=== PATIENT | female | born 1970 | race Hispanic/Latino ===

== ENCOUNTER 2017-02-03 11:10 | Emergency (ER) | payer SELFPAY ==
[~2017-02-03 11:10] MED LIST: CARV25TA PO; ERYT-122 PO; INS7030 SQ; LISI-613 PO; MAG-37 PO; TRAM50TA4 PO; [UNRECOGNIZED DRUG - CODE] PO
[2017-04-04] MEDS ORDERED: INS7030 SQ (19:14)
== END 2017-02-03 11:32 | disposition home or self-care (01) ==
LOC: EDH 11:10
DX: J06.9 Acute upper respiratory infection, unspecified (principal); E11.9 Type 2 diabetes mellitus without complications; I10 Essential (primary) hypertension; Z88.0 Allergy status to penicillin; Z98.890 Other specified postprocedural states
CPT/HCPCS: 99281

== ENCOUNTER 2017-05-21 11:24 | Inpatient (IN) | payer OTHER ==
[~2017-05-21] VITALS: Ht 149.9 cm; Wt 56.7 kg
[~2017-05-21 11:24] MED LIST changes: -CARV25TA PO; -ERYT-122 PO; -LISI-613 PO; -MAG-37 PO; -TRAM50TA4 PO; -[UNRECOGNIZED DRUG - CODE] PO
[2017-05-21 12:01] LABS: APPEARANCE,URINE Cloudy (CLEAR); BILIRUBIN,URINE Negative (NEGATIVE); COLOR,URINE Yellow (YELLOW); GLUCOSE, URINE (UA) >=1000 mg/dL (NEGATIVE); KETONES,URINE Negative (NEGATIVE); LEUKOCYTE ESTERASE ,URINE Negative (NEGATIVE); NITRATE,URINE Negative (NEGATIVE); OCCULT BLOOD,URINE Small (NEGATIVE); PH,URINE 7.5 (5.0-8.0); PROTEIN,URINE >=1000 (NEGATIVE)
[2017-05-21 12:11] LABS: BACTERIA,URINE Rare /HPF (None Seen); RBC,URINE 0-1 /HPF (0-1); SQUAMOUS EPITHELIAL CELL,UR Few /HPF (0-2)
[2017-05-21 12:12] LABS: BASOPHILS % (AUTO) 1.3 % (0.0-5.0); EOSINOPHILS % (AUTO) 0.6 % (0.0-8.0); HEMATOCRIT 36.8 % (36-48); LYMPHOCYTES % (AUTO) 30.9 % (21.0-51.0); MEAN CORPUSCULAR HEMOGLOBIN 29.3 pg (27.0-33.0); MEAN CORPUSCULAR HGB CONC 35.4 g/dL (32.0-36.0); MEAN CORPUSCULAR VOLUME 82.8 fL (79-99); MONOCYTES % (AUTO) 7.7 % (3.0-13.0); NEUTROPHILS % (AUTO) 59.5 % (40.0-77.0); NUCLEATED RED BLOOD CELLS 0.1 % (0.0-0.19); PLATELET COUNT (AUTO) 252 K/uL (130-400); RED BLOOD CELL COUNT(AUTO) 4.45 MIL/uL (4.00-5.50); RED CELL DISTRIBUTION WIDTH 13.9 % (11.0-15.5); WHITE BLOOD COUNT (AUTO) 6.9 K/uL (4.8-10.8)
[2017-05-21] MEDS ORDERED: MORPHINE SULFATE 4 MG/1ML SYG ONE (12:14)
[2017-05-21] MEDS ORDERED: SODIUM CHLORIDE 0.9% 1000ML 1,000 ML IV ONE (12:14)
[2017-05-21] MEDS ORDERED: ONDANSETRON HCL MDV 20ML 2 MG/ML VIAL ONE (12:14)
[2017-05-21 12:26] LABS: HCG,QUAL RESULT NEGATIVE (NEGATIVE)
[2017-05-21 12:36] LABS: INR 0.89 (0.85-1.15); PROTHROMBIN TIME 9.4 SEC (9.6-11.6)
[2017-05-21 12:46] LABS: ALBUMIN 1.4 g/dL (3.5-5.0); BILIRUBIN,TOTAL 0.3 mg/dL (0.2-1.0); CREATININE 1.4 mg/dL (0.5-1.5); TOTAL PROTEIN, SERUM 6.1 g/dL (6.0-8.3)
[2017-05-21 12:49] LABS: POTASSIUM 2.7 mmol/L (3.5-5.1)
[2017-05-21] MEDS ORDERED: POTASSIUM BICARB/CIT AC 25 MEQ TABLET.EFF ONE (13:00)
[2017-05-21] MEDS ORDERED: POTASSIUM CHLORIDE 20MEQ/100ML 100 ML IV ONE (13:00)
[2017-05-21 13:22] LABS: ACETONE,BLOOD NEGATIVE (NEGATIVE)
[2017-05-21 13:25] LABS: CREATINE KINASE MB 7.4 ng/mL (0.5-3.6); CREATINE KINASE, TOTAL 226 U/L (21-232)
[2017-05-21] MEDS ORDERED: HYDROMORPHONE HCL 0.5 MG/0.5 ML ML ONE (14:54)
[2017-05-21 16:00] VITALS: BP 145/87
[2017-05-21] MEDS ORDERED: LEVOFLOXACIN 500 MG/D5W 100 ML 100 ML ONE (16:20)
[2017-05-21] MEDS: ONDANSETRON HCL MDV 20ML 2 MG/ML VIAL IVP PRN (19:09)
[2017-05-21 19:54] VITALS: BP 165/96
[2017-05-21] MEDS ORDERED: INSULIN HUMULIN R 100 UNIT/ML 3ML ONE (22:38)
[2017-05-21] MEDS: HYDROMORPHONE 1 MG/1 ML AMP IVP PRN (22:49)
[2017-05-21] MEDS ORDERED: DEXTROSE 50%-WATER 50 ML DISP.SYRIN IV PRN (23:45)
[2017-05-21] MEDS ORDERED: LIDOCAINE HCL-MPF 1% 2ML VIAL IVP PRN (23:45)
[2017-05-21] MEDS ORDERED: GLUCAGON 1MG KIT 1 MG ML IM PRN (23:45)
[2017-05-21] MEDS ORDERED: POTASSIUM CHLORIDE 20MEQ/100ML 100 ML IV PRN (23:45)
[2017-05-21] MEDS ORDERED: POTASSIUM CHLORIDE 10% ELIXIR 20 MEQ/15 ML UDCUP PO PRN (23:45)
[2017-05-21 23:53] VITALS: BP 135/77
[2017-05-22] MEDS: ONDANSETRON HCL MDV 20ML 2 MG/ML VIAL IVP PRN ×2 (03:18→16:08)
[2017-05-22] MEDS: SODIUM CHLORIDE 0.9% 1000ML 1,000 ML IV SCH ×3 (03:19→23:45)
[2017-05-22 03:57] VITALS: BP 137/68
[2017-05-22 05:53] LABS: HEMATOCRIT 33.9 % (36-48); MEAN CORPUSCULAR HEMOGLOBIN 28.7 pg (27.0-33.0); MEAN CORPUSCULAR HGB CONC 34.7 g/dL (32.0-36.0); MEAN CORPUSCULAR VOLUME 82.9 fL (79-99); PLATELET COUNT (AUTO) 246 K/uL (130-400); RED BLOOD CELL COUNT(AUTO) 4.09 MIL/uL (4.00-5.50); RED CELL DISTRIBUTION WIDTH 13.9 % (11.0-15.5); WHITE BLOOD COUNT (AUTO) 7.7 K/uL (4.8-10.8)
[2017-05-22 06:05] LABS: CREATININE 1.1 mg/dL (0.5-1.5); MAGNESIUM 1.8 mg/dL (1.80-2.40); POTASSIUM 3.3 mmol/L (3.5-5.1)
[2017-05-22] MEDS: INSULIN HUMULIN R 100 UNIT/ML 3ML SQ SCH ×4 (06:58→21:48)
[2017-05-22] MEDS ORDERED: SUCR1TAB2 PO (08:15)
[2017-05-22 08:23] VITALS: BP 137/77
[2017-05-22] MEDS: PANTOPRAZOLE 40 MG/VIAL IVP SCH (09:15)
[2017-05-22] MEDS ORDERED: GADOBENATE DIMEGLUMINE 10 ML IV ONE (09:42)
[2017-05-22 12:14] VITALS: BP 133/73
[2017-05-22] MEDS ORDERED: HYDROMORPHONE HCL 0.5 MG/0.5 ML ML ONE ×2 (13:38→13:40)
[2017-05-22 16:00] VITALS: BP 139/79
[2017-05-22] MEDS: LEVOFLOXACIN 500 MG/D5W 100 ML 100 ML IV SCH (16:07)
[2017-05-22] MEDS ORDERED: METOCLOPRAMIDE 10 MG TABLET PO SCH (16:30)
[2017-05-22] MEDS: POTASSIUM CHLORIDE 20 MEQ ERTAB PO PRN ×3 (16:39→21:50)
[2017-05-22 20:00] VITALS: BP 137/77
[2017-05-23] VITALS: BP 122/83
[2017-05-23 04:00] VITALS: BP 125/65
[2017-05-23] MEDS: SODIUM CHLORIDE 0.9% 1000ML 1,000 ML IV SCH ×2 (04:25→18:18)
[2017-05-23 05:49] LABS: HEMATOCRIT 32.5 % (36-48); MEAN CORPUSCULAR HEMOGLOBIN 29.4 pg (27.0-33.0); PLATELET COUNT (AUTO) 236 K/uL (130-400); RED BLOOD CELL COUNT(AUTO) 3.86 MIL/uL (4.00-5.50); RED CELL DISTRIBUTION WIDTH 14.2 % (11.0-15.5); WHITE BLOOD COUNT (AUTO) 6.9 K/uL (4.8-10.8)
[2017-05-23 06:02] LABS: ALBUMIN 0.8 g/dL (3.5-5.0); BILIRUBIN,TOTAL 0.1 mg/dL (0.2-1.0); CREATININE 1.1 mg/dL (0.5-1.5); POTASSIUM 3.6 mmol/L (3.5-5.1); TOTAL PROTEIN, SERUM 4.4 g/dL (6.0-8.3)
[2017-05-23 06:04] LABS: BAND NEUTROPHILS % (MANUAL) 1 % (0-2); BASOPHILS % (MANUAL) 1 % (0-2); LYMPHOCYTES % (MANUAL) 30 % (22-44); MONOCYTES % (MANUAL) 3 % (2-9); REACTIVE LYMPHOCYTES 3 % (0-0); SEGMENTED NEUTROPHILS % 62 % (40-70)
[2017-05-23 06:05] LABS: MAN.DIFF COMMENT-IMPRESSION MANUAL DIFFERENTIAL; PLATELET MORPHOLOGY COMMENT ADEQUATE
[2017-05-23] MEDS: INSULIN HUMULIN R 100 UNIT/ML 3ML SQ SCH ×4 (06:15→20:21)
[2017-05-23] MEDS ORDERED: ONDANSETRON HCL MDV 20ML 2 MG/ML VIAL IVP PRN (08:00)
[2017-05-23] MEDS: PANTOPRAZOLE 40 MG/VIAL IVP SCH (09:06)
[2017-05-23 09:56] VITALS: BP 118/57
[2017-05-23 11:00] VITALS: BP 151/83
[2017-05-23 17:55] VITALS: BP 116/72
[2017-05-23] MEDS: LEVOFLOXACIN 500 MG/D5W 100 ML 100 ML IV SCH (18:18)
[2017-05-23 20:01] VITALS: BP 129/69
[2017-05-24 00:08] VITALS: BP 105/66
[2017-05-24 04:09] LABS: HEMATOCRIT 31.4 % (36-48); MEAN CORPUSCULAR HEMOGLOBIN 28.6 pg (27.0-33.0); MEAN CORPUSCULAR HGB CONC 34.3 g/dL (32.0-36.0); MEAN CORPUSCULAR VOLUME 83.5 fL (79-99); PLATELET COUNT (AUTO) 210 K/uL (130-400); RED BLOOD CELL COUNT(AUTO) 3.76 MIL/uL (4.00-5.50); RED CELL DISTRIBUTION WIDTH 13.8 % (11.0-15.5); WHITE BLOOD COUNT (AUTO) 8.3 K/uL (4.8-10.8)
[2017-05-24 04:16] VITALS: BP 125/74
[2017-05-24 05:23] LABS: ALBUMIN 0.9 g/dL (3.5-5.0); BILIRUBIN,TOTAL 0.1 mg/dL (0.2-1.0); CREATININE 1.4 mg/dL (0.5-1.5); POTASSIUM 3.5 mmol/L (3.5-5.1); TOTAL PROTEIN, SERUM 4.4 g/dL (6.0-8.3)
[2017-05-24] MEDS: HYDROMORPHONE 1 MG/1 ML AMP IVP PRN (06:11)
[2017-05-24] MEDS: INSULIN HUMULIN R 100 UNIT/ML 3ML SQ SCH ×4 (06:19→21:00)
[2017-05-24 08:00] VITALS: BP 133/73
[2017-05-24] MEDS: SODIUM CHLORIDE 0.9% 1000ML 1,000 ML IV SCH ×2 (08:08→17:13)
[2017-05-24] MEDS: PANTOPRAZOLE 40 MG/VIAL IVP SCH (09:00)
[2017-05-24 11:00] VITALS: BP 131/79
[2017-05-24] MEDS ORDERED: HYDROMORPHONE HCL 0.5 MG/0.5 ML ML IVP PRN (14:06)
[2017-05-24 16:00] VITALS: BP 147/90
[2017-05-24] MEDS: LEVOFLOXACIN 500 MG/D5W 100 ML 100 ML IV SCH (17:13)
[2017-05-24] MEDS: PANTOPRAZOLE SODIUM 40 MG TABLET.DR PO SCH (17:13)
[2017-05-24 19:00] VITALS: BP 139/86
[2017-05-25] VITALS: BP 134/80
[2017-05-25] MEDS: SODIUM CHLORIDE 0.9% 1000ML 1,000 ML IV SCH ×2 (02:04→12:33)
[2017-05-25 04:00] VITALS: BP 128/77
[2017-05-25 04:10] LABS: BASOPHILS % (AUTO) 0.8 % (0.0-5.0); EOSINOPHILS % (AUTO) 1.8 % (0.0-8.0); HEMATOCRIT 30.1 % (36-48); LYMPHOCYTES % (AUTO) 45.2 % (21.0-51.0); MEAN CORPUSCULAR HEMOGLOBIN 29.8 pg (27.0-33.0); MEAN CORPUSCULAR HGB CONC 35.5 g/dL (32.0-36.0); MEAN CORPUSCULAR VOLUME 84.1 fL (79-99); MONOCYTES % (AUTO) 8.2 % (3.0-13.0); PLATELET COUNT (AUTO) 210 K/uL (130-400); RED BLOOD CELL COUNT(AUTO) 3.57 MIL/uL (4.00-5.50); WHITE BLOOD COUNT (AUTO) 7.7 K/uL (4.8-10.8)
[2017-05-25 04:21] LABS: ALBUMIN 0.9 g/dL (3.5-5.0); BILIRUBIN,TOTAL 0.1 mg/dL (0.2-1.0); CREATININE 1.1 mg/dL (0.5-1.5); POTASSIUM 3.4 mmol/L (3.5-5.1); TOTAL PROTEIN, SERUM 4.3 g/dL (6.0-8.3)
[2017-05-25] MEDS: INSULIN HUMULIN R 100 UNIT/ML 3ML SQ SCH ×3 (07:30→16:30)
[2017-05-25] MEDS: PANTOPRAZOLE SODIUM 40 MG TABLET.DR PO SCH (07:30)
[2017-05-25 08:00] VITALS: BP 157/82
[2017-05-25] MEDS ORDERED: PANTOPRAZOLE SODIUM 40 MG TABLET.DR PO SCH (09:00)
[2017-05-25 11:00] VITALS: BP 153/78
[2017-05-25 16:00] VITALS: BP 157/92
[2017-05-25] MEDS: LEVOFLOXACIN 500 MG/D5W 100 ML 100 ML IV SCH (16:00)
== END 2017-05-25 16:48 | disposition home or self-care (01) | DRG 73 ==
LOC: EDH 11:24 → EDHIP 11:25 → 3BH 17:10
PROVIDERS: ADMIT Internal Medicine; ATTEND Internal Medicine
DX: E11.43 Type 2 diabetes mellitus with diabetic autonomic (poly)neuropathy (principal); K85.90 Acute pancreatitis without necrosis or infection, unspecified; K31.84 Gastroparesis; E11.65 Type 2 diabetes mellitus with hyperglycemia; E11.9 Type 2 diabetes mellitus without complications; E87.6 Hypokalemia; E78.2 Mixed hyperlipidemia; Z88.8 Allergy status to other drugs, medicaments and biological substances; Z88.0 Allergy status to penicillin
CPT/HCPCS: 36415; 71045; 72197; 74183; 80048; 80053; 81001; 81025; 82009; 82150; 82550; 82553; 82948; 83690; 83735; 83880; 84132; 84484; 85025; 85027; 85610; 85730; 93005; A9577; C9113; J1170; J1815; J1956; J2270; J3480; J3490; J7030

== ENCOUNTER 2017-06-27 17:04 | Emergency (ER) | payer SELFPAY ==
[~2017-06-27 17:04] MED LIST changes: +SUCR1TAB2 PO
[2017-06-27 17:37] LABS: BASOPHILS % (AUTO) 1.1 % (0.0-5.0); EOSINOPHILS % (AUTO) 0.7 % (0.0-8.0); HEMATOCRIT 34.1 % (36-48); LYMPHOCYTES % (AUTO) 28.4 % (21.0-51.0); MEAN CORPUSCULAR HEMOGLOBIN 29.6 pg (27.0-33.0); MEAN CORPUSCULAR HGB CONC 35.4 g/dL (32.0-36.0); MEAN CORPUSCULAR VOLUME 83.8 fL (79-99); MONOCYTES % (AUTO) 8.3 % (3.0-13.0); NEUTROPHILS % (AUTO) 61.5 % (40.0-77.0); PLATELET COUNT (AUTO) 277 K/uL (130-400); RED BLOOD CELL COUNT(AUTO) 4.07 MIL/uL (4.00-5.50); WHITE BLOOD COUNT (AUTO) 9.6 K/uL (4.8-10.8)
[2017-06-27 17:50] LABS: CREATININE 1.6 mg/dL (0.5-1.5); POTASSIUM 3.6 mmol/L (3.5-5.1)
[2017-06-27 17:54] LABS: ALBUMIN 1.2 g/dL (3.5-5.0); BILIRUBIN,DIRECT 0.1 mg/dL (0.0-0.3); BILIRUBIN,TOTAL 0.2 mg/dL (0.2-1.0); TOTAL PROTEIN, SERUM 5.4 g/dL (6.0-8.3)
[2017-06-27] MEDS ORDERED: KETOROLAC TROMETHAMINE 30MG/ML ONE (18:24)
[2017-06-27] MEDS ORDERED: PROCHLORPERAZINE EDISYLATE 10 MG/2 ML VIAL ONE (18:24)
[2017-06-27] MEDS ORDERED: ONDANSETRON HCL MDV 20ML 2 MG/ML VIAL ONE (18:30)
== END 2017-06-27 19:21 | disposition home or self-care (01) ==
LOC: EDH 17:04
DX: R10.13 Epigastric pain (principal); E11.9 Type 2 diabetes mellitus without complications; I10 Essential (primary) hypertension; Z79.4 Long term (current) use of insulin; Z88.0 Allergy status to penicillin; Z88.8 Allergy status to other drugs, medicaments and biological substances
CPT/HCPCS: 36415; 74176; 80048; 80076; 83690; 85025; 96361; 96374; 96375; 99285; J0780; J1885

== ENCOUNTER 2017-07-19 04:12 | Emergency (ER) | payer SELFPAY ==
[2017-07-19] MEDS ORDERED: DiphenhydrAMINE HCL 50 MG/ML VIAL ONE (05:57)
[2017-07-19] MEDS ORDERED: SODIUM CHLORIDE 0.9% 1000ML 1,000 ML IV ONE (05:58)
[2017-07-19] MEDS ORDERED: ONDANSETRON HCL 4 MG/2 ML VIAL ONE (05:58)
[2017-07-19 06:26] LABS: EOSINOPHILS % (AUTO) 1.1 % (0.0-8.0); HEMATOCRIT 36.9 % (36-48); LYMPHOCYTES % (AUTO) 28.1 % (21.0-51.0); MEAN CORPUSCULAR HEMOGLOBIN 29.2 pg (27.0-33.0); MEAN CORPUSCULAR VOLUME 83.4 fL (79-99); MONOCYTES % (AUTO) 8.5 % (3.0-13.0); NEUTROPHILS % (AUTO) 61.3 % (40.0-77.0); PLATELET COUNT (AUTO) 297 K/uL (130-400); RED BLOOD CELL COUNT(AUTO) 4.43 MIL/uL (4.00-5.50); RED CELL DISTRIBUTION WIDTH 12.6 % (11.0-15.5); WHITE BLOOD COUNT (AUTO) 10.2 K/uL (4.8-10.8)
[2017-07-19 06:42] LABS: APPEARANCE,URINE Clear (CLEAR); BILIRUBIN,URINE Negative (NEGATIVE); COLOR,URINE Yellow (YELLOW); GLUCOSE, URINE (UA) >=1000 mg/dL (NEGATIVE); KETONES,URINE Negative (NEGATIVE); LEUKOCYTE ESTERASE ,URINE Negative (NEGATIVE); NITRATE,URINE Negative (NEGATIVE); OCCULT BLOOD,URINE Small (NEGATIVE); PH,URINE 7.5 (5.0-8.0); PROTEIN,URINE 300 (NEGATIVE); UROBILINOGEN,URINE 0.2 mg/dL (0.2-1.0)
[2017-07-19 06:47] LABS: HCG,QUAL RESULT NEGATIVE (NEGATIVE)
[2017-07-19 06:48] LABS: CARBON DIOXIDE 30 mmol/L (21-32); CHLORIDE 97 mmol/L (101-111); CREATININE 1.5 mg/dL (0.5-1.5); GLOMERULAR FILTR. RATE CALC 40 mL/min (>60); GLUCOSE,RANDOM 334 mg/dL (70-105); POTASSIUM 3.3 mmol/L (3.5-5.1); SODIUM SERUM 129 mmol/L (136-145); UREA NITROGEN, BLOOD 11 mg/dL (7-18)
[2017-07-19 06:50] LABS: AMPHET/METH SCREEN,URINE NEGATIVE (NEGATIVE); BARBITURATE SCREEN, URINE NEGATIVE (NEGATIVE); BENZODIAZEPINES SCREEN,URINE NEGATIVE (NEGATIVE); CANNABINOID SCREEN,URINE NEGATIVE (NEGATIVE); COCAINE SCREEN,URINE NEGATIVE (NEGATIVE); OPIATE SCREEN,URINE NEGATIVE (NEGATIVE); PHENCYCLIDINE SCREEN,URINE NEGATIVE (NEGATIVE)
[2017-07-19 06:53] LABS: BACTERIA,URINE None Seen /HPF (None Seen); RBC,URINE 0-1 /HPF (0-1); SQUAMOUS EPITHELIAL CELL,UR 0-2 /HPF (0-2); WBC,URINE 0-1 /HPF (0-1)
[2017-07-19 06:55] LABS: ALANINE AMINOTRANSFERASE 21 U/L (12-78); ALBUMIN 1.1 g/dL (3.5-5.0); ASPARTATE AMINOTRANSFERASE 22 U/L (10-37); BILIRUBIN,DIRECT < 0.1 mg/dL (0.0-0.3); BILIRUBIN,TOTAL 0.2 mg/dL (0.2-1.0); LIPASE 115 U/L (114-286); TOTAL PROTEIN, SERUM 5.8 g/dL (6.0-8.3)
== END 2017-07-19 08:23 | disposition home or self-care (01) ==
LOC: EDH 04:12
DX: R10.9 Unspecified abdominal pain (principal); R11.0 Nausea
CPT/HCPCS: 36415; 80048; 80076; 80305; 81001; 81025; 83690; 84484; 85025; 93005; 96374; 96375; 99285; J1200; J2405; J7030; 96361

== ENCOUNTER 2017-08-09 16:50 | Emergency (ER) | payer OTHER ==
[2017-08-09 17:08] LABS: BASOPHILS % (AUTO) 1.1 % (0.0-5.0); EOSINOPHILS % (AUTO) 0.5 % (0.0-8.0); HEMATOCRIT 35.3 % (36-48); LYMPHOCYTES % (AUTO) 26.6 % (21.0-51.0); MEAN CORPUSCULAR HEMOGLOBIN 29.7 pg (27.0-33.0); MEAN CORPUSCULAR HGB CONC 35.6 g/dL (32.0-36.0); MEAN CORPUSCULAR VOLUME 83.3 fL (79-99); MONOCYTES % (AUTO) 5.9 % (3.0-13.0); NEUTROPHILS % (AUTO) 65.9 % (40.0-77.0); PLATELET COUNT (AUTO) 304 K/uL (130-400); RED BLOOD CELL COUNT(AUTO) 4.24 MIL/uL (4.00-5.50); RED CELL DISTRIBUTION WIDTH 12.7 % (11.0-15.5); WHITE BLOOD COUNT (AUTO) 6.9 K/uL (4.8-10.8)
[2017-08-09 17:19] LABS: INR 0.89 (0.85-1.15); PARTIAL THROMBOPLASTIN TIME 26.8 SEC (26.3-35.5); PROTHROMBIN TIME 9.4 SEC (9.6-11.6)
[2017-08-09 17:41] LABS: APPEARANCE,URINE CLEAR (CLEAR); BILIRUBIN,URINE NEGATIVE (NEGATIVE); COLOR,URINE YELLOW (YELLOW); GLUCOSE, URINE (UA) >=1000 mg/dL (NEGATIVE); KETONES,URINE 5 mg/dL (NEGATIVE); LEUKOCYTE ESTERASE ,URINE NEGATIVE (NEGATIVE); NITRATE,URINE NEGATIVE (NEGATIVE); OCCULT BLOOD,URINE MODERATE (NEGATIVE); PROTEIN,URINE >=300 (NEGATIVE); UROBILINOGEN,URINE 0.2 mg/dL (0.2-1.0)
[2017-08-09 17:49] LABS: AMPHET/METH SCREEN,URINE NEGATIVE (NEGATIVE); BARBITURATE SCREEN, URINE NEGATIVE (NEGATIVE); BENZODIAZEPINES SCREEN,URINE NEGATIVE (NEGATIVE); CANNABINOID SCREEN,URINE NEGATIVE (NEGATIVE); COCAINE SCREEN,URINE NEGATIVE (NEGATIVE); OPIATE SCREEN,URINE NEGATIVE (NEGATIVE); PHENCYCLIDINE SCREEN,URINE NEGATIVE (NEGATIVE)
[2017-08-09 17:52] LABS: CREATININE 1.6 mg/dL (0.5-1.5); POTASSIUM 3.1 mmol/L (3.5-5.1)
[2017-08-09 18:05] LABS: ALBUMIN 1.4 g/dL (3.5-5.0); BILIRUBIN,TOTAL 0.2 mg/dL (0.2-1.0); CREATINE KINASE MB 18.7 ng/mL (0.5-3.6)
[2017-08-09] MEDS ORDERED: ONDANSETRON HCL 4 MG/2 ML VIAL ONE (18:42)
[2017-08-09 18:54] LABS: WBC,URINE 0-1 /HPF (0-1)
[2017-08-09] MEDS ORDERED: HYOSCYAMINE SULFATE 0.125 MG TAB.SUBL SL ONE (18:54)
[2017-08-09 18:55] LABS: BACTERIA,URINE Moderate /HPF (None Seen)
[2017-08-09 18:56] LABS: SQUAMOUS EPITHELIAL CELL,UR Few /HPF (0-2)
[2017-08-09 19:36] LABS: CREATINE KINASE MB 17.4 ng/mL (0.5-3.6)
== END 2017-08-09 20:19 | disposition home or self-care (01) ==
LOC: EDH 16:50
DX: R10.10 Upper abdominal pain, unspecified (principal); E11.9 Type 2 diabetes mellitus without complications; I10 Essential (primary) hypertension; Z88.0 Allergy status to penicillin; Z88.6 Allergy status to analgesic agent; Z79.4 Long term (current) use of insulin; Z98.890 Other specified postprocedural states
CPT/HCPCS: 36415; 80053; 80305; 81001; 82150; 82270; 82550 ×2; 82553 ×2; 83690; 84484 ×2; 85025; 85610; 85730; 93005 ×2; 96374; 99285; J2405

== ENCOUNTER 2018-05-19 13:06 | Inpatient (IN) | payer OTHER ==
[~2018-05-19] VITALS: Ht 149.9 cm; Wt 53.0 kg
[2018-05-19 13:57] LABS: BASOPHILS % (AUTO) 1.2 % (0.0-5.0); HEMATOCRIT 29.1 % (36-48); LYMPHOCYTES % (AUTO) 8.9 % (21.0-51.0); MEAN CORPUSCULAR HEMOGLOBIN 27.6 pg (27.0-33.0); MEAN CORPUSCULAR HGB CONC 32.3 g/dL (32.0-36.0); MEAN CORPUSCULAR VOLUME 85.6 fL (79-99); MONOCYTES % (AUTO) 9.1 % (3.0-13.0); NEUTROPHILS % (AUTO) 74.8 % (40.0-77.0); PLATELET COUNT (AUTO) 295 K/uL (130-400); RED CELL DISTRIBUTION WIDTH 18.4 % (11.0-15.5); WHITE BLOOD COUNT (AUTO) 16.1 K/uL (4.8-10.8)
[2018-05-19 14:10] LABS: CREATININE 6.7 mg/dL (0.5-1.5); POTASSIUM 4.1 mmol/L (3.5-5.1)
[2018-05-19] MEDS ORDERED: ACETAMINOPHEN 325 MG TAB PO PRN (15:30)
[2018-05-19] MEDS ORDERED: VANCOMYCIN PROTOCOL PER PHARMACY IV PRN (15:30)
[2018-05-19] MEDS ORDERED: HYDRALAZINE HCL 20 MG/ML VIAL IV PRN (15:30)
[2018-05-19] MEDS ORDERED: LACTULOSE 20 GM/30 ML UDCUP PO PRN (15:30)
[2018-05-19] MEDS ORDERED: LEVOFLOXACIN 500 MG/D5W 100 ML 100 ML ONE (15:47)
[2018-05-19 15:58] LABS: HEMOGLOBIN A1C 6.8 % (4.0-6.0)
[2018-05-19] MEDS ORDERED: VANCOMYCIN 1GM+NS 250ML 250 ML IV ONE (16:59)
[2018-05-19] MEDS ORDERED: VANCOMYCIN 1GM+NS 250ML 250 ML IV SCH (18:55)
[2018-05-19] MEDS ORDERED: FAMOTIDINE/PF 20 MG/2 ML VIAL IV ONE (20:59)
[2018-05-19] MEDS: INSULIN HUMULIN R 100 UNIT/ML 3ML SQ SCH (21:00)
[2018-05-19] MEDS: FAMOTIDINE/PF 20 MG/2 ML VIAL IV SCH (21:00)
[2018-05-19 22:39] VITALS: BP 157/75
[2018-05-19] MEDS ORDERED: CHOL100018 PO (23:23)
[2018-05-19] MEDS ORDERED: CALC667C10 PO (23:23)
[2018-05-19] MEDS ORDERED: CIPR750T6 PO (23:23)
[2018-05-19] MEDS ORDERED: SODI650T PO (23:23)
[2018-05-19] MEDS ORDERED: AEC81 PO (23:23)
[2018-05-19] MEDS ORDERED: CLOP75TA32 PO (23:23)
[2018-05-19] MEDS ORDERED: ATOR40TA71 PO (23:23)
[2018-05-19] MEDS ORDERED: METO25TA6 PO (23:23)
[2018-05-19] MEDS ORDERED: FERS325 PO (23:23)
[2018-05-19] MEDS ORDERED: ASCO-360 PO (23:23)
[2018-05-19] MEDS ORDERED: FURO40TA5 PO (23:23)
[2018-05-19] MEDS ORDERED: CEPH500C2 PO (23:23)
[2018-05-19] MEDS ORDERED: FURO20TA4 PO (23:23)
[2018-05-19] MEDS: FUROSEMIDE 20 MG TABLET PO SCH (23:51)
[2018-05-19] MEDS: ONDANSETRON HCL 4 MG/2 ML VIAL IV PRN (23:51)
[2018-05-19] MEDS: MORPHINE SULFATE 4 MG/1ML SYG IV PRN (23:52)
[2018-05-20] VITALS: BP 138/65
[2018-05-20] MEDS: HEPARIN SODIUM 5000UNIT/ML 1ML VIAL SQ SCH ×3 (00:04→20:43)
[2018-05-20 04:00] VITALS: BP 128/61
[2018-05-20] MEDS: INSULIN HUMULIN R 100 UNIT/ML 3ML SQ SCH ×4 (05:52→20:39)
[2018-05-20] MEDS: MORPHINE SULFATE 4 MG/1ML SYG IV PRN (06:11)
[2018-05-20] MEDS ORDERED: COMPOUND IV REFRIGERATED 1 EACH IVSOLN MISC PRN (06:30)
[2018-05-20 08:00] VITALS: BP 132/60
[2018-05-20] MEDS ORDERED: CALCIUM ACETATE 667 MG CAPSULE PO SCH (08:00)
[2018-05-20] MEDS: ONDANSETRON HCL 4 MG/2 ML VIAL IV PRN ×2 (10:26→10:31)
[2018-05-20] MEDS: CLOPIDOGREL BISULFATE 75 MG TAB PO SCH (10:26)
[2018-05-20] MEDS: SODIUM BICARBONATE 650 MG TAB PO SCH ×2 (10:27→20:38)
[2018-05-20] MEDS: METOPROLOL TARTRATE 25 MG TAB PO SCH ×2 (10:27→20:39)
[2018-05-20] MEDS: ASPIRIN 81MG TAB.CHEW PO SCH (10:27)
[2018-05-20] MEDS: FUROSEMIDE 20 MG TABLET PO SCH ×2 (10:27→20:38)
[2018-05-20 12:00] VITALS: BP 123/58
--- NOTE | 2018-05-20 13:06 | NUR ---
INITIAL: Met with pt this afternoon to discuss dcp. Pt states that she lives at home w her spouse and 28yo son. Per pt she has not been able to walk for the past 18months and her son has to carry her to the bathroom, shower etc. She denies having any DME. She mentions that in the past she had acute HD while hospitalized but does not have any outpt HD. Pt states that her spouse assists her w ADLs. Discussed w pt regarding possibly a gently used wc, sh chair @ the local [employer]. Provided her with [employer] and low income packet. Pt states that she plans to return home at tx. Will continue to follow and wait for Md recommendations. Addendum: 05/20/18 at 1310 by TRAMAINE JIM Amended: Links added.
[2018-05-20] MEDS: VANCOMYCIN 750MG + NS 250 ML IV SCH ×2 (15:21)
[2018-05-20 16:00] VITALS: BP 140/71
[2018-05-20] MEDS: MORPHINE SULFATE 2 MG/ML 1ML SYG IV PRN (19:05)
[2018-05-20 20:00] VITALS: BP 142/66
[2018-05-20] MEDS: ATORVASTATIN CALCIUM 40 MG TABLET PO SCH (20:38)
[2018-05-20] MEDS: FAMOTIDINE/PF 20 MG/2 ML VIAL IV SCH (20:38)
--- NOTE | 2018-05-20 21:40 | NUR ---
MEDS AWAKENED PT FOR DUE MEDS, TOLERATED WELL. KEPT COMFORTABLE IN BED. CALL LIGHT WITHIN REACH. WILL MONITOR PT.
[2018-05-21] VITALS: BP 128/64
--- NOTE | 2018-05-21 02:00 | NUR ---
ROUNDS PT RESTING WELL. NO DISTRESS NOTED. KEPT UNDISTURBED FOR NOW. WILL MONITOR PT. CALL LIGHT WITHIN REACH.
[2018-05-21 04:00] VITALS: BP 94/55
[2018-05-21] MEDS: MORPHINE SULFATE 2 MG/ML 1ML SYG IV PRN ×2 (05:46→14:54)
[2018-05-21] MEDS: INSULIN HUMULIN R 100 UNIT/ML 3ML SQ SCH ×4 (06:04→20:28)
--- NOTE | 2018-05-21 06:53 | NUR ---
PAGE PT HAS NO REPEAT LAB THIS AM AND POTASSIUM LEVEL WAS LOW YESTERDAY. PAGED DR BRADLEY VIA ANSWERING SERVICE, AWAITING CALL BACK. ENDORSING TO AM SHIFT FOR MORE CARE AND MANAGEMENT.
[2018-05-21 07:00] LABS: HEMATOCRIT 29.1 % (36-48); MEAN CORPUSCULAR HEMOGLOBIN 28.2 pg (27.0-33.0); MEAN CORPUSCULAR HGB CONC 32.1 g/dL (32.0-36.0); MEAN CORPUSCULAR VOLUME 87.8 fL (79-99); NUCLEATED RED BLOOD CELLS 0.1 % (0.0-0.19); PLATELET COUNT (AUTO) 220 K/uL (130-400); RED BLOOD CELL COUNT(AUTO) 3.31 MIL/uL (4.00-5.50); RED CELL DISTRIBUTION WIDTH 18.6 % (11.0-15.5); WHITE BLOOD COUNT (AUTO) 14.1 K/uL (4.8-10.8)
[2018-05-21 07:20] LABS: POTASSIUM 4.4 mmol/L (3.5-5.1)
[2018-05-21 07:30] VITALS: BP 114/58
[2018-05-21] MEDS: FUROSEMIDE 20 MG TABLET PO SCH ×2 (09:14→20:07)
[2018-05-21] MEDS: ASPIRIN 81MG TAB.CHEW PO SCH (09:14)
[2018-05-21] MEDS: METOPROLOL TARTRATE 25 MG TAB PO SCH ×2 (09:14→19:55)
[2018-05-21] MEDS: HEPARIN SODIUM 5000UNIT/ML 1ML VIAL SQ SCH ×2 (09:14→20:01)
[2018-05-21] MEDS: CLOPIDOGREL BISULFATE 75 MG TAB PO SCH (09:14)
[2018-05-21] MEDS: SODIUM BICARBONATE 650 MG TAB PO SCH ×2 (09:15→19:55)
[2018-05-21] MEDS: CALCIUM ACETATE 667 MG CAPSULE PO SCH ×3 (10:47→17:00)
[2018-05-21] MEDS: ONDANSETRON HCL 4 MG/2 ML VIAL IV PRN (10:47)
[2018-05-21 11:00] VITALS: BP 123/63
[2018-05-21] MEDS: LEVOFLOXACIN 250 MG/D5W 50ML 50 ML IV SCH (13:25)
[2018-05-21] MEDS ORDERED: HYDROCODONE/ACETAMINOPHEN 7.5/325 MG TAB PO PRN (15:00)
[2018-05-21] MEDS: VANCOMYCIN 750MG + NS 250 ML IV SCH ×2 (15:11)
[2018-05-21 16:00] VITALS: BP 129/63
[2018-05-21] MEDS: ATORVASTATIN CALCIUM 40 MG TABLET PO SCH (19:55)
[2018-05-21] MEDS: FAMOTIDINE/PF 20 MG/2 ML VIAL IV SCH (19:55)
--- NOTE | 2018-05-21 19:55 | NUR ---
ASSESS PT RESTING IN BED. NO DISTRESS NOTED. DUE MEDS ADMINISTERED, TOLERATED WELL. PT'S SON VERBALIZES THAT PT HAD NOT BEEN URINATING USUAL. FURTHER CLAIMS THAT LASIX DOSE AT HOME WAS 40MG BID AND PT IS BEING GIVEN 20MG BID IN THE HOSPITAL. ASSURED FAMILY AND PT THAT IT WILL BE REFERRED TO MD. PT AND FAMILY IS AWARE OF SURGERY PLAN FOR TUESDAY PLAVIX WAS JUST STOPPED TODAY. KEPT RESTED AND COMFORTABLE. WILL MONITOR PT. Addendum: 05/21/18 at 2121 by DENISE CHEN RN RN Amended: Links added.
[2018-05-21 20:00] VITALS: BP 128/60
--- NOTE | 2018-05-21 21:34 | NUR ---
GROUP WORK PROGRAM AIDE CALLED [place], AND INFORMED OF PT AND FAMILY CONCERN ABOUT DOSE OF FUROSEMIDE. INFORMED GROUP WORK PROGRAM AIDE THAT ACCORDING TO THE SON ALICIA HAD INCREASED LASIX TO 40MG BID. HOME MED BOTTLE SEEN AND NOTED IT TO BE 40MG BID. GROUP WORK PROGRAM AIDE STATED TO INCREASE 40MG BID PER HYDRO TECHNICIAN HOME MED ORDER. MED ORDER PLACED.
[2018-05-22] VITALS (7 sets, daily range): BP systolic 107–147; BP diastolic 53–71
--- NOTE | 2018-05-22 02:00 | NUR ---
ROUNDS PT RESTING WELL. NO DISTRESS NOTED. KEPT UNDISTURBED FOR NOW. WILL CONTINUE TO MONITOR. CALL LIGHT WITHIN REACH. WILL MONITOR PT.
[2018-05-22 05:11] LABS: HEMATOCRIT 22.9 % (36-48); MEAN CORPUSCULAR HEMOGLOBIN 29.1 pg (27.0-33.0); MEAN CORPUSCULAR HGB CONC 33.9 g/dL (32.0-36.0); MEAN CORPUSCULAR VOLUME 85.9 fL (79-99); PLATELET COUNT (AUTO) 181 K/uL (130-400); RED BLOOD CELL COUNT(AUTO) 2.66 MIL/uL (4.00-5.50); RED CELL DISTRIBUTION WIDTH 17.9 % (11.0-15.5); WHITE BLOOD COUNT (AUTO) 10.7 K/uL (4.8-10.8)
[2018-05-22 05:35] LABS: CREATININE 7.2 mg/dL (0.5-1.5); POTASSIUM 4.7 mmol/L (3.5-5.1)
[2018-05-22] MEDS: INSULIN HUMULIN R 100 UNIT/ML 3ML SQ SCH ×4 (06:35→20:07)
--- NOTE | 2018-05-22 07:00 | NUR ---
REPORT REPORT GIVEN TO CELSA FRANCOIS NURSE. PT FOR MORE CARE AND MANAGEMENT.
[2018-05-22] MEDS: SODIUM BICARBONATE 650 MG TAB PO SCH ×2 (09:44→19:58)
[2018-05-22] MEDS: METOPROLOL TARTRATE 25 MG TAB PO SCH ×2 (09:44→19:58)
[2018-05-22] MEDS: ASPIRIN 81MG TAB.CHEW PO SCH (09:44)
[2018-05-22] MEDS: FUROSEMIDE 40 MG TABLET PO SCH ×2 (09:44→17:59)
[2018-05-22] MEDS: LEVOFLOXACIN 250 MG/D5W 50ML 50 ML IV SCH (09:45)
[2018-05-22] MEDS: CALCIUM ACETATE 667 MG CAPSULE PO SCH ×3 (09:45→17:59)
[2018-05-22] MEDS: HEPARIN SODIUM 5000UNIT/ML 1ML VIAL SQ SCH ×2 (09:53→20:06)
[2018-05-22] MEDS: MORPHINE SULFATE 2 MG/ML 1ML SYG IV PRN ×2 (10:00→23:30)
--- NOTE | 2018-05-22 17:02 | NUR ---
Nutrition intervention: Nutrition notification for malnutrition, recent wt loss, new to HD [id number]. Pt reports a 26lb wt loss in the past month, 17% of her usual body wt, because of poor intake d/t poor appetite. 1 month ago pt started dialysis, RD explained to pt that dialysis will change her nutritional lifestyle including altered taste and increased fatigue which will contribute to poor po intake d/t increased sleep. Pt reports noticing changes. RD provided pt with printed materials on dialysis diet education and a suggested grocery list to assist her in choosing appropriate food items. Pt has verbalized understanding. Pt has been encouraged to request dietitian consult if nutritional questions or concerns arise. Recommendations: Nutrition supplementation TID. Consult RD as nutrition concerns arise. Modify diet therapy to CCD 75GM diet for appropriate diet placement. Addendum: 05/22/18 at [address] Amended: Links added.
--- NOTE | 2018-05-22 17:09 | NUR ---
Food Allergies: As per EMR, pt with food allergies. [facility]A questioned pt and no food allergies recorded. Addendum: 05/22/18 at [address] No food allergies reported by pt.
[2018-05-22] MEDS: VANCOMYCIN 750MG + NS 250 ML IV SCH ×2 (17:59)
[2018-05-22] MEDS: FAMOTIDINE/PF 20 MG/2 ML VIAL IV SCH (19:58)
[2018-05-22] MEDS: ATORVASTATIN CALCIUM 40 MG TABLET PO SCH (19:58)
[2018-05-22] MEDS: ONDANSETRON HCL 4 MG/2 ML VIAL IV PRN (19:58)
--- NOTE | 2018-05-22 20:00 | NUR ---
ASSESS SHIFT ASSESSMENT DONE. PT COMPLAINTS OF NAUSEA. DUE MEDS ADMINISTERED, ZOFRAN IV GIVEN FOR NAUSEA. KEPT RESTED AND COMFORTABLE IN BED. CALL LIGHT WITHIN REACH. WILL RE-ASSESS PT. Addendum: 05/23/18 at 0040 by DENISE CHEN RN RN Amended: Links added.
--- NOTE | 2018-05-22 23:30 | NUR ---
PAIN PT CALLS FOR PAIN MEDICATION. CLAIMS OF RT FOOT PAINS. MEDICATED WITH MORPHINE IV. KEPT COMFORTABLE IN BED. WILL RE-ASSESS PT.
--- NOTE | 2018-05-23 02:00 | NUR ---
ROUNDS PT FAIRLY ASLEEP. NO DISTRESS NOTED. KEPT UNDISTURBED FOR NOW. WILL MONITOR PT.
[2018-05-23 03:08] VITALS: BP 105/56
--- NOTE | 2018-05-23 06:00 | NUR ---
ROUNDS PT RESTING WELL IN BED. NO DISTRESS NOTED. NO CONCERNS VERBALIZED. KEPT RESTED AND COMFORTABLE. FOR MORE CARE.
[2018-05-23] MEDS: INSULIN HUMULIN R 100 UNIT/ML 3ML SQ SCH ×4 (06:47→20:50)
[2018-05-23 08:06] VITALS: BP 136/63
[2018-05-23] MEDS: SODIUM BICARBONATE 650 MG TAB PO SCH ×2 (08:54→21:16)
[2018-05-23] MEDS: ASPIRIN 81MG TAB.CHEW PO SCH (08:54)
[2018-05-23] MEDS: CALCIUM ACETATE 667 MG CAPSULE PO SCH ×3 (08:54→17:20)
[2018-05-23] MEDS: LEVOFLOXACIN 250 MG/D5W 50ML 50 ML IV SCH (08:55)
[2018-05-23] MEDS: METOPROLOL TARTRATE 25 MG TAB PO SCH ×2 (08:55→21:09)
[2018-05-23] MEDS: FUROSEMIDE 40 MG TABLET PO SCH ×2 (08:55→17:20)
[2018-05-23] MEDS: HEPARIN SODIUM 5000UNIT/ML 1ML VIAL SQ SCH ×2 (09:03→21:16)
[2018-05-23] MEDS: ONDANSETRON HCL 4 MG/2 ML VIAL IV PRN (10:12)
[2018-05-23] MEDS: MORPHINE SULFATE 2 MG/ML 1ML SYG IV PRN ×2 (10:12→21:21)
[2018-05-23 12:00] VITALS: BP 131/71
[2018-05-23 16:15] VITALS: BP 144/69
[2018-05-23 19:20] VITALS: BP 148/68
[2018-05-23] MEDS: ATORVASTATIN CALCIUM 40 MG TABLET PO SCH (21:09)
[2018-05-23] MEDS: FAMOTIDINE/PF 20 MG/2 ML VIAL IV SCH (21:10)
--- NOTE | 2018-05-23 21:25 | NUR ---
MEDS PT JUST FINISHED WITH HER SHOWER, TOLERATED ACTIVITY WELL. PT COMPLAINTS OF PAINS ON THE RT FOOT. DUE MEDS ADMINISTERED, TOLERATED WELL.PLACED BACK IN BED AND KEPT COMFORTABLE. MORPHINE GIVEN FOR PAINS. NOTED PEELING OF SKIN ON THE INSTEP AREA OF RT FOOT AND IS RAW. COVERED WITH NON-ADHESIVE GAUZE AND SECURED WITH KERLIX AND TAPE. KEPT COMFORTABLE IN BED. WILL RE-ASSESS PT. Addendum: 05/23/18 at 2243 by DENISE CHEN RN RN Amended: Links added.
[2018-05-23 23:00] VITALS: BP 137/64
--- NOTE | 2018-05-24 01:10 | NUR ---
NAUSEA PT STILL AWAKE AND COMPLAINTS OF NAUSEA. MEDICATED WITH ZOFRAN IV. KEPT RESTED AND COMFORTABLE WITH HOB ELEVATED. ENCOURAGED TO SLEEP. WILL RE-ASSESS PT.
[2018-05-24] MEDS: ONDANSETRON HCL 4 MG/2 ML VIAL IV PRN ×2 (01:11→20:47)
[2018-05-24 03:00] VITALS: BP 116/54
--- NOTE | 2018-05-24 05:35 | NUR ---
ROUNDS PT RESTING WELL. NO CONCERNS VERBALIZED. KEPT RESTED AND COMFORTABLE. FOR MORE CARE.
[2018-05-24 06:00] LABS: BASOPHILS % (AUTO) 0.7 % (0.0-5.0); EOSINOPHILS % (AUTO) 4.9 % (0.0-8.0); HEMATOCRIT 26.9 % (36-48); LYMPHOCYTES % (AUTO) 10.7 % (21.0-51.0); MEAN CORPUSCULAR HEMOGLOBIN 29.2 pg (27.0-33.0); MEAN CORPUSCULAR HGB CONC 33.4 g/dL (32.0-36.0); MEAN CORPUSCULAR VOLUME 87.4 fL (79-99); MONOCYTES % (AUTO) 11.5 % (3.0-13.0); NEUTROPHILS % (AUTO) 72.2 % (40.0-77.0); PLATELET COUNT (AUTO) 177 K/uL (130-400); RED BLOOD CELL COUNT(AUTO) 3.08 MIL/uL (4.00-5.50); WHITE BLOOD COUNT (AUTO) 9.9 K/uL (4.8-10.8)
[2018-05-24 06:14] LABS: POTASSIUM 4.8 mmol/L (3.5-5.1)
[2018-05-24] MEDS: INSULIN HUMULIN R 100 UNIT/ML 3ML SQ SCH ×4 (06:14→20:46)
[2018-05-24 06:19] LABS: CREATININE 7.9 mg/dL (0.5-1.5)
[2018-05-24 08:00] VITALS: BP 136/70
[2018-05-24] MEDS: FUROSEMIDE 40 MG TABLET PO SCH ×2 (09:34→17:53)
[2018-05-24] MEDS: SODIUM BICARBONATE 650 MG TAB PO SCH ×2 (09:34→20:17)
[2018-05-24] MEDS: ASPIRIN 81MG TAB.CHEW PO SCH (09:34)
[2018-05-24] MEDS: METOPROLOL TARTRATE 25 MG TAB PO SCH ×2 (09:35→20:18)
[2018-05-24] MEDS: LEVOFLOXACIN 250 MG/D5W 50ML 50 ML IV SCH (09:35)
[2018-05-24] MEDS: CALCIUM ACETATE 667 MG CAPSULE PO SCH ×3 (09:38→17:00)
[2018-05-24] MEDS: HEPARIN SODIUM 5000UNIT/ML 1ML VIAL SQ SCH ×2 (09:46→20:14)
[2018-05-24 12:00] VITALS: BP 126/67
[2018-05-24 16:00] VITALS: BP 131/71
--- NOTE | 2018-05-24 16:00 | NUR ---
CARE PLANNING DISCUSSED IN IDT- [place] TUESDAY, [facility] TUESDAY. ASSESS NEED FOR FURTHER ABX, WOUND/STUMP CARE- NEEDS TO BE TAUGHT TO FAMILY. WILL REVISIT PT TODAY Addendum: 05/25/18 at 0820 by AURORA NAPOLES RN CM Amended: Links added.
--- NOTE | 2018-05-24 20:00 | NUR ---
TOMÁS IMMATURE AV GRAFT IN PLACE. Addendum: 05/24/18 at 2337 by CARMEL KUMAR RN RN Amended: Links added.
[2018-05-24] MEDS: ATORVASTATIN CALCIUM 40 MG TABLET PO SCH (20:17)
[2018-05-24] MEDS: FAMOTIDINE/PF 20 MG/2 ML VIAL IV SCH (20:18)
[2018-05-24] MEDS: MORPHINE SULFATE 4 MG/1ML SYG IV PRN (20:47)
[2018-05-24 21:33] VITALS: BP 152/72
[2018-05-24 23:59] VITALS: BP 102/53
[2018-05-25 04:00] VITALS: BP 99/49
[2018-05-25 05:40] LABS: BASOPHILS % (AUTO) 0.9 % (0.0-5.0); EOSINOPHILS % (AUTO) 5.5 % (0.0-8.0); HEMATOCRIT 23.6 % (36-48); LYMPHOCYTES % (AUTO) 11.3 % (21.0-51.0); MEAN CORPUSCULAR HEMOGLOBIN 29.7 pg (27.0-33.0); MEAN CORPUSCULAR HGB CONC 34.2 g/dL (32.0-36.0); MEAN CORPUSCULAR VOLUME 86.8 fL (79-99); MONOCYTES % (AUTO) 13.5 % (3.0-13.0); NEUTROPHILS % (AUTO) 68.8 % (40.0-77.0); PLATELET COUNT (AUTO) 156 K/uL (130-400); RED BLOOD CELL COUNT(AUTO) 2.72 MIL/uL (4.00-5.50); RED CELL DISTRIBUTION WIDTH 18.3 % (11.0-15.5)
[2018-05-25 05:48] LABS: POTASSIUM 5.2 mmol/L (3.5-5.1)
[2018-05-25] MEDS: INSULIN HUMULIN R 100 UNIT/ML 3ML SQ SCH ×4 (06:15→20:39)
[2018-05-25] MEDS ORDERED: SODIUM POLYSTYRENE SULFONATE 15 GM/60 ML ML PO SCH (07:45)
[2018-05-25 08:00] VITALS: BP 134/69
[2018-05-25] MEDS: CALCIUM ACETATE 667 MG CAPSULE PO SCH ×3 (08:00→17:00)
[2018-05-25] MEDS: SODIUM BICARBONATE 650 MG TAB PO SCH ×2 (09:52→20:32)
[2018-05-25] MEDS: ASPIRIN 81MG TAB.CHEW PO SCH (09:52)
[2018-05-25] MEDS: METOPROLOL TARTRATE 25 MG TAB PO SCH ×2 (09:52→20:33)
[2018-05-25] MEDS: FUROSEMIDE 40 MG TABLET PO SCH ×2 (09:52→17:52)
[2018-05-25] MEDS: LEVOFLOXACIN 250 MG/D5W 50ML 50 ML IV SCH (09:52)
[2018-05-25] MEDS: HEPARIN SODIUM 5000UNIT/ML 1ML VIAL SQ SCH ×2 (10:20→19:46)
[2018-05-25 12:00] VITALS: BP 127/64
[2018-05-25] MEDS ORDERED: EPOETIN ALFA 10,000 UNIT/ML VIAL SQ SCH (12:00)
[2018-05-25] MEDS ORDERED: ACETAMINOPHEN 325 MG TAB PO PRN (13:00)
[2018-05-25] MEDS ORDERED: LIDOCAINE HCL-MPF 1% 2ML VIAL IJ PRN (13:00)
[2018-05-25] MEDS ORDERED: 0.9% SODIUM CHLORIDE 1000 ML IV BAG IV PRN (13:00)
[2018-05-25] MEDS ORDERED: SODIUM CHLORIDE 0.9% 1000ML 1,000 ML IV PRN (13:00)
[2018-05-25 15:45] LABS: HEMOGLOBIN A1C 6.1 % (4.0-6.0)
[2018-05-25 15:46] LABS: ALBUMIN 1.6 g/dL (3.5-5.0); CREATININE 4.2 mg/dL (0.5-1.5)
[2018-05-25 16:00] VITALS: BP 154/77
[2018-05-25] MEDS: MORPHINE SULFATE 2 MG/ML 1ML SYG IV PRN ×2 (16:20→20:39)
[2018-05-25 16:40] LABS: % IRON SATURATION 16.7 % (22-44)
[2018-05-25 19:15] VITALS: BP 144/60
[2018-05-25] MEDS: ATORVASTATIN CALCIUM 40 MG TABLET PO SCH (20:32)
[2018-05-25] MEDS: FAMOTIDINE/PF 20 MG/2 ML VIAL IV SCH (20:32)
[2018-05-26] VITALS (34 sets, daily range): BP systolic 77–140; BP diastolic 28–68
[2018-05-26 05:25] LABS: BASOPHILS % (AUTO) 0.9 % (0.0-5.0); EOSINOPHILS % (AUTO) 2.8 % (0.0-8.0); HEMATOCRIT 24.3 % (36-48); MEAN CORPUSCULAR HEMOGLOBIN 29.4 pg (27.0-33.0); MEAN CORPUSCULAR HGB CONC 33.9 g/dL (32.0-36.0); MEAN CORPUSCULAR VOLUME 86.6 fL (79-99); MONOCYTES % (AUTO) 17.8 % (3.0-13.0); NEUTROPHILS % (AUTO) 60.5 % (40.0-77.0); PLATELET COUNT (AUTO) 151 K/uL (130-400); RED CELL DISTRIBUTION WIDTH 18.7 % (11.0-15.5); WHITE BLOOD COUNT (AUTO) 8.9 K/uL (4.8-10.8)
[2018-05-26 05:32] LABS: CREATININE 5.7 mg/dL (0.5-1.5); POTASSIUM 4.6 mmol/L (3.5-5.1)
[2018-05-26] MEDS: MORPHINE SULFATE 4 MG/1ML SYG IV PRN (06:04)
[2018-05-26] MEDS: INSULIN HUMULIN R 100 UNIT/ML 3ML SQ SCH ×4 (06:25→21:00)
[2018-05-26] MEDS: CALCIUM ACETATE 667 MG CAPSULE PO SCH ×3 (08:00→17:54)
[2018-05-26] MEDS: HEPARIN SODIUM 5000UNIT/ML 1ML VIAL SQ SCH ×2 (09:00→20:31)
[2018-05-26] MEDS: ASPIRIN 81MG TAB.CHEW PO SCH (09:00)
[2018-05-26] MEDS: METOPROLOL TARTRATE 25 MG TAB PO SCH ×2 (09:00→20:18)
[2018-05-26] MEDS: SODIUM BICARBONATE 650 MG TAB PO SCH ×2 (09:00→20:18)
[2018-05-26] MEDS: FUROSEMIDE 40 MG TABLET PO SCH ×2 (09:00→17:53)
--- NOTE | 2018-05-26 09:00 | NUR ---
DR BONNER NOTIFIED OF CHEST XRAY RESULTS AND GIVE ORDERED TO NOTIFY ANESTHESIA OF RESULTS . NOTIFICATION TO ANESTHESIA COMPLETED , ( PATIENT O2 SATS 96-98% ALERT LUNGS SOUNDS CLEAR) .
--- NOTE | 2018-05-26 09:45 | NUR ---
CM NOTE FOR AMPUTATION TODAY. WILL FOLLOW POST UP FOR DISCHARGE PLANS
[2018-05-26] MEDS: LEVOFLOXACIN 250 MG/D5W 50ML 50 ML IV SCH (11:06)
--- NOTE | 2018-05-26 11:48 | NUR ---
PATIENT OFF UNIT VIA BED TO OR FOR RIGHT BKA WITH DR BONNER FAMILY AT SIDE.
[2018-05-26] MEDS ORDERED: SUCCINYLCHOLINE 200MG/10ML SYR ONE (11:51)
[2018-05-26] MEDS ORDERED: DEXAMETHASONE SOD PHOSPHATE 10MG/ML 1ML VIAL ONE (11:51)
[2018-05-26] MEDS ORDERED: LIDOCAINE PF 2% 5ML ABBOJECT ONE (11:51)
[2018-05-26] MEDS ORDERED: MIDAZOLAM HCL 1 MG/ML 2ML VIAL ONE (11:51)
[2018-05-26] MEDS ORDERED: GLYCOPYRROLATE 1 MG/5 ML SYRINGE ONE (11:52)
[2018-05-26] MEDS ORDERED: ONDANSETRON HCL 4 MG/2 ML VIAL ONE (11:52)
[2018-05-26] MEDS ORDERED: PROPOFOL 10 MG/ML 20ML VIAL IV ONE (11:52)
[2018-05-26] MEDS ORDERED: ROCURONIUM 10MG/1ML SYR 10 MG/ML ML ONE (11:52)
[2018-05-26] MEDS ORDERED: NEOSTIGMINE 5MG/5ML SYR IV ONE ×2 (11:52→14:04)
[2018-05-26] MEDS ORDERED: FENTANYL CITRATE PF 50 MCG/1 ML 2ML VIAL ONE (11:53)
[2018-05-26] MEDS ORDERED: KETAMINE 50MG/ML SYRINGE 50 MG/ML DISP.SYRIN IV ONE (12:22)
[2018-05-26] MEDS: SODIUM CHLORIDE 0.9% 1000ML 1,000 ML IV SCH (14:07)
[2018-05-26] MEDS ORDERED: ALBUMIN (HUMAN) 5% 250 ML IV ONE (14:43)
--- NOTE | 2018-05-26 14:50 | NUR ---
4800 - DR TOM NOTIFIED OF LOW BP 84/42, ORDERS FOR ALBUMIN 250ML GIVEN, LAB AT BEDSIDE TO DRAW CBC. PT. NOTED TO BE UNRESPONSIVE, SHALLOW BREATHING, HYPOTENSIVE SBP 77, HR 80, O2SATS >91%. BVM TO ASSIST WITH VENTILATION, DR. TOM NOTIFIED AT THIS TIME. PT. WITH SPONTANEOUS RESPIRATIONS AND WAKING UP MORE. ELIA MCCARTHY AT BEDSIDE. ORDERS FOR ABGs, X-RAY AND EKG CARRIED OUT. V/S NOTED. AWAITING AVAILABILITY OF BLOOD. WILL CONTINUE TO MONITOR. Addendum: 05/26/18 at 1604 by EMIR MUELLER RN RN Amended: Links added.
[2018-05-26 14:52] LABS: MEAN CORPUSCULAR HEMOGLOBIN 29.3 pg (27.0-33.0); MEAN CORPUSCULAR HGB CONC 33.2 g/dL (32.0-36.0); MEAN CORPUSCULAR VOLUME 88.1 fL (79-99); PLATELET COUNT (AUTO) 128 K/uL (130-400); RED BLOOD CELL COUNT(AUTO) 2.35 MIL/uL (4.00-5.50); RED CELL DISTRIBUTION WIDTH 18.2 % (11.0-15.5); WHITE BLOOD COUNT (AUTO) 7.3 K/uL (4.8-10.8)
[2018-05-26 15:16] LABS: HEMATOCRIT 20.7 % (36-48)
[2018-05-26 15:26] LABS: ABG HCO3 25.6 mmol/L (21.0-28.0); ABG OXYGEN SATURATION 97.5 % (95.0-99.0); ABG PCO2 47 mmHg (32-45)
--- NOTE | 2018-05-26 16:35 | NUR ---
1 UNIT PRBC STARTED, PT. TOLERATES WELL. TRANPORTED TO 231 PER BED WITHOUT INCIDENT. BEDSIDE HAND-OFF TO AMADA WOODS. Addendum: 05/26/18 at 1657 by EMIR MUELLER RN RN Amended: Links added.
[2018-05-26] MEDS: ONDANSETRON HCL 4 MG/2 ML VIAL IV PRN (17:58)
--- NOTE | 2018-05-26 18:59 | NUR ---
PATIENT TRANSFERRED TO ROOM 231 FORM OR BELONGING GATHERER AND TAKING TO 231
[2018-05-26] MEDS: ATORVASTATIN CALCIUM 40 MG TABLET PO SCH (20:18)
[2018-05-26] MEDS: FAMOTIDINE/PF 20 MG/2 ML VIAL IV SCH (20:18)
[2018-05-26] MEDS ORDERED: MORPHINE SULFATE 4 MG/1ML SYG ONE (23:44)
[2018-05-27] VITALS (7 sets, daily range): BP systolic 110–130; BP diastolic 54–62
[2018-05-27 03:52] LABS: BASOPHILS % (AUTO) 0.1 % (0.0-5.0); HEMATOCRIT 21.8 % (36-48); MEAN CORPUSCULAR HEMOGLOBIN 28.5 pg (27.0-33.0); MEAN CORPUSCULAR HGB CONC 33.3 g/dL (32.0-36.0); MEAN CORPUSCULAR VOLUME 85.7 fL (79-99); MONOCYTES % (AUTO) 6.1 % (3.0-13.0); NEUTROPHILS % (AUTO) 80.8 % (40.0-77.0); PLATELET COUNT (AUTO) 155 K/uL (130-400); RED BLOOD CELL COUNT(AUTO) 2.54 MIL/uL (4.00-5.50); RED CELL DISTRIBUTION WIDTH 18.1 % (11.0-15.5); WHITE BLOOD COUNT (AUTO) 6.4 K/uL (4.8-10.8)
[2018-05-27 04:02] LABS: CREATININE 6.2 mg/dL (0.5-1.5); POTASSIUM 5.7 mmol/L (3.5-5.1)
[2018-05-27 06:19] LABS: HEPATITIS Bs ANTIGEN SCREEN P Negative (Negative)
[2018-05-27] MEDS: ONDANSETRON HCL 4 MG/2 ML VIAL IV PRN ×2 (07:02→10:44)
[2018-05-27] MEDS: MORPHINE SULFATE 4 MG/1ML SYG IV PRN ×2 (07:03→10:43)
[2018-05-27] MEDS: INSULIN HUMULIN R 100 UNIT/ML 3ML SQ SCH ×4 (07:30→21:00)
[2018-05-27] MEDS: SODIUM BICARBONATE 650 MG TAB PO SCH (09:05)
[2018-05-27] MEDS: CALCIUM ACETATE 667 MG CAPSULE PO SCH ×3 (09:05→17:00)
[2018-05-27] MEDS: ASPIRIN 81MG TAB.CHEW PO SCH (09:05)
[2018-05-27] MEDS: METOPROLOL TARTRATE 25 MG TAB PO SCH (09:06)
[2018-05-27] MEDS: FUROSEMIDE 40 MG TABLET PO SCH ×2 (09:06→17:00)
[2018-05-27] MEDS: LEVOFLOXACIN 250 MG/D5W 50ML 50 ML IV SCH (09:08)
[2018-05-27] MEDS: HEPARIN SODIUM 5000UNIT/ML 1ML VIAL SQ SCH (09:08)
--- NOTE | 2018-05-27 10:19 | NUR ---
DR. ELAINE IS IN TO SEE PATIENT. PER MD, PATIENT MAY BE TRANSFERRED TO MED-SURG.
[2018-05-27] MEDS: SODIUM CHLORIDE 0.9% 1000ML 1,000 ML IV SCH (14:07)
[2018-05-27] MEDS ORDERED: LIDOCAINE HCL MPF 1% 5ML VIAL ONE (18:45)
--- NOTE | 2018-05-27 18:45 | NUR ---
TRANSFER Received patient from 2nd Floor. Arrived ready for hemodialysis and receiving hemodialysis at this time. Patient alert and oriented X 3. ZARA to R BKA with minimal amount of sanguinous drainage. Dressing to RBKA C/D/I.
--- NOTE | 2018-05-27 18:56 | NUR ---
SPOKE WITH HOLDEN PRITCHARD. HE ORDERED FOR CARDIO CONSULT FOR ELEVATED TROPONIN. Addendum: 05/27/18 at 1858 by CHUCK COLLINS RN RN WRONG PATIENT
[2018-05-27] MEDS ORDERED: LIDOCAINE HCL-MPF 1% 2ML VIAL IJ PRN (19:00)
[2018-05-28] MEDS: FAMOTIDINE/PF 20 MG/2 ML VIAL IV SCH ×2 (00:03→21:16)
[2018-05-28] MEDS: METOPROLOL TARTRATE 25 MG TAB PO SCH ×3 (00:03→21:26)
[2018-05-28] MEDS: SODIUM BICARBONATE 650 MG TAB PO SCH ×3 (00:03→21:16)
[2018-05-28] MEDS: ATORVASTATIN CALCIUM 40 MG TABLET PO SCH ×2 (00:03→21:16)
[2018-05-28] MEDS: HEPARIN SODIUM 5000UNIT/ML 1ML VIAL SQ SCH ×2 (00:04→09:07)
[2018-05-28] MEDS: MORPHINE SULFATE 2 MG/ML 1ML SYG IVP PRN ×4 (00:18→18:30)
[2018-05-28 03:34] VITALS: BP 115/56
[2018-05-28 05:28] LABS: HEMATOCRIT 23.4 % (36-48); MEAN CORPUSCULAR HEMOGLOBIN 29.1 pg (27.0-33.0); MEAN CORPUSCULAR HGB CONC 33.7 g/dL (32.0-36.0); MEAN CORPUSCULAR VOLUME 86.5 fL (79-99); PLATELET COUNT (AUTO) 143 K/uL (130-400); RED BLOOD CELL COUNT(AUTO) 2.71 MIL/uL (4.00-5.50); RED CELL DISTRIBUTION WIDTH 18.2 % (11.0-15.5); WHITE BLOOD COUNT (AUTO) 9.8 K/uL (4.8-10.8)
[2018-05-28 05:37] LABS: CREATININE 4.1 mg/dL (0.5-1.5); POTASSIUM 4.6 mmol/L (3.5-5.1)
[2018-05-28] MEDS: INSULIN HUMULIN R 100 UNIT/ML 3ML SQ SCH ×4 (05:50→21:00)
[2018-05-28] MEDS ORDERED: ACETAMINOPHEN-CODEINE 300/30MG TAB PO PRN (06:45)
[2018-05-28] MEDS: FUROSEMIDE 40 MG TABLET PO SCH ×2 (08:42→17:31)
[2018-05-28] MEDS: ASPIRIN 81MG TAB.CHEW PO SCH (08:42)
[2018-05-28] MEDS: CALCIUM ACETATE 667 MG CAPSULE PO SCH ×3 (08:42→17:32)
[2018-05-28 09:20] VITALS: BP 143/69
--- NOTE | 2018-05-28 10:00 | NUR ---
DR. BERNARD Dressing to left leg removed and changed by Dr. Bernard at this time to right BKA. Site healing well per Dr. Bernard. Discussed information with patient about site and healing and son at bedside as well. Dr. Bernard gave orders to resume plavix and D/C heparin.
[2018-05-28 13:49] VITALS: BP 118/58
--- NOTE | 2018-05-28 15:32 | NUR ---
SPOKE EXTENSIVELY WITH PATIENT AND FAMIILY REGARDING DC TO SNF FOR REHAB. PT AND FAMILY AGREEABLE. PATIENT WAS ABLE TO COMPLETE 3X SIT TO [facility] WITH MODERATE ASSIST TODAY. Addendum: 05/28/18 at 1533 by KARTIK WEEKS PT PT Amended: Links added.
[2018-05-28 17:11] VITALS: BP 130/58
[2018-05-28] MEDS: ONDANSETRON HCL 4 MG/2 ML VIAL IV PRN (17:50)
[2018-05-28 19:15] VITALS: BP 150/72
--- NOTE | 2018-05-28 19:50 | NUR ---
RAPID RESPONSE During bedside report, patient was found sitting in chair at bedside collapsed over herself, nonresponsive to verbal or tactile stimuli. Morphine 2mg IV had been given at 1830. A code blue was called. She was transfered to bed and she became responsive to verbal stimuli. Stated she had fallen asleep in the chair. A rapid response was called instead of the code blue. Vital signs were stable. Denied any issues. Rapid response was canceled as she became interactive with her surroundings and her vital signs were stable and she responded to questions in a normal way. Physician Termite Helper Brian Field was paged to notify him of event; pending to call back.
[2018-05-28] MEDS ORDERED: NALOXONE HCL 0.4 MG/1 ML ML IVP PRN (20:15)
--- NOTE | 2018-05-28 21:00 | NUR ---
FRANCHESKA PRITCHARD came,notified of incident at change of shift.
--- NOTE | 2018-05-28 21:26 | NUR ---
CONSTIPATION Pt complained she has'nt had a bowel movement in 3 days,Lactulose given.
--- NOTE | 2018-05-28 22:54 | NUR ---
STATUS Pts son states pt was sob,pt appears lethargic,arousable.Vs taken 97.9,102,16,121/66,02 sat unable to obtain due to fingers cold,placed on 02 at 2 lpm via Nc.Hob up 45 degrees.Blood sugar checked 177.Paged Brian Lr,he gave new orders.Pt already more awake,saturating 100%,skin pale looking,resp even and unlabored.
[2018-05-28 23:00] VITALS: BP 121/66
--- NOTE | 2018-05-28 23:54 | NUR ---
FF UP Pt awake,alert.Denies pain or sob. Son at bedside.
--- NOTE | 2018-05-29 04:36 | NUR ---
REST Pt slept fairly well.No distress noted.Arousable,denies pain or sob.
[2018-05-29 04:50] VITALS: BP 102/48
[2018-05-29 05:19] LABS: HEMATOCRIT 23.2 % (36-48); MEAN CORPUSCULAR HEMOGLOBIN 28.3 pg (27.0-33.0); MEAN CORPUSCULAR HGB CONC 32.7 g/dL (32.0-36.0); MEAN CORPUSCULAR VOLUME 86.5 fL (79-99); PLATELET COUNT (AUTO) 169 K/uL (130-400); RED BLOOD CELL COUNT(AUTO) 2.69 MIL/uL (4.00-5.50); RED CELL DISTRIBUTION WIDTH 17.8 % (11.0-15.5); WHITE BLOOD COUNT (AUTO) 9.8 K/uL (4.8-10.8)
[2018-05-29 05:35] LABS: CREATININE 4.8 mg/dL (0.5-1.5); POTASSIUM 5.9 mmol/L (3.5-5.1)
[2018-05-29] MEDS: INSULIN HUMULIN R 100 UNIT/ML 3ML SQ SCH ×4 (06:45→20:10)
[2018-05-29 08:00] VITALS: BP 139/65
[2018-05-29] MEDS: ASPIRIN 81MG TAB.CHEW PO SCH (08:53)
[2018-05-29] MEDS: CALCIUM ACETATE 667 MG CAPSULE PO SCH ×3 (08:53→17:48)
[2018-05-29] MEDS: FUROSEMIDE 40 MG TABLET PO SCH ×2 (08:54→17:48)
[2018-05-29] MEDS: METOPROLOL TARTRATE 25 MG TAB PO SCH ×2 (08:54→20:05)
[2018-05-29] MEDS: CLOPIDOGREL BISULFATE 75 MG TAB PO SCH (08:54)
[2018-05-29] MEDS: SODIUM BICARBONATE 650 MG TAB PO SCH ×2 (08:54→20:04)
[2018-05-29] MEDS ORDERED: VANCOMYCIN 1GM+NS 250ML 250 ML IV SCH (09:00)
[2018-05-29 12:00] VITALS: BP 131/64
--- NOTE | 2018-05-29 12:48 | NUR ---
Nutrition f/U: Pt continues on dialysis diet, 75gm diet modification appropriate for pt. Pt with s/p Rt BKA. Pt reports fair po intake. Pt questioned about food allergies once again, reports they are not allergies-Pt DOES NOT HAVE FOOD ALLERGIES. Pt with food preferences and preferred not eat tortillas and bread as a food preference in order to lose wt. Pt has been encouraged not to lose additional wt, Pt verbalized understanding. LBM 05/29. Alb 1.6. Recommendations: Continue current diet order. Nepro nutrition supp. BID for added caloric and protein intake. Consult RD as nutrition concerns arise. Addendum: 05/29/18 at [address] Amended: Links added.
[2018-05-29] MEDS ORDERED: SODIUM POLYSTYRENE SULFONATE 15 GM/60 ML ML PO SCH (15:00)
[2018-05-29 16:00] VITALS: BP 136/71
--- NOTE | 2018-05-29 16:00 | NUR ---
DC plan to HOME w family assist Today CN spoke with Dr. Cavanaugh today regarding this patient's funding constraints. and CM discussed w pt and bf. Bf states has wheelchair at home, pt in past takes dialysis in [facility] emergency room, they know her there, no funding for HD clinic; BF will be taught how to wrap the stump/ and do incision care. Possible discharge for tomorrow. Agreeable to plan, BF verbalized understanding in Kazakh. Pt still on oxygen. sputum since surgery no IS at bedside. order for IS, CXR per Dr. Cavanaugh.
[2018-05-29 19:00] VITALS: BP 137/68
[2018-05-29] MEDS: FAMOTIDINE/PF 20 MG/2 ML VIAL IV SCH (20:04)
[2018-05-29] MEDS: ATORVASTATIN CALCIUM 40 MG TABLET PO SCH (20:05)
[2018-05-30 00:20] VITALS: BP 129/63
[2018-05-30 04:14] VITALS: BP 134/75
[2018-05-30 04:19] LABS: BASOPHILS % (AUTO) 0.9 % (0.0-5.0); HEMATOCRIT 22.1 % (36-48); LYMPHOCYTES % (AUTO) 28.5 % (21.0-51.0); MEAN CORPUSCULAR HEMOGLOBIN 29.3 pg (27.0-33.0); MEAN CORPUSCULAR HGB CONC 33.8 g/dL (32.0-36.0); MEAN CORPUSCULAR VOLUME 86.7 fL (79-99); MONOCYTES % (AUTO) 11.8 % (3.0-13.0); NEUTROPHILS % (AUTO) 55.8 % (40.0-77.0); PLATELET COUNT (AUTO) 170 K/uL (130-400); RED BLOOD CELL COUNT(AUTO) 2.55 MIL/uL (4.00-5.50); RED CELL DISTRIBUTION WIDTH 17.4 % (11.0-15.5); WHITE BLOOD COUNT (AUTO) 7.9 K/uL (4.8-10.8)
[2018-05-30 04:30] LABS: PHOSPHORUS 6.1 mg/dL (2.5-4.9); POTASSIUM 5.3 mmol/L (3.5-5.1)
--- NOTE | 2018-05-30 04:40 | NUR ---
STATUS P resting in bed,denies pain or sob.
--- NOTE | 2018-05-30 05:35 | NUR ---
GLUCOSE Pts blood sugar 67,pt awake,alert.Asymptomatic.Gave apple juice and carmen cracker.
[2018-05-30] MEDS: INSULIN HUMULIN R 100 UNIT/ML 3ML SQ SCH ×4 (05:59→21:01)
[2018-05-30 08:00] VITALS: BP 136/63
[2018-05-30] MEDS: CALCIUM ACETATE 667 MG CAPSULE PO SCH ×3 (08:00→17:50)
[2018-05-30] MEDS: FUROSEMIDE 40 MG TABLET PO SCH ×2 (09:00→17:50)
[2018-05-30] MEDS: SODIUM BICARBONATE 650 MG TAB PO SCH ×2 (09:00→20:52)
[2018-05-30] MEDS: METOPROLOL TARTRATE 25 MG TAB PO SCH ×2 (09:00→20:52)
[2018-05-30 12:00] VITALS: BP 95/44
--- NOTE | 2018-05-30 12:25 | NUR ---
Diet Education Diet education for Renal Dialysis Diet previously provided. LEA provided written materials and handouts at previous visit. Patient verbalized understanding and encouraged to ask questions. RD to follow-up. Addendum: 05/30/18 at [address] Amended: Links added.
[2018-05-30 16:00] VITALS: BP 152/66
[2018-05-30] MEDS: CLOPIDOGREL BISULFATE 75 MG TAB PO SCH (17:50)
[2018-05-30] MEDS: ASPIRIN 81MG TAB.CHEW PO SCH (17:50)
[2018-05-30] MEDS ORDERED: BENZONATATE 100 MG CAPSULE PO PRN (18:30)
[2018-05-30 19:20] VITALS: BP 154/71
[2018-05-30] MEDS: FAMOTIDINE/PF 20 MG/2 ML VIAL IV SCH (20:52)
[2018-05-30] MEDS: ATORVASTATIN CALCIUM 40 MG TABLET PO SCH (20:52)
--- NOTE | 2018-05-30 23:06 | NUR ---
MINERVA LR Pt c/o pain to rt bka stump,she refused Tylenol.She wants Morphine instead,minerva Lr.
[2018-05-30] MEDS: MORPHINE SULFATE 2 MG/ML 1ML SYG IVP PRN (23:53)
--- NOTE | 2018-05-30 23:56 | NUR ---
PAIN Morphine given for c/o rt bka stump pain.
[2018-05-31] VITALS (7 sets, daily range): BP systolic 114–153; BP diastolic 55–68
[2018-05-31 05:00] LABS: HEMATOCRIT 23.6 % (36-48); MEAN CORPUSCULAR HGB CONC 32.4 g/dL (32.0-36.0); MEAN CORPUSCULAR VOLUME 86.6 fL (79-99); PLATELET COUNT (AUTO) 208 K/uL (130-400); RED BLOOD CELL COUNT(AUTO) 2.73 MIL/uL (4.00-5.50); RED CELL DISTRIBUTION WIDTH 17.6 % (11.0-15.5); WHITE BLOOD COUNT (AUTO) 9.7 K/uL (4.8-10.8)
[2018-05-31 05:08] LABS: POTASSIUM 4.3 mmol/L (3.5-5.1)
[2018-05-31] MEDS: INSULIN HUMULIN R 100 UNIT/ML 3ML SQ SCH ×4 (05:34→20:49)
[2018-05-31] MEDS: CLOPIDOGREL BISULFATE 75 MG TAB PO SCH (11:06)
[2018-05-31] MEDS: ASPIRIN 81MG TAB.CHEW PO SCH (11:06)
[2018-05-31] MEDS: CALCIUM ACETATE 667 MG CAPSULE PO SCH ×3 (11:07→16:58)
[2018-05-31] MEDS: SODIUM BICARBONATE 650 MG TAB PO SCH ×2 (11:08→20:46)
[2018-05-31] MEDS: METOPROLOL TARTRATE 25 MG TAB PO SCH ×2 (11:08→20:46)
[2018-05-31] MEDS: GUAIFENESIN-DM 200/20 MG 10 ML PO PRN ×2 (11:23→20:57)
[2018-05-31] MEDS: FUROSEMIDE 40 MG TABLET PO SCH ×2 (11:23→16:59)
[2018-05-31] MEDS: IPRATROPIUM/ALBUTEROL SULFATE 3 ML SOLUTION IH SCH ×3 (12:28→23:54)
--- NOTE | 2018-05-31 15:35 | NUR ---
CXR RESULTS WITH INFILTRATES. AJ INSTRUCTED TO CALL DR. WYMAN TO FOLLOW UP WITH ANTIBIOTICS. WILL FOLLOW THROUGH.
--- NOTE | 2018-05-31 16:43 | NUR ---
DR. WYMAN NOTIFIED. ORDERED CT CHEST WITHOUT CONTRAST. WILL CONTINUE TO FOLLOW.
[2018-05-31] MEDS: ATORVASTATIN CALCIUM 40 MG TABLET PO SCH (20:46)
[2018-05-31] MEDS: FAMOTIDINE/PF 20 MG/2 ML VIAL IV SCH (20:46)
[2018-06-01 03:27] VITALS: BP 138/61
[2018-06-01] MEDS: MORPHINE SULFATE 2 MG/ML 1ML SYG IVP PRN (04:22)
[2018-06-01] MEDS: INSULIN HUMULIN R 100 UNIT/ML 3ML SQ SCH ×3 (06:07→16:11)
[2018-06-01] MEDS: IPRATROPIUM/ALBUTEROL SULFATE 3 ML SOLUTION IH SCH ×3 (06:56→18:31)
[2018-06-01 08:00] VITALS: BP 137/73
[2018-06-01] MEDS: CALCIUM ACETATE 667 MG CAPSULE PO SCH ×3 (08:14→16:11)
[2018-06-01] MEDS: SODIUM BICARBONATE 650 MG TAB PO SCH (08:15)
[2018-06-01] MEDS: FUROSEMIDE 40 MG TABLET PO SCH ×2 (08:15→16:11)
[2018-06-01] MEDS: CLOPIDOGREL BISULFATE 75 MG TAB PO SCH (08:15)
[2018-06-01] MEDS: ASPIRIN 81MG TAB.CHEW PO SCH (08:15)
[2018-06-01] MEDS: METOPROLOL TARTRATE 25 MG TAB PO SCH (08:16)
[2018-06-01 11:51] VITALS: BP 131/61
[2018-06-01 16:00] VITALS: BP 118/62
--- NOTE | 2018-06-01 17:08 | NUR ---
NOTIFIED DR. STARK OF EPOGEN NOT GIVEN DUE TO NOT MEETING CRITERIA TO RECEIVE PER PHARMACY. NO NEW ORDERS.
[2018-06-01] MEDS ORDERED: EPOETIN ALFA 10,000 UNIT/ML VIAL SQ NR (21:00)
== END 2018-06-01 19:22 | disposition home or self-care (01) | DRG 853 ==
LOC: EDH 13:06 → EDHIP 13:07 → 3CH 22:44 → 2AH 05-26 16:54 → 3AH 05-27 18:12
PROVIDERS: ADMIT Internal Medicine; ATTEND Internal Medicine
PROC: 30233N1 Transfusion of Nonautologous Red Blood Cells into Peripheral Vein, Percutaneous Approach (ICD-10-PCS; 2018-05-25)
PROC: 5A1D80Z Performance of Urinary Filtration, Prolonged Intermittent, 6-18 hours Per Day (ICD-10-PCS; 2018-05-25)
PROC: 0Y6H0Z1 Detachment at Right Lower Leg, High, Open Approach (ICD-10-PCS; principal; 2018-05-26 12:37)
PROC: 5A1D80Z Performance of Urinary Filtration, Prolonged Intermittent, 6-18 hours Per Day (ICD-10-PCS; 2018-05-27)
PROC: 5A1D80Z Performance of Urinary Filtration, Prolonged Intermittent, 6-18 hours Per Day (ICD-10-PCS; 2018-05-30)
PROC: 5A1D80Z Performance of Urinary Filtration, Prolonged Intermittent, 6-18 hours Per Day (ICD-10-PCS; 2018-06-01)
DX: A41.9 Sepsis, unspecified organism (principal); N18.6 End stage renal disease; G04.91 Myelitis, unspecified; J18.9 Pneumonia, unspecified organism; M86.671 Other chronic osteomyelitis, right ankle and foot; L03.115 Cellulitis of right lower limb; I12.0 Hypertensive chronic kidney disease with stage 5 chronic kidney disease or end stage renal disease; E11.52 Type 2 diabetes mellitus with diabetic peripheral angiopathy with gangrene; N17.9 Acute kidney failure, unspecified; A52.16 Charcot's arthropathy (tabetic); M00.9 Pyogenic arthritis, unspecified; J98.11 Atelectasis; E11.69 Type 2 diabetes mellitus with other specified complication; E11.21 Type 2 diabetes mellitus with diabetic nephropathy; E11.22 Type 2 diabetes mellitus with diabetic chronic kidney disease; E11.610 Type 2 diabetes mellitus with diabetic neuropathic arthropathy; E11.621 Type 2 diabetes mellitus with foot ulcer; D63.1 Anemia in chronic kidney disease; E78.5 Hyperlipidemia, unspecified; E87.5 Hyperkalemia; E87.70 Fluid overload, unspecified; L97.519 Non-pressure chronic ulcer of other part of right foot with unspecified severity; M21.961 Unspecified acquired deformity of right lower leg; Z99.2 Dependence on renal dialysis; Z88.0 Allergy status to penicillin; Z88.8 Allergy status to other drugs, medicaments and biological substances; Z91.018 Allergy to other foods; Z83.3 Family history of diabetes mellitus; Z82.5 Family history of asthma and other chronic lower respiratory diseases; Z82.49 Family history of ischemic heart disease and other diseases of the circulatory system; Z82.3 Family history of stroke; Z82.0 Family history of epilepsy and other diseases of the nervous system
CPT/HCPCS: 36415; 36430; 36600; 71045; 71250; 73630; 76882; 80048; 80061; 80202; 82040; 82435; 82565; 82728; 82803; 82947; 82948; 83036; 83540; 83550; 83605; 84100; 84132; 84145; 84295; 84520; 85018; 85025; 85027; 85651; 86140; 86701; 86704; 86706; 86850; 86900; 86901; 86922; 87040; 87340; 87390; 87520; 88307; 90935; 93005; 94640; 94664; 97039; A4606; G0378; J0330; J0885; J1100; J1644; J1815; J1956; J2001; J2250; J2270; J2405; J2704; J2710; J3010; J3370; J3490; J7030; J7120; P9016; P9045

== ENCOUNTER 2018-06-08 13:02 | Emergency (ER) | payer OTHER ==
[~2018-06-08 13:02] MED LIST changes: +AEC81 PO; +ASCO-360 PO; +ATOR40TA71 PO; +CALC667C10 PO; +CHOL100018 PO; +CLOP75TA32 PO; +FERS325 PO; +FURO40TA5 PO; -INS7030 SQ; +METO25TA6 PO; +SODI650T PO; -SUCR1TAB2 PO
[2018-06-08] MEDS ORDERED: ACETAMINOPHEN EXTRA STRENGTH 500 MG TABLET ONE (14:26)
== END 2018-06-08 15:36 | disposition home or self-care (01) ==
LOC: EDH 13:02
DX: G89.18 Other acute postprocedural pain (principal); I10 Essential (primary) hypertension; E11.9 Type 2 diabetes mellitus without complications; Z98.890 Other specified postprocedural states; Z89.511 Acquired absence of right leg below knee; Z88.0 Allergy status to penicillin; Z88.6 Allergy status to analgesic agent
CPT/HCPCS: 99282

== ENCOUNTER 2018-06-10 21:12 | Inpatient (IN) | payer OTHER ==
[~2018-06-10] VITALS: Ht 149.9 cm; Wt 53.4 kg
[2018-06-10 22:28] LABS: BASOPHILS % (AUTO) 1.3 % (0.0-5.0); EOSINOPHILS % (AUTO) 1.7 % (0.0-8.0); HEMATOCRIT 21.4 % (36-48); MEAN CORPUSCULAR HEMOGLOBIN 27.7 pg (27.0-33.0); MEAN CORPUSCULAR HGB CONC 31.9 g/dL (32.0-36.0); MEAN CORPUSCULAR VOLUME 86.7 fL (79-99); MONOCYTES % (AUTO) 7.8 % (3.0-13.0); NEUTROPHILS % (AUTO) 74.2 % (40.0-77.0); PLATELET COUNT (AUTO) 327 K/uL (130-400); RED BLOOD CELL COUNT(AUTO) 2.47 MIL/uL (4.00-5.50); RED CELL DISTRIBUTION WIDTH 17.7 % (11.0-15.5)
[2018-06-10 22:38] LABS: CREATININE 6.8 mg/dL (0.5-1.5); POTASSIUM 5.1 mmol/L (3.5-5.1)
[2018-06-10 22:46] LABS: ALBUMIN 1.7 g/dL (3.5-5.0); BILIRUBIN,TOTAL 0.4 mg/dL (0.2-1.0)
[2018-06-10] MEDS ORDERED: ONDANSETRON HCL 4 MG/2 ML VIAL ONE (23:36)
[2018-06-10] MEDS ORDERED: MORPHINE SULFATE 8 MG/ML VIAL ONE (23:37)
--- NOTE | 2018-06-11 01:40 | NUR ---
ADMIT PT ADMITTED TO ROOM 411, AAOX3. PT CLAIMS OF PAINS TO HER RT BKA. ADMISSION CARE DONE. ADMISSION CARE DONE. UPDATED DATA BASE AND HOME MEDS. PLACED COMFORTABLY IN BED. IN FOR MORE CARE AND MANAGEMENT. Addendum: 06/11/18 at 0324 by DENISE CHEN RN RN Amended: Links added.
[2018-06-11 01:57] VITALS: BP 138/61
--- NOTE | 2018-06-11 02:36 | NUR ---
PAGED PATRICIA TRIMBLE NP WEIGHT LOSS SALES CONSULTANT FOR DR FRANK, PAGED VIA ANSWERING SERVICE. AWAITING CALL BACK.
--- NOTE | 2018-06-11 02:56 | NUR ---
RE-PAGED NO CALL BACK FROM [place] TRIMBLE. RE-PAGED VIA ANSWERING SERVICE. AWAITING CALL BACK.
--- NOTE | 2018-06-11 03:22 | NUR ---
3RD PAGE STILL NO CALL FROM BACCARAT DEALER ATILIO. CALLED RESOURCE NURSE. NO PHONE NUMBER AVAILABLE. CALLED ER [facility]ILITY PSYCHIATRIST. NO CP NUMBER AVAILABLE FOR MR TRIMBLE. RE-PAGED VIA ANSWERING SERVICE AND WAS ABLE TO REACH BACCARAT DEALER ATILIO. REFERRED PT'S COMPLAINTS OF RT BKA PAIN AND N/V. NEW MED ORDERS GIVEN. WENT TO RE-ASSESS PT AND IS ALREADY FAIRLY ASLEEP. WILL CONTINUE TO MONITOR.
[2018-06-11] MEDS ORDERED: ONDANSETRON HCL MDV 20ML 2 MG/ML VIAL IVP PRN (03:30)
[2018-06-11] MEDS ORDERED: MORPHINE SULFATE 2 MG/ML 1ML SYG IVP PRN (03:30)
[2018-06-11 04:00] VITALS: BP 124/64
[2018-06-11 04:31] LABS: MEAN CORPUSCULAR HEMOGLOBIN 28.8 pg (27.0-33.0); MEAN CORPUSCULAR HGB CONC 33.1 g/dL (32.0-36.0); PLATELET COUNT (AUTO) 261 K/uL (130-400); RED BLOOD CELL COUNT(AUTO) 2.22 MIL/uL (4.00-5.50); RED CELL DISTRIBUTION WIDTH 17.1 % (11.0-15.5)
[2018-06-11 04:34] LABS: HEMATOCRIT 19.3 % (36-48)
--- NOTE | 2018-06-11 05:55 | NUR ---
ROUNDS PT RESTING WELL, FAIRLY ASLEEP. NO DISTRESS NOTED. KEPT RESTED AND COMFORTABLE. FOR MORE CARE.
[2018-06-11] MEDS ORDERED: INSULIN HUMULIN R 100 UNIT/ML 3ML SQ SCH (07:30)
--- NOTE | 2018-06-11 07:47 | NUR ---
Pt. Update. pt admitted with lower GI bleed, H/H this morning is 6.4/19.3 respectively, vital signs stable at this time, nursing will continue to monitor to carry out plan as ordered.
[2018-06-11 08:00] VITALS: BP 143/68
--- NOTE | 2018-06-11 08:29 | NUR ---
Dr. Destinee Mcghee paged at this time, pending call back.
--- NOTE | 2018-06-11 08:30 | NUR ---
Dr. Boaz Maldonado paged at this time, pending call back.
[2018-06-11] MEDS: CALCIUM ACETATE 667 MG CAPSULE PO SCH ×3 (08:35→16:26)
[2018-06-11] MEDS: FERROUS GLUCONATE 325 MG TABLET PO SCH (08:35)
[2018-06-11] MEDS: ASCORBIC ACID 500 MG TAB PO SCH (08:37)
[2018-06-11] MEDS: METOPROLOL TARTRATE 25 MG TAB PO SCH ×2 (08:37→20:15)
[2018-06-11] MEDS: **HM** VIT D3 1000 UNITS PO SCH (08:37)
[2018-06-11] MEDS: FUROSEMIDE 40 MG TABLET PO SCH ×2 (08:37→20:16)
[2018-06-11] MEDS: SODIUM BICARBONATE 650 MG TAB PO SCH ×2 (08:39→20:15)
[2018-06-11] MEDS ORDERED: ACETAMINOPHEN 325 MG TAB PO PRN (09:15)
--- NOTE | 2018-06-11 10:15 | NUR ---
Pt Update Dr. Boaz Maldonado and Dr. Felipe paged the second time, Dr. Sandra called back but no new orders, pending call back from Dr. Felipe.
[2018-06-11 10:55] LABS: MEAN CORPUSCULAR HEMOGLOBIN 28.6 pg (27.0-33.0); MEAN CORPUSCULAR HGB CONC 32.6 g/dL (32.0-36.0); MEAN CORPUSCULAR VOLUME 87.8 fL (79-99); PLATELET COUNT (AUTO) 256 K/uL (130-400); RED BLOOD CELL COUNT(AUTO) 2.29 MIL/uL (4.00-5.50); RED CELL DISTRIBUTION WIDTH 17.2 % (11.0-15.5); WHITE BLOOD COUNT (AUTO) 9.4 K/uL (4.8-10.8)
[2018-06-11 10:56] LABS: HEMATOCRIT 20.1 % (36-48)
[2018-06-11] MEDS ORDERED: ONDANSETRON HCL 4 MG/2 ML VIAL ONE (11:29)
[2018-06-11] MEDS ORDERED: PHARMACY COMMUNICATION MISC SCH (11:30)
[2018-06-11 12:00] VITALS: BP 133/64
--- NOTE | 2018-06-11 12:28 | NUR ---
D/C PLAN CM spoke to pt regarding d/c planning. Spouse and family at bedside. Pt states family assists in care as needed. Pt states she f/u with Dr. Felipe and he sends pt to ER for HD treatments. Pt not established at o/p HD clinic due to uninsured status. CM provided pt with community resources. Son states he is discussing private pay options at clinic with Dr. Felipe. Plan to home. CM to f/u Addendum: 06/11/18 at 1230 by SHANNAN COX CM Amended: Links added.
[2018-06-11] MEDS ORDERED: SODIUM CHLORIDE 0.9% 250 ML IV ONE (13:05)
[2018-06-11 16:00] VITALS: BP 141/65
[2018-06-11] MEDS: HYDROMORPHONE HCL 0.5 MG/0.5 ML ML IVP PRN ×2 (18:12→23:40)
[2018-06-11] MEDS: ATORVASTATIN CALCIUM 40 MG TABLET PO SCH (20:15)
--- NOTE | 2018-06-11 20:16 | NUR ---
MEDS PT AWAKENED AND DENIES ANY PAINS NOR DISCOMFORT AT THIS TIME. DUE MEDS ADMINISTERED, TOLERATED WELL. KEPT RESTED AND COMFORTABLE. CALL LIGHT WITHIN REACH. SON ASLEEP AT BEDSIDE. WILL CONTINUE TO MONITOR.
[2018-06-11 20:24] VITALS: BP 127/65
--- NOTE | 2018-06-11 23:40 | NUR ---
PAIN PT COMPLAINTS OF PAINS TO RT BKA. MEDICATED WITH DILAUDID IV. KEPT COMFORTABLE IN BED. CHANGED DRESSING TO RT BKA. PICTURE OF SURGICAL WOUND TAKEN, PLACED IN CHART. WOUND IS DRY AND HEALING GOOD. NO DRAINAGE NOTED. NO REDNESS NOR BRUISING NOTED. SUTURES INTACT. CLEANSED WOUND WITH SALINE, PAT DRY THEN COVERED WITH GAUZE AND SECURED WITH KERLIX,TAPE AND GUIDO WRAP. WILL RE-ASSESS PT. Addendum: 06/12/18 at 0019 by DENISE CHEN RN RN Amended: Links added.
--- NOTE | 2018-06-11 23:50 | NUR ---
ADDENDUM ERROR ENTRY ON PREVIOUS CHARTING OF RT BKA, KALEN ARE INTACT AND NOT SUTURES.
[2018-06-12] VITALS (7 sets, daily range): BP systolic 91–158; BP diastolic 54–76
--- NOTE | 2018-06-12 02:00 | NUR ---
ROUNDS PT RESTING WELL, FAIRLY ASLEEP WITH RESPIRATIONS EVEN AND UNLABORED. NO DISTRESS NOTED. KEPT UNDISTURBED FOR NOW. CALL LIGHT WITHIN REACH. PT'S SON ASLEEP AT BEDSIDE.
[2018-06-12] MEDS: HYDROMORPHONE HCL 0.5 MG/0.5 ML ML IVP PRN ×3 (06:18→21:04)
--- NOTE | 2018-06-12 06:18 | NUR ---
HD HD NURSE IN TO SET UP MACHINE FOR TREATMENT. HD NURSE STATED WILL INFORM PRIMARY NURSE WHEN PRBC'S WILL BE TRANSFUSED. PT COMPLAINTS OF PAINS TO RT BKA. MEDICATED WITH DILAUDID IV. KEPT COMFORTABLE IN BED. WILL RE-ASSESS PT. FOR MORE CARE.
[2018-06-12] MEDS: CALCIUM ACETATE 667 MG CAPSULE PO SCH ×3 (08:00→17:01)
[2018-06-12] MEDS: METOPROLOL TARTRATE 25 MG TAB PO SCH ×2 (09:00→20:52)
[2018-06-12] MEDS: **HM** VIT D3 1000 UNITS PO SCH (09:00)
[2018-06-12] MEDS: SODIUM BICARBONATE 650 MG TAB PO SCH ×2 (09:00→20:52)
[2018-06-12] MEDS: FUROSEMIDE 40 MG TABLET PO SCH ×2 (09:00→20:52)
[2018-06-12] MEDS ORDERED: EPOETIN ALFA 10,000 UNIT/ML VIAL SQ SCH (09:30)
[2018-06-12] MEDS: FERROUS GLUCONATE 325 MG TABLET PO SCH (11:50)
[2018-06-12] MEDS: ASCORBIC ACID 500 MG TAB PO SCH (11:51)
--- NOTE | 2018-06-12 15:41 | NUR ---
[facility] CONSULT PATIENT ASSESSED ORDERED: PATIENT HAS AN ACTIVE ORDER FOR WOUND CARE ALREADY IN CHART; NO [facility] RECOMMENDATIONS REQUIRED AT THIS TIME. Addendum: 06/12/18 at 1542 by DM VIVAS LVN Amended: Links added.
--- NOTE | 2018-06-12 16:27 | NUR ---
RD Notification Upon visit, patient reports good appetite and PO intake at 100%. Patient with no GI distress. Patient does have food allergies. RD rec to continue Renal dialysis diet. RD provided diet education via Liberian translation. Patient with pertinent questions, RD answered all questions. Patient verbalized understanding. Patient monitored labs: BUN 60, Cr 6.8, GFR 7, Glu 129, Ca 8.1, Alk 175, Alb 1.7, H/H 6.6/20.1. RD to continue to monitor. Please notify RD as nutritional concerns arise. Thank you. Addendum: 06/12/18 at [address] Amended: Links added.
--- NOTE | 2018-06-12 16:32 | NUR ---
Diet Education RD provided Renal Dialysis Diet education through Omani translation. Patient expressed previous knowledge but was receptive to review. Patient accepted reference materials and handouts. Patient with pertinent questions, RD answered all questions. RD to follow up. Addendum: 06/12/18 at [address] Amended: Links added.
[2018-06-12] MEDS ORDERED: DESMOPRESSIN ACETATE 4 MCG/ML 20 MCG in SODIUM CHLORIDE 0.9% 50 ML IJ SCH (20:00)
[2018-06-12] MEDS ORDERED: PHARMACY COMMUNICATION MISC SCH (20:00)
[2018-06-12] MEDS: ATORVASTATIN CALCIUM 40 MG TABLET PO SCH (20:52)
[2018-06-12] MEDS: ONDANSETRON HCL 4 MG/2 ML VIAL IVP PRN (20:52)
[2018-06-12] MEDS: PANTOPRAZOLE 40 MG/VIAL IVP SCH (20:52)
[2018-06-13 04:34] LABS: HEMATOCRIT 29.2 % (36-48); MEAN CORPUSCULAR HEMOGLOBIN 28.7 pg (27.0-33.0); MEAN CORPUSCULAR HGB CONC 33.9 g/dL (32.0-36.0); MEAN CORPUSCULAR VOLUME 84.4 fL (79-99); PLATELET COUNT (AUTO) 241 K/uL (130-400); RED BLOOD CELL COUNT(AUTO) 3.46 MIL/uL (4.00-5.50); WHITE BLOOD COUNT (AUTO) 10.5 K/uL (4.8-10.8)
[2018-06-13 04:50] VITALS: BP 139/65
[2018-06-13] MEDS: HYDROMORPHONE HCL 0.5 MG/0.5 ML ML IVP PRN ×2 (06:21→13:27)
[2018-06-13 08:00] VITALS: BP 158/75
[2018-06-13] MEDS: CALCIUM ACETATE 667 MG CAPSULE PO SCH ×3 (08:00→17:00)
[2018-06-13] MEDS: METOPROLOL TARTRATE 25 MG TAB PO SCH ×2 (09:00→13:39)
[2018-06-13] MEDS: SODIUM BICARBONATE 650 MG TAB PO SCH (09:00)
[2018-06-13] MEDS: FUROSEMIDE 40 MG TABLET PO SCH (09:00)
[2018-06-13] MEDS: **HM** VIT D3 1000 UNITS PO SCH (09:00)
[2018-06-13] MEDS: PANTOPRAZOLE 40 MG/VIAL IVP SCH (10:03)
[2018-06-13] MEDS: FERROUS GLUCONATE 325 MG TABLET PO SCH (10:07)
[2018-06-13] MEDS: ASCORBIC ACID 500 MG TAB PO SCH (10:07)
[2018-06-13 12:00] VITALS: BP 143/75
[2018-06-13] MEDS: ONDANSETRON HCL 4 MG/2 ML VIAL IVP PRN (13:27)
[2018-06-13 16:00] VITALS: BP 137/71
== END 2018-06-13 19:17 | disposition home or self-care (01) | DRG 377 ==
LOC: EDH 21:12 → OBSVTOIN 21:13 → EDHIP 21:13 → 4BH 06-11 00:34
PROVIDERS: ADMIT Internal Medicine Critical Care Medicine; ATTEND Internal Medicine Critical Care Medicine
PROC: 30233N1 Transfusion of Nonautologous Red Blood Cells into Peripheral Vein, Percutaneous Approach (ICD-10-PCS; principal; 2018-06-12)
PROC: 5A1D70Z Performance of Urinary Filtration, Intermittent, Less than 6 Hours Per Day (ICD-10-PCS; 2018-06-12)
PROC: 5A1D70Z Performance of Urinary Filtration, Intermittent, Less than 6 Hours Per Day (ICD-10-PCS; 2018-06-13)
DX: K92.2 Gastrointestinal hemorrhage, unspecified (principal); N18.6 End stage renal disease; D62 Acute posthemorrhagic anemia; I13.11 Hypertensive heart and chronic kidney disease without heart failure, with stage 5 chronic kidney disease, or end stage renal disease; M86.9 Osteomyelitis, unspecified; K92.1 Melena; E11.22 Type 2 diabetes mellitus with diabetic chronic kidney disease; E11.21 Type 2 diabetes mellitus with diabetic nephropathy; E11.51 Type 2 diabetes mellitus with diabetic peripheral angiopathy without gangrene; E11.610 Type 2 diabetes mellitus with diabetic neuropathic arthropathy; E11.69 Type 2 diabetes mellitus with other specified complication; E78.5 Hyperlipidemia, unspecified; Z99.2 Dependence on renal dialysis; Z89.511 Acquired absence of right leg below knee; Z83.3 Family history of diabetes mellitus; Z82.5 Family history of asthma and other chronic lower respiratory diseases; Z82.49 Family history of ischemic heart disease and other diseases of the circulatory system; Z82.3 Family history of stroke; Z82.0 Family history of epilepsy and other diseases of the nervous system
CPT/HCPCS: 36415; 71045; 73590; 74176; 80053; 82270; 82948; 85025; 85027; 86850; 86900; 86901; 86922; 90935; 93005; 99291; C9113; G0378; J0885; J1170; J2270; J2405; J2597; J7030; P9016

== ENCOUNTER 2018-06-23 10:36 | Inpatient (IN) | payer OTHER ==
[~2018-06-23] VITALS: Ht 149.9 cm; Wt 50.6 kg
[~2018-06-23 10:36] MED LIST changes: -AEC81 PO; -CLOP75TA32 PO
[2018-06-23] MEDS ORDERED: ASPIRIN 325 MG TABLET ONE (11:04)
[2018-06-23 11:26] LABS: CREATININE 5.9 mg/dL (0.5-1.5); POTASSIUM 5.2 mmol/L (3.5-5.1)
[2018-06-23 11:27] LABS: EOSINOPHILS % (AUTO) 2.8 % (0.0-8.0); HEMATOCRIT 35.3 % (36-48); LYMPHOCYTES % (AUTO) 24.7 % (21.0-51.0); MEAN CORPUSCULAR HEMOGLOBIN 28.6 pg (27.0-33.0); MEAN CORPUSCULAR HGB CONC 33.1 g/dL (32.0-36.0); MEAN CORPUSCULAR VOLUME 86.4 fL (79-99); MONOCYTES % (AUTO) 8.6 % (3.0-13.0); NEUTROPHILS % (AUTO) 62.9 % (40.0-77.0); PLATELET COUNT (AUTO) 175 K/uL (130-400); RED BLOOD CELL COUNT(AUTO) 4.09 MIL/uL (4.00-5.50); RED CELL DISTRIBUTION WIDTH 17.4 % (11.0-15.5); WHITE BLOOD COUNT (AUTO) 8.7 K/uL (4.8-10.8)
[2018-06-23 11:37] LABS: ALBUMIN 1.6 g/dL (3.5-5.0); BILIRUBIN,TOTAL 0.3 mg/dL (0.2-1.0); TOTAL PROTEIN, SERUM 5.9 g/dL (6.0-8.3)
[2018-06-23 12:03] LABS: INR 0.94 (0.85-1.15); PARTIAL THROMBOPLASTIN TIME 31.5 SEC (26.3-35.5); PROTHROMBIN TIME 9.9 SEC (9.6-11.6)
[2018-06-23] MEDS ORDERED: FUROSEMIDE 10 MG/ML 4ML VIAL ONE (14:33)
[2018-06-23] MEDS ORDERED: NITROGLYCERIN 1GM/1 INCH PACKET TD ONE (14:34)
[2018-06-23] MEDS ORDERED: ACETAMINOPHEN 325 MG TAB PO PRN ×3 (15:45→17:15)
[2018-06-23] MEDS ORDERED: LACTULOSE 20 GM/30 ML UDCUP PO PRN (15:45)
[2018-06-23] MEDS ORDERED: HYDRALAZINE HCL 20 MG/ML VIAL IV PRN (15:45)
[2018-06-23] MEDS ORDERED: NITROGLYCERIN 0.4 MG SL TAB SL PRN (15:45)
[2018-06-23] MEDS ORDERED: SODIUM CHLORIDE 0.9% 1000ML 1,000 ML IV PRN (17:15)
[2018-06-23] MEDS ORDERED: 0.9% SODIUM CHLORIDE 1000 ML IV BAG IV PRN (17:15)
[2018-06-23] MEDS ORDERED: MORPHINE SULFATE 2 MG/ML 1ML SYG IVP ONE (21:30)
[2018-06-23] MEDS ORDERED: ONDANSETRON HCL 4 MG/2 ML VIAL ONE (21:30)
[2018-06-23] MEDS ORDERED: MORPHINE SULFATE 2 MG/ML 1ML SYG ONE (21:30)
[2018-06-23] MEDS ORDERED: HYDRALAZINE HCL 20 MG/ML VIAL ONE (22:40)
[2018-06-24] VITALS (7 sets, daily range): BP systolic 124–162; BP diastolic 62–76
[2018-06-24] MEDS ORDERED: FAMOTIDINE/PF 20 MG/2 ML VIAL IV ONE (00:02)
[2018-06-24] MEDS ORDERED: CLOP75TA32 PO (01:15)
[2018-06-24] MEDS ORDERED: ASPI-1181 PO (01:15)
[2018-06-24] MEDS ORDERED: METO25TA6 PO (01:15)
[2018-06-24] MEDS: FAMOTIDINE/PF 20 MG/2 ML VIAL IV SCH (09:31)
[2018-06-24] MEDS ORDERED: FUROSEMIDE 10 MG/ML 2ML VIAL IV SCH (14:15)
--- NOTE | 2018-06-24 14:38 | NUR ---
INITIAL: Met with pt this afternoon to discuss dcp. Pt states that she lives w her spouse and son. Prior to admission was wc bound and dependent w ADLs. She mentions that she does not receive outpt HD dt uninsured status, pt states that she obtains medications @ [facility]. Pt states that she feels safe and comfortable to return home at [place]. will continue to follow and wait for Md recommendations. Addendum: 06/24/18 at 1440 by TRAMAINE JIM Amended: Links added.
--- NOTE | 2018-06-24 14:55 | NUR ---
Order for Dialysis today by Dr. Felipe. Dialysis nurse paged at [phone]. Pt pending to be dialyzed.
[2018-06-24] MEDS ORDERED: TRAMADOL HCL 50 MG TABLET PO SCH ×2 (16:00)
[2018-06-24] MEDS ORDERED: ACETAMINOPHEN-CODEINE 300/30MG TAB PO PRN (16:00)
[2018-06-25] MEDS ORDERED: MORPHINE SULFATE 2 MG/ML 1ML SYG ONE (00:12)
[2018-06-25] MEDS ORDERED: MORPHINE SULFATE 2 MG/ML 1ML SYG IVP PRN (00:15)
[2018-06-25] MEDS: FUROSEMIDE 10 MG/ML 2ML VIAL IV SCH ×2 (03:27→14:16)
[2018-06-25 05:03] VITALS: BP 122/56
[2018-06-25 06:29] LABS: EOSINOPHILS % (AUTO) 3.3 % (0.0-8.0); HEMATOCRIT 31.2 % (36-48); LYMPHOCYTES % (AUTO) 28.5 % (21.0-51.0); MEAN CORPUSCULAR HEMOGLOBIN 28.7 pg (27.0-33.0); MEAN CORPUSCULAR HGB CONC 33.2 g/dL (32.0-36.0); MEAN CORPUSCULAR VOLUME 86.4 fL (79-99); MONOCYTES % (AUTO) 11.8 % (3.0-13.0); NEUTROPHILS % (AUTO) 55.4 % (40.0-77.0); PLATELET COUNT (AUTO) 150 K/uL (130-400); RED BLOOD CELL COUNT(AUTO) 3.61 MIL/uL (4.00-5.50); RED CELL DISTRIBUTION WIDTH 17.4 % (11.0-15.5); WHITE BLOOD COUNT (AUTO) 7.6 K/uL (4.8-10.8)
[2018-06-25 06:45] LABS: CREATININE 2.9 mg/dL (0.5-1.5); POTASSIUM 4.1 mmol/L (3.5-5.1)
[2018-06-25 08:00] VITALS: BP 138/72
[2018-06-25] MEDS: ASCORBIC ACID 500 MG TAB PO SCH (08:53)
[2018-06-25] MEDS: FERROUS SULFATE 325 MG TABLET.DR PO SCH (08:53)
[2018-06-25] MEDS: CALCIUM ACETATE 667 MG CAPSULE PO SCH ×3 (08:53→17:52)
[2018-06-25] MEDS: FAMOTIDINE/PF 20 MG/2 ML VIAL IV SCH (08:53)
[2018-06-25] MEDS: METOPROLOL TARTRATE 25 MG TAB PO SCH ×2 (08:53→20:47)
[2018-06-25] MEDS: ASPIRIN 81 MG EC TAB PO SCH (08:54)
[2018-06-25] MEDS: SODIUM BICARBONATE 650 MG TAB PO SCH ×2 (08:55→20:47)
[2018-06-25] MEDS: **HM** VIT D3 1000 UNITS PO SCH (09:00)
[2018-06-25] MEDS: ONDANSETRON HCL 4 MG/2 ML VIAL IV PRN (09:07)
[2018-06-25 12:00] VITALS: BP 121/48
[2018-06-25 16:00] VITALS: BP 155/64
[2018-06-25 19:54] VITALS: BP 164/70
[2018-06-25] MEDS ORDERED: ATORVASTATIN CALCIUM 40 MG TABLET PO SCH (21:00)
[2018-06-26 00:36] VITALS: BP 153/71
[2018-06-26] MEDS: FUROSEMIDE 10 MG/ML 2ML VIAL IV SCH ×2 (02:28→15:32)
[2018-06-26 04:01] VITALS: BP 140/68
--- NOTE | 2018-06-26 04:56 | NUR ---
BM Pt had a bowel movement.
[2018-06-26 06:04] LABS: EOSINOPHILS % (AUTO) 3.7 % (0.0-8.0); HEMATOCRIT 34.7 % (36-48); LYMPHOCYTES % (AUTO) 24.9 % (21.0-51.0); MEAN CORPUSCULAR HEMOGLOBIN 28.1 pg (27.0-33.0); MEAN CORPUSCULAR VOLUME 87.8 fL (79-99); MONOCYTES % (AUTO) 9.7 % (3.0-13.0); NEUTROPHILS % (AUTO) 60.7 % (40.0-77.0); NUCLEATED RED BLOOD CELLS 0.1 % (0.0-0.19); PLATELET COUNT (AUTO) 190 K/uL (130-400); RED BLOOD CELL COUNT(AUTO) 3.95 MIL/uL (4.00-5.50); RED CELL DISTRIBUTION WIDTH 17.6 % (11.0-15.5); WHITE BLOOD COUNT (AUTO) 8.1 K/uL (4.8-10.8)
[2018-06-26] MEDS: HYDROCODONE/ACETAMINOPHEN 5/325 MG TAB PO PRN ×2 (06:04→15:32)
[2018-06-26 06:14] LABS: CREATININE 3.7 mg/dL (0.5-1.5)
[2018-06-26 07:00] VITALS: BP 133/66
[2018-06-26] MEDS: **HM** VIT D3 1000 UNITS PO SCH (09:00)
[2018-06-26] MEDS: CALCIUM ACETATE 667 MG CAPSULE PO SCH ×3 (09:00→15:35)
[2018-06-26] MEDS: FAMOTIDINE/PF 20 MG/2 ML VIAL IV SCH (09:01)
[2018-06-26] MEDS: ASPIRIN 81 MG EC TAB PO SCH (09:01)
[2018-06-26] MEDS: FERROUS SULFATE 325 MG TABLET.DR PO SCH (09:01)
[2018-06-26] MEDS: SODIUM BICARBONATE 650 MG TAB PO SCH (09:01)
[2018-06-26] MEDS: ASCORBIC ACID 500 MG TAB PO SCH (09:02)
[2018-06-26] MEDS: METOPROLOL TARTRATE 25 MG TAB PO SCH (09:02)
[2018-06-26 11:00] VITALS: BP 124/70
[2018-06-26] MEDS: ONDANSETRON HCL 4 MG/2 ML VIAL IV PRN (15:35)
[2018-06-26 16:00] VITALS: BP 140/67
--- NOTE | 2018-06-26 18:50 | NUR ---
DISCHARGE PATIENT GIVEN DISCHARGE INSTRUCTIONS VIA TEACH BACK. 22G PIV TO RFA DISCONTINUED, TIP INTACT. PATIENT TO CONTINUE WITH DIALYSIS TREATMENTS. PATIENT STABLE AT THIS TIME. SPOUSE PRESENT TO TRANSFER PATIENT HOME. JOLLY ARIAS TRANSFERRED PATIENT VIA WHEELCHAIR DOWNSTAIRS.
[2018-06-27 07:19] LABS: HEPATITIS A ANTIBODY IGM Negative (Negative); HEPATITIS B CORE IGM Negative (Negative); HEPATITIS Bs ANTIGEN SCREEN P Negative (Negative)
== END 2018-06-26 19:20 | disposition home or self-care (01) | DRG 640 ==
LOC: EDH 10:36 → EDHIP 10:37 → 3DH 06-24 00:16
PROVIDERS: ADMIT Internal Medicine; ATTEND Internal Medicine
PROC: 5A1D70Z Performance of Urinary Filtration, Intermittent, Less than 6 Hours Per Day (ICD-10-PCS; 2018-06-23)
PROC: 5A1D70Z Performance of Urinary Filtration, Intermittent, Less than 6 Hours Per Day (ICD-10-PCS; 2018-06-24)
PROC: 5A1D70Z Performance of Urinary Filtration, Intermittent, Less than 6 Hours Per Day (ICD-10-PCS; principal; 2018-06-26)
DX: E87.70 Fluid overload, unspecified (principal); N18.6 End stage renal disease; I12.0 Hypertensive chronic kidney disease with stage 5 chronic kidney disease or end stage renal disease; E11.22 Type 2 diabetes mellitus with diabetic chronic kidney disease; E78.2 Mixed hyperlipidemia; G89.29 Other chronic pain; Z82.0 Family history of epilepsy and other diseases of the nervous system; Z82.3 Family history of stroke; Z82.49 Family history of ischemic heart disease and other diseases of the circulatory system; Z82.5 Family history of asthma and other chronic lower respiratory diseases; Z83.3 Family history of diabetes mellitus; Z99.2 Dependence on renal dialysis; Z88.0 Allergy status to penicillin; Z88.8 Allergy status to other drugs, medicaments and biological substances
CPT/HCPCS: 36415; 71045; 80048; 80053; 80074; 82248; 82550; 82948; 83874; 83880; 84484; 85025; 85610; 85730; 90935; 93005; 97039; 99291; G0378; J0360; J1940; J2405; J3490

== ENCOUNTER 2018-06-30 16:12 | Inpatient (IN) | payer OTHER ==
[~2018-06-30] VITALS: Ht 149.9 cm; Wt 54.8 kg
[~2018-06-30 16:12] MED LIST changes: +ASPI-1181 PO
[2018-06-30 16:38] LABS: BASOPHILS % (AUTO) 0.9 % (0.0-5.0); EOSINOPHILS % (AUTO) 3.3 % (0.0-8.0); HEMATOCRIT 32.5 % (36-48); LYMPHOCYTES % (AUTO) 24.2 % (21.0-51.0); MEAN CORPUSCULAR HEMOGLOBIN 28.9 pg (27.0-33.0); MEAN CORPUSCULAR HGB CONC 33.4 g/dL (32.0-36.0); MEAN CORPUSCULAR VOLUME 86.6 fL (79-99); MONOCYTES % (AUTO) 7.1 % (3.0-13.0); NEUTROPHILS % (AUTO) 64.5 % (40.0-77.0); PLATELET COUNT (AUTO) 188 K/uL (130-400); RED BLOOD CELL COUNT(AUTO) 3.75 MIL/uL (4.00-5.50); RED CELL DISTRIBUTION WIDTH 16.8 % (11.0-15.5); WHITE BLOOD COUNT (AUTO) 7.8 K/uL (4.8-10.8)
[2018-06-30 16:49] LABS: CREATININE 6.3 mg/dL (0.5-1.5); POTASSIUM 4.4 mmol/L (3.5-5.1)
[2018-06-30 16:50] LABS: INR 0.97 (0.85-1.15); PARTIAL THROMBOPLASTIN TIME 31.7 SEC (26.3-35.5); PROTHROMBIN TIME 10.2 SEC (9.6-11.6)
[2018-06-30] MEDS ORDERED: NITROGLYCERIN 1GM/1 INCH PACKET TD ONE (16:51)
[2018-06-30 16:54] LABS: ALBUMIN 1.6 g/dL (3.5-5.0); BILIRUBIN,TOTAL 0.4 mg/dL (0.2-1.0); TOTAL PROTEIN, SERUM 5.9 g/dL (6.0-8.3)
[2018-06-30 21:01] LABS: APPEARANCE,URINE Clear (CLEAR); BILIRUBIN,URINE Negative (NEGATIVE); COLOR,URINE Yellow (YELLOW); GLUCOSE, URINE (UA) 500 mg/dL (NEGATIVE); KETONES,URINE Negative (NEGATIVE); LEUKOCYTE ESTERASE ,URINE Small (NEGATIVE); NITRATE,URINE Negative (NEGATIVE); OCCULT BLOOD,URINE Small (NEGATIVE); PROTEIN,URINE >=1000 mg/dL (NEGATIVE)
[2018-06-30 21:13] LABS: BACTERIA,URINE Few /HPF (None Seen)
[2018-06-30] MEDS ORDERED: ACETAMINOPHEN 325 MG TAB PO PRN ×2 (21:45)
[2018-06-30] MEDS ORDERED: MORPHINE SULFATE 4 MG/1ML SYG IV PRN (21:45)
[2018-06-30] MEDS: IPRATROPIUM/ALBUTEROL SULFATE 3 ML SOLUTION IH SCH (23:14)
[2018-06-30 23:50] VITALS: BP 174/85
--- NOTE | 2018-06-30 23:50 | NUR ---
Admission note Admitted pt to floor via stretcher fully awake and responsive. Placed in bed comfortably. Assessment done. VS checked and recorded. ( See flow chart) Oriented to room and used of call lights. Policies and procedures explained. Verbalized understanding. Routine forms signed. Plan of care initiated. Attached to telemetry with NSR result.Watched out for any unusualities. Cared for and needs attended. Distress / discomfort not noted.
[2018-07-01] MEDS: MORPHINE SULFATE 2 MG/ML 1ML SYG IV PRN ×4 (00:33→22:41)
[2018-07-01 04:00] VITALS: BP 175/79
[2018-07-01] MEDS ORDERED: GLUCAGON 1MG KIT 1 MG ML IM PRN (05:30)
[2018-07-01] MEDS ORDERED: DEXTROSE 50%-WATER 50 ML DISP.SYRIN IV PRN (05:30)
[2018-07-01] MEDS: INSULIN HUMULIN R 100 UNIT/ML 3ML SQ SCH ×4 (05:55→21:00)
[2018-07-01] MEDS: IPRATROPIUM/ALBUTEROL SULFATE 3 ML SOLUTION IH SCH ×4 (06:19→23:05)
[2018-07-01 07:00] VITALS: BP 124/59
[2018-07-01] MEDS ORDERED: LACTULOSE 20 GM/30 ML UDCUP PO PRN (08:30)
[2018-07-01 08:53] LABS: BASOPHILS % (AUTO) 1.3 % (0.0-5.0); EOSINOPHILS % (AUTO) 3.6 % (0.0-8.0); HEMATOCRIT 28.9 % (36-48); LYMPHOCYTES % (AUTO) 26.8 % (21.0-51.0); MEAN CORPUSCULAR HGB CONC 33.6 g/dL (32.0-36.0); MEAN CORPUSCULAR VOLUME 86.2 fL (79-99); MONOCYTES % (AUTO) 8.8 % (3.0-13.0); NEUTROPHILS % (AUTO) 59.5 % (40.0-77.0); NUCLEATED RED BLOOD CELLS 0.1 % (0.0-0.19); PLATELET COUNT (AUTO) 169 K/uL (130-400); RED BLOOD CELL COUNT(AUTO) 3.35 MIL/uL (4.00-5.50); RED CELL DISTRIBUTION WIDTH 17.2 % (11.0-15.5); WHITE BLOOD COUNT (AUTO) 8.1 K/uL (4.8-10.8)
[2018-07-01 09:00] LABS: CREATININE 6.6 mg/dL (0.5-1.5); POTASSIUM 4.2 mmol/L (3.5-5.1)
[2018-07-01] MEDS: FAMOTIDINE/PF 20 MG/2 ML VIAL IV SCH (09:06)
[2018-07-01] MEDS: FUROSEMIDE 10 MG/ML 2ML VIAL IV SCH ×2 (09:07→22:34)
[2018-07-01] MEDS: ENOXAPARIN SODIUM 30 MG/0.3 ML SQ SCH ×2 (09:07→22:35)
[2018-07-01] MEDS: AZITHROMYCIN 500MG+NS 250ML 250 ML IV SCH (10:14)
[2018-07-01] MEDS: LEVOFLOXACIN 250 MG/D5W 50ML 50 ML IV SCH (10:14)
[2018-07-01 11:00] VITALS: BP 146/74
--- NOTE | 2018-07-01 12:30 | NUR ---
INITIAL Met morenita vidal, known to this caser up; lives w spouse/son; has wheelchair and crutches, no HD benefits, ets HD on emergent basis only- unstady on her crutches and [place] to use- PT order to help with crutch walking. DCP is home, CM to follow Addendum: 07/03/18 at 0830 by AURORA NAPOLES RN CM Amended: Links added.
[2018-07-01] MEDS: ONDANSETRON HCL 4 MG/2 ML VIAL IV PRN (15:03)
[2018-07-01 19:34] VITALS: BP 113/53
[2018-07-02] MEDS: ONDANSETRON HCL 4 MG/2 ML VIAL IV PRN (00:04)
[2018-07-02 01:10] VITALS: BP 142/71
[2018-07-02 03:59] VITALS: BP 143/51
[2018-07-02 05:58] LABS: HEMATOCRIT 30.7 % (36-48); MEAN CORPUSCULAR HEMOGLOBIN 28.2 pg (27.0-33.0); MEAN CORPUSCULAR HGB CONC 32.9 g/dL (32.0-36.0); MEAN CORPUSCULAR VOLUME 85.7 fL (79-99); PLATELET COUNT (AUTO) 178 K/uL (130-400); RED BLOOD CELL COUNT(AUTO) 3.58 MIL/uL (4.00-5.50); RED CELL DISTRIBUTION WIDTH 17.3 % (11.0-15.5); WHITE BLOOD COUNT (AUTO) 5.9 K/uL (4.8-10.8)
[2018-07-02 06:23] LABS: CREATININE 4.1 mg/dL (0.5-1.5); MAGNESIUM 2.2 mg/dL (1.80-2.40); PHOSPHORUS 4.1 mg/dL (2.5-4.9); POTASSIUM 4.7 mmol/L (3.5-5.1); THYROID STIMULATING HORMONE 3.42 uIU/mL (0.36-3.74)
[2018-07-02 07:07] LABS: % IRON SATURATION 37.5 % (22-44)
[2018-07-02] MEDS: IPRATROPIUM/ALBUTEROL SULFATE 3 ML SOLUTION IH SCH ×4 (07:19→23:40)
[2018-07-02] MEDS: INSULIN HUMULIN R 100 UNIT/ML 3ML SQ SCH ×4 (07:26→21:53)
[2018-07-02 07:30] VITALS: BP 156/76
[2018-07-02] MEDS: FOLIC ACID/VITAMIN B COMP W-C 1 MG CAPSULE PO SCH (08:54)
[2018-07-02] MEDS: AZITHROMYCIN 500MG+NS 250ML 250 ML IV SCH (08:54)
[2018-07-02] MEDS: FUROSEMIDE 10 MG/ML 2ML VIAL IV SCH ×2 (08:54→21:51)
[2018-07-02] MEDS: FAMOTIDINE/PF 20 MG/2 ML VIAL IV SCH (08:54)
[2018-07-02] MEDS: LEVOFLOXACIN 250 MG/D5W 50ML 50 ML IV SCH (08:55)
[2018-07-02] MEDS: ENOXAPARIN SODIUM 30 MG/0.3 ML SQ SCH ×2 (09:07→21:51)
[2018-07-02 11:00] VITALS: BP 112/64
[2018-07-02 16:00] VITALS: BP 147/71
[2018-07-02 19:25] VITALS: BP 155/76
[2018-07-02] MEDS ORDERED: ATORVASTATIN CALCIUM 40 MG TABLET PO SCH (21:00)
[2018-07-02] MEDS: METOPROLOL TARTRATE 25 MG TAB PO SCH (21:51)
[2018-07-02] MEDS: SODIUM BICARBONATE 650 MG TAB PO SCH (21:52)
[2018-07-03 00:05] VITALS: BP 123/57
[2018-07-03 04:35] VITALS: BP 135/67
[2018-07-03] MEDS: INSULIN HUMULIN R 100 UNIT/ML 3ML SQ SCH ×3 (05:55→16:01)
[2018-07-03 06:11] LABS: HEMATOCRIT 25.6 % (36-48); MEAN CORPUSCULAR HEMOGLOBIN 28.8 pg (27.0-33.0); MEAN CORPUSCULAR HGB CONC 33.6 g/dL (32.0-36.0); MEAN CORPUSCULAR VOLUME 85.7 fL (79-99); NUCLEATED RED BLOOD CELLS 0.1 % (0.0-0.19); PLATELET COUNT (AUTO) 151 K/uL (130-400); RED BLOOD CELL COUNT(AUTO) 2.99 MIL/uL (4.00-5.50); WHITE BLOOD COUNT (AUTO) 6.9 K/uL (4.8-10.8)
[2018-07-03 06:23] LABS: CREATININE 4.6 mg/dL (0.5-1.5); POTASSIUM 4.3 mmol/L (3.5-5.1)
[2018-07-03] MEDS: IPRATROPIUM/ALBUTEROL SULFATE 3 ML SOLUTION IH SCH ×3 (06:33→18:51)
[2018-07-03 08:00] VITALS: BP 157/72
[2018-07-03] MEDS ORDERED: LEVO500T2 PO (08:20)
[2018-07-03] MEDS ORDERED: ASPIRIN 81 MG EC TAB PO SCH (09:00)
[2018-07-03] MEDS ORDERED: ASCORBIC ACID 500 MG TAB PO SCH (09:00)
[2018-07-03] MEDS ORDERED: Cholecalciferol (Vitamin D3) 1,000 UNIT PO SCH (09:00)
[2018-07-03] MEDS ORDERED: FERROUS SULFATE 325 MG TABLET.DR PO SCH (09:00)
[2018-07-03] MEDS: METOPROLOL TARTRATE 25 MG TAB PO SCH (09:00)
[2018-07-03] MEDS: LEVOFLOXACIN 250 MG/D5W 50ML 50 ML IV SCH (09:24)
[2018-07-03] MEDS: AZITHROMYCIN 500MG+NS 250ML 250 ML IV SCH (09:24)
[2018-07-03] MEDS: ENOXAPARIN SODIUM 30 MG/0.3 ML SQ SCH (09:25)
[2018-07-03] MEDS: FOLIC ACID/VITAMIN B COMP W-C 1 MG CAPSULE PO SCH (09:25)
[2018-07-03] MEDS: CALCIUM ACETATE 667 MG CAPSULE PO SCH ×3 (09:25→16:53)
[2018-07-03] MEDS: SODIUM BICARBONATE 650 MG TAB PO SCH (09:25)
[2018-07-03] MEDS: FAMOTIDINE/PF 20 MG/2 ML VIAL IV SCH (09:26)
[2018-07-03] MEDS: FUROSEMIDE 10 MG/ML 2ML VIAL IV SCH (09:26)
[2018-07-03 11:23] VITALS: BP 163/81
[2018-07-03 16:28] VITALS: BP 157/83
== END 2018-07-03 20:45 | disposition home or self-care (01) | DRG 682 ==
LOC: EDH 16:12 → EDHIP 16:13 → 3CH 23:38
PROVIDERS: ADMIT Internal Medicine; ATTEND Internal Medicine
PROC: 5A1D70Z Performance of Urinary Filtration, Intermittent, Less than 6 Hours Per Day (ICD-10-PCS; principal; 2018-07-01)
PROC: 5A1D70Z Performance of Urinary Filtration, Intermittent, Less than 6 Hours Per Day (ICD-10-PCS; 2018-07-03)
DX: N17.9 Acute kidney failure, unspecified (principal); J18.9 Pneumonia, unspecified organism; E43 Unspecified severe protein-calorie malnutrition; I12.0 Hypertensive chronic kidney disease with stage 5 chronic kidney disease or end stage renal disease; J81.1 Chronic pulmonary edema; J90 Pleural effusion, not elsewhere classified; E87.70 Fluid overload, unspecified; N18.6 End stage renal disease; E11.22 Type 2 diabetes mellitus with diabetic chronic kidney disease; D64.9 Anemia, unspecified; E11.21 Type 2 diabetes mellitus with diabetic nephropathy; E11.51 Type 2 diabetes mellitus with diabetic peripheral angiopathy without gangrene; E78.5 Hyperlipidemia, unspecified; Z99.2 Dependence on renal dialysis; Z79.4 Long term (current) use of insulin; Z88.0 Allergy status to penicillin; Z88.8 Allergy status to other drugs, medicaments and biological substances; Z89.511 Acquired absence of right leg below knee; Z83.3 Family history of diabetes mellitus; Z82.5 Family history of asthma and other chronic lower respiratory diseases; Z82.49 Family history of ischemic heart disease and other diseases of the circulatory system; Z82.3 Family history of stroke; Z82.0 Family history of epilepsy and other diseases of the nervous system; Z68.24 Body mass index [BMI] 24.0-24.9, adult; Z88.5 Allergy status to narcotic agent; Z91.018 Allergy to other foods; R91.8 Other nonspecific abnormal finding of lung field
CPT/HCPCS: 36415; 71045; 74018; 80048; 80053; 81001; 82728; 82948; 83540; 83550; 83735; 84100; 84443; 84484; 85025; 85027; 85610; 85730; 90935; 93005; 94640; 94664; 97039; G0378; J0456; J1650; J1815; J1940; J1956; J2405; J3490

== ENCOUNTER 2018-07-06 09:38 | Inpatient (IN) | payer OTHER ==
[~2018-07-06] VITALS: Ht 149.9 cm; Wt 53.8 kg
[2018-07-06 00:10] VITALS: BP 143/67
[~2018-07-06 09:38] MED LIST changes: +LEVO500T2 PO
[2018-07-06 10:04] LABS: BASOPHILS % (AUTO) 0.8 % (0.0-5.0); EOSINOPHILS % (AUTO) 2.1 % (0.0-8.0); HEMATOCRIT 28.4 % (36-48); LYMPHOCYTES % (AUTO) 22.5 % (21.0-51.0); MEAN CORPUSCULAR HEMOGLOBIN 27.7 pg (27.0-33.0); MEAN CORPUSCULAR HGB CONC 31.9 g/dL (32.0-36.0); MEAN CORPUSCULAR VOLUME 86.8 fL (79-99); MONOCYTES % (AUTO) 8.2 % (3.0-13.0); NEUTROPHILS % (AUTO) 66.4 % (40.0-77.0); PLATELET COUNT (AUTO) 145 K/uL (130-400); RED BLOOD CELL COUNT(AUTO) 3.27 MIL/uL (4.00-5.50); RED CELL DISTRIBUTION WIDTH 16.9 % (11.0-15.5); WHITE BLOOD COUNT (AUTO) 8.3 K/uL (4.8-10.8)
[2018-07-06 10:11] LABS: CREATININE 5.2 mg/dL (0.5-1.5)
[2018-07-06 10:17] LABS: ALBUMIN 1.7 g/dL (3.5-5.0); BILIRUBIN,TOTAL 0.4 mg/dL (0.2-1.0); TOTAL PROTEIN, SERUM 5.9 g/dL (6.0-8.3)
[2018-07-06 10:22] LABS: INR 0.97 (0.85-1.15); PARTIAL THROMBOPLASTIN TIME 34.3 SEC (26.3-35.5); PROTHROMBIN TIME 10.2 SEC (9.6-11.6)
[2018-07-06 10:31] LABS: B-TYPE NATRIURETIC PEPTIDE 4570 pg/mL (0-100)
[2018-07-06] MEDS ORDERED: HYDRALAZINE HCL 20 MG/ML VIAL IV PRN (11:30)
[2018-07-06] MEDS ORDERED: ONDANSETRON HCL 4 MG/2 ML VIAL IV PRN (11:30)
[2018-07-06] MEDS ORDERED: NITROGLYCERIN 0.4 MG SL TAB SL PRN (11:30)
[2018-07-06] MEDS ORDERED: LACTULOSE 20 GM/30 ML UDCUP PO PRN (11:30)
[2018-07-06] MEDS ORDERED: MORPHINE SULFATE 2 MG/ML 1ML SYG IV PRN (11:30)
[2018-07-06] MEDS ORDERED: ACETAMINOPHEN 325 MG TAB PO PRN ×2 (11:30)
[2018-07-06] MEDS ORDERED: EPOETIN ALFA 10,000 UNIT/ML VIAL SQ SCH (12:15)
[2018-07-06] MEDS ORDERED: ACETAMINOPHEN 325 MG TAB ONE (12:37)
[2018-07-06 22:25] VITALS: BP 150/72
[2018-07-07 00:10] VITALS: BP 143/67
[2018-07-07] MEDS ORDERED: HYDROCODONE/ACETAMINOPHEN 5/325 MG TAB PO PRN ×2 (03:30)
[2018-07-07] MEDS ORDERED: HYDROCODONE/ACETAMINOPHEN 5/325 MG TAB ONE (03:33)
[2018-07-07 04:12] VITALS: BP_SYST 163; BP_SYST 95; BP_DIAS 52; BP_DIAS 78
[2018-07-07 08:00] VITALS: BP 137/60
[2018-07-07] MEDS ORDERED: FAMOTIDINE/PF 20 MG/2 ML VIAL IV SCH (09:00)
[2018-07-07] MEDS ORDERED: FERROUS SULFATE 325 MG TABLET.DR PO SCH (09:30)
[2018-07-07] MEDS ORDERED: ASCORBIC ACID 500 MG TAB PO SCH (09:30)
[2018-07-07] MEDS ORDERED: ASPIRIN 81 MG EC TAB PO SCH (09:30)
--- NOTE | 2018-07-07 09:30 | NUR ---
DR VARGAS ROUNDED ON PATIENT ORDERS FOR DIALYSIS TODAY , PATIENT MAY BE DISCHARGE AFTER DIALYSIS PER [place]
--- NOTE | 2018-07-07 11:24 | NUR ---
Nutrition Intervention: Nutrition consult for education. Pt. admitted with Dx of Fluid Overload, Acute Pulm. edema, Pleural effusion. Pt. on Renal dialysis diet with good p.o. intake, per pt. Labs reviewed(Alb 1.7, BUN 36, Creat 5.2, GFR 9). LBM: 07/05/18. SR-17, elastic. BMI: 24.1, normal. Pt. educated on Renal Dialysis diet and provided with education material. Pt. verbalized understanding. Recommendations: 1) Rec. 60gm CCD Renal Dialysis diet. 2) Rec. 30ml ProMod BID with B'fast and dinner meals. 3) Renal Dialysis diet education given to patient. 4) Continue to monitor pt's nutritional status. 5) Consult RD as nutrition concerns arise. Addendum: 07/07/18 at [address] Amended: Links added.
[2018-07-07 11:52] VITALS: BP 151/69
--- NOTE | 2018-07-07 14:12 | NUR ---
DIALYSIS TODAY [id number] WITH 1.5 LITERS REMOVED B/P 127/64 P 87 R 18 TEMP 98.6
--- NOTE | 2018-07-07 15:11 | NUR ---
DCP CM met with pt discussed dc plans. pt is independent prior to admission, lives at home with spouse and son. Denies any equipments/services. Pt feels safe to go back home, spouse able to assist with transportation and needs as necessary. DC plan to home once stable Addendum: 07/07/18 at 1512 by LAURIE ZHAO LVN CM Amended: Links added.
[2018-07-07 16:00] VITALS: BP 141/65
[2018-07-07] MEDS: CALCIUM ACETATE 667 MG CAPSULE PO SCH ×2 (17:00→17:34)
[2018-07-07 19:20] VITALS: BP 140/67
--- NOTE | 2018-07-07 19:44 | NUR ---
PATIENT GIVEN DISCHARGE INSTRUCTIONS AND VERBALIZED UNDERSTANDING , HOME MEDICATION REVIEWED AND CONTINUE , NO NEW MEDICATIONS ORDERED. MONITOR UNIT NOTIFIED OF PATIENT DISCHARGE AND TELEMETRY UNIT REMOVED. IV REMOVED WITH CATHETER INTACT AND PRESSURE HELD ON SITE . PATIENT WANT TO TO SHOWER AND SON NOTIFIED AND WILL PICK HER UP AFTER WORK.
[2018-07-07] MEDS ORDERED: FUROSEMIDE 40 MG TABLET PO SCH (21:00)
[2018-07-07] MEDS ORDERED: ATORVASTATIN CALCIUM 40 MG TABLET PO SCH (21:00)
[2018-07-07] MEDS ORDERED: METOPROLOL TARTRATE 25 MG TAB PO SCH (21:00)
[2018-07-07] MEDS ORDERED: SODIUM BICARBONATE 650 MG TAB PO SCH (21:00)
[2018-07-08] MEDS ORDERED: **HM** VIT D3 1000 UNITS PO SCH (09:00)
== END 2018-07-07 20:10 | disposition home or self-care (01) | DRG 640 ==
LOC: EDH 09:38 → EDHIP 09:39 → 3AH 21:02
PROVIDERS: ADMIT Internal Medicine; ATTEND Internal Medicine
PROC: 5A1D70Z Performance of Urinary Filtration, Intermittent, Less than 6 Hours Per Day (ICD-10-PCS; principal; 2018-07-06)
PROC: 5A1D70Z Performance of Urinary Filtration, Intermittent, Less than 6 Hours Per Day (ICD-10-PCS; 2018-07-07)
DX: E87.70 Fluid overload, unspecified (principal); N18.6 End stage renal disease; J81.0 Acute pulmonary edema; K85.90 Acute pancreatitis without necrosis or infection, unspecified; I13.11 Hypertensive heart and chronic kidney disease without heart failure, with stage 5 chronic kidney disease, or end stage renal disease; J90 Pleural effusion, not elsewhere classified; E11.22 Type 2 diabetes mellitus with diabetic chronic kidney disease; D64.9 Anemia, unspecified; K80.20 Calculus of gallbladder without cholecystitis without obstruction; Z79.4 Long term (current) use of insulin; Z82.0 Family history of epilepsy and other diseases of the nervous system; Z82.3 Family history of stroke; Z82.49 Family history of ischemic heart disease and other diseases of the circulatory system; Z82.5 Family history of asthma and other chronic lower respiratory diseases; Z83.3 Family history of diabetes mellitus; Z89.511 Acquired absence of right leg below knee; Z99.2 Dependence on renal dialysis
CPT/HCPCS: 36415; 71045; 80053; 82948; 83880; 84484; 85025; 85610; 85730; 90935; 93005; 93306; G0378; J0885; J2405; J3490

== ENCOUNTER 2018-07-13 20:28 | Inpatient (IN) | payer OTHER ==
[~2018-07-13] VITALS: Ht 149.9 cm; Wt 47.6 kg
[2018-07-13 21:02] LABS: BASOPHILS % (AUTO) 1.3 % (0.0-5.0); EOSINOPHILS % (AUTO) 2.7 % (0.0-8.0); HEMATOCRIT 27.7 % (36-48); LYMPHOCYTES % (AUTO) 30.2 % (21.0-51.0); MEAN CORPUSCULAR HEMOGLOBIN 27.9 pg (27.0-33.0); MEAN CORPUSCULAR HGB CONC 32.3 g/dL (32.0-36.0); MEAN CORPUSCULAR VOLUME 86.3 fL (79-99); MONOCYTES % (AUTO) 9.2 % (3.0-13.0); NEUTROPHILS % (AUTO) 56.6 % (40.0-77.0); PLATELET COUNT (AUTO) 214 K/uL (130-400); RED BLOOD CELL COUNT(AUTO) 3.21 MIL/uL (4.00-5.50); RED CELL DISTRIBUTION WIDTH 16.7 % (11.0-15.5); WHITE BLOOD COUNT (AUTO) 7.3 K/uL (4.8-10.8)
[2018-07-13 21:13] LABS: CREATININE 6.9 mg/dL (0.5-1.5); POTASSIUM 5.2 mmol/L (3.5-5.1)
[2018-07-13 21:17] LABS: ALBUMIN 1.6 g/dL (3.5-5.0); BILIRUBIN,TOTAL 0.4 mg/dL (0.2-1.0); TOTAL PROTEIN, SERUM 5.7 g/dL (6.0-8.3)
[2018-07-13 21:28] LABS: INR 1.02 (0.85-1.15); PARTIAL THROMBOPLASTIN TIME 31.8 SEC (26.3-35.5); PROTHROMBIN TIME 10.7 SEC (9.6-11.6)
[2018-07-13] MEDS ORDERED: FUROSEMIDE 10 MG/ML 2ML VIAL ONE (21:30)
[2018-07-13] MEDS ORDERED: FUROSEMIDE 10 MG/ML 4ML VIAL ONE (21:30)
[2018-07-14] MEDS ORDERED: MORPHINE SULFATE 4 MG/1ML SYG IV PRN (00:45)
[2018-07-14] MEDS ORDERED: ONDANSETRON HCL 4 MG/2 ML VIAL IV PRN (00:45)
[2018-07-14] MEDS ORDERED: MORPHINE SULFATE 2 MG/ML 1ML SYG IV PRN (00:45)
[2018-07-14] MEDS ORDERED: HYDRALAZINE HCL 20 MG/ML VIAL IV PRN (00:45)
[2018-07-14] MEDS ORDERED: ACETAMINOPHEN 325 MG TAB PO PRN ×2 (00:45)
[2018-07-14 01:20] VITALS: BP 170/71
--- NOTE | 2018-07-14 01:20 | NUR ---
ADMISSION NOTE: Admitted per stretcher to floor. Fully awake and responsive, but weak looking. Placed on bed comfortably. VS checked and recorded. Initial assessment done ( See flow chart). Plan of care initiated. Oriented to room and use of call light. Policies and procedures explained. Verbalized understanding. Attached to Telemetry with NSR result. Consent for Hemodialysis signed. Per ER report , Dr. Cece Felipe made aware. Observed for any unusualities. Needs attended and cared for. Endorsed to AM shift accordingly.
[2018-07-14] MEDS ORDERED: GLUCAGON 1MG KIT 1 MG ML IM PRN (01:30)
[2018-07-14] MEDS ORDERED: DEXTROSE 50%-WATER 50 ML DISP.SYRIN IV PRN (01:30)
[2018-07-14] MEDS: AZITHROMYCIN 500MG+NS 250ML 250 ML IV SCH ×2 (02:07→23:52)
[2018-07-14] MEDS: NITROGLYCERIN 1GM/1 INCH PACKET TD SCH ×4 (02:08→23:53)
[2018-07-14] MEDS ORDERED: MORPHINE SULFATE 2 MG/ML 1ML SYG ONE (02:21)
[2018-07-14 02:41] LABS: TROPONIN I 0.14 ng/mL (0.00-0.06)
[2018-07-14 03:52] VITALS: BP 129/66
[2018-07-14 05:23] LABS: TROPONIN I 0.13 ng/mL (0.00-0.06)
[2018-07-14] MEDS: IPRATROPIUM/ALBUTEROL SULFATE 3 ML SOLUTION IH SCH ×4 (06:03→23:47)
[2018-07-14 08:43] VITALS: BP 140/73
[2018-07-14] MEDS ORDERED: EPOETIN ALFA 10,000 UNIT/ML VIAL SQ SCH (09:00)
[2018-07-14] MEDS ORDERED: ASPIRIN 325 MG TABLET PO SCH (09:00)
[2018-07-14] MEDS ORDERED: FAMOTIDINE/PF 20 MG/2 ML VIAL IV SCH ×2 (09:00→12:55)
[2018-07-14] MEDS: FUROSEMIDE 10 MG/ML 2ML VIAL IV SCH ×2 (09:00→21:04)
[2018-07-14] MEDS: METOPROLOL TARTRATE 25 MG TAB PO SCH ×2 (09:00→21:05)
[2018-07-14 11:00] VITALS: BP 166/76
--- NOTE | 2018-07-14 11:19 | NUR ---
Nutrition Intervention: Nutrition consult for ESRD edcucation. Pt. admitted with Dx of LL Lobe Pneumonia, Left pleural effusion, chest pain. Pt. on 60gm CCD diet, 1200ml fluid rest. with poor p.o. intake this morning due to +Nausea, as per pt. Pt. on medication for upper GI distress. Labs reviewed(Alb 1.6, BUN 59, Creat 6.9, GFR 7). Spoke with pt. regarding nutritional supplementation with Nepro and pt. agreed to try. LBM: 07/13/18. SR-15, coccyx mild redness. BMI: 25.2, overweight. Pt. reports was previously educated on dialysis diet on previous admission in late June. Pt. declined Renal diet education at this time. Recommendations: 1) Rec. 60gm CCD Renal Dialysis diet. 2) Rec. Vanilla Nepro BID with B'fast and dinner meals. 3) Continue to monitor pt's nutritional status. 4) Consult RD as nutrition concerns arise. Addendum: 07/14/18 at [address] Amended: Links added.
[2018-07-14] MEDS: CALCIUM ACETATE 667 MG CAPSULE PO SCH ×2 (12:22→17:07)
--- NOTE | 2018-07-14 12:22 | NUR ---
Rounding on patient, patient dialyzing. Patient in room sleeping. In no distress.
--- NOTE | 2018-07-14 12:29 | NUR ---
DIALYSIS STARTED. PATIENT IN NO DISTRESS.
--- NOTE | 2018-07-14 12:29 | NUR ---
JASON Angulo spoke with pt's Remi Jarquin [phone]. Per , pt does not qualify for any gov assistance because she is undocumented. Pt comes to hospital when she needs dialysis, has borrowed w/c, no in home care services. states he helps with ADLS, states pt is very weak and immobile on her own. Discussed directives, pt states he and have never discussed. Plan is home at [place] Addendum: 07/14/18 at 1233 by LAURIE ONEIL Amended: Links added.
--- NOTE | 2018-07-14 14:25 | NUR ---
Rounding on patient, pt continues sleeping and dialysizing. In no distress.
--- NOTE | 2018-07-14 15:29 | NUR ---
DIALYSIS STOPPED. PATIENT IN NO DISTRESS. 2.5L REMOVED.
[2018-07-14 15:47] VITALS: BP 141/69
[2018-07-14] MEDS: LEVOFLOXACIN 500 MG TABLET PO SCH (17:08)
[2018-07-14] MEDS: ENOXAPARIN SODIUM 30 MG/0.3 ML SQ SCH ×2 (17:09→21:00)
[2018-07-14 20:43] VITALS: BP 141/68
[2018-07-14] MEDS ORDERED: CEFTRIAXONE SODIUM 1 GM IV SCH (21:00)
[2018-07-14] MEDS: INSULIN HUMULIN R 100 UNIT/ML 3ML SQ SCH (21:00)
[2018-07-14] MEDS ORDERED: ATORVASTATIN CALCIUM 40 MG TABLET PO SCH (21:00)
[2018-07-14] MEDS: SODIUM BICARBONATE 650 MG TAB PO SCH (21:05)
[2018-07-15 00:02] VITALS: BP 155/72
[2018-07-15 04:20] VITALS: BP 131/67
[2018-07-15] MEDS ORDERED: SODIUM CHLORIDE 0.9% 1000ML 1,000 ML IV ONE (05:31)
[2018-07-15] MEDS: INSULIN HUMULIN R 100 UNIT/ML 3ML SQ SCH ×3 (05:37→16:30)
[2018-07-15] MEDS: IPRATROPIUM/ALBUTEROL SULFATE 3 ML SOLUTION IH SCH ×2 (06:39→11:13)
[2018-07-15 07:00] VITALS: BP 100/46
[2018-07-15] MEDS: NITROGLYCERIN 1GM/1 INCH PACKET TD SCH ×2 (08:45→16:45)
[2018-07-15] MEDS: METOPROLOL TARTRATE 25 MG TAB PO SCH (09:00)
[2018-07-15] MEDS ORDERED: ASPIRIN 81 MG EC TAB PO SCH (09:00)
[2018-07-15] MEDS ORDERED: ASCORBIC ACID 500 MG TAB PO SCH (09:00)
[2018-07-15] MEDS ORDERED: CHOLECALCIFEROL 1000 UNIT PO SCH (09:00)
[2018-07-15] MEDS ORDERED: FERROUS SULFATE 325 MG TABLET.DR PO SCH (09:00)
[2018-07-15] MEDS: SODIUM BICARBONATE 650 MG TAB PO SCH (09:28)
[2018-07-15] MEDS: LEVOFLOXACIN 500 MG TABLET PO SCH (09:29)
[2018-07-15] MEDS: FUROSEMIDE 10 MG/ML 2ML VIAL IV SCH (09:35)
[2018-07-15] MEDS: ENOXAPARIN SODIUM 30 MG/0.3 ML SQ SCH (09:36)
[2018-07-15] MEDS: CALCIUM ACETATE 667 MG CAPSULE PO SCH ×3 (09:43→17:55)
[2018-07-15 12:00] VITALS: BP 129/60
--- NOTE | 2018-07-15 18:00 | NUR ---
PATIENT GIVEN DISCHARGE INSTRUCTION AND VERBALIZED UNDERSTANDING, DENIES PAIN AT THIS TIME NO QUESTIONS OR CONCERN , INSTRUCTED TO CONTINUE ALL HOME MEDICATION , NO NEW MEDICATIONS ORDERS, PATIENT TRANSPORTED VIA WHEELCHAIR TO [facility] AND LEFT FOR HOME WITH SON.
== END 2018-07-15 18:28 | disposition home or self-care (01) | DRG 193 ==
LOC: EDH 20:28 → EDHIP 20:29 → 3CH 07-14 00:27
PROVIDERS: ADMIT Internal Medicine; ATTEND Internal Medicine
PROC: 5A1D70Z Performance of Urinary Filtration, Intermittent, Less than 6 Hours Per Day (ICD-10-PCS; principal; 2018-07-14)
PROC: 5A1D70Z Performance of Urinary Filtration, Intermittent, Less than 6 Hours Per Day (ICD-10-PCS; 2018-07-14)
DX: J18.1 Lobar pneumonia, unspecified organism (principal); N18.6 End stage renal disease; I12.0 Hypertensive chronic kidney disease with stage 5 chronic kidney disease or end stage renal disease; E11.22 Type 2 diabetes mellitus with diabetic chronic kidney disease; E78.5 Hyperlipidemia, unspecified; E87.70 Fluid overload, unspecified; Z79.4 Long term (current) use of insulin; Z82.0 Family history of epilepsy and other diseases of the nervous system; Z82.3 Family history of stroke; Z82.49 Family history of ischemic heart disease and other diseases of the circulatory system; Z82.5 Family history of asthma and other chronic lower respiratory diseases; Z83.3 Family history of diabetes mellitus; Z89.511 Acquired absence of right leg below knee; Z99.2 Dependence on renal dialysis; Z90.49 Acquired absence of other specified parts of digestive tract; Z88.0 Allergy status to penicillin; Z88.8 Allergy status to other drugs, medicaments and biological substances; Z71.3 Dietary counseling and surveillance
CPT/HCPCS: 36415; 71045; 80053; 82550; 82948; 83874; 84484; 85025; 85610; 85730; 90935; 93005; 94640; 94664; 99291; G0378; J0456; J0696; J0885; J1650; J1940; J2270; J2405; J3490; J7030

== ENCOUNTER 2018-07-20 08:37 | Inpatient (IN) | payer OTHER ==
[2018-07-20] MEDS ORDERED: SODIUM CHLORIDE 0.9% 500ML 500 ML IV ONE (08:56)
[2018-07-20] MEDS ORDERED: ASPIRIN 325 MG TABLET ONE (09:10)
[2018-07-20 09:12] LABS: BASOPHILS % (AUTO) 1.1 % (0.0-5.0); EOSINOPHILS % (AUTO) 3.5 % (0.0-8.0); HEMATOCRIT 31.7 % (36-48); LYMPHOCYTES % (AUTO) 29.1 % (21.0-51.0); MEAN CORPUSCULAR HEMOGLOBIN 28.1 pg (27.0-33.0); MEAN CORPUSCULAR HGB CONC 32.3 g/dL (32.0-36.0); MONOCYTES % (AUTO) 7.8 % (3.0-13.0); NEUTROPHILS % (AUTO) 58.5 % (40.0-77.0); PLATELET COUNT (AUTO) 226 K/uL (130-400); RED BLOOD CELL COUNT(AUTO) 3.65 MIL/uL (4.00-5.50); RED CELL DISTRIBUTION WIDTH 17.1 % (11.0-15.5); WHITE BLOOD COUNT (AUTO) 7.3 K/uL (4.8-10.8)
[2018-07-20 09:31] LABS: POTASSIUM 5.2 mmol/L (3.5-5.1)
[2018-07-20 09:34] LABS: INR 0.97 (0.85-1.15); PARTIAL THROMBOPLASTIN TIME 30.3 SEC (26.3-35.5); PROTHROMBIN TIME 10.2 SEC (9.6-11.6)
[2018-07-20 09:37] LABS: ALBUMIN 1.8 g/dL (3.5-5.0); BILIRUBIN,TOTAL 0.4 mg/dL (0.2-1.0); TOTAL PROTEIN, SERUM 6.2 g/dL (6.0-8.3)
[2018-07-20 09:46] LABS: B-TYPE NATRIURETIC PEPTIDE 4510 pg/mL (0-100)
[2018-07-20] MEDS ORDERED: HYDRALAZINE HCL 20 MG/ML VIAL ONE (11:18)
[2018-07-20 12:20] VITALS: BP 138/66
[2018-07-20] MEDS ORDERED: 0.9% SODIUM CHLORIDE 1000 ML IV BAG IV PRN (13:30)
[2018-07-20] MEDS ORDERED: ACETAMINOPHEN 325 MG TAB PO PRN ×2 (13:30→13:45)
[2018-07-20] MEDS ORDERED: SODIUM CHLORIDE 0.9% 1000ML 1,000 ML IV PRN (13:30)
[2018-07-20] MEDS ORDERED: NITROGLYCERIN 0.4 MG SL TAB SL PRN (13:30)
[2018-07-20] MEDS ORDERED: EPOETIN ALFA 10,000 UNIT/ML VIAL SQ SCH ×2 (13:45→17:00)
--- NOTE | 2018-07-20 14:00 | NUR ---
PT OFFERED TYLENOL FOR GENERALIZED PAIN BUT REPORTS WILL TAKE AFTER HEMODIALYSIS. REPORTS CHEST PAIN BUT SAYS IT FEELS LIKE MUSCULOSKELETAL SHE PRESSES ON AREA WHERE IT HURTS. I PRESSED ON AREA OF CHEST AND REPORTED PAIN AND I RELEASED AREA, SHE REPORTS BETTER. WILL CONTINUE TO MONITOR.
[2018-07-20 16:00] VITALS: BP 129/59
[2018-07-20] MEDS ORDERED: HYDRALAZINE HCL 20 MG/ML VIAL IV PRN (17:45)
[2018-07-20] MEDS ORDERED: ONDANSETRON HCL 4 MG/2 ML VIAL IVP PRN (17:45)
[2018-07-20 19:21] VITALS: BP 121/63
[2018-07-20] MEDS: SODIUM BICARBONATE 650 MG TAB PO SCH (20:19)
[2018-07-20] MEDS: METOPROLOL TARTRATE 25 MG TAB PO SCH (20:19)
[2018-07-20] MEDS: FUROSEMIDE 40 MG TABLET PO SCH (20:20)
[2018-07-20] MEDS: INSULIN R PO SS1 SQ SCH (20:53)
[2018-07-20] MEDS ORDERED: ATORVASTATIN CALCIUM 40 MG TABLET PO SCH (21:00)
[2018-07-21] VITALS: BP 146/67
[2018-07-21 04:00] VITALS: BP 104/53
[2018-07-21] MEDS: INSULIN R PO SS1 SQ SCH ×2 (06:12→11:29)
[2018-07-21 08:00] VITALS: BP 167/77
[2018-07-21] MEDS ORDERED: ASPIRIN 81 MG EC TAB PO SCH (09:00)
[2018-07-21] MEDS ORDERED: **HM**Cholecalciferol (Vitamin D3) (Vitamin D3) 1,000 UNIT PO SCH (09:00)
[2018-07-21] MEDS ORDERED: FERROUS SULFATE 325 MG TABLET.DR PO SCH (09:00)
[2018-07-21] MEDS: METOPROLOL TARTRATE 25 MG TAB PO SCH (09:00)
[2018-07-21] MEDS ORDERED: ASCORBIC ACID 500 MG TAB PO SCH (09:00)
[2018-07-21] MEDS: FUROSEMIDE 40 MG TABLET PO SCH (09:00)
[2018-07-21] MEDS: CALCIUM ACETATE 667 MG CAPSULE PO SCH ×2 (10:30→11:50)
[2018-07-21] MEDS: SODIUM BICARBONATE 650 MG TAB PO SCH (10:30)
[2018-07-21 11:00] VITALS: BP 149/62
--- NOTE | 2018-07-21 12:33 | NUR ---
JASON Angulo met with pt and her Remi [phone]. Pt is undocumented, requires dialysis, does not qualify for any gov assistance. assists pt with ADLS prn, pt has w/c, no in home care services. Plan is home at co Addendum: 07/21/18 at 1236 by LAURIE ONEIL Amended: Links added.
--- NOTE | 2018-07-21 17:06 | NUR ---
CHART REVIEWED- CRUTCHES? ON LAST ADMIT PT HAD TALKED ABOUT GETTING PRACTIC JOSSELYN HER CRUTCHES. WILL ASK RN TO FOLLOW UP W/ pt IN AM-MAYBE WE COULD REINFORCE CRUTCHES FOR PT
== END 2018-07-21 16:30 | disposition home or self-care (01) | DRG 682 ==
LOC: EDH 08:37 → OBSVTOIN 08:38 → EDHIP 08:38 → 3BH 12:18
PROVIDERS: ADMIT Internal Medicine; ATTEND Internal Medicine
PROC: 5A1D70Z Performance of Urinary Filtration, Intermittent, Less than 6 Hours Per Day (ICD-10-PCS; principal; 2018-07-20)
PROC: 5A1D70Z Performance of Urinary Filtration, Intermittent, Less than 6 Hours Per Day (ICD-10-PCS; 2018-07-21)
DX: I12.0 Hypertensive chronic kidney disease with stage 5 chronic kidney disease or end stage renal disease (principal); J81.0 Acute pulmonary edema; N18.6 End stage renal disease; J90 Pleural effusion, not elsewhere classified; J98.11 Atelectasis; E11.22 Type 2 diabetes mellitus with diabetic chronic kidney disease; E87.70 Fluid overload, unspecified; I25.10 Atherosclerotic heart disease of native coronary artery without angina pectoris; E78.5 Hyperlipidemia, unspecified; K21.9 Gastro-esophageal reflux disease without esophagitis; Z88.0 Allergy status to penicillin; Z88.8 Allergy status to other drugs, medicaments and biological substances; Z91.018 Allergy to other foods; Z99.2 Dependence on renal dialysis; Z89.511 Acquired absence of right leg below knee; Z83.3 Family history of diabetes mellitus; Z82.5 Family history of asthma and other chronic lower respiratory diseases; Z82.49 Family history of ischemic heart disease and other diseases of the circulatory system; Z82.3 Family history of stroke; Z82.0 Family history of epilepsy and other diseases of the nervous system
CPT/HCPCS: 36415; 71045; 80053; 80074; 82550; 82948; 83880; 84484; 85025; 85610; 85730; 90935; 93005; G0378; J0360; J0885; J2405; J7040

== ENCOUNTER 2018-07-28 10:49 | Inpatient (IN) | payer OTHER ==
[2018-07-28 11:21] LABS: HEMATOCRIT 29.3 % (36-48); LYMPHOCYTES % (AUTO) 31.8 % (21.0-51.0); MEAN CORPUSCULAR HEMOGLOBIN 28.5 pg (27.0-33.0); MEAN CORPUSCULAR HGB CONC 32.5 g/dL (32.0-36.0); MEAN CORPUSCULAR VOLUME 87.7 fL (79-99); MONOCYTES % (AUTO) 7.9 % (3.0-13.0); NEUTROPHILS % (AUTO) 56.3 % (40.0-77.0); PLATELET COUNT (AUTO) 192 K/uL (130-400); RED BLOOD CELL COUNT(AUTO) 3.34 MIL/uL (4.00-5.50); RED CELL DISTRIBUTION WIDTH 17.7 % (11.0-15.5)
[2018-07-28 11:33] LABS: ALBUMIN 1.8 g/dL (3.5-5.0); BILIRUBIN,TOTAL 0.3 mg/dL (0.2-1.0); CREATININE 7.8 mg/dL (0.5-1.5); POTASSIUM 5.4 mmol/L (3.5-5.1); TOTAL PROTEIN, SERUM 5.8 g/dL (6.0-8.3)
[2018-07-28 12:17] LABS: INR 0.98 (0.85-1.15); PARTIAL THROMBOPLASTIN TIME 31.7 SEC (26.3-35.5); PROTHROMBIN TIME 10.3 SEC (9.6-11.6)
[2018-07-28] MEDS ORDERED: LACTULOSE 20 GM/30 ML UDCUP PO PRN (13:15)
[2018-07-28] MEDS ORDERED: HYDRALAZINE HCL 20 MG/ML VIAL IV PRN (13:15)
[2018-07-28] MEDS ORDERED: ACETAMINOPHEN 325 MG TAB PO PRN ×2 (13:15)
[2018-07-28] MEDS ORDERED: ONDANSETRON HCL 4 MG/2 ML VIAL IV PRN (13:15)
[2018-07-28] MEDS ORDERED: FAMOTIDINE/PF 20 MG/2 ML VIAL IV ONE (14:54)
--- NOTE | 2018-07-28 16:35 | NUR ---
ER ADMIT TO ROOM 303. HAD H-D IN ER, 2 LITERS REMOVED. ASSESSMENT COMPLETE.
[2018-07-28 20:00] VITALS: BP 164/79
[2018-07-28] MEDS: MORPHINE SULFATE 2 MG/ML 1ML SYG IV PRN (20:47)
[2018-07-28] MEDS ORDERED: FAMOTIDINE/PF 20 MG/2 ML VIAL IV SCH (21:00)
[2018-07-29] VITALS: BP 128/64
[2018-07-29 04:00] VITALS: BP 144/65
[2018-07-29 07:38] VITALS: BP 149/64
--- NOTE | 2018-07-29 08:00 | NUR ---
AM SHIFT ASSESSMENT, C/O OF BACK PAIN, ASKING FOR PAIN MED.
[2018-07-29] MEDS: MORPHINE SULFATE 2 MG/ML 1ML SYG IV PRN ×2 (08:23→15:01)
--- NOTE | 2018-07-29 08:45 | NUR ---
h-d tx. now started
[2018-07-29] MEDS ORDERED: FERROUS SULFATE 325 MG TABLET.DR PO SCH (08:55)
[2018-07-29] MEDS ORDERED: FUROSEMIDE 40 MG TABLET PO SCH (09:00)
[2018-07-29] MEDS ORDERED: ASCORBIC ACID 500 MG TAB PO SCH (09:00)
[2018-07-29] MEDS ORDERED: SODIUM BICARBONATE 650 MG TAB PO SCH (09:00)
[2018-07-29] MEDS ORDERED: METOPROLOL TARTRATE 25 MG TAB PO SCH (09:00)
[2018-07-29] MEDS ORDERED: ASPIRIN 81 MG EC TAB PO SCH (09:00)
[2018-07-29] MEDS ORDERED: CHOLECALCIFEROL 1000 UNIT PO SCH (09:00)
--- NOTE | 2018-07-29 11:45 | NUR ---
DIALYSIS TX. COMPLETE. TOLERATED WELL. 1 LITER REMOVED BP 150/70, HR 95, TEMP 98.3, RR 17.
[2018-07-29 12:00] VITALS: BP 117/62
[2018-07-29] MEDS ORDERED: CALCIUM ACETATE 667 MG CAPSULE PO SCH (12:00)
--- NOTE | 2018-07-29 16:10 | NUR ---
INITIAL" Met with pt and son Shelia this afternoon to discuss dcp. Pt is a frequent admitter dt need for HD, does not qualify for outpt services. Pt lives w spouse and son. She is [place] bound and is dependent for transfers and care. Per pt she feels safe and comfortable to return home at la. Will continue to follow and wait for Md recommendations. Addendum: 07/30/18 at 1612 by TRAMAINE JIM CM Amended: Links added. Addendum: 07/30/18 at 1613 by TRAMAINE JIM low income packet provided along w discount prescription drug card.
--- NOTE | 2018-07-29 17:40 | NUR ---
DISCHARGED NOW USING TEACH BACK. DC INST. GIVEN TO PT. WITH SON AND SPOUSE PRESENT, ALL VERBALIZED UNDERSTANDING. NO X GIVEN. WILL FOLLOW UP WITH PRIMARY DRLinus ON A PRN BASIS.
[2018-07-29] MEDS ORDERED: ATORVASTATIN CALCIUM 40 MG TABLET PO SCH (21:00)
== END 2018-07-29 18:00 | disposition home or self-care (01) | DRG 640 ==
LOC: EDH 10:49 → EDHIP 10:50 → 3AH 16:34
PROVIDERS: ADMIT Internal Medicine; ATTEND Internal Medicine
PROC: 5A1D70Z Performance of Urinary Filtration, Intermittent, Less than 6 Hours Per Day (ICD-10-PCS; principal; 2018-07-28)
PROC: 5A1D70Z Performance of Urinary Filtration, Intermittent, Less than 6 Hours Per Day (ICD-10-PCS; 2018-07-29)
DX: E87.70 Fluid overload, unspecified (principal); J81.0 Acute pulmonary edema; J96.01 Acute respiratory failure with hypoxia; N18.6 End stage renal disease; I12.0 Hypertensive chronic kidney disease with stage 5 chronic kidney disease or end stage renal disease; E11.22 Type 2 diabetes mellitus with diabetic chronic kidney disease; E78.2 Mixed hyperlipidemia; K21.9 Gastro-esophageal reflux disease without esophagitis; Z88.0 Allergy status to penicillin; Z88.8 Allergy status to other drugs, medicaments and biological substances; Z91.018 Allergy to other foods; Z99.2 Dependence on renal dialysis; Z91.15 Patient's noncompliance with renal dialysis; Z79.4 Long term (current) use of insulin; Z89.511 Acquired absence of right leg below knee; Z83.3 Family history of diabetes mellitus; Z82.5 Family history of asthma and other chronic lower respiratory diseases; Z82.49 Family history of ischemic heart disease and other diseases of the circulatory system; Z82.3 Family history of stroke; Z82.0 Family history of epilepsy and other diseases of the nervous system
CPT/HCPCS: 36415; 71045; 80053; 82948; 85025; 85610; 85730; 90935; 93005; G0378; J2405; J3490

== ENCOUNTER 2018-08-03 05:29 | Inpatient (IN) | payer OTHER | END 2018-08-04 14:07 | disposition home or self-care (01) | LOC: EDH 05:29 → EDHIP 05:30 → 3AH 17:03 ==

== ENCOUNTER 2018-08-10 08:26 | Inpatient (IN) | payer OTHER ==
[~2018-08-10] VITALS: Ht 149.9 cm; Wt 48.0 kg
[2018-08-10] MEDS ORDERED: ASPIRIN 325 MG TABLET ONE (08:29)
[2018-08-10 09:13] LABS: BASOPHILS % (AUTO) 1.2 % (0.0-5.0); EOSINOPHILS % (AUTO) 1.7 % (0.0-8.0); HEMATOCRIT 30.1 % (36-48); LYMPHOCYTES % (AUTO) 29.6 % (21.0-51.0); MEAN CORPUSCULAR HEMOGLOBIN 28.8 pg (27.0-33.0); MEAN CORPUSCULAR HGB CONC 32.8 g/dL (32.0-36.0); MEAN CORPUSCULAR VOLUME 87.8 fL (79-99); MONOCYTES % (AUTO) 7.5 % (3.0-13.0); PLATELET COUNT (AUTO) 160 K/uL (130-400); RED BLOOD CELL COUNT(AUTO) 3.43 MIL/uL (4.00-5.50); RED CELL DISTRIBUTION WIDTH 16.8 % (11.0-15.5); WHITE BLOOD COUNT (AUTO) 5.5 K/uL (4.8-10.8)
[2018-08-10 09:24] LABS: INR 0.98 (0.85-1.15); PROTHROMBIN TIME 10.3 SEC (9.6-11.6)
[2018-08-10] MEDS ORDERED: ACETAMINOPHEN 325 MG TAB ONE ×2 (09:27→14:10)
[2018-08-10] MEDS ORDERED: NITROGLYCERIN 1GM/1 INCH PACKET TD ONE (09:28)
[2018-08-10] MEDS ORDERED: ONDANSETRON HCL 4 MG/2 ML VIAL ONE (09:31)
[2018-08-10 09:42] LABS: ALBUMIN 2.2 g/dL (3.5-5.0); BILIRUBIN,TOTAL 0.3 mg/dL (0.2-1.0); POTASSIUM 4.7 mmol/L (3.5-5.1); TOTAL PROTEIN, SERUM 6.3 g/dL (6.0-8.3)
[2018-08-10 09:44] LABS: CREATININE 8.3 mg/dL (0.5-1.5)
[2018-08-10] MEDS ORDERED: ACETAMINOPHEN 325 MG TAB PO PRN (12:15)
[2018-08-10] MEDS ORDERED: LACTULOSE 20 GM/30 ML UDCUP PO PRN (12:15)
[2018-08-10] MEDS ORDERED: ONDANSETRON HCL 4 MG/2 ML VIAL IV PRN (12:15)
[2018-08-10] MEDS ORDERED: HYDRALAZINE HCL 20 MG/ML VIAL IV PRN (12:15)
[2018-08-10] MEDS ORDERED: IPRATROPIUM/ALBUTEROL SULFATE 3 ML SOLUTION IH ONE (15:49)
[2018-08-10 17:29] VITALS: BP 144/68
--- NOTE | 2018-08-10 17:40 | NUR ---
ARRIVED TO THE UNIT ACCOMPANIED BY HER ALERT AND ORIENTED X3 WITH NO RESPIRATORY DISTRESS. DIALYSIS NURSE IS ALREADY HERE TO START TREATMENT ON THE PATIENT. DATABASE INFORMATION WERE COLLECTED, BUT ASSESSMENT WAS NOT COMPLETED. FALL PREVENTION WAS DISCUSSED WITH THE PATIENT AND HER WHO VERBALIZED UNDERSTANDING.
[2018-08-10] MEDS: IPRATROPIUM/ALBUTEROL SULFATE 3 ML SOLUTION IH SCH ×2 (18:00→23:43)
[2018-08-10 19:30] VITALS: BP 124/62
[2018-08-10 23:00] VITALS: BP 148/61
[2018-08-10] MEDS: FAMOTIDINE 20MG TAB 20 MG TAB PO SCH (23:30)
[2018-08-11 03:30] VITALS: BP 139/65
[2018-08-11 06:28] LABS: HEMATOCRIT 25.5 % (36-48); MEAN CORPUSCULAR HEMOGLOBIN 29.5 pg (27.0-33.0); MEAN CORPUSCULAR HGB CONC 33.8 g/dL (32.0-36.0); MEAN CORPUSCULAR VOLUME 87.4 fL (79-99); PLATELET COUNT (AUTO) 135 K/uL (130-400); RED BLOOD CELL COUNT(AUTO) 2.92 MIL/uL (4.00-5.50); RED CELL DISTRIBUTION WIDTH 16.9 % (11.0-15.5)
[2018-08-11 06:39] VITALS: BP 149/71
[2018-08-11] MEDS: IPRATROPIUM/ALBUTEROL SULFATE 3 ML SOLUTION IH SCH ×4 (06:45→23:22)
[2018-08-11 06:57] LABS: CREATININE 5.6 mg/dL (0.5-1.5); POTASSIUM 4.3 mmol/L (3.5-5.1)
[2018-08-11] MEDS: ENOXAPARIN SODIUM 30 MG/0.3 ML SQ SCH (09:18)
[2018-08-11] MEDS: FAMOTIDINE 20MG TAB 20 MG TAB PO SCH (09:18)
[2018-08-11 11:00] VITALS: BP 155/76
--- NOTE | 2018-08-11 11:53 | NUR ---
DCP Sw rayiar with pt who is undocumented lady, who does not qualify for any gov. assist, requires HD. Pt lives with and son, family provides assist with all ADLS, home management and transport. Pt has borrowed kenan Barth in home care services. Pt to dc home with family Addendum: 08/11/18 at 1155 by LAURIE ONEIL Amended: Links added.
[2018-08-11 16:00] VITALS: BP 189/83
[2018-08-11 20:00] VITALS: BP 109/54
[2018-08-12] VITALS: BP 149/75
[2018-08-12 04:00] VITALS: BP 156/73
[2018-08-12] MEDS: IPRATROPIUM/ALBUTEROL SULFATE 3 ML SOLUTION IH SCH ×4 (06:23→23:19)
[2018-08-12 07:30] VITALS: BP 148/72
[2018-08-12 11:00] VITALS: BP 103/57
[2018-08-12 16:00] VITALS: BP 139/67
[2018-08-12] MEDS: MORPHINE SULFATE 2 MG/ML 1ML SYG IVP PRN (16:41)
[2018-08-12] MEDS: FAMOTIDINE 20MG TAB 20 MG TAB PO SCH (16:41)
[2018-08-12] MEDS: ENOXAPARIN SODIUM 30 MG/0.3 ML SQ SCH (16:42)
[2018-08-12 20:00] VITALS: BP 144/63
[2018-08-13] VITALS: BP 162/69
[2018-08-13] MEDS: MORPHINE SULFATE 2 MG/ML 1ML SYG IVP PRN ×2 (00:27→10:27)
[2018-08-13 04:00] VITALS: BP 135/60
[2018-08-13 05:18] LABS: BASOPHILS % (AUTO) 1.2 % (0.0-5.0); EOSINOPHILS % (AUTO) 2.3 % (0.0-8.0); LYMPHOCYTES % (AUTO) 36.2 % (21.0-51.0); MEAN CORPUSCULAR HEMOGLOBIN 29.7 pg (27.0-33.0); MEAN CORPUSCULAR HGB CONC 33.4 g/dL (32.0-36.0); MONOCYTES % (AUTO) 10.3 % (3.0-13.0); PLATELET COUNT (AUTO) 127 K/uL (130-400); RED BLOOD CELL COUNT(AUTO) 2.92 MIL/uL (4.00-5.50); RED CELL DISTRIBUTION WIDTH 16.8 % (11.0-15.5); WHITE BLOOD COUNT (AUTO) 5.3 K/uL (4.8-10.8)
[2018-08-13 05:22] LABS: CREATININE 3.4 mg/dL (0.5-1.5); POTASSIUM 3.7 mmol/L (3.5-5.1)
[2018-08-13] MEDS: IPRATROPIUM/ALBUTEROL SULFATE 3 ML SOLUTION IH SCH ×3 (06:44→18:44)
[2018-08-13 07:30] VITALS: BP 131/60
[2018-08-13] MEDS: ENOXAPARIN SODIUM 30 MG/0.3 ML SQ SCH (10:17)
[2018-08-13] MEDS: FAMOTIDINE 20MG TAB 20 MG TAB PO SCH (10:17)
[2018-08-13 11:00] VITALS: BP 133/68
--- NOTE | 2018-08-13 15:00 | NUR ---
patient complaint of back pain with IS.. informed khurram ojeda.. per big data admin give morphine only 1mg x 1 dose before discharge and patient can go home after 1 hour pain med .
[2018-08-13] MEDS ORDERED: MORPHINE SULFATE 2 MG/ML 1ML SYG IVP SCH (15:45)
[2018-08-13 16:00] VITALS: BP 156/72
--- NOTE | 2018-08-13 18:30 | NUR ---
patient calm ,denies pain at this time,states ready to go home . patient discharge information given .pt verbilized understanding
== END 2018-08-13 18:30 | disposition home or self-care (01) | DRG 640 ==
LOC: EDH 08:26 → EDHIP 08:27 → 3DH 17:04
PROVIDERS: ADMIT Hospitalist; ATTEND Hospitalist
PROC: 5A1D70Z Performance of Urinary Filtration, Intermittent, Less than 6 Hours Per Day (ICD-10-PCS; principal; 2018-08-10)
PROC: 5A1D70Z Performance of Urinary Filtration, Intermittent, Less than 6 Hours Per Day (ICD-10-PCS; 2018-08-11)
PROC: 5A1D70Z Performance of Urinary Filtration, Intermittent, Less than 6 Hours Per Day (ICD-10-PCS; 2018-08-12)
PROC: 5A1D70Z Performance of Urinary Filtration, Intermittent, Less than 6 Hours Per Day (ICD-10-PCS; 2018-08-12)
DX: E87.70 Fluid overload, unspecified (principal); J81.0 Acute pulmonary edema; J96.01 Acute respiratory failure with hypoxia; N18.6 End stage renal disease; I13.11 Hypertensive heart and chronic kidney disease without heart failure, with stage 5 chronic kidney disease, or end stage renal disease; J81.1 Chronic pulmonary edema; J98.11 Atelectasis; N17.9 Acute kidney failure, unspecified; D64.9 Anemia, unspecified; E11.21 Type 2 diabetes mellitus with diabetic nephropathy; E11.22 Type 2 diabetes mellitus with diabetic chronic kidney disease; E11.51 Type 2 diabetes mellitus with diabetic peripheral angiopathy without gangrene; E78.2 Mixed hyperlipidemia; Z88.0 Allergy status to penicillin; Z88.8 Allergy status to other drugs, medicaments and biological substances; Z91.018 Allergy to other foods; Z91.048 Other nonmedicinal substance allergy status; Z74.01 Bed confinement status; Z99.2 Dependence on renal dialysis; Z91.19 Patient's noncompliance with other medical treatment and regimen; Z91.15 Patient's noncompliance with renal dialysis; Z89.511 Acquired absence of right leg below knee; Z83.3 Family history of diabetes mellitus; Z82.5 Family history of asthma and other chronic lower respiratory diseases; Z82.49 Family history of ischemic heart disease and other diseases of the circulatory system; Z82.3 Family history of stroke; Z82.0 Family history of epilepsy and other diseases of the nervous system
CPT/HCPCS: 36415; 71045; 80048; 80053; 82550; 82948; 83874; 83880; 84484; 85025; 85027; 85610; 85730; 87804; 90935; 93005; 94640; 94664; G0378; J1650; J2405

== ENCOUNTER 2018-08-17 09:42 | Inpatient (IN) | payer OTHER ==
[~2018-08-17] VITALS: Ht 149.9 cm; Wt 48.6 kg
[2018-08-17 10:22] LABS: BASOPHILS % (AUTO) 0.4 % (0.0-5.0); EOSINOPHILS % (AUTO) 2.8 % (0.0-8.0); HEMATOCRIT 28.4 % (36-48); LYMPHOCYTES % (AUTO) 32.5 % (21.0-51.0); MEAN CORPUSCULAR HEMOGLOBIN 29.9 pg (27.0-33.0); MEAN CORPUSCULAR HGB CONC 33.6 g/dL (32.0-36.0); MEAN CORPUSCULAR VOLUME 88.9 fL (79-99); MONOCYTES % (AUTO) 7.3 % (3.0-13.0); PLATELET COUNT (AUTO) 170 K/uL (130-400); RED CELL DISTRIBUTION WIDTH 16.6 % (11.0-15.5)
[2018-08-17 10:38] LABS: ALBUMIN 2.2 g/dL (3.5-5.0); BILIRUBIN,TOTAL 0.3 mg/dL (0.2-1.0); CREATININE 7.4 mg/dL (0.5-1.5); TOTAL PROTEIN, SERUM 6.7 g/dL (6.0-8.3)
[2018-08-17 12:50] VITALS: BP 170/73
[2018-08-17] MEDS ORDERED: EPOETIN ALFA 10,000 UNIT/ML VIAL SQ SCH (13:00)
[2018-08-17 16:00] VITALS: BP 110/51
[2018-08-17 19:57] VITALS: BP 136/61
--- NOTE | 2018-08-17 19:59 | NUR ---
DIALYSIS PATIENT RECEIVED HEMODIALYSIS TODAY AT 1351 HOURS FOR 3 HOURS. FLUID REMOVED WAS 2 LITERS. VITALS WITHIN NORMAL LIMITS. PATIENT TOLERATED PROCEDURE WITHOUT INCIDENT.
[2018-08-17 23:52] VITALS: BP 132/64
[2018-08-18 04:09] VITALS: BP 136/68
[2018-08-18 08:00] VITALS: BP 129/64
--- NOTE | 2018-08-18 09:00 | NUR ---
DR VARGAS ROUNDED ON PATIENT AND WANT DIALYSIS TODAY THEN PER HIM SHE BE DISCHARGE
[2018-08-18 11:49] VITALS: BP 163/79
--- NOTE | 2018-08-18 13:42 | NUR ---
PATIENT COMPLETE DIALYSIS WITH 1.3 LITERS REMOVED
[2018-08-18 16:00] VITALS: BP 143/67
--- NOTE | 2018-08-18 18:30 | NUR ---
DISCHARGE INSTRUCTION GIVEN AND PATIENT VERBALIZED UNDERSTANDING , TELEMETRY UNIT NOTIFIED AND UNIT REMOVED, IV REMOVED WITH CATHTER INTACT AND SITE DRESSED, NO QUESTIONS OF CONCERN AT THIS TIME . PATIENT ASKED FOR LAD RESULTS SO PATIENT SUMMARY PRINTED OUT FOR PATIENT . PATIENT TAKING BY WHEELCHAIR TO LOBBY AND LEFT WITH FOR HOME
== END 2018-08-18 18:30 | disposition home or self-care (01) | DRG 640 ==
LOC: EDH 09:42 → EDHIP 09:43 → OBSVTOIN 09:43 → 3BH 12:54
PROVIDERS: ADMIT Internal Medicine Nephrology; ATTEND Internal Medicine Nephrology
PROC: 5A1D70Z Performance of Urinary Filtration, Intermittent, Less than 6 Hours Per Day (ICD-10-PCS; principal; 2018-08-17)
PROC: 5A1D70Z Performance of Urinary Filtration, Intermittent, Less than 6 Hours Per Day (ICD-10-PCS; 2018-08-18)
DX: E87.5 Hyperkalemia (principal); N18.6 End stage renal disease; I12.0 Hypertensive chronic kidney disease with stage 5 chronic kidney disease or end stage renal disease; E11.22 Type 2 diabetes mellitus with diabetic chronic kidney disease; E87.70 Fluid overload, unspecified; Z89.519 Acquired absence of unspecified leg below knee; Z99.2 Dependence on renal dialysis
CPT/HCPCS: 36415; 71045; 80053; 82948; 84484; 85025; 90935; 93005; G0378; J0885

== ENCOUNTER 2018-08-25 09:18 | Inpatient (IN) | payer OTHER ==
[~2018-08-25] VITALS: Ht 124.5 cm; Wt 48.5 kg
[2018-08-25 10:16] LABS: CREATININE 7.3 mg/dL (0.5-1.5); POTASSIUM 4.5 mmol/L (3.5-5.1)
[2018-08-25] MEDS ORDERED: ACETAMINOPHEN 325 MG TAB PO PRN (15:00)
[2018-08-25] MEDS ORDERED: ONDANSETRON HCL 4 MG/2 ML VIAL IV PRN (15:00)
[2018-08-25] MEDS ORDERED: LACTULOSE 20 GM/30 ML UDCUP PO PRN (15:45)
[2018-08-25] MEDS ORDERED: HYDRALAZINE HCL 20 MG/ML VIAL IV PRN (15:45)
[2018-08-25] MEDS ORDERED: FOLIC ACID/VITAMIN B COMP W-C 1 MG CAP/TAB PO SCH (17:54)
[2018-08-25] MEDS ORDERED: HYDRALAZINE HCL 20 MG/ML VIAL ONE (21:53)
[2018-08-25 22:11] LABS: APPEARANCE,URINE Clear (CLEAR); BILIRUBIN,URINE Negative (NEGATIVE); COLOR,URINE Yellow (YELLOW); GLUCOSE, URINE (UA) 500 mg/dL (NEGATIVE); KETONES,URINE Negative (NEGATIVE); LEUKOCYTE ESTERASE ,URINE Trace (NEGATIVE); NITRATE,URINE Negative (NEGATIVE); OCCULT BLOOD,URINE Small (NEGATIVE); PH,URINE 7.5 (5.0-8.0); PROTEIN,URINE >=1000 mg/dL (NEGATIVE); UROBILINOGEN,URINE 0.2 mg/dL (0.2-1.0)
[2018-08-25 22:21] LABS: BACTERIA,URINE Few /HPF (None Seen); RBC,URINE None Seen /HPF (0-1)
[2018-08-26 06:14] LABS: BASOPHILS % (AUTO) 1.3 % (0.0-5.0); EOSINOPHILS % (AUTO) 2.1 % (0.0-8.0); HEMATOCRIT 28.3 % (36-48); LYMPHOCYTES % (AUTO) 27.9 % (21.0-51.0); MEAN CORPUSCULAR HEMOGLOBIN 29.2 pg (27.0-33.0); MEAN CORPUSCULAR VOLUME 88.6 fL (79-99); MONOCYTES % (AUTO) 7.7 % (3.0-13.0); PLATELET COUNT (AUTO) 198 K/uL (130-400); RED BLOOD CELL COUNT(AUTO) 3.19 MIL/uL (4.00-5.50); RED CELL DISTRIBUTION WIDTH 16.3 % (11.0-15.5); WHITE BLOOD COUNT (AUTO) 6.7 K/uL (4.8-10.8)
[2018-08-26 06:33] LABS: CREATININE 4.9 mg/dL (0.5-1.5)
[2018-08-26 06:47] LABS: ALBUMIN 1.8 g/dL (3.5-5.0); BILIRUBIN,TOTAL 0.2 mg/dL (0.2-1.0); TOTAL PROTEIN, SERUM 5.2 g/dL (6.0-8.3)
[2018-08-26] MEDS ORDERED: FAMOTIDINE/PF 20 MG/2 ML VIAL IV SCH (09:00)
[2018-08-26] MEDS ORDERED: ENOXAPARIN SODIUM 30 MG/0.3 ML SQ SCH (09:00)
[2018-08-26 09:17] VITALS: BP 148/72
[2018-08-26 11:33] VITALS: BP 146/65
[2018-08-26 16:00] VITALS: BP 157/69
[2018-08-29 07:15] LABS: HEPATITIS A ANTIBODY IGM Negative (Negative); HEPATITIS B CORE IGM Negative (Negative); HEPATITIS Bs ANTIGEN SCREEN P Negative (Negative)
== END 2018-08-26 20:15 | disposition home or self-care (01) | DRG 640 ==
LOC: EDH 09:18 → EDHIP 09:19 → 3AH 08-26 07:30
PROVIDERS: ADMIT Internal Medicine; ATTEND Internal Medicine
PROC: 5A1D70Z Performance of Urinary Filtration, Intermittent, Less than 6 Hours Per Day (ICD-10-PCS; principal; 2018-08-25)
PROC: 5A1D70Z Performance of Urinary Filtration, Intermittent, Less than 6 Hours Per Day (ICD-10-PCS; 2018-08-26)
DX: E87.70 Fluid overload, unspecified (principal); N18.6 End stage renal disease; I12.0 Hypertensive chronic kidney disease with stage 5 chronic kidney disease or end stage renal disease; N17.9 Acute kidney failure, unspecified; E11.22 Type 2 diabetes mellitus with diabetic chronic kidney disease; D72.829 Elevated white blood cell count, unspecified; I25.10 Atherosclerotic heart disease of native coronary artery without angina pectoris; E11.21 Type 2 diabetes mellitus with diabetic nephropathy; E11.51 Type 2 diabetes mellitus with diabetic peripheral angiopathy without gangrene; D64.9 Anemia, unspecified; E78.2 Mixed hyperlipidemia; Z91.15 Patient's noncompliance with renal dialysis; Z82.5 Family history of asthma and other chronic lower respiratory diseases; Z82.0 Family history of epilepsy and other diseases of the nervous system; Z82.3 Family history of stroke; Z82.49 Family history of ischemic heart disease and other diseases of the circulatory system; Z83.3 Family history of diabetes mellitus; Z99.2 Dependence on renal dialysis; Z89.519 Acquired absence of unspecified leg below knee; Z90.49 Acquired absence of other specified parts of digestive tract; Z98.891 History of uterine scar from previous surgery
CPT/HCPCS: 36415; 74018; 80048; 80053; 80074; 81001; 82948; 83735; 85025; 87324; 90935; G0378; J0360

== ENCOUNTER 2018-08-31 10:22 | Inpatient (IN) | payer OTHER | END 2018-09-01 18:45 | disposition home or self-care (01) | LOC: EDH 10:22 → EDHIP 10:23 → 3DH 15:13 ==

== ENCOUNTER 2018-09-03 20:18 | Inpatient (IN) | payer OTHER ==
[~2018-09-03] VITALS: Ht 149.9 cm; Wt 48.5 kg
[~2018-09-03 20:18] MED LIST changes: -ASCO-360 PO; -ASPI-1181 PO; +ASPI-1197 PO; -ATOR40TA71 PO; -CALC667C10 PO; -CHOL100018 PO; +FERR-82 PO; -FERS325 PO; -FURO40TA5 PO; +FURO40TA7 PO; -LEVO500T2 PO; -METO25TA6 PO; +METOPROLOL; -SODI650T PO; +VITAMIN D; +VITAMIN E
[2018-09-03] MEDS ORDERED: ONDANSETRON HCL 4 MG/2 ML VIAL ONE (21:02)
[2018-09-03] MEDS ORDERED: SODIUM CHLORIDE 0.9% 250 ML IV ONE (21:03)
[2018-09-03] MEDS ORDERED: MEPERIDINE-PF 25 MG/ML SYG ONE (21:03)
[2018-09-03 21:21] LABS: BASOPHILS % (AUTO) 0.9 % (0.0-5.0); EOSINOPHILS % (AUTO) 2.4 % (0.0-8.0); HEMATOCRIT 27.7 % (36-48); LYMPHOCYTES % (AUTO) 29.9 % (21.0-51.0); MEAN CORPUSCULAR HEMOGLOBIN 30.2 pg (27.0-33.0); MEAN CORPUSCULAR HGB CONC 32.9 g/dL (32.0-36.0); MEAN CORPUSCULAR VOLUME 91.6 fL (79-99); MONOCYTES % (AUTO) 9.6 % (3.0-13.0); NEUTROPHILS % (AUTO) 57.2 % (40.0-77.0); PLATELET COUNT (AUTO) 144 K/uL (130-400); RED BLOOD CELL COUNT(AUTO) 3.03 MIL/uL (4.00-5.50); RED CELL DISTRIBUTION WIDTH 16.2 % (11.0-15.5); WHITE BLOOD COUNT (AUTO) 7.3 K/uL (4.8-10.8)
[2018-09-03 21:31] LABS: CREATININE 6.1 mg/dL (0.5-1.5); POTASSIUM 5.2 mmol/L (3.5-5.1)
[2018-09-03 21:38] LABS: ALBUMIN 2.2 g/dL (3.5-5.0); BILIRUBIN,TOTAL 0.2 mg/dL (0.2-1.0); TOTAL PROTEIN, SERUM 6.3 g/dL (6.0-8.3)
[2018-09-03] MEDS ORDERED: CLONIDINE HCL 0.1 MG TABLET PO PRN (22:45)
[2018-09-03] MEDS ORDERED: PHARMACY COMMUNICATION MISC SCH (22:45)
[2018-09-03] MEDS ORDERED: ACETAMINOPHEN 325 MG TAB PO PRN (22:45)
[2018-09-03 23:10] VITALS: BP 160/65
--- NOTE | 2018-09-03 23:55 | NUR ---
Admission Assessment Received pt from ED with no family around, routine admission assessment done, plan of care discuss stated this time admitted due to abdominal pain, currently feels better as she was given Demerol. Pt stated that she had 20 episodes of watery stool before coming in.. Pt instructed to notify us if with urge to have another BM as we need to collect specimen for C diff test. Pt place on Contact isolation at this time.
[2018-09-04 04:06] VITALS: BP 172/79
[2018-09-04 06:09] LABS: HEMATOCRIT 27.7 % (36-48); MEAN CORPUSCULAR HEMOGLOBIN 29.7 pg (27.0-33.0); MEAN CORPUSCULAR HGB CONC 32.7 g/dL (32.0-36.0); MEAN CORPUSCULAR VOLUME 90.9 fL (79-99); PLATELET COUNT (AUTO) 146 K/uL (130-400); RED BLOOD CELL COUNT(AUTO) 3.05 MIL/uL (4.00-5.50); RED CELL DISTRIBUTION WIDTH 16.1 % (11.0-15.5); WHITE BLOOD COUNT (AUTO) 6.7 K/uL (4.8-10.8)
[2018-09-04 06:17] LABS: CREATININE 6.2 mg/dL (0.5-1.5)
[2018-09-04] MEDS: INSULIN HUMULIN R 100 UNIT/ML 3ML SQ SCH ×4 (06:37→21:00)
[2018-09-04 07:30] VITALS: BP 163/71
[2018-09-04 08:00] VITALS: BP 163/71
[2018-09-04] MEDS ORDERED: EPOETIN ALFA 10,000 UNIT/ML VIAL SQ SCH (10:00)
--- NOTE | 2018-09-04 11:22 | NUR ---
DIALYSIS TREATMENT COMPLETED WITH A REMOVAL OF 1.9 LITERS . SEE ACUTE DIALYSIS CARE HEMODIALYSI ASSESSMEN FLOWSHEET . FOR V/S AND CARE.
[2018-09-04 11:58] VITALS: BP 131/63
[2018-09-04] MEDS: AMLODIPINE BESYLATE 5 MG TAB PO SCH (12:59)
[2018-09-04] MEDS: ACETAMINOPHEN 325 MG TAB PO PRN ×2 (13:00→13:06)
[2018-09-04] MEDS: FAMOTIDINE/PF 20 MG/2 ML VIAL IV SCH (13:00)
--- NOTE | 2018-09-04 14:47 | NUR ---
DCP CM met with pt discussed dc plans. Pt is independent prior to admission, lives at home with spouse and son. Has a wheelchair. Denies any other equipments/services. Pt is a self pay, [facility] assisting, pt states she goes to Dr Krysta Mckinney for MD follow up, given [employer] packet. Feels safe to go back home, spouse able to assist with transportation and needs as necessary. DC plan to home once stable. CM to cont to follow up. Addendum: 09/04/18 at 1448 by LAURIE ZHAO LVN CM Amended: Links added.
[2018-09-04 16:00] VITALS: BP 144/73
--- NOTE | 2018-09-04 16:29 | NUR ---
RD Notification Pt reports some nausea at time of visit. Pt with fair PO intake (50%). Pt LBM 09/03/18. Pt monitored labs: BUN 53, Cr 6.2, GFR 8, Ca 7.9, Alb 2.2, Lipase 426. Diet education previously provided. Pt with Dialysis in place. Rec to continue 75gm CC, Dialysis Diet. RD to continue to monitor. Please notify as additional nutrition concerns arise. Thank you. Addendum: 09/04/18 at [address] Amended: Links added.
[2018-09-04 19:00] VITALS: BP 136/60
[2018-09-05] VITALS: BP 113/59
[2018-09-05 04:00] VITALS: BP 159/86
[2018-09-05] MEDS: INSULIN HUMULIN R 100 UNIT/ML 3ML SQ SCH ×3 (05:57→16:30)
[2018-09-05] MEDS: ACETAMINOPHEN 325 MG TAB PO PRN (06:22)
[2018-09-05 07:00] VITALS: BP 155/68
[2018-09-05] MEDS: FAMOTIDINE/PF 20 MG/2 ML VIAL IV SCH (09:00)
[2018-09-05 11:00] VITALS: BP 157/75
[2018-09-05] MEDS: AMLODIPINE BESYLATE 5 MG TAB PO SCH (17:24)
[2018-09-05 17:25] VITALS: BP 160/67
== END 2018-09-05 17:15 | disposition home or self-care (01) | DRG 640 ==
LOC: EDH 20:18 → EDHIP 20:19 → OBSVTOIN 20:19 → 3CH 22:28
PROVIDERS: ADMIT Internal Medicine Critical Care Medicine; ATTEND Internal Medicine Critical Care Medicine
PROC: 5A1D70Z Performance of Urinary Filtration, Intermittent, Less than 6 Hours Per Day (ICD-10-PCS; principal; 2018-09-04)
PROC: 5A1D70Z Performance of Urinary Filtration, Intermittent, Less than 6 Hours Per Day (ICD-10-PCS; 2018-09-05)
DX: E87.70 Fluid overload, unspecified (principal); N18.6 End stage renal disease; I12.0 Hypertensive chronic kidney disease with stage 5 chronic kidney disease or end stage renal disease; E11.22 Type 2 diabetes mellitus with diabetic chronic kidney disease; E11.51 Type 2 diabetes mellitus with diabetic peripheral angiopathy without gangrene; E78.5 Hyperlipidemia, unspecified; Z99.2 Dependence on renal dialysis; Z89.511 Acquired absence of right leg below knee; Z91.15 Patient's noncompliance with renal dialysis
CPT/HCPCS: 36415; 74176; 80048; 80053; 82948; 83690; 84484; 85025; 85027; 90935; 93005; G0378; J0885; J2175; J2405; J3490; J7030

== ENCOUNTER 2018-09-19 09:42 | Inpatient (IN) | payer OTHER ==
[~2018-09-19] VITALS: Ht 149.9 cm; Wt 47.5 kg
[~2018-09-19 09:42] MED LIST changes: +ASCO500T9 PO; +ATOR40TA71 PO; +CHOL200059 PO; +DICY10 PO; +ERYT250C68 PO; -FERR-82 PO; +FERR325T22 PO; +METO-408 PO; -METOPROLOL; +SODI650T PO; -VITAMIN D; -VITAMIN E
[2018-09-19 10:33] LABS: HEMATOCRIT 30.1 % (36-48); MEAN CORPUSCULAR HGB CONC 33.2 g/dL (32.0-36.0); WHITE BLOOD COUNT (AUTO) 6.9 K/uL (4.8-10.8)
[2018-09-19 10:39] LABS: BASOPHILS % (AUTO) 1.4 % (0.0-5.0); EOSINOPHILS % (AUTO) 5.5 % (0.0-8.0); LYMPHOCYTES % (AUTO) 26.6 % (21.0-51.0); MEAN CORPUSCULAR HEMOGLOBIN 30.3 pg (27.0-33.0); MEAN CORPUSCULAR VOLUME 91.2 fL (79-99); MONOCYTES % (AUTO) 9.6 % (3.0-13.0); NEUTROPHILS % (AUTO) 56.9 % (40.0-77.0); PLATELET COUNT (AUTO) 204 K/uL (130-400); RED CELL DISTRIBUTION WIDTH 14.8 % (11.0-15.5)
[2018-09-19 10:42] LABS: ALBUMIN 2.2 g/dL (3.5-5.0); BILIRUBIN,DIRECT 0.1 mg/dL (0.0-0.3); BILIRUBIN,TOTAL 0.4 mg/dL (0.2-1.0); TOTAL PROTEIN, SERUM 6.5 g/dL (6.0-8.3)
[2018-09-19 10:46] LABS: CREATININE 9.2 mg/dL (0.5-1.5)
[2018-09-19 11:09] LABS: B-TYPE NATRIURETIC PEPTIDE 1500 pg/mL (0-100)
[2018-09-19] MEDS ORDERED: SODIUM BICARB 50MEQ 50ML VIAL ONE (12:28)
[2018-09-19] MEDS ORDERED: CALCIUM GLUCONATE 1 GM/10 ML VIAL IV ONE (12:29)
[2018-09-19] MEDS ORDERED: FAMOTIDINE 20MG TAB 20 MG TAB PO SCH (21:00)
[2018-09-19] MEDS ORDERED: HYDRALAZINE HCL 20 MG/ML VIAL IV PRN (21:15)
[2018-09-19 22:00] VITALS: BP 165/78
--- NOTE | 2018-09-19 22:50 | NUR ---
ADMISSION FROM ER. PER SERVICES OF DR. CABALLERO .PT AAO X 3 .REVIEW PLAN OF CARE . PT DENIES ANY SOB. PT GOT DIALYSIS IN ER .WITH A REMOVAL OF .2.7 LITER VIA DIALYSIS TREATMENT . PT HX OF HAVING A RT BELOW KNEE AMPUTATION . FALL RISK REVIEW . AND CALL LIGHT IN REACH. . BED LEVEL DOWN. . PT DID NOT BRING HER HOME MEDICATIONS . . PT . WILL LET HER FAMILY KNOW WHEN THEY COME TO SEE HER. ALSO IS A DIABETIC. NO ORDERS TO FOR CHECKING BLOODSUGARS WILL BE ADDRESS IN AM ,
[2018-09-20 00:12] VITALS: BP 175/72
--- NOTE | 2018-09-20 04:00 | NUR ---
PT SLEEPING . . . NOTED NO RESP DISTRESS .
[2018-09-20 04:12] VITALS: BP 124/56
[2018-09-20 08:00] VITALS: BP 131/61
[2018-09-20] MEDS ORDERED: HEPARIN SODIUM 5000UNIT/ML 1ML VIAL SQ SCH (09:00)
[2018-09-20] MEDS ORDERED: ACETAMINOPHEN 325 MG TAB PO PRN (11:00)
[2018-09-20] MEDS ORDERED: HYDROCODONE/ACETAMINOPHEN 5/325 MG TAB PO SCH (11:00)
[2018-09-20 11:43] VITALS: BP 144/67
[2018-09-20 16:00] VITALS: BP 120/52
--- NOTE | 2018-09-20 16:24 | NUR ---
HEMODIALYSIS START AT 1323 END TIME 1624 3 HOUR WITH 1.8 LITERS REMOVED VS B/P 132/60 P92 T 98.6 R 20
[2018-09-22 07:16] LABS: HEPATITIS A ANTIBODY IGM Negative (Negative); HEPATITIS B CORE IGM Negative (Negative); HEPATITIS Bs ANTIGEN SCREEN P Negative (Negative)
== END 2018-09-20 18:00 | disposition home or self-care (01) | DRG 682 ==
LOC: EDH 09:42 → EDHIP 09:43 → 3AH 21:37
PROVIDERS: ADMIT Internal Medicine; ATTEND Internal Medicine
PROC: 5A1D70Z Performance of Urinary Filtration, Intermittent, Less than 6 Hours Per Day (ICD-10-PCS; principal; 2018-09-19)
PROC: 5A1D70Z Performance of Urinary Filtration, Intermittent, Less than 6 Hours Per Day (ICD-10-PCS; 2018-09-20)
DX: I13.11 Hypertensive heart and chronic kidney disease without heart failure, with stage 5 chronic kidney disease, or end stage renal disease (principal); N18.6 End stage renal disease; J90 Pleural effusion, not elsewhere classified; E87.5 Hyperkalemia; E87.70 Fluid overload, unspecified; E11.22 Type 2 diabetes mellitus with diabetic chronic kidney disease; M54.5 Low back pain; Z99.2 Dependence on renal dialysis; Z89.511 Acquired absence of right leg below knee; Z90.11 Acquired absence of right breast and nipple; Z88.0 Allergy status to penicillin; Z88.8 Allergy status to other drugs, medicaments and biological substances; Z91.018 Allergy to other foods; Z83.3 Family history of diabetes mellitus; Z82.0 Family history of epilepsy and other diseases of the nervous system; Z82.3 Family history of stroke; Z82.49 Family history of ischemic heart disease and other diseases of the circulatory system; Z82.5 Family history of asthma and other chronic lower respiratory diseases
CPT/HCPCS: 36415; 71045; 80048; 80074; 80076; 83880; 84132; 84484; 85025; 90935; 93005; G0378; J0360; J0610; J1644; J3490

== ENCOUNTER 2018-09-26 09:59 | Observation (INO) | payer OTHER ==
[~2018-09-26] VITALS: Ht 124.5 cm; Wt 56.7 kg
[2018-09-26 10:18] LABS: BASOPHILS % (AUTO) 0.4 % (0.0-5.0); EOSINOPHILS % (AUTO) 3.9 % (0.0-8.0); HEMATOCRIT 26.3 % (36-48); LYMPHOCYTES % (AUTO) 32.9 % (21.0-51.0); MEAN CORPUSCULAR HEMOGLOBIN 30.4 pg (27.0-33.0); MEAN CORPUSCULAR HGB CONC 33.6 g/dL (32.0-36.0); MEAN CORPUSCULAR VOLUME 90.6 fL (79-99); MONOCYTES % (AUTO) 8.6 % (3.0-13.0); NEUTROPHILS % (AUTO) 54.2 % (40.0-77.0); PLATELET COUNT (AUTO) 176 K/uL (130-400); RED CELL DISTRIBUTION WIDTH 14.5 % (11.0-15.5); WHITE BLOOD COUNT (AUTO) 6.7 K/uL (4.8-10.8)
[2018-09-26] MEDS ORDERED: ONDANSETRON HCL 4 MG/2 ML VIAL ONE (10:19)
[2018-09-26] MEDS ORDERED: ASPIRIN 81MG TAB.CHEW ONE (10:19)
[2018-09-26 10:27] LABS: INR 0.95 (0.85-1.15); PARTIAL THROMBOPLASTIN TIME 23.8 SEC (26.3-35.5)
[2018-09-26 10:31] LABS: ALBUMIN 2.2 g/dL (3.5-5.0); BILIRUBIN,TOTAL 0.4 mg/dL (0.2-1.0); TOTAL PROTEIN, SERUM 6.3 g/dL (6.0-8.3)
[2018-09-26 10:33] LABS: B-TYPE NATRIURETIC PEPTIDE 2440 pg/mL (0-100)
[2018-09-26 10:40] LABS: CREATININE 8.3 mg/dL (0.5-1.5)
[2018-09-26] MEDS ORDERED: ACETAMINOPHEN EXTRA STRENGTH 500 MG TABLET ONE (11:11)
[2018-09-26] MEDS ORDERED: CALCIUM GLUCONATE 1 GM/10 ML VIAL IV ONE (12:09)
[2018-09-26] MEDS ORDERED: DEXTROSE 50%-WATER 50 ML DISP.SYRIN IV ONE (12:10)
[2018-09-26] MEDS ORDERED: INSULIN HUMULIN R 100 UNIT/ML 3ML ONE (12:10)
[2018-09-26] MEDS ORDERED: SODIUM CHLORIDE 0.9% 50 ML IV ONE (12:11)
[2018-09-26] MEDS ORDERED: HYDRALAZINE HCL 20 MG/ML VIAL IV PRN (12:30)
[2018-09-26] MEDS ORDERED: MAG HYDROX/AL HYDROX/SIMETH ES 30 ML SUSP UDCUP PO PRN (12:30)
[2018-09-26] MEDS ORDERED: GUAIFENESIN-DM 200/20 MG 10 ML PO PRN (12:30)
[2018-09-26] MEDS ORDERED: LACTULOSE 20 GM/30 ML UDCUP PO PRN (12:30)
[2018-09-26] MEDS ORDERED: DiphenhydrAMINE HCL 50 MG/ML VIAL IV PRN (12:30)
[2018-09-26] MEDS ORDERED: NITROGLYCERIN 0.4 MG SL TAB SL PRN (12:30)
[2018-09-26] MEDS ORDERED: ZOLPIDEM TARTRATE 5 MG TAB PO PRN (12:30)
[2018-09-26] MEDS ORDERED: ACETAMINOPHEN 325 MG TAB PO PRN ×2 (12:30)
[2018-09-26] MEDS ORDERED: DIPHENHYDRAMINE HCL 25 MG CAPSULE PO PRN (12:30)
[2018-09-26 14:54] VITALS: BP 154/70
[2018-09-26] MEDS: BENZONATATE 100 MG CAPSULE PO SCH ×2 (15:16→21:00)
[2018-09-26] MEDS ORDERED: COMPOUND IV MISC 1 EACH IVSOLN MISC PRN (16:30)
--- NOTE | 2018-09-26 16:37 | NUR ---
ADMISSION DATABASE INFORMATION COMPLETED WITH PATIENT ORIENTATION. HEMODIALYSIS IS CURRENTLY IN PROGRESS.
[2018-09-26 20:00] VITALS: BP 167/64
[2018-09-26] MEDS: PHARMACY COMMUNICATION MISC SCH ×2 (20:30→22:29)
[2018-09-26 20:56] LABS: % IRON SATURATION 39.8 % (22-44)
--- NOTE | 2018-09-26 21:20 | NUR ---
IRON PANEL Iron panel faxed to pharmacy,Mary states iron panel needed to profile epogen.
[2018-09-26] MEDS ORDERED: EPOETIN ALFA 10,000 UNIT/ML VIAL SQ ONE (22:00)
[2018-09-26 23:25] VITALS: BP 150/70
[2018-09-27 03:25] VITALS: BP 144/63
[2018-09-27 07:00] VITALS: BP 145/57
[2018-09-27] MEDS: BENZONATATE 100 MG CAPSULE PO SCH (09:00)
[2018-09-27] MEDS ORDERED: FAMOTIDINE 20MG TAB 20 MG TAB PO SCH (09:00)
[2018-09-27] MEDS ORDERED: IRON SUCROSE COMPLEX 100 MG in SODIUM CHLORIDE 0.9% 50 ML IV SCH (09:00)
[2018-09-27 11:00] VITALS: BP 102/55
--- NOTE | 2018-09-27 13:02 | NUR ---
DIALYSIS PATIENT RECEIVED DIALYSIS TODAY FROM 0820 HOURS TO 1120 HOURS. REMOVED WAS 1.5 LITERS. PATIENT TOLERATED PROCEDURE WITHOUT INCIDENT, VITALS SIGNS WITHIN NORMAL LIMITS.
--- NOTE | 2018-09-27 13:58 | NUR ---
RD NOTIFICATION Primary Diagnosis: ESRD, Fluid Overload. Hx: DM, HTN, Anemia, ESRD, Chronic Pancreatitis. Current diet: Renal Dialysis. BMI is 31.9; classified as obese. PO is 75-100% with good appetite as per pt. Skin is intact, no edema present. Meds: Tessalon, Pepcid, Ambien, Maalox, Lactulose, Nitrostat, Robitussin, Apresoline, Iron sucrose. Labs: Lipase 468, BUN 102, CRE 8.3, GFR 5, TIBC 143, ALB 2.2, Alk Phosphatase 147. LBM: 09/25. RD recommends to continue current diet, add Low fat to diet order. RD provided Non-Dialysis Renal diet education handouts for pt to follow when she is not receiving dialysis treatment. Pt was receptive to handouts and was eager to learn. Pt asked questions, RD responded. Pt verbalized understanding and was encouraged to reach out if she had any other questions or concerns. RD will continue to monitor and follow up as needed. Please notify RD if any other nutritional concerns arise, thank you. Addendum: 09/27/18 at [address] Amended: Links added.
--- NOTE | 2018-09-27 14:00 | NUR ---
DIET EDUCATION LEA provided Non-Dialysis Renal diet education handouts for pt to follow when she is not receiving dialysis treatment. Pt was receptive to handouts and was eager to learn. Pt asked questions, RD responded. Pt verbalized understanding and was encouraged to reach out if she had any other questions or concerns. Addendum: 09/27/18 at [address] Amended: Links added.
--- NOTE | 2018-09-27 14:28 | NUR ---
DISCHARGE PATIENT DISCHARGED, IV DISCONTINUED, CATHLON INTACT, BLEEDING CONTROLLED, PATIENT TOLERATED WITHOUT INCIDENT.
== END 2018-09-27 14:26 | disposition home or self-care (01) ==
LOC: EDH 09:59 → EDHIP 10:00 → UNDOADMOB 12:17 → 3CH 14:29
PROVIDERS: ADMIT Family Medicine; ATTEND Family Medicine
DX: I12.0 Hypertensive chronic kidney disease with stage 5 chronic kidney disease or end stage renal disease (principal); E11.22 Type 2 diabetes mellitus with diabetic chronic kidney disease; E11.51 Type 2 diabetes mellitus with diabetic peripheral angiopathy without gangrene; E78.5 Hyperlipidemia, unspecified; E87.5 Hyperkalemia; E87.70 Fluid overload, unspecified; K86.1 Other chronic pancreatitis; Z88.0 Allergy status to penicillin; Z88.5 Allergy status to narcotic agent; Z88.8 Allergy status to other drugs, medicaments and biological substances; Z79.82 Long term (current) use of aspirin; Z79.899 Other long term (current) drug therapy; Z91.15 Patient's noncompliance with renal dialysis; Z99.2 Dependence on renal dialysis; Z90.710 Acquired absence of both cervix and uterus; Z89.511 Acquired absence of right leg below knee; Z90.12 Acquired absence of left breast and nipple
CPT/HCPCS: 36415; 71045; 80053; 82150; 82550; 82948 ×5; 83540; 83550; 83690; 83880; 84484; 85025; 85610; 85730; 93005; 94760; 96372; 99291; A4600; A4606; G0378 ×28; J0610; J0885; J1756; J1815; J2405; J7070; 90935

== ENCOUNTER 2018-10-02 18:35 | Inpatient (IN) | payer OTHER | END 2018-10-06 11:47 | disposition home or self-care (01) | LOC: EDH 18:35 → EDHIP 18:36 → 4BH 10-03 01:39 ==

== ENCOUNTER 2018-10-19 09:34 | Inpatient (IN) | payer OTHER ==
[~2018-10-19] VITALS: Ht 149.9 cm; Wt 50.1 kg
[2018-10-19 06:28] VITALS: BP 158/78
[~2018-10-19 09:34] MED LIST changes: -ERYT250C68 PO
[2018-10-19 10:05] LABS: BASOPHILS % (AUTO) 1.3 % (0.0-5.0); EOSINOPHILS % (AUTO) 3.3 % (0.0-8.0); HEMATOCRIT 25.5 % (36-48); LYMPHOCYTES % (AUTO) 28.5 % (21.0-51.0); MEAN CORPUSCULAR HEMOGLOBIN 31.3 pg (27.0-33.0); MEAN CORPUSCULAR HGB CONC 33.8 g/dL (32.0-36.0); MEAN CORPUSCULAR VOLUME 92.7 fL (79-99); MONOCYTES % (AUTO) 8.4 % (3.0-13.0); NEUTROPHILS % (AUTO) 58.5 % (40.0-77.0); PLATELET COUNT (AUTO) 164 K/uL (130-400); RED BLOOD CELL COUNT(AUTO) 2.75 MIL/uL (4.00-5.50); RED CELL DISTRIBUTION WIDTH 13.5 % (11.0-15.5); WHITE BLOOD COUNT (AUTO) 7.7 K/uL (4.8-10.8)
[2018-10-19 10:16] LABS: CREATININE 6.9 mg/dL (0.5-1.5); POTASSIUM 5.2 mmol/L (3.5-5.1)
[2018-10-19 10:21] LABS: ALBUMIN 2.4 g/dL (3.5-5.0); BILIRUBIN,TOTAL 0.3 mg/dL (0.2-1.0); TOTAL PROTEIN, SERUM 6.5 g/dL (6.0-8.3)
[2018-10-19 10:27] LABS: ABG BASE EXCESS -0.7 mmol/L (-2.0-3.0); ABG HCO3 24.7 mmol/L (21.0-28.0); ABG OXYGEN SATURATION 88.6 % (95.0-99.0); ABG PCO2 44 mmHg (32-45)
[2018-10-19 10:36] LABS: B-TYPE NATRIURETIC PEPTIDE 2030 pg/mL (0-100)
[2018-10-19 15:00] VITALS: BP 171/83
[2018-10-19 19:00] VITALS: BP 158/78
--- NOTE | 2018-10-19 19:53 | NUR ---
PT UPDATE Pt admitted with fluid overload, ESRD, dialysis pt with BUN and Cr. elevated, nephro Dr. Estrella consulted, order for dialysis stat, pt currently receiving hemodialysis at this time, primary nurse AMADA Gallagher notified and updated, care endorsed.
[2018-10-19] MEDS ORDERED: MORPHINE SULFATE 2 MG/ML 1ML SYG IM PRN (23:00)
[2018-10-20 00:20] VITALS: BP 134/64
[2018-10-20 04:10] VITALS: BP 165/74
[2018-10-20 04:34] LABS: HEMATOCRIT 26.2 % (36-48); MEAN CORPUSCULAR HEMOGLOBIN 30.5 pg (27.0-33.0); MEAN CORPUSCULAR HGB CONC 33.4 g/dL (32.0-36.0); MEAN CORPUSCULAR VOLUME 91.1 fL (79-99); PLATELET COUNT (AUTO) 178 K/uL (130-400); RED BLOOD CELL COUNT(AUTO) 2.88 MIL/uL (4.00-5.50); RED CELL DISTRIBUTION WIDTH 13.6 % (11.0-15.5); WHITE BLOOD COUNT (AUTO) 6.9 K/uL (4.8-10.8)
[2018-10-20 05:04] LABS: CREATININE 4.2 mg/dL (0.5-1.5); PHOSPHORUS 4.6 mg/dL (2.5-4.9)
[2018-10-20] MEDS ORDERED: DICYCLOMINE HCL 20 MG TAB PO PRN (07:00)
[2018-10-20 08:00] VITALS: BP 185/76
[2018-10-20] MEDS ORDERED: SODIUM BICARBONATE 650 MG TAB PO SCH (08:23)
[2018-10-20] MEDS ORDERED: VITAMIN D3 PO SCH (09:00)
[2018-10-20] MEDS ORDERED: METOPROLOL SUCCINATE 12.5 MG PO SCH (09:00)
[2018-10-20] MEDS ORDERED: ASCORBIC ACID 500 MG TAB PO SCH (09:00)
[2018-10-20] MEDS ORDERED: FUROSEMIDE 40 MG TABLET PO SCH (09:00)
[2018-10-20] MEDS ORDERED: FOLIC ACID/VITAMIN B COMP W-C 1 MG CAP/TAB PO SCH (09:00)
[2018-10-20] MEDS ORDERED: FERROUS SULFATE 325 MG TABLET.DR PO SCH (09:00)
[2018-10-20] MEDS ORDERED: ASPIRIN 81MG TAB.CHEW PO SCH (09:00)
--- NOTE | 2018-10-20 09:32 | NUR ---
PT WILL BE D/C HOME AFTER DIALYSIS
[2018-10-20 12:00] VITALS: BP 132/62
--- NOTE | 2018-10-20 12:30 | NUR ---
PT DIALYZED 1.0 L. REMOVED
--- NOTE | 2018-10-20 13:35 | NUR ---
RD NOTIFICATION PRIMARY DIAGNOSIS: FLUID OVERLOAD, ESRD. HX: FLUID OVERLOAD, LACK OF HEMODIALYSIS DUE TO HAVING NO INSURANCE. PT COMES FREQUENTLY TO RECEIVE DIALYSIS FOR FLUID OVERLOAD. PT HAS A HX OF BREAST CANCER, CHOLELITHIASIS, DIABETES, HTN, PANCREATITIS, AND HYPERLIPIDEMIA. PT WAS EDUCATED RECENTLY REGARDING RENAL NON-DIALYSIS DIET WHEN PT IS NOT RECEIVING DIALYSIS REGULARLY. LBM: 10/19. CURRENT DIET: RENAL DIALYSIS, 75GM CCD. MEDS: NEPHROCAPS, VITAMIN C, ASPRIN, LIPITOR, LASIX, VITAMIN D3, BENTYL, FE SULFATE, METOPROLOL, SODIUM BICARBONATE. LABS: BUN 32, CRE 4.2, GFR 12, BNP 2030, ALB 2.4. SKIN: INTACT, HAS LOWER EXTREMITY PITTING EDEMA. PT LAST CAME IN ON 10/14/18 TO RECEIVE DIALYSIS. PT WAS RECEIVING DIALYSIS THIS MORNING DURING TIME OF VISIT. PO INTAKE 75-100% AND HAS GOOD APPETITE PER PT. PT HAVING WEIGHT LOSS DUE TO ELIMINATION OF FLUID OVERLOAD FROM DIALYSIS TREATMENTS. RD RECOMMENDS TO CONTINUE CURRENT DIET. RD WILL CONTINUE TO MONITOR AND FOLLOW UP NEEDED. PLEASE NOTIFY RD IF ANY OTHER NUTRITIONAL CONCERNS ARISE. THANK YOU. DIETITIAN TRAINEE LAURA MOODY Addendum: 10/20/18 at [address] Amended: Links added.
--- NOTE | 2018-10-20 16:49 | NUR ---
PT D/C HOME USING TEACH BACK TECHNIQUE RE; NEW MEDS, HOME MEDS, S/S TO WATCH FOR AND WHEN TO CALL MD. KATE MARIO CON EL Dr. Mckinney en [facility] and, [place], [place], [place], Y vaya a veer a ray nefrologo wilfrido se le recomendo para Hemodialysis. SI TIENE FALTA DE AIRE OR DOLOR DE PECHO QUE NO SE LE BOBO VAYA AL EMERGENCIAS OR LLAME 911. SI TIENE [place] DEL FISTULA DONDE LE HACEN DIALISIS, APLIQUE PRECION PARA CONTROLAR HEMORRAGIA Y LLAMAR A LA AMBULANCIA. IV OUT INTACT, NO BLEEDING, NO SOB, DENIES ANY DISTRESS OR CONCERNS AT THIS TIME. AAOX3. AT BEDSIDE.
[2018-10-20] MEDS ORDERED: ATORVASTATIN CALCIUM 40 MG TABLET PO SCH (21:00)
== END 2018-10-20 17:20 | disposition home or self-care (01) | DRG 682 ==
LOC: EDH 09:34 → EDHIP 09:35 → 3DH 15:10
PROVIDERS: ADMIT Internal Medicine; ATTEND Internal Medicine
PROC: 5A1D70Z Performance of Urinary Filtration, Intermittent, Less than 6 Hours Per Day (ICD-10-PCS; principal; 2018-10-19)
PROC: 5A1D70Z Performance of Urinary Filtration, Intermittent, Less than 6 Hours Per Day (ICD-10-PCS; 2018-10-20)
DX: N17.9 Acute kidney failure, unspecified (principal); J96.00 Acute respiratory failure, unspecified whether with hypoxia or hypercapnia; J81.1 Chronic pulmonary edema; I12.0 Hypertensive chronic kidney disease with stage 5 chronic kidney disease or end stage renal disease; E87.70 Fluid overload, unspecified; N18.6 End stage renal disease; E11.22 Type 2 diabetes mellitus with diabetic chronic kidney disease; D64.9 Anemia, unspecified; E11.51 Type 2 diabetes mellitus with diabetic peripheral angiopathy without gangrene; E11.21 Type 2 diabetes mellitus with diabetic nephropathy; E87.5 Hyperkalemia; E78.5 Hyperlipidemia, unspecified; Z89.511 Acquired absence of right leg below knee; Z90.11 Acquired absence of right breast and nipple; Z99.2 Dependence on renal dialysis; Z85.3 Personal history of malignant neoplasm of breast; Z88.0 Allergy status to penicillin; Z88.8 Allergy status to other drugs, medicaments and biological substances; Z91.018 Allergy to other foods; Z82.3 Family history of stroke; Z82.49 Family history of ischemic heart disease and other diseases of the circulatory system; Z83.3 Family history of diabetes mellitus; Z82.0 Family history of epilepsy and other diseases of the nervous system; Z82.5 Family history of asthma and other chronic lower respiratory diseases
CPT/HCPCS: 36415; 36600; 71045; 80048; 80053; 82803; 82948; 83880; 84100; 84484; 85025; 85027; 90935; 93005; 99291; G0378

== ENCOUNTER 2018-10-24 17:50 | Inpatient (IN) | payer OTHER | END 2018-10-27 15:00 | disposition home or self-care (01) | LOC: EDH 17:50 → EDHIP 17:51 → 3CH 20:50 | DX: I12.0 Hypertensive chronic kidney disease with stage 5 chronic kidney disease or end stage renal disease (principal); N18.6 End stage renal disease; J81.1 Chronic pulmonary edema; E87.70 Fluid overload, unspecified; R09.02 Hypoxemia; Z99.2 Dependence on renal dialysis; E11.22 Type 2 diabetes mellitus with diabetic chronic kidney disease; R07.9 Chest pain, unspecified; M54.9 Dorsalgia, unspecified ==

== ENCOUNTER 2018-11-02 10:32 | Inpatient (IN) | payer OTHER ==
[~2018-11-02] VITALS: Ht 149.9 cm; Wt 48.0 kg
[2018-11-02 11:19] LABS: EOSINOPHILS % (AUTO) 2.2 % (0.0-8.0); HEMATOCRIT 27.9 % (36-48); LYMPHOCYTES % (AUTO) 18.3 % (21.0-51.0); MEAN CORPUSCULAR HEMOGLOBIN 31.3 pg (27.0-33.0); MEAN CORPUSCULAR HGB CONC 33.5 g/dL (32.0-36.0); MEAN CORPUSCULAR VOLUME 93.3 fL (79-99); MONOCYTES % (AUTO) 8.2 % (3.0-13.0); NEUTROPHILS % (AUTO) 70.3 % (40.0-77.0); PLATELET COUNT (AUTO) 187 K/uL (130-400); RED BLOOD CELL COUNT(AUTO) 2.99 MIL/uL (4.00-5.50); RED CELL DISTRIBUTION WIDTH 14.1 % (11.0-15.5)
[2018-11-02 11:30] LABS: INR 1.04 (0.85-1.15); PARTIAL THROMBOPLASTIN TIME 28.7 SEC (26.3-35.5); PROTHROMBIN TIME 10.9 SEC (9.6-11.6)
[2018-11-02 11:34] LABS: ALBUMIN 2.7 g/dL (3.5-5.0); BILIRUBIN,TOTAL 0.4 mg/dL (0.2-1.0); TOTAL PROTEIN, SERUM 6.7 g/dL (6.0-8.3)
[2018-11-02 11:38] LABS: CREATININE 9.2 mg/dL (0.5-1.5)
[2018-11-02 11:39] LABS: POTASSIUM 6.4 mmol/L (3.5-5.1)
[2018-11-02] MEDS ORDERED: ONDANSETRON HCL 4 MG/2 ML VIAL IVP PRN (12:30)
[2018-11-02 12:44] LABS: CHOLESTEROL 156 mg/dL (<200); HDL CHOLESTEROL 60 mg/dL (35-85); HEMOGLOBIN A1C 5.7 % (4.0-6.0); LDL DIRECT 74 mg/dL (0-99); TRIGLYCERIDES 62 mg/dL (30-200)
[2018-11-02 13:52] VITALS: BP 163/77
[2018-11-02] MEDS: INSULIN HUMULIN R 100 UNIT/ML 3ML SQ SCH ×2 (16:30→21:00)
[2018-11-02 20:00] VITALS: BP 163/71
[2018-11-02] MEDS: FAMOTIDINE/PF 20 MG/2 ML VIAL IV SCH (21:15)
[2018-11-03] VITALS: BP 144/59
[2018-11-03 04:00] VITALS: BP 161/74
[2018-11-03 04:11] LABS: BASOPHILS % (AUTO) 1.2 % (0.0-5.0); EOSINOPHILS % (AUTO) 2.4 % (0.0-8.0); HEMATOCRIT 26.1 % (36-48); LYMPHOCYTES % (AUTO) 21.8 % (21.0-51.0); MEAN CORPUSCULAR HEMOGLOBIN 31.6 pg (27.0-33.0); MEAN CORPUSCULAR HGB CONC 33.8 g/dL (32.0-36.0); MEAN CORPUSCULAR VOLUME 93.4 fL (79-99); MONOCYTES % (AUTO) 8.4 % (3.0-13.0); NEUTROPHILS % (AUTO) 66.2 % (40.0-77.0); NUCLEATED RED BLOOD CELLS 0.1 % (0.0-0.19); PLATELET COUNT (AUTO) 177 K/uL (130-400); RED BLOOD CELL COUNT(AUTO) 2.79 MIL/uL (4.00-5.50); RED CELL DISTRIBUTION WIDTH 14.4 % (11.0-15.5); WHITE BLOOD COUNT (AUTO) 5.7 K/uL (4.8-10.8)
[2018-11-03 04:37] LABS: ALBUMIN 2.3 g/dL (3.5-5.0); BILIRUBIN,TOTAL 0.3 mg/dL (0.2-1.0); CREATININE 5.5 mg/dL (0.5-1.5); POTASSIUM 4.4 mmol/L (3.5-5.1); TOTAL PROTEIN, SERUM 6.1 g/dL (6.0-8.3)
[2018-11-03] MEDS: INSULIN HUMULIN R 100 UNIT/ML 3ML SQ SCH ×4 (06:08→21:00)
[2018-11-03 08:00] VITALS: BP 138/61
[2018-11-03] MEDS ORDERED: EPOETIN ALFA 10,000 UNIT/ML VIAL SQ SCH (09:00)
[2018-11-03] MEDS ORDERED: COMPOUND IV MISC 1 EACH IVSOLN MISC PRN (10:15)
--- NOTE | 2018-11-03 10:50 | NUR ---
HOLD MEDICATIONS HOLDING LOVENOX, VENOFER, AND PROCRIT THAT IS SCHEDULED FOR 0900 HOURS UNTIL AFTER SCHEDULED DIALYSIS TODAY.
[2018-11-03 12:00] VITALS: BP 159/70
--- NOTE | 2018-11-03 14:48 | NUR ---
INITIAL AND REFERRAL MET W PT ON HD , LIVES W JULIEN, HAS WC, CRUTCHED, PROSTHESIS, NO HH, HOME SAFE AND ACCESSIBLE, UNINSURED, COMES FOR INTERMITTANT DIALYSIS ADVSIED HER I WAS CALLED BY DR. VARGAS THIS MORNINING AND ASKED ABOUT REFERRING PT TO [facility]. PT VERY HAPPY. Addendum: 11/03/18 at 1450 by AURORA NAPOLES RN CM Amended: Links added.
[2018-11-03 16:00] VITALS: BP 164/63
[2018-11-03] MEDS: IRON SUCROSE COMPLEX 100 MG in SODIUM CHLORIDE 0.9% 50 ML IV SCH (17:20)
[2018-11-03] MEDS: ENOXAPARIN SODIUM 30 MG/0.3 ML SQ SCH (17:22)
[2018-11-03] MEDS ORDERED: DICYCLOMINE HCL 20 MG TAB PO PRN (17:45)
[2018-11-03] MEDS: SODIUM BICARBONATE 650 MG TAB PO SCH (18:16)
--- NOTE | 2018-11-03 19:23 | NUR ---
DIALYSIS PATIENT RECEIVED DIALYSIS TODAY FROM 1210 HOURS TO 1510 HOURS. REMOVED WAS 2 LITERS OF FLUID. PATIENT TOLERATED PROCEDURE WITHOUT INCIDENT.
[2018-11-03 19:25] VITALS: BP 162/67
[2018-11-03] MEDS: FUROSEMIDE 40 MG TABLET PO SCH (20:10)
[2018-11-03] MEDS: FAMOTIDINE/PF 20 MG/2 ML VIAL IV SCH (20:12)
[2018-11-03] MEDS ORDERED: ATORVASTATIN CALCIUM 40 MG TABLET PO SCH (21:00)
[2018-11-04 00:10] VITALS: BP 163/73
[2018-11-04 04:20] VITALS: BP 129/54
[2018-11-04] MEDS: INSULIN HUMULIN R 100 UNIT/ML 3ML SQ SCH ×3 (05:31→16:30)
[2018-11-04 05:46] LABS: BASOPHILS % (AUTO) 1.3 % (0.0-5.0); EOSINOPHILS % (AUTO) 2.2 % (0.0-8.0); HEMATOCRIT 26.6 % (36-48); LYMPHOCYTES % (AUTO) 37.5 % (21.0-51.0); MEAN CORPUSCULAR HEMOGLOBIN 31.4 pg (27.0-33.0); MEAN CORPUSCULAR VOLUME 92.3 fL (79-99); MONOCYTES % (AUTO) 13.3 % (3.0-13.0); NEUTROPHILS % (AUTO) 45.7 % (40.0-77.0); PLATELET COUNT (AUTO) 184 K/uL (130-400); RED BLOOD CELL COUNT(AUTO) 2.89 MIL/uL (4.00-5.50); RED CELL DISTRIBUTION WIDTH 14.2 % (11.0-15.5); WHITE BLOOD COUNT (AUTO) 5.5 K/uL (4.8-10.8)
[2018-11-04 06:16] LABS: CREATININE 3.7 mg/dL (0.5-1.5); PHOSPHORUS 4.7 mg/dL (2.5-4.9)
[2018-11-04 07:57] VITALS: BP 163/70
[2018-11-04] MEDS: SODIUM BICARBONATE 650 MG TAB PO SCH ×2 (08:16→16:17)
[2018-11-04] MEDS: FUROSEMIDE 40 MG TABLET PO SCH ×2 (08:16→16:16)
[2018-11-04] MEDS ORDERED: METOPROLOL SUCCINATE 12.5 MG PO SCH (09:00)
[2018-11-04] MEDS ORDERED: ASPIRIN 81MG TAB.CHEW PO SCH (09:00)
[2018-11-04] MEDS: ENOXAPARIN SODIUM 30 MG/0.3 ML SQ SCH (09:00)
[2018-11-04] MEDS ORDERED: ASCORBIC ACID 500 MG TAB PO SCH (09:00)
[2018-11-04] MEDS ORDERED: CHOLECALCIFEROL 1000 UNIT PO SCH (09:00)
[2018-11-04 12:00] VITALS: BP 184/79
[2018-11-04] MEDS: IRON SUCROSE COMPLEX 100 MG in SODIUM CHLORIDE 0.9% 50 ML IV SCH (12:56)
[2018-11-04 16:00] VITALS: BP 163/72
--- NOTE | 2018-11-04 16:56 | NUR ---
DIALYSIS PATIENT RECEIVED DIALYSIS TODAY FROM 1241 HOURS TO 1542 HOURS. REMOVED WAS 2.2 LITERS OF FLUID. PATIENT TOLERATED PROCEDURE WITHOUT INCIDENT. PATIENT TO BE DISCHARGED.
--- NOTE | 2018-11-04 18:10 | NUR ---
PATIENT DISCHARGED PATIENT DISCHARGED, IV DISCONTINUED, CATHLON INTACT, BLEEDING CONTROLLED, PATIENT TOLERATED WITHOUT INCIDENT.
[2018-11-05] MEDS ORDERED: FERROUS SULFATE 325 MG TABLET.DR PO SCH (09:00)
== END 2018-11-04 18:15 | disposition home or self-care (01) | DRG 640 ==
LOC: EDH 10:32 → EDHIP 10:33 → 3CH 13:30
PROVIDERS: ADMIT Internal Medicine; ATTEND Internal Medicine
PROC: 5A1D70Z Performance of Urinary Filtration, Intermittent, Less than 6 Hours Per Day (ICD-10-PCS; principal; 2018-11-02)
PROC: 5A1D70Z Performance of Urinary Filtration, Intermittent, Less than 6 Hours Per Day (ICD-10-PCS; 2018-11-03)
PROC: 5A1D70Z Performance of Urinary Filtration, Intermittent, Less than 6 Hours Per Day (ICD-10-PCS; 2018-11-04)
DX: E87.70 Fluid overload, unspecified (principal); N18.6 End stage renal disease; I12.0 Hypertensive chronic kidney disease with stage 5 chronic kidney disease or end stage renal disease; J81.1 Chronic pulmonary edema; E87.5 Hyperkalemia; E11.22 Type 2 diabetes mellitus with diabetic chronic kidney disease; D64.9 Anemia, unspecified; E78.5 Hyperlipidemia, unspecified; E11.51 Type 2 diabetes mellitus with diabetic peripheral angiopathy without gangrene; H54.62 Unqualified visual loss, left eye, normal vision right eye; Z99.2 Dependence on renal dialysis; Z79.4 Long term (current) use of insulin; Z89.511 Acquired absence of right leg below knee; Z88.0 Allergy status to penicillin; Z91.018 Allergy to other foods; Z88.8 Allergy status to other drugs, medicaments and biological substances; Z82.5 Family history of asthma and other chronic lower respiratory diseases; Z82.3 Family history of stroke; Z82.0 Family history of epilepsy and other diseases of the nervous system; Z83.3 Family history of diabetes mellitus; Z82.49 Family history of ischemic heart disease and other diseases of the circulatory system; Z83.2 Family history of diseases of the blood and blood-forming organs and certain disorders involving the immune mechanism
CPT/HCPCS: 36415; 71045; 80048; 80053; 80061; 82728; 82948; 83036; 83540; 83550; 84100; 85025; 85610; 85730; 86701; 86704; 86706; 87340; 87390; 87520; 90935; 93005; G0378; J0885; J1650; J1756; J2405; J3490

== ENCOUNTER 2018-11-09 12:39 | Inpatient (IN) | payer OTHER ==
[~2018-11-09] VITALS: Ht 149.9 cm; Wt 46.8 kg
[2018-11-09 14:22] LABS: BASOPHILS % (AUTO) 1.1 % (0.0-5.0); EOSINOPHILS % (AUTO) 2.7 % (0.0-8.0); HEMATOCRIT 28.3 % (36-48); LYMPHOCYTES % (AUTO) 23.1 % (21.0-51.0); MEAN CORPUSCULAR HEMOGLOBIN 31.3 pg (27.0-33.0); MEAN CORPUSCULAR HGB CONC 33.7 g/dL (32.0-36.0); MEAN CORPUSCULAR VOLUME 93.1 fL (79-99); NEUTROPHILS % (AUTO) 65.1 % (40.0-77.0); PLATELET COUNT (AUTO) 228 K/uL (130-400); RED BLOOD CELL COUNT(AUTO) 3.04 MIL/uL (4.00-5.50); RED CELL DISTRIBUTION WIDTH 14.5 % (11.0-15.5); WHITE BLOOD COUNT (AUTO) 6.8 K/uL (4.8-10.8)
[2018-11-09 14:36] LABS: POTASSIUM 4.4 mmol/L (3.5-5.1)
[2018-11-09 15:09] LABS: INR 0.99 (0.85-1.15); PARTIAL THROMBOPLASTIN TIME 30.1 SEC (26.3-35.5); PROTHROMBIN TIME 10.4 SEC (9.6-11.6)
[2018-11-09 15:31] LABS: ALBUMIN 2.7 g/dL (3.5-5.0); BILIRUBIN,DIRECT 0.1 mg/dL (0.0-0.3); BILIRUBIN,TOTAL 1.1 mg/dL (0.2-1.0); TOTAL PROTEIN, SERUM 6.7 g/dL (6.0-8.3)
[2018-11-09] MEDS ORDERED: ACETAMINOPHEN 325 MG TAB PO PRN (16:45)
[2018-11-09] MEDS ORDERED: ONDANSETRON HCL 4 MG/2 ML VIAL IV PRN (16:45)
[2018-11-09] MEDS ORDERED: HYDROCODONE/ACETAMINOPHEN 5/325 MG TAB PO PRN (16:45)
[2018-11-09] MEDS ORDERED: LACTULOSE 20 GM/30 ML UDCUP PO PRN (16:45)
[2018-11-09] MEDS ORDERED: ONDANSETRON HCL 4 MG/2 ML VIAL ONE (17:06)
[2018-11-09 20:00] VITALS: BP 191/80
[2018-11-09] MEDS: ATORVASTATIN CALCIUM 40 MG TABLET PO SCH (20:02)
[2018-11-09] MEDS: METOPROLOL TARTRATE 25 MG TAB PO SCH (20:02)
[2018-11-09] MEDS: SODIUM BICARBONATE 650 MG TAB PO SCH (20:02)
[2018-11-09] MEDS ORDERED: HYDRALAZINE HCL 20 MG/ML VIAL IV PRN (20:15)
[2018-11-09 21:32] VITALS: BP 151/65
[2018-11-10] VITALS: BP 144/65
[2018-11-10 04:00] VITALS: BP 148/67
[2018-11-10 04:40] LABS: HEMATOCRIT 28.3 % (36-48); MEAN CORPUSCULAR HGB CONC 33.3 g/dL (32.0-36.0); MEAN CORPUSCULAR VOLUME 93.2 fL (79-99); PLATELET COUNT (AUTO) 213 K/uL (130-400); RED BLOOD CELL COUNT(AUTO) 3.03 MIL/uL (4.00-5.50); RED CELL DISTRIBUTION WIDTH 14.7 % (11.0-15.5); WHITE BLOOD COUNT (AUTO) 5.4 K/uL (4.8-10.8)
[2018-11-10 05:13] LABS: POTASSIUM 4.6 mmol/L (3.5-5.1)
[2018-11-10 05:16] LABS: CREATININE 9.4 mg/dL (0.5-1.5)
[2018-11-10 08:00] VITALS: BP 139/60
[2018-11-10] MEDS: CHOLECALCIFEROL 1000 UNIT PO SCH (09:00)
[2018-11-10] MEDS ORDERED: EPOETIN ALFA 10,000 UNIT/ML VIAL SQ SCH (09:15)
[2018-11-10 11:51] VITALS: BP 130/60
--- NOTE | 2018-11-10 12:39 | NUR ---
DCP CM met with pt discussed dc plans. Pt is independent prior to admission, lives at home with spouse. Pt has a wheelchair, crutches, prosthesis. Well known to CM as pt is undoc requiring intermittent dialysis in the hospital. Feels safe to go back home, spouse able to assist with needs and transportation as necessary. Pt is a self pay, goes to Dr Hank xavier/Adrian[facility] for follow up, given [facility], [facility] assisting. DC plan to home once stable. CM to cont to follow up. Addendum: 11/10/18 at 1241 by LAURIE ZHAO LVN CM Amended: Links added.
[2018-11-10] MEDS: ASPIRIN 81MG TAB.CHEW PO SCH (13:25)
[2018-11-10] MEDS: METOPROLOL TARTRATE 25 MG TAB PO SCH ×2 (13:25→22:09)
[2018-11-10] MEDS: SODIUM BICARBONATE 650 MG TAB PO SCH ×2 (13:25→22:09)
[2018-11-10] MEDS: ASCORBIC ACID 500 MG TAB PO SCH (13:25)
[2018-11-10] MEDS: FAMOTIDINE 20MG TAB 20 MG TAB PO SCH (13:26)
[2018-11-10] MEDS: ENOXAPARIN SODIUM 30 MG/0.3 ML SQ SCH (13:27)
[2018-11-10 16:00] VITALS: BP 147/64
--- NOTE | 2018-11-10 16:52 | NUR ---
Nutrition intervention: Nutrition notification for dialysis diet. Pt is a recurrent patient, has been educated on dialysis diet in previous admissions. Pt reports following dialysis diet at home. Has a good understanding of the diet and it's recommendations. However pt requesting K+ content food list for her knowledge. Printed materials provided. Recommendations: Modify diet therapy with CCD 75gm. Monitor I/O. Consult RD as nutrition concerns arise. Addendum: 11/10/18 at [address] Amended: Links added.
[2018-11-10 20:15] VITALS: BP 187/68
[2018-11-10] MEDS: ATORVASTATIN CALCIUM 40 MG TABLET PO SCH (22:09)
[2018-11-11 00:15] VITALS: BP 151/65
[2018-11-11 04:17] VITALS: BP 126/48
[2018-11-11 08:00] VITALS: BP 133/60
[2018-11-11] MEDS: CHOLECALCIFEROL 1000 UNIT PO SCH (09:00)
[2018-11-11] MEDS ORDERED: FERROUS SULFATE 325 MG TABLET.DR PO SCH (09:00)
[2018-11-11] MEDS: FAMOTIDINE 20MG TAB 20 MG TAB PO SCH (09:51)
[2018-11-11] MEDS: SODIUM BICARBONATE 650 MG TAB PO SCH (09:51)
[2018-11-11] MEDS: ASCORBIC ACID 500 MG TAB PO SCH (09:51)
[2018-11-11] MEDS: METOPROLOL TARTRATE 25 MG TAB PO SCH (09:51)
[2018-11-11] MEDS: ASPIRIN 81MG TAB.CHEW PO SCH (09:51)
[2018-11-11] MEDS: ENOXAPARIN SODIUM 30 MG/0.3 ML SQ SCH (09:52)
[2018-11-11 12:00] VITALS: BP 175/67
[2018-11-11 16:00] VITALS: BP 157/68
[2018-11-11] MEDS ORDERED: SODIUM CHLORIDE 0.9% 1000ML 1,000 ML IV PRN (17:00)
[2018-11-11] MEDS ORDERED: NITROGLYCERIN 0.4 MG SL TAB SL PRN (17:00)
[2018-11-11] MEDS ORDERED: ACETAMINOPHEN 325 MG TAB PO PRN (17:00)
[2018-11-11] MEDS ORDERED: 0.9% SODIUM CHLORIDE 1000 ML IV BAG IV PRN (17:00)
--- NOTE | 2018-11-11 18:00 | NUR ---
DISCHARGE INSTRUCTIONS GIVEN. ALL QUESTIONS ANSWERED. IV DISCONTINUED WITH INNER CANNULA INTACT. HER TO TRANSPORT HOME
[2018-11-14 06:10] LABS: HEPATITIS A ANTIBODY IGM Negative (Negative); HEPATITIS B CORE IGM Negative (Negative); HEPATITIS Bs ANTIGEN SCREEN P Negative (Negative)
== END 2018-11-11 18:25 | disposition home or self-care (01) | DRG 640 ==
LOC: EDH 12:39 → EDHIP 12:40 → 3CH 17:58
PROVIDERS: ADMIT Family Medicine; ATTEND Family Medicine
PROC: 5A1D70Z Performance of Urinary Filtration, Intermittent, Less than 6 Hours Per Day (ICD-10-PCS; principal; 2018-11-10)
PROC: 3E02340 Introduction of Influenza Vaccine into Muscle, Percutaneous Approach (ICD-10-PCS; 2018-11-10)
PROC: 5A1D70Z Performance of Urinary Filtration, Intermittent, Less than 6 Hours Per Day (ICD-10-PCS; 2018-11-11)
DX: E87.70 Fluid overload, unspecified (principal); J96.01 Acute respiratory failure with hypoxia; N18.6 End stage renal disease; I12.0 Hypertensive chronic kidney disease with stage 5 chronic kidney disease or end stage renal disease; N17.9 Acute kidney failure, unspecified; J81.1 Chronic pulmonary edema; E11.22 Type 2 diabetes mellitus with diabetic chronic kidney disease; D64.9 Anemia, unspecified; E78.5 Hyperlipidemia, unspecified; Z99.2 Dependence on renal dialysis; Z89.511 Acquired absence of right leg below knee; Z82.0 Family history of epilepsy and other diseases of the nervous system; Z82.3 Family history of stroke; Z82.49 Family history of ischemic heart disease and other diseases of the circulatory system; Z82.5 Family history of asthma and other chronic lower respiratory diseases; Z83.3 Family history of diabetes mellitus; Z23 Encounter for immunization
CPT/HCPCS: 36415; 80048; 80074; 80076; 82948; 83690; 85025; 85027; 85610; 85730; 90935; 93005; G0378; J0360; J0885; J1650; J2405

== ENCOUNTER 2018-11-16 14:17 | Inpatient (IN) | payer OTHER ==
[~2018-11-16] VITALS: Ht 124.5 cm; Wt 49.0 kg
[2018-11-16 16:27] LABS: BASOPHILS % (AUTO) 1.2 % (0.0-5.0); EOSINOPHILS % (AUTO) 2.5 % (0.0-8.0); HEMATOCRIT 28.5 % (36-48); LYMPHOCYTES % (AUTO) 26.5 % (21.0-51.0); MEAN CORPUSCULAR HEMOGLOBIN 30.9 pg (27.0-33.0); MEAN CORPUSCULAR HGB CONC 32.9 g/dL (32.0-36.0); MEAN CORPUSCULAR VOLUME 93.8 fL (79-99); MONOCYTES % (AUTO) 10.3 % (3.0-13.0); NEUTROPHILS % (AUTO) 59.5 % (40.0-77.0); PLATELET COUNT (AUTO) 200 K/uL (130-400); RED BLOOD CELL COUNT(AUTO) 3.04 MIL/uL (4.00-5.50); RED CELL DISTRIBUTION WIDTH 14.1 % (11.0-15.5); WHITE BLOOD COUNT (AUTO) 6.9 K/uL (4.8-10.8)
[2018-11-16 16:43] LABS: ALBUMIN 2.7 g/dL (3.5-5.0); BILIRUBIN,TOTAL 0.3 mg/dL (0.2-1.0); TOTAL PROTEIN, SERUM 6.7 g/dL (6.0-8.3)
[2018-11-16 16:46] LABS: POTASSIUM 6.1 mmol/L (3.5-5.1)
[2018-11-16 16:47] LABS: CREATININE 9.6 mg/dL (0.5-1.5)
[2018-11-16] MEDS ORDERED: CALCIUM GLUCONATE 1 GM/10 ML VIAL IV ONE (17:40)
[2018-11-16] MEDS ORDERED: SODIUM BICARB 50MEQ 50ML VIAL ONE (17:40)
[2018-11-16] MEDS ORDERED: INSULIN HUMULIN R 100 UNIT/ML 3ML ONE (17:41)
[2018-11-16] MEDS ORDERED: DEXTROSE 50%-WATER 50 ML DISP.SYRIN IV ONE (17:41)
[2018-11-16 18:52] LABS: APPEARANCE,URINE Clear (CLEAR); BILIRUBIN,URINE Negative (NEGATIVE); COLOR,URINE Yellow (YELLOW); GLUCOSE, URINE (UA) 500 mg/dL (NEGATIVE); KETONES,URINE Negative (NEGATIVE); LEUKOCYTE ESTERASE ,URINE Negative (NEGATIVE); NITRATE,URINE Negative (NEGATIVE); OCCULT BLOOD,URINE Moderate (NEGATIVE); PH,URINE 7.5 (5.0-8.0); PROTEIN,URINE >=1000 mg/dL (NEGATIVE); UROBILINOGEN,URINE 0.2 mg/dL (0.2-1.0)
[2018-11-16 19:12] LABS: WBC,URINE 0-1 /HPF (0-1)
[2018-11-16 19:13] LABS: BACTERIA,URINE Few /HPF (None Seen); SQUAMOUS EPITHELIAL CELL,UR Few /HPF (0-2)
[2018-11-16] MEDS ORDERED: FAMOTIDINE 20MG TAB 20 MG TAB ONE (20:08)
[2018-11-16] MEDS ORDERED: DEXTROSE 50%-WATER 50 ML DISP.SYRIN IV PRN (22:15)
[2018-11-16] MEDS ORDERED: GLUCAGON 1MG KIT 1 MG ML IM PRN (22:15)
[2018-11-17] VITALS (8 sets, daily range): BP systolic 103–190; BP diastolic 50–76
[2018-11-17] MEDS ORDERED: ONDANSETRON HCL 4 MG/2 ML VIAL ONE (02:20)
[2018-11-17] MEDS: HYDRALAZINE HCL 20 MG/ML VIAL IV PRN (04:04)
[2018-11-17] MEDS: INSULIN HUMULIN R 100 UNIT/ML 3ML SQ SCH ×4 (06:08→20:14)
[2018-11-17 08:26] LABS: BASOPHILS % (AUTO) 1.2 % (0.0-5.0); HEMATOCRIT 30.6 % (36-48); LYMPHOCYTES % (AUTO) 20.6 % (21.0-51.0); MEAN CORPUSCULAR HEMOGLOBIN 31.2 pg (27.0-33.0); MEAN CORPUSCULAR HGB CONC 33.2 g/dL (32.0-36.0); MEAN CORPUSCULAR VOLUME 93.8 fL (79-99); NEUTROPHILS % (AUTO) 66.2 % (40.0-77.0); PLATELET COUNT (AUTO) 203 K/uL (130-400); RED BLOOD CELL COUNT(AUTO) 3.26 MIL/uL (4.00-5.50); RED CELL DISTRIBUTION WIDTH 14.2 % (11.0-15.5); WHITE BLOOD COUNT (AUTO) 6.8 K/uL (4.8-10.8)
[2018-11-17 08:50] LABS: ALBUMIN 2.4 g/dL (3.5-5.0); BILIRUBIN,TOTAL 0.3 mg/dL (0.2-1.0); CREATININE 5.9 mg/dL (0.5-1.5); PHOSPHORUS 5.2 mg/dL (2.5-4.9); POTASSIUM 4.6 mmol/L (3.5-5.1); TOTAL PROTEIN, SERUM 6.4 g/dL (6.0-8.3)
[2018-11-17] MEDS: FAMOTIDINE 20MG TAB 20 MG TAB PO SCH (09:35)
[2018-11-17] MEDS: ONDANSETRON HCL 4 MG/2 ML VIAL IVP PRN (09:37)
--- NOTE | 2018-11-17 11:44 | NUR ---
DCP CM met with pt discussed dc plans. Pt is semi-independent prior to admission, lives at home with spouse. Pt is wheelchair bound, has wheelchair and crutches(doesn't use). Patient has a patent AV graft, stated she comes to the hospital for dialysis treatments as she has no o/p dialysis set up. Pt is nonfunded and undocumented. Denies any other equipments/services. Current Addr: [address] [place] [address]. Made aware as per Dr Cece Felipe window is open for undoc pt for dialysis w/[facility], initial clinicals had been sent from the office, and is working on chair for [facility]. Pt and spouse agreeable, LUIS signed by spouse for [facility] #1 [place] or #2 [employer] Feels safe to go back home, spouse states he is able to assist with transportations and needs as necessary. DC plan to home once stable. CM to cont to follow up. Addendum: 11/17/18 at 1149 by LAURIE ZHAO LVN CM Amended: Links added.
--- NOTE | 2018-11-17 11:50 | NUR ---
CM Note: [facility] pending approval and chair time for [place] vs [place] CM spoke to Gutierrez xavier/[facility] . Received updated clinicals during this admission including dialysis therapy notes. Pt pending approval and chair time for [place] vs [place] location. Primary nurse aware. CM to cont to follow up.
[2018-11-18 04:00] VITALS: BP 113/52
[2018-11-18 05:37] LABS: BASOPHILS % (AUTO) 1.4 % (0.0-5.0); EOSINOPHILS % (AUTO) 1.9 % (0.0-8.0); HEMATOCRIT 30.1 % (36-48); LYMPHOCYTES % (AUTO) 42.2 % (21.0-51.0); MEAN CORPUSCULAR HEMOGLOBIN 31.2 pg (27.0-33.0); MEAN CORPUSCULAR HGB CONC 33.5 g/dL (32.0-36.0); NEUTROPHILS % (AUTO) 43.5 % (40.0-77.0); PLATELET COUNT (AUTO) 204 K/uL (130-400); RED BLOOD CELL COUNT(AUTO) 3.23 MIL/uL (4.00-5.50); RED CELL DISTRIBUTION WIDTH 14.3 % (11.0-15.5); WHITE BLOOD COUNT (AUTO) 5.4 K/uL (4.8-10.8)
[2018-11-18 05:42] LABS: CREATININE 4.1 mg/dL (0.5-1.5)
[2018-11-18] MEDS: INSULIN HUMULIN R 100 UNIT/ML 3ML SQ SCH ×4 (05:45→19:32)
[2018-11-18 08:00] VITALS: BP 132/58
[2018-11-18] MEDS: FAMOTIDINE 20MG TAB 20 MG TAB PO SCH (08:51)
[2018-11-18 11:00] VITALS: BP 147/74
[2018-11-18 16:00] VITALS: BP 172/76
--- NOTE | 2018-11-18 17:30 | NUR ---
Chapis: Followed up morenita Whitley this afternoon regarding status of referral. He mentions that at this time approval/chair time is still pending. He mentions to f/u on Tuesday as they should have more info by then. CM to continue to follow.
[2018-11-18 20:00] VITALS: BP 148/74
[2018-11-19] VITALS: BP_SYST 157; BP_SYST 184; BP_DIAS 78; BP_DIAS 92
[2018-11-19 04:00] VITALS: BP 123/58
[2018-11-19] MEDS: INSULIN HUMULIN R 100 UNIT/ML 3ML SQ SCH ×4 (05:33→20:44)
[2018-11-19 07:57] VITALS: BP 130/81
[2018-11-19] MEDS: FAMOTIDINE 20MG TAB 20 MG TAB PO SCH (08:42)
[2018-11-19 12:00] VITALS: BP 164/78
[2018-11-19 16:00] VITALS: BP 188/50
[2018-11-19] MEDS: HYDRALAZINE HCL 20 MG/ML VIAL IV PRN ×2 (16:21→23:35)
[2018-11-19 19:15] VITALS: BP 144/68
[2018-11-20] VITALS (7 sets, daily range): BP systolic 150–184; BP diastolic 58–92
[2018-11-20] MEDS: ONDANSETRON HCL 4 MG/2 ML VIAL IVP PRN (03:28)
[2018-11-20 04:57] LABS: EOSINOPHILS % (AUTO) 2.1 % (0.0-8.0); HEMATOCRIT 29.6 % (36-48); LYMPHOCYTES % (AUTO) 19.9 % (21.0-51.0); MEAN CORPUSCULAR HGB CONC 33.1 g/dL (32.0-36.0); MEAN CORPUSCULAR VOLUME 93.6 fL (79-99); MONOCYTES % (AUTO) 11.1 % (3.0-13.0); NEUTROPHILS % (AUTO) 65.9 % (40.0-77.0); PLATELET COUNT (AUTO) 212 K/uL (130-400); RED BLOOD CELL COUNT(AUTO) 3.17 MIL/uL (4.00-5.50); RED CELL DISTRIBUTION WIDTH 13.9 % (11.0-15.5); WHITE BLOOD COUNT (AUTO) 8.3 K/uL (4.8-10.8)
[2018-11-20 05:09] LABS: CREATININE 6.2 mg/dL (0.5-1.5)
[2018-11-20 05:19] LABS: POTASSIUM 6.1 mmol/L (3.5-5.1)
--- NOTE | 2018-11-20 05:24 | NUR ---
CRITICAL LAB INFORMED ONLINE SERVICES MANAGER HOSPITALIST AJ OF POTASSIUM BEING 6.1, ORDERS RECEIVED.
[2018-11-20] MEDS ORDERED: SODIUM POLYSTYRENE SULFONATE 15 GM/60 ML ML PO SCH (05:30)
[2018-11-20] MEDS: INSULIN HUMULIN R 100 UNIT/ML 3ML SQ SCH ×4 (05:40→21:00)
[2018-11-20] MEDS: FAMOTIDINE 20MG TAB 20 MG TAB PO SCH (09:42)
[2018-11-20] MEDS ORDERED: LISINOPRIL 10 MG TABLET PO SCH (09:45)
--- NOTE | 2018-11-20 12:19 | NUR ---
CM Note: [facility] pending approval and chair time. Spoke to Gutierrez xavier/[facility], application currently under review. Pt pending approval and chair time for [facility]. Will call CM back once there is update, given CM #[phone]. Primary nurse aware. CM to cont to follow up.
[2018-11-20] MEDS ORDERED: DICYCLOMINE HCL 20 MG TAB PO PRN (16:00)
[2018-11-20 16:32] LABS: CREATININE 6.5 mg/dL (0.5-1.5); POTASSIUM 5.5 mmol/L (3.5-5.1)
[2018-11-20] MEDS ORDERED: INSULIN HUMULIN R 100 UNIT/ML 3ML SQ ONE (17:30)
[2018-11-20] MEDS: DEXTROSE 50%-WATER 25 GM/50 ML VIAL IV SCH (17:42)
[2018-11-20] MEDS ORDERED: ATORVASTATIN CALCIUM 40 MG TABLET PO SCH (21:00)
[2018-11-20] MEDS: FUROSEMIDE 40 MG TABLET PO SCH (21:51)
[2018-11-20] MEDS: SODIUM BICARBONATE 650 MG TAB PO SCH (21:52)
[2018-11-21 03:51] VITALS: BP 131/57
[2018-11-21 05:25] LABS: CREATININE 7.1 mg/dL (0.5-1.5); POTASSIUM 5.6 mmol/L (3.5-5.1)
[2018-11-21] MEDS: INSULIN HUMULIN R 100 UNIT/ML 3ML SQ SCH ×2 (06:35→11:30)
[2018-11-21] MEDS: DEXTROSE 50%-WATER 25 GM/50 ML VIAL IV SCH (07:39)
[2018-11-21 08:07] VITALS: BP 161/77
[2018-11-21] MEDS ORDERED: ASPIRIN 81MG TAB.CHEW PO SCH (09:00)
[2018-11-21] MEDS ORDERED: ASCORBIC ACID 500 MG TAB PO SCH (09:00)
[2018-11-21] MEDS ORDERED: LISINOPRIL 10 MG TABLET PO SCH (09:00)
[2018-11-21] MEDS ORDERED: METOPROLOL SUCCINATE 12.5 MG PO SCH (09:00)
[2018-11-21] MEDS ORDERED: CHOLECALCIFEROL 1000 UNIT PO SCH (09:00)
--- NOTE | 2018-11-21 09:00 | NUR ---
CM Note: [facility] Update Spoke to Juwan xavier/[facility] . Pt has tentative chair time TTS @ 1045AM, requested access info, Hep B Panel, and #2, #3 treatments. Made aware, pt had all done at [facility] a year ago, will call Dr Cece Felipe office for clinicals to be forwarded to [facility]. CM called Dr Cece Felipe office spoke to Trista castro aware regarding clinicals [facility] requesting above. Aware pt was at [facility] during these times. Stated will look at pt's chart and ask Dr Cece Felipe, will call back. CM to cont to follow up.
--- NOTE | 2018-11-21 09:45 | NUR ---
CM Note: Dr Felipe called back CM spoke to Dr Cece Felipe, stated all clinicals requested had been forwarded to [facility] this morning, pt has been approved and ready to go. CM spoke to Juwan xavier/[facility]. Made regarding above. Stated will look at fax machine and call CM back. CM to cont to follow up.
--- NOTE | 2018-11-21 10:00 | NUR ---
CM Note: [facility] approval and chair time TTS @1045am Spoke to Juwan xavier/[facility], pt has approval and chair time TTS @ 1045AM. Pt given instructions and phone number. Primary nurse aware. CM to cont to follow up.
[2018-11-21 12:02] VITALS: BP 113/70
[2018-11-21] MEDS: FUROSEMIDE 40 MG TABLET PO SCH ×2 (12:04→15:17)
[2018-11-21] MEDS: SODIUM BICARBONATE 650 MG TAB PO SCH (12:05)
[2018-11-21] MEDS: FAMOTIDINE 20MG TAB 20 MG TAB PO SCH (12:05)
--- NOTE | 2018-11-21 15:00 | NUR ---
DISCHARGE INSTRUCTIONS GIVEN. PATIENT TO FOLLOW UP WITH DR. VARGAS NEPHROLOGY AND START OUTPATIENT HEMODIALYSIS WITH [facility].. SAT. PARK GUARD INFORMED PATIENT ON TIMES, ADDRESS AND TIMES. PATIENT VERBALIZED UNDERSTANDING. ALL QUESTIONS ANSWERED. IV DISCONTINUED WITH INNER CANNULA INTACT.
[2018-11-22] MEDS ORDERED: FERROUS SULFATE 325 MG TABLET.DR PO SCH (09:00)
== END 2018-11-21 15:55 | disposition home or self-care (01) | DRG 682 ==
LOC: EDH 14:17 → EDHIP 14:18 → OBSVTOIN 14:18 → 3BH 11-17 01:24
PROVIDERS: ADMIT Internal Medicine; ATTEND Internal Medicine
PROC: 5A1D70Z Performance of Urinary Filtration, Intermittent, Less than 6 Hours Per Day (ICD-10-PCS; principal; 2018-11-16)
PROC: 5A1D70Z Performance of Urinary Filtration, Intermittent, Less than 6 Hours Per Day (ICD-10-PCS; 2018-11-17)
PROC: 5A1D70Z Performance of Urinary Filtration, Intermittent, Less than 6 Hours Per Day (ICD-10-PCS; 2018-11-18)
PROC: 5A1D70Z Performance of Urinary Filtration, Intermittent, Less than 6 Hours Per Day (ICD-10-PCS; 2018-11-21)
DX: N17.9 Acute kidney failure, unspecified (principal); E43 Unspecified severe protein-calorie malnutrition; J81.1 Chronic pulmonary edema; I12.0 Hypertensive chronic kidney disease with stage 5 chronic kidney disease or end stage renal disease; N18.6 End stage renal disease; I16.0 Hypertensive urgency; E11.22 Type 2 diabetes mellitus with diabetic chronic kidney disease; E87.5 Hyperkalemia; R74.8 Abnormal levels of other serum enzymes; D64.9 Anemia, unspecified; E11.21 Type 2 diabetes mellitus with diabetic nephropathy; E11.51 Type 2 diabetes mellitus with diabetic peripheral angiopathy without gangrene; E78.5 Hyperlipidemia, unspecified; E87.70 Fluid overload, unspecified; R09.02 Hypoxemia; Z68.31 Body mass index [BMI] 31.0-31.9, adult; Z88.0 Allergy status to penicillin; Z88.8 Allergy status to other drugs, medicaments and biological substances; Z91.018 Allergy to other foods; Z99.2 Dependence on renal dialysis; Z90.11 Acquired absence of right breast and nipple; Z89.611 Acquired absence of right leg above knee; Z89.511 Acquired absence of right leg below knee; Z82.5 Family history of asthma and other chronic lower respiratory diseases; Z82.3 Family history of stroke; Z82.0 Family history of epilepsy and other diseases of the nervous system; Z83.3 Family history of diabetes mellitus; Z82.49 Family history of ischemic heart disease and other diseases of the circulatory system
CPT/HCPCS: 36415; 71045; 80048; 80053; 81001; 82948; 83690; 84100; 84132; 84484; 85025; 90935; 93005; 99291; G0378; J0360; J0610; J1815; J2405; J3490; J7070

== ENCOUNTER 2018-12-16 13:09 | Emergency (ER) | payer OTHER ==
[2018-12-16 14:04] LABS: EOSINOPHILS % (AUTO) 2.7 % (0.0-8.0); HEMATOCRIT 30.4 % (36-48); LYMPHOCYTES % (AUTO) 26.8 % (21.0-51.0); MEAN CORPUSCULAR HEMOGLOBIN 31.1 pg (27.0-33.0); MEAN CORPUSCULAR HGB CONC 33.1 g/dL (32.0-36.0); MONOCYTES % (AUTO) 11.2 % (3.0-13.0); NEUTROPHILS % (AUTO) 58.3 % (40.0-77.0); PLATELET COUNT (AUTO) 148 K/uL (130-400); RED BLOOD CELL COUNT(AUTO) 3.24 MIL/uL (4.00-5.50); RED CELL DISTRIBUTION WIDTH 14.8 % (11.0-15.5)
[2018-12-16 14:18] LABS: CREATININE 3.3 mg/dL (0.5-1.5); POTASSIUM 4.5 mmol/L (3.5-5.1)
[2018-12-16 14:24] LABS: ALBUMIN 2.7 g/dL (3.5-5.0); BILIRUBIN,TOTAL 0.2 mg/dL (0.2-1.0); TOTAL PROTEIN, SERUM 7.2 g/dL (6.0-8.3)
[2018-12-16] MEDS ORDERED: KETOROLAC TROMETHAMINE 60 MG/2 ML VIAL ONE (15:39)
== END 2018-12-16 17:36 | disposition home or self-care (01) ==
LOC: EDH 13:09
DX: S06.0X0A Concussion without loss of consciousness, initial encounter (principal); S13.4XXA Sprain of ligaments of cervical spine, initial encounter; E86.9 Volume depletion, unspecified; R55 Syncope and collapse; E11.22 Type 2 diabetes mellitus with diabetic chronic kidney disease; I12.9 Hypertensive chronic kidney disease with stage 1 through stage 4 chronic kidney disease, or unspecified chronic kidney disease; N18.6 End stage renal disease; Z99.2 Dependence on renal dialysis; Z79.4 Long term (current) use of insulin; Z88.0 Allergy status to penicillin; Z88.6 Allergy status to analgesic agent; Z88.8 Allergy status to other drugs, medicaments and biological substances; W18.39XA Other fall on same level, initial encounter; Y93.89 Activity, other specified; Y92.89 Other specified places as the place of occurrence of the external cause; Y99.8 Other external cause status
CPT/HCPCS: 36415; 70450; 72125; 72128; 80053; 85025; 96372; 99284; J1885

== ENCOUNTER 2019-04-13 15:07 | Emergency (ER) | payer MEDICAID, OTHER ==
[2019-04-13] MEDS ORDERED: ONDANSETRON ODT 4 MG TAB ONE (15:36)
[2019-04-13] MEDS ORDERED: MORPHINE SULFATE 5 MG/ML VIAL ONE (15:37)
== END 2019-04-13 18:38 | disposition home or self-care (01) ==
LOC: EDH 15:07
DX: S80.02XA Contusion of left knee, initial encounter (principal); S50.02XA Contusion of left elbow, initial encounter; S09.90XA Unspecified injury of head, initial encounter; M54.2 Cervicalgia; I12.0 Hypertensive chronic kidney disease with stage 5 chronic kidney disease or end stage renal disease; E11.22 Type 2 diabetes mellitus with diabetic chronic kidney disease; N18.6 End stage renal disease; Z88.0 Allergy status to penicillin; Z88.6 Allergy status to analgesic agent; Z99.2 Dependence on renal dialysis; W18.39XA Other fall on same level, initial encounter; Y93.01 Activity, walking, marching and hiking; Y92.89 Other specified places as the place of occurrence of the external cause; Y99.8 Other external cause status
CPT/HCPCS: 70450; 71045; 72125; 73080; 73562; 73610; 96372; 99285; J2270

== ENCOUNTER 2019-04-29 17:05 | Inpatient (IN) | payer OTHER ==
[~2019-04-29] VITALS: Ht 149.9 cm; Wt 52.9 kg
[2019-04-29 17:44] LABS: BASOPHILS % (AUTO) 0.5 % (0.0-5.0); EOSINOPHILS % (AUTO) 2.2 % (0.0-8.0); HEMATOCRIT 27.3 % (36-48); LYMPHOCYTES % (AUTO) 20.8 % (21.0-51.0); MEAN CORPUSCULAR HEMOGLOBIN 31.6 pg (27.0-33.0); MEAN CORPUSCULAR HGB CONC 32.6 g/dL (32.0-36.0); MEAN CORPUSCULAR VOLUME 96.8 fL (79-99); MONOCYTES % (AUTO) 11.1 % (3.0-13.0); NEUTROPHILS % (AUTO) 65.3 % (40.0-77.0); PLATELET COUNT (AUTO) 168 K/uL (130-400); RED BLOOD CELL COUNT(AUTO) 2.82 MIL/uL (4.00-5.50); RED CELL DISTRIBUTION WIDTH 14.2 % (11.0-15.5)
[2019-04-29] MEDS ORDERED: NITROGLYCERIN 0.4 MG SL TAB SL ONE (18:13)
[2019-04-29] MEDS ORDERED: ASPIRIN 325 MG TABLET ONE (18:13)
[2019-04-29 18:43] LABS: CREATININE 6.6 mg/dL (0.5-1.5); POTASSIUM 5.9 mmol/L (3.5-5.1)
[2019-04-29 18:50] LABS: ALBUMIN 3.1 g/dL (3.5-5.0); BILIRUBIN,TOTAL 0.3 mg/dL (0.2-1.0); TOTAL PROTEIN, SERUM 7.2 g/dL (6.0-8.3)
[2019-04-29] MEDS ORDERED: SODIUM POLYSTYRENE SULFONATE 15 GM/60 ML ML ONE (19:23)
[2019-04-29] MEDS ORDERED: CALCIUM GLUCONATE 1 GM/10 ML VIAL IV ONE (19:23)
[2019-04-29] MEDS ORDERED: SODIUM BICARB 50MEQ 50ML VIAL ONE (19:23)
[2019-04-29] MEDS ORDERED: DEXTROSE 50%-WATER 50 ML DISP.SYRIN IV ONE ×2 (19:25→19:30)
[2019-04-29] MEDS ORDERED: INSULIN HUMULIN R 100 UNIT/ML 3ML ONE (19:25)
[2019-04-29] MEDS ORDERED: SODIUM CHLORIDE 0.9% 200 ML IV ONE (19:29)
[2019-04-29] MEDS ORDERED: ACETAMINOPHEN 325 MG TAB PO PRN (20:45)
[2019-04-29] MEDS ORDERED: NITROGLYCERIN 0.4 MG SL TAB SL PRN (20:45)
[2019-04-29] MEDS ORDERED: HYDRALAZINE HCL 20 MG/ML VIAL IV PRN (21:00)
[2019-04-29] MEDS ORDERED: ONDANSETRON HCL 4 MG/2 ML VIAL IVP PRN (21:00)
[2019-04-29] MEDS: INSULIN R PO SS1 SQ SCH (21:00)
[2019-04-29 22:30] VITALS: BP 190/71
[2019-04-29] MEDS ORDERED: SODIUM POLYSTYRENE SULFONATE 15 GM/60 ML ML PO NR (23:30)
[2019-04-30] MEDS: ALBUTEROL SULFATE 0.083% 2.5 MG/3 ML INH IH SCH ×6 (01:23→21:39)
[2019-04-30 03:00] VITALS: BP 140/60
[2019-04-30 05:32] LABS: HEMATOCRIT 24.9 % (36-48); MEAN CORPUSCULAR HEMOGLOBIN 30.8 pg (27.0-33.0); MEAN CORPUSCULAR HGB CONC 32.1 g/dL (32.0-36.0); MEAN CORPUSCULAR VOLUME 95.8 fL (79-99); PLATELET COUNT (AUTO) 92 K/uL (130-400); RED CELL DISTRIBUTION WIDTH 14.1 % (11.0-15.5); WHITE BLOOD COUNT (AUTO) 6.8 K/uL (4.8-10.8)
[2019-04-30 05:49] LABS: ALBUMIN 2.7 g/dL (3.5-5.0); BILIRUBIN,TOTAL 0.4 mg/dL (0.2-1.0); CREATININE 7.2 mg/dL (0.5-1.5); POTASSIUM 5.8 mmol/L (3.5-5.1); TOTAL PROTEIN, SERUM 6.5 g/dL (6.0-8.3)
[2019-04-30 07:30] VITALS: BP 152/67
[2019-04-30] MEDS: INSULIN R PO SS1 SQ SCH ×4 (07:30→21:00)
[2019-04-30] MEDS ORDERED: COMPOUND IV MISC 1 EACH IVSOLN MISC PRN (08:30)
[2019-04-30] MEDS ORDERED: EPOETIN ALFA 10,000 UNIT/ML VIAL SQ SCH (08:30)
[2019-04-30] MEDS: FAMOTIDINE 20MG TAB 20 MG TAB PO SCH (09:00)
[2019-04-30] MEDS: **HM** VIT D3 1000 UNITS PO SCH (09:00)
[2019-04-30] MEDS: METOPROLOL SUCCINATE 50 MG TAB.SR.24H PO SCH ×2 (09:40→22:49)
[2019-04-30] MEDS: IRON SUCROSE COMPLEX 100 MG in SODIUM CHLORIDE 0.9% 50 ML IV SCH ×2 (09:41→16:35)
[2019-04-30] MEDS: ASCORBIC ACID 500 MG TAB PO SCH (09:41)
[2019-04-30] MEDS: ASPIRIN 81MG TAB.CHEW PO SCH (09:41)
[2019-04-30 11:00] VITALS: BP 144/62
[2019-04-30 16:00] VITALS: BP 107/57
--- NOTE | 2019-04-30 16:24 | NUR ---
INITIAL Patient lives with spouse, Remi Jarquin, [phone]. No home services. Dialysis: [facility] 10[facility] located in [place]. Patient's spouse provides transportation to and from dialysis. DME: walker with seat, shower chair. Patient reports she uses insulin but has no glucometer. Patient states she needs help with ADL's and does not drive. Patient's spouse assists with ADL's. PCP is Dr. Doe Grady. Pharmacy is [facility] in [place]. Patient has no insurance or benefits.She is not a citizen or legal resident. Patient was provided with community resources for post hospitalization follow up on previous admission. Patient was also provided with Good RX card for prescriptions on previous admission. SW educated on [employer] $4 medication program and [employer] $5 medication program. Patient is being assisted by [employer] for financial matters. Addendum: 04/30/19 at 1628 by CARMEL RUIZ SS Amended: Links added.
[2019-04-30 20:24] VITALS: BP 160/75
[2019-05-01 00:28] VITALS: BP 139/56
[2019-05-01] MEDS: ALBUTEROL SULFATE 0.083% 2.5 MG/3 ML INH IH SCH ×4 (01:33→13:42)
[2019-05-01 03:57] LABS: HEMATOCRIT 25.8 % (36-48); MEAN CORPUSCULAR HEMOGLOBIN 31.3 pg (27.0-33.0); MEAN CORPUSCULAR HGB CONC 32.6 g/dL (32.0-36.0); MEAN CORPUSCULAR VOLUME 96.3 fL (79-99); PLATELET COUNT (AUTO) 140 K/uL (130-400); RED BLOOD CELL COUNT(AUTO) 2.68 MIL/uL (4.00-5.50); RED CELL DISTRIBUTION WIDTH 13.9 % (11.0-15.5); WHITE BLOOD COUNT (AUTO) 6.9 K/uL (4.8-10.8)
[2019-05-01 04:07] LABS: BAND NEUTROPHILS % (MANUAL) 2 % (0-2); BASOPHILS % (MANUAL) 3 % (0-2); EOSINOPHILS % (MANUAL) 3 % (1-6); LYMPHOCYTES % (MANUAL) 47 % (22-44); MONOCYTES % (MANUAL) 3 % (2-9); SEGMENTED NEUTROPHILS % 42 % (40-70)
[2019-05-01 04:08] LABS: MAN.DIFF COMMENT-IMPRESSION MANUAL DIFFERENTIAL; PLATELET MORPHOLOGY COMMENT ADEQUATE
[2019-05-01 04:28] VITALS: BP 138/61
[2019-05-01 04:36] LABS: CREATININE 6.3 mg/dL (0.5-1.5); POTASSIUM 4.6 mmol/L (3.5-5.1)
[2019-05-01] MEDS: INSULIN R PO SS1 SQ SCH (05:50)
[2019-05-01 07:11] LABS: HEPATITIS A ANTIBODY IGM Negative (Negative); HEPATITIS B CORE IGM Negative (Negative); HEPATITIS Bs ANTIGEN SCREEN P Negative (Negative)
[2019-05-01 07:30] VITALS: BP 145/60
[2019-05-01] MEDS ORDERED: FERR325T22 PO (08:03)
[2019-05-01] MEDS: **HM** VIT D3 1000 UNITS PO SCH (09:00)
[2019-05-01] MEDS: FAMOTIDINE 20MG TAB 20 MG TAB PO SCH (09:00)
[2019-05-01] MEDS: ASPIRIN 81MG TAB.CHEW PO SCH (09:00)
[2019-05-01] MEDS: ASCORBIC ACID 500 MG TAB PO SCH (09:00)
[2019-05-01] MEDS: METOPROLOL SUCCINATE 50 MG TAB.SR.24H PO SCH (09:00)
[2019-05-01 11:00] VITALS: BP 135/51
== END 2019-05-01 14:00 | disposition home or self-care (01) | DRG 640 ==
LOC: EDH 17:05 → OBSVTOIN 17:06 → EDHIP 17:06 → 4BH 20:41
PROVIDERS: ADMIT Internal Medicine Critical Care Medicine; ATTEND Internal Medicine Critical Care Medicine
PROC: 5A1D70Z Performance of Urinary Filtration, Intermittent, Less than 6 Hours Per Day (ICD-10-PCS; principal; 2019-04-30)
PROC: 5A1D70Z Performance of Urinary Filtration, Intermittent, Less than 6 Hours Per Day (ICD-10-PCS; 2019-05-01)
DX: E87.5 Hyperkalemia (principal); N18.6 End stage renal disease; I12.0 Hypertensive chronic kidney disease with stage 5 chronic kidney disease or end stage renal disease; J90 Pleural effusion, not elsewhere classified; I16.0 Hypertensive urgency; E87.70 Fluid overload, unspecified; D63.8 Anemia in other chronic diseases classified elsewhere; E11.22 Type 2 diabetes mellitus with diabetic chronic kidney disease; E78.5 Hyperlipidemia, unspecified; Z79.82 Long term (current) use of aspirin; Z89.512 Acquired absence of left leg below knee; Z89.511 Acquired absence of right leg below knee; Z99.2 Dependence on renal dialysis; Z91.19 Patient's noncompliance with other medical treatment and regimen
CPT/HCPCS: 36415; 71045; 74176; 80048; 80053; 80074; 82550; 82948; 84100; 84132; 84484; 85025; 85027; 90935; 93005; 94640; 94664; 99291; G0378; J0610; J0885; J1756; J1815; J3490; J7070

== ENCOUNTER 2019-07-03 14:30 | Observation (INO) | payer BC, MEDICAID, OTHER ==
[~2019-07-03] VITALS: Ht 149.9 cm; Wt 53.7 kg
[~2019-07-03 14:30] MED LIST changes: +ASCO500T20 PO; -ASCO500T9 PO; -ATOR40TA71 PO; -DICY10 PO; -FURO40TA7 PO; -SODI650T PO
[2019-07-03 14:52] LABS: BASOPHILS % (AUTO) 0.4 % (0.0-5.0); EOSINOPHILS % (AUTO) 2.3 % (0.0-8.0); HEMATOCRIT 31.2 % (36-48); LYMPHOCYTES % (AUTO) 18.7 % (21.0-51.0); MEAN CORPUSCULAR HEMOGLOBIN 30.5 pg (27.0-33.0); MEAN CORPUSCULAR HGB CONC 33.7 g/dL (32.0-36.0); MEAN CORPUSCULAR VOLUME 90.7 fL (79-99); MONOCYTES % (AUTO) 9.3 % (3.0-13.0); PLATELET COUNT (AUTO) 150 K/uL (130-400); RED BLOOD CELL COUNT(AUTO) 3.44 MIL/uL (4.00-5.50); RED CELL DISTRIBUTION WIDTH 13.1 % (11.0-15.5); WHITE BLOOD COUNT (AUTO) 7.5 K/uL (4.8-10.8)
[2019-07-03 15:09] LABS: INR 0.92 (0.85-1.15); PARTIAL THROMBOPLASTIN TIME 28.7 SEC (26.3-35.5)
[2019-07-03 15:12] LABS: CREATININE 4.3 mg/dL (0.5-1.5); POTASSIUM 3.7 mmol/L (3.5-5.1)
[2019-07-03 15:23] LABS: ALBUMIN 3.2 g/dL (3.5-5.0); BILIRUBIN,TOTAL 0.5 mg/dL (0.2-1.0); TOTAL PROTEIN, SERUM 7.6 g/dL (6.0-8.3)
[2019-07-03] MEDS ORDERED: NIFEDIPINE 10 MG CAP ONE (15:28)
[2019-07-03] MEDS ORDERED: NIFEDIPINE ER 30 MG TAB PO ONE (15:31)
[2019-07-03] MEDS ORDERED: ONDANSETRON HCL 4 MG/2 ML VIAL IVP PRN (16:30)
[2019-07-03] MEDS ORDERED: ACETAMINOPHEN 325 MG TAB PO PRN (16:30)
[2019-07-03] MEDS ORDERED: ZOLPIDEM TARTRATE 5 MG TAB PO PRN (16:30)
[2019-07-03] MEDS ORDERED: HYDRALAZINE HCL 20 MG/ML VIAL IV PRN (16:30)
[2019-07-03] MEDS: FERROUS SULFATE 325 MG TABLET.DR PO SCH (17:00)
[2019-07-03] MEDS ORDERED: SUCRALFATE 1 GM TABLET ONE (18:33)
[2019-07-03] MEDS ORDERED: ACETAMINOPHEN 325 MG TAB ONE (20:35)
[2019-07-03] MEDS ORDERED: METOPROLOL TARTRATE 25 MG TAB ONE (20:35)
[2019-07-03] MEDS ORDERED: ZOLPIDEM TARTRATE 5 MG TAB ONE (20:41)
[2019-07-03] MEDS: METOPROLOL TARTRATE 25 MG TAB PO SCH (21:00)
[2019-07-03 23:00] VITALS: BP 136/66
[2019-07-04] MEDS ORDERED: HYDROCODONE/ACETAMINOPHEN 5/325 MG TAB ONE (00:41)
[2019-07-04] MEDS ORDERED: HYDROCODONE/ACETAMINOPHEN 5/325 MG TAB PO PRN (00:45)
[2019-07-04] MEDS: HYDROMORPHONE HCL 2 MG/ML VIAL IVP PRN ×3 (01:58→13:24)
[2019-07-04 04:00] VITALS: BP 109/50
[2019-07-04 05:59] LABS: HEMATOCRIT 30.2 % (36-48); MEAN CORPUSCULAR HEMOGLOBIN 30.8 pg (27.0-33.0); MEAN CORPUSCULAR HGB CONC 33.1 g/dL (32.0-36.0); MEAN CORPUSCULAR VOLUME 92.9 fL (79-99); RED BLOOD CELL COUNT(AUTO) 3.25 MIL/uL (4.00-5.50); RED CELL DISTRIBUTION WIDTH 13.2 % (11.0-15.5); WHITE BLOOD COUNT (AUTO) 7.9 K/uL (4.8-10.8)
[2019-07-04 06:10] LABS: INR 0.99 (0.85-1.15); PARTIAL THROMBOPLASTIN TIME 32.3 SEC (26.3-35.5); PROTHROMBIN TIME 10.7 SEC (9.6-11.6)
[2019-07-04 06:20] LABS: CREATININE 5.8 mg/dL (0.5-1.5); POTASSIUM 4.7 mmol/L (3.5-5.1)
[2019-07-04 07:53] VITALS: BP 136/54
[2019-07-04] MEDS: METOPROLOL TARTRATE 25 MG TAB PO SCH (07:55)
[2019-07-04] MEDS: FERROUS SULFATE 325 MG TABLET.DR PO SCH ×2 (08:00→12:31)
[2019-07-04] MEDS ORDERED: ASPIRIN 81MG TAB.CHEW PO SCH (09:00)
[2019-07-04] MEDS ORDERED: PANTOPRAZOLE SODIUM 40 MG TABLET.DR PO SCH (09:00)
[2019-07-04] MEDS ORDERED: ASCORBIC ACID 500 MG TAB PO SCH (09:00)
[2019-07-04 11:52] VITALS: BP 136/53
--- NOTE | 2019-07-04 13:00 | NUR ---
U/S GUIDED RIGHT THORACENTESIS ORDERED. NOT DONE U/S OF RIGHT POSTERIOR BACK PERFORMED BY SENDY BERNABE. DR. FOWLER REVIEWED THE IMAGES AND CONFIRMED, NOT ENOUGH FLUID TO SAFELY PERFORM PROCEDURE. INFORMED PT OF RESULTS. PT TRANSPORTED TO ROOM 327 VIA BED @ 1315. REPORT GIVEN TO AMADA OWENS. PT STABLE, CALL ROSARIO PLACED IN REACH, AAO X 3, NO C/O PAIN.
--- NOTE | 2019-07-04 14:18 | NUR ---
INITIAL MET W PATIENT AT BEDSIDE, WELL KNOWN TO THIS CM, LIVES WITH SON AND SPOUSE,WHO WILL PROVIDE TRANSPORT, HAS WHEELCHAIR, PROSTHESIS, SHOWER CHAIR, AND RAMP AT HOME; GO[facility] OT HD AT [facility]; EXPECT DC TO HOME AFTER IR THORACENTESISI TODAY CM TO FOLOW IF PLAN CHANGES Addendum: 07/04/19 at 1529 by AURORA NAPOLES RN CM Amended: Links added.
--- NOTE | 2019-07-04 15:54 | NUR ---
PATIENT AWAKE AND ALERT , DENIES ANY PAIN AT THIS TIME ..DISCHARGE INSTRUCTION PROVIDED TO PATIENT ..PATIENT VERBILIZED UNDERSTANDING.. PER PATIENT WILL CALL HER FOR TRANSPORT HOME
== END 2019-07-04 17:10 | disposition home or self-care (01) ==
LOC: EDH 14:30 → EDHIP 14:31 → UNDOADMOB 16:19 → EDHIP 16:19 → 3DH 22:41
PROVIDERS: ADMIT Internal Medicine; ATTEND Internal Medicine
DX: J90 Pleural effusion, not elsewhere classified (principal); I12.0 Hypertensive chronic kidney disease with stage 5 chronic kidney disease or end stage renal disease; E11.22 Type 2 diabetes mellitus with diabetic chronic kidney disease; N18.6 End stage renal disease; D63.8 Anemia in other chronic diseases classified elsewhere; Z99.2 Dependence on renal dialysis; Z88.0 Allergy status to penicillin; Z79.4 Long term (current) use of insulin; Z88.6 Allergy status to analgesic agent; Z79.82 Long term (current) use of aspirin
CPT/HCPCS: 36415 ×2; 71045; 76604; 80048; 80053; 82550; 82948 ×2; 83880; 84484 ×2; 85025; 85027; 85610 ×2; 85730 ×2; 93005; 96374; 96375; 96376; 99291; G0378 ×11; J1170 ×4; 96372

== ENCOUNTER 2019-07-06 18:33 | Emergency (ER) | payer BC | END 2019-07-06 22:11 | disposition home or self-care (01) | LOC: EDH 18:33 | DX: R41.82 Altered mental status, unspecified (principal); I12.0 Hypertensive chronic kidney disease with stage 5 chronic kidney disease or end stage renal disease; E11.22 Type 2 diabetes mellitus with diabetic chronic kidney disease; N18.6 End stage renal disease; Z88.6 Allergy status to analgesic agent; Z88.0 Allergy status to penicillin; Z88.8 Allergy status to other drugs, medicaments and biological substances; Z98.890 Other specified postprocedural states | CPT/HCPCS: 36415; 70450; 71045; 74176; 80053; 80305; 81001; 82140; 82150; 82550; 82948; 83605; 83690; 84484; 85025; 85610; 85730; 87040 ×2; 93005; 99285; G0480 ==

== ENCOUNTER 2019-07-16 18:56 | Emergency (ER) | payer BC ==
[2019-07-16] MEDS ORDERED: KETOROLAC TROMETHAMINE 15MG/ML ONE (20:23)
[2019-07-16 20:30] LABS: BASOPHILS % (AUTO) 0.4 % (0.0-5.0); EOSINOPHILS % (AUTO) 3.1 % (0.0-8.0); HEMATOCRIT 29.7 % (36-48); LYMPHOCYTES % (AUTO) 19.4 % (21.0-51.0); MEAN CORPUSCULAR HEMOGLOBIN 30.7 pg (27.0-33.0); MEAN CORPUSCULAR HGB CONC 32.7 g/dL (32.0-36.0); MONOCYTES % (AUTO) 11.4 % (3.0-13.0); NEUTROPHILS % (AUTO) 65.4 % (40.0-77.0); PLATELET COUNT (AUTO) 150 K/uL (130-400); RED BLOOD CELL COUNT(AUTO) 3.16 MIL/uL (4.00-5.50); RED CELL DISTRIBUTION WIDTH 13.7 % (11.0-15.5); WHITE BLOOD COUNT (AUTO) 9.1 K/uL (4.8-10.8)
[2019-07-16 20:41] LABS: INR 0.92 (0.85-1.15); PARTIAL THROMBOPLASTIN TIME 27.1 SEC (26.3-35.5)
[2019-07-16 20:49] LABS: ALBUMIN 3.6 g/dL (3.5-5.0); BILIRUBIN,TOTAL 0.3 mg/dL (0.2-1.0); CREATININE 6.5 mg/dL (0.5-1.5); TOTAL PROTEIN, SERUM 8.1 g/dL (6.0-8.3)
[2019-07-16 20:50] LABS: POTASSIUM 6.1 mmol/L (3.5-5.1)
[2019-07-16] MEDS ORDERED: ONDANSETRON HCL 4 MG/2 ML VIAL ONE (21:11)
[2019-07-16] MEDS ORDERED: MORPHINE SULFATE 4 MG/1ML SYG ONE (21:12)
== END 2019-07-16 22:35 | disposition home or self-care (01) ==
LOC: EDH 18:56
DX: R07.89 Other chest pain (principal); G89.29 Other chronic pain; R07.81 Pleurodynia; E87.5 Hyperkalemia; R10.10 Upper abdominal pain, unspecified; I12.0 Hypertensive chronic kidney disease with stage 5 chronic kidney disease or end stage renal disease; E11.22 Type 2 diabetes mellitus with diabetic chronic kidney disease; N18.6 End stage renal disease; Z98.890 Other specified postprocedural states; Z88.0 Allergy status to penicillin; Z88.6 Allergy status to analgesic agent; Z88.8 Allergy status to other drugs, medicaments and biological substances
CPT/HCPCS: 36415; 71045; 80053; 83690; 84484; 85025; 85610; 85730; 93005; 96374; 96375; 99285; J1885; J2270; J2405

== ENCOUNTER 2019-09-18 05:35 | Emergency (ER) | payer BC ==
[2019-09-18] MEDS ORDERED: LIDOCAINE 5% TOPICAL PATCH TP ONE (06:28)
[2019-09-18] MEDS ORDERED: FENTANYL CITRATE PF 50 MCG/1 ML 2ML VIAL ONE (06:29)
[2019-09-18] MEDS ORDERED: MORPHINE SULFATE 2 MG/ML 1ML SYG ONE (07:11)
== END 2019-09-18 08:09 | disposition home or self-care (01) ==
LOC: EDH 05:35
DX: S30.0XXA Contusion of lower back and pelvis, initial encounter (principal); I12.0 Hypertensive chronic kidney disease with stage 5 chronic kidney disease or end stage renal disease; E11.22 Type 2 diabetes mellitus with diabetic chronic kidney disease; N18.6 End stage renal disease; Z88.0 Allergy status to penicillin; Z88.6 Allergy status to analgesic agent; Z88.8 Allergy status to other drugs, medicaments and biological substances; Z99.2 Dependence on renal dialysis; W10.8XXA Fall (on) (from) other stairs and steps, initial encounter; Y93.89 Activity, other specified; Y92.098 Other place in other non-institutional residence as the place of occurrence of the external cause; Y99.8 Other external cause status
CPT/HCPCS: 72100; 72170; 82948; 96372 ×2; 99284; J3010

== ENCOUNTER 2019-11-03 14:14 | Emergency (ER) | payer BC ==
[2019-11-03] MEDS ORDERED: ASPIRIN 325 MG TABLET ONE (14:29)
[2019-11-03 14:44] LABS: BASOPHILS % (AUTO) 0.4 % (0.0-5.0); EOSINOPHILS % (AUTO) 2.7 % (0.0-8.0); HEMATOCRIT 34.3 % (36-48); LYMPHOCYTES % (AUTO) 25.6 % (21.0-51.0); MEAN CORPUSCULAR HEMOGLOBIN 30.9 pg (27.0-33.0); MEAN CORPUSCULAR HGB CONC 32.7 g/dL (32.0-36.0); MEAN CORPUSCULAR VOLUME 94.8 fL (79-99); MONOCYTES % (AUTO) 8.1 % (3.0-13.0); NEUTROPHILS % (AUTO) 63.1 % (40.0-77.0); PLATELET COUNT (AUTO) 196 K/uL (130-400); RED BLOOD CELL COUNT(AUTO) 3.62 MIL/uL (4.00-5.50); RED CELL DISTRIBUTION WIDTH 13.9 % (11.0-15.5); WHITE BLOOD COUNT (AUTO) 7.4 K/uL (4.8-10.8)
[2019-11-03 14:57] LABS: CREATININE 3.9 mg/dL (0.5-1.5); POTASSIUM 3.8 mmol/L (3.5-5.1)
[2019-11-03 14:58] LABS: INR 0.91 (0.85-1.15); PARTIAL THROMBOPLASTIN TIME 27.8 SEC (26.3-35.5); PROTHROMBIN TIME 9.9 SEC (9.6-11.6)
[2019-11-03 15:02] LABS: ALBUMIN 3.4 g/dL (3.5-5.0); BILIRUBIN,TOTAL 0.3 mg/dL (0.2-1.0); TOTAL PROTEIN, SERUM 8.1 g/dL (6.0-8.3)
[2019-11-03] MEDS ORDERED: MORPHINE SULFATE 2 MG/ML 1ML SYG ONE (15:43)
== END 2019-11-03 16:50 | disposition home or self-care (01) ==
LOC: EDH 14:14
DX: R07.89 Other chest pain (principal); R00.2 Palpitations; R11.0 Nausea; Z20.828 Contact with and (suspected) exposure to other viral communicable diseases; I12.0 Hypertensive chronic kidney disease with stage 5 chronic kidney disease or end stage renal disease; E11.22 Type 2 diabetes mellitus with diabetic chronic kidney disease; N18.6 End stage renal disease; K21.9 Gastro-esophageal reflux disease without esophagitis; Z99.2 Dependence on renal dialysis; Z88.0 Allergy status to penicillin; Z88.6 Allergy status to analgesic agent; Z88.8 Allergy status to other drugs, medicaments and biological substances
CPT/HCPCS: 36415; 71045; 80053; 82550; 84484; 85025; 85610; 85730; 87426; 93005; 96372

== ENCOUNTER 2020-01-20 11:52 | Inpatient (IN) | payer BC ==
[~2020-01-20] VITALS: Ht 149.9 cm; Wt 54.9 kg
[2020-01-20 12:31] LABS: BASOPHILS % (AUTO) 0.5 % (0.0-5.0); EOSINOPHILS % (AUTO) 1.7 % (0.0-8.0); HEMATOCRIT 34.9 % (36-48); LYMPHOCYTES % (AUTO) 20.4 % (21.0-51.0); MEAN CORPUSCULAR HEMOGLOBIN 30.9 pg (27.0-33.0); MEAN CORPUSCULAR HGB CONC 32.4 g/dL (32.0-36.0); MEAN CORPUSCULAR VOLUME 95.4 fL (79-99); MONOCYTES % (AUTO) 11.7 % (3.0-13.0); NEUTROPHILS % (AUTO) 65.6 % (40.0-77.0); PLATELET COUNT (AUTO) 192 K/uL (130-400); RED BLOOD CELL COUNT(AUTO) 3.66 MIL/uL (4.00-5.50); RED CELL DISTRIBUTION WIDTH 14.5 % (11.0-15.5); WHITE BLOOD COUNT (AUTO) 8.4 K/uL (4.8-10.8)
[2020-01-20 12:39] LABS: INR 0.95 (0.85-1.15); PARTIAL THROMBOPLASTIN TIME 28.6 SEC (26.3-35.5); PROTHROMBIN TIME 10.3 SEC (9.6-11.6)
[2020-01-20 12:43] LABS: CREATININE 4.9 mg/dL (0.5-1.5); POTASSIUM 4.7 mmol/L (3.5-5.1)
[2020-01-20 12:48] LABS: ALBUMIN 3.5 g/dL (3.5-5.0); BILIRUBIN,TOTAL 0.5 mg/dL (0.2-1.0); TOTAL PROTEIN, SERUM 7.6 g/dL (6.0-8.3)
[2020-01-20 13:03] LABS: B-TYPE NATRIURETIC PEPTIDE 833 pg/mL (0-100)
[2020-01-20] MEDS ORDERED: IOHEXOL-350 75 ML VIAL IV ONE (13:17)
[2020-01-20] MEDS ORDERED: ACETAMINOPHEN 325 MG TAB PO PRN (17:15)
[2020-01-20] MEDS ORDERED: GLUCAGON 1MG KIT 1 MG ML IM PRN (17:15)
[2020-01-20] MEDS ORDERED: MAGNESIUM 2GM PREMIX 50ML 50 ML IV PRN (17:15)
[2020-01-20] MEDS ORDERED: LACTULOSE 20 GM/30 ML UDCUP PO PRN (17:15)
[2020-01-20] MEDS ORDERED: DEXTROSE 50%-WATER 50 ML DISP.SYRIN IV PRN (17:15)
[2020-01-20] MEDS ORDERED: HEPARIN SODIUM 5000UNIT/ML 1ML VIAL ONE (20:22)
[2020-01-20] MEDS ORDERED: ONDANSETRON HCL 4 MG/2 ML VIAL ONE (20:22)
[2020-01-20] MEDS ORDERED: FAMOTIDINE 20MG TAB 20 MG TAB ONE (20:22)
[2020-01-20] MEDS ORDERED: HYDROMORPHONE HCL 0.5 MG/0.5 ML ML ONE (20:23)
[2020-01-20] MEDS: INSULIN HUMULIN R 100 UNIT/ML 3ML SQ SCH (21:00)
[2020-01-21] VITALS (11 sets, daily range): BP systolic 152–205; BP diastolic 74–99
[2020-01-21] MEDS ORDERED: HYDROMORPHONE HCL 0.5 MG/0.5 ML ML ONE ×2 (02:07→10:11)
[2020-01-21 05:06] LABS: EOSINOPHILS % (AUTO) 3.1 % (0.0-8.0); HEMATOCRIT 31.3 % (36-48); MEAN CORPUSCULAR HEMOGLOBIN 30.6 pg (27.0-33.0); MEAN CORPUSCULAR HGB CONC 31.6 g/dL (32.0-36.0); MEAN CORPUSCULAR VOLUME 96.6 fL (79-99); MONOCYTES % (AUTO) 10.6 % (3.0-13.0); NEUTROPHILS % (AUTO) 60.2 % (40.0-77.0); PLATELET COUNT (AUTO) 185 K/uL (130-400); RED BLOOD CELL COUNT(AUTO) 3.24 MIL/uL (4.00-5.50); RED CELL DISTRIBUTION WIDTH 14.4 % (11.0-15.5); WHITE BLOOD COUNT (AUTO) 7.1 K/uL (4.8-10.8)
[2020-01-21 05:31] LABS: ALBUMIN 2.9 g/dL (3.5-5.0); BILIRUBIN,TOTAL 0.4 mg/dL (0.2-1.0); CREATININE 6.2 mg/dL (0.5-1.5); MAGNESIUM 2.7 mg/dL (1.80-2.40); PHOSPHORUS 10.8 mg/dL (2.5-4.9); POTASSIUM 5.3 mmol/L (3.5-5.1)
[2020-01-21] MEDS: INSULIN HUMULIN R 100 UNIT/ML 3ML SQ SCH ×2 (07:30→21:00)
[2020-01-21] MEDS ORDERED: FERROUS SULFATE 325 MG TABLET.DR PO SCH (08:00)
[2020-01-21] MEDS ORDERED: ASPIRIN 81MG TAB.CHEW ONE (08:03)
[2020-01-21] MEDS ORDERED: FERROUS SULFATE 325 MG TABLET.DR ONE (08:04)
[2020-01-21] MEDS ORDERED: ASCORBIC ACID 500 MG TAB ONE (08:04)
[2020-01-21] MEDS ORDERED: FAMOTIDINE 20MG TAB 20 MG TAB ONE (08:05)
[2020-01-21] MEDS ORDERED: METOPROLOL SUCCINATE 50 MG TAB.SR.24H PO ONE (08:06)
[2020-01-21] MEDS: ASCORBIC ACID 500 MG TAB PO SCH (09:00)
[2020-01-21] MEDS: **HM** VIT D3 1000 UNITS PO SCH (09:00)
[2020-01-21] MEDS: ASPIRIN 81MG TAB.CHEW PO SCH (09:00)
[2020-01-21] MEDS: METOPROLOL SUCCINATE 50 MG TAB.SR.24H PO SCH ×2 (09:00→21:07)
[2020-01-21] MEDS: FAMOTIDINE 20MG TAB 20 MG TAB PO SCH (09:00)
[2020-01-21] MEDS ORDERED: METOCLOPRAMIDE 10 MG/2 ML VIAL IVP SCH (11:30)
[2020-01-21] MEDS: SEVELAMER HCL 800 MG TABLET PO SCH (12:00)
[2020-01-21] MEDS ORDERED: ONDANSETRON HCL 4 MG/2 ML VIAL ONE (12:02)
[2020-01-21] MEDS ORDERED: CLONIDINE HCL 0.1 MG TABLET ONE (12:52)
[2020-01-21] MEDS ORDERED: LIDOCAINE HCL 1% MDV 50ML VIAL ONE (13:15)
[2020-01-21] MEDS ORDERED: HEPARIN SODIUM 1000UNIT/ML 10ML VIAL ONE (13:15)
[2020-01-21] MEDS ORDERED: MIDAZOLAM HCL 1 MG/ML 2ML VIAL ONE (13:24)
[2020-01-21] MEDS ORDERED: FENTANYL CITRATE PF 50 MCG/1 ML 2ML VIAL ONE (13:24)
[2020-01-21] MEDS: HYDROMORPHONE HCL 0.5 MG/0.5 ML ML IVP PRN ×2 (15:32→21:40)
[2020-01-21] MEDS: CHLORHEXIDINE GLUCONATE 473 ML MOUTHWASH MM SCH (21:00)
[2020-01-21] MEDS: HEPARIN SODIUM 5000UNIT/ML 1ML VIAL SQ SCH (21:09)
[2020-01-21] MEDS: ONDANSETRON HCL 4 MG/2 ML VIAL IVP PRN (23:48)
[2020-01-22 00:32] VITALS: BP 177/74
[2020-01-22 03:38] VITALS: BP 192/86
[2020-01-22] MEDS: HYDROMORPHONE HCL 0.5 MG/0.5 ML ML IVP PRN ×4 (04:34→21:47)
[2020-01-22 05:08] LABS: MEAN CORPUSCULAR HEMOGLOBIN 30.5 pg (27.0-33.0); MEAN CORPUSCULAR HGB CONC 32.1 g/dL (32.0-36.0); MEAN CORPUSCULAR VOLUME 94.8 fL (79-99); RED BLOOD CELL COUNT(AUTO) 3.48 MIL/uL (4.00-5.50); RED CELL DISTRIBUTION WIDTH 14.3 % (11.0-15.5); WHITE BLOOD COUNT (AUTO) 8.1 K/uL (4.8-10.8)
[2020-01-22 05:45] LABS: CREATININE 8.1 mg/dL (0.5-1.5); POTASSIUM 6.2 mmol/L (3.5-5.1)
[2020-01-22] MEDS: INSULIN HUMULIN R 100 UNIT/ML 3ML SQ SCH ×4 (07:30→20:47)
[2020-01-22] MEDS: SEVELAMER HCL 800 MG TABLET PO SCH ×3 (08:00→17:00)
[2020-01-22] MEDS: **HM** VIT D3 1000 UNITS PO SCH (09:00)
[2020-01-22] MEDS: CHLORHEXIDINE GLUCONATE 473 ML MOUTHWASH MM SCH ×2 (09:00→21:00)
[2020-01-22 09:51] VITALS: BP 113/71
[2020-01-22] MEDS: ONDANSETRON HCL 4 MG/2 ML VIAL IVP PRN ×3 (10:25→21:46)
[2020-01-22] MEDS: ASPIRIN 81MG TAB.CHEW PO SCH (10:34)
[2020-01-22] MEDS: FAMOTIDINE 20MG TAB 20 MG TAB PO SCH (10:34)
[2020-01-22] MEDS: ASCORBIC ACID 500 MG TAB PO SCH (10:35)
[2020-01-22] MEDS: METOPROLOL SUCCINATE 50 MG TAB.SR.24H PO SCH ×2 (10:35→20:40)
[2020-01-22] MEDS: HEPARIN SODIUM 5000UNIT/ML 1ML VIAL SQ SCH ×2 (10:36→20:47)
[2020-01-22 13:30] VITALS: BP 183/94
[2020-01-22] MEDS ORDERED: HYDROMORPHONE HCL 0.5 MG/0.5 ML ML ONE (13:43)
[2020-01-22] MEDS: NITROGLYCERIN 1GM/1 INCH PACKET TD SCH ×3 (13:46→23:45)
[2020-01-22] MEDS: OXYCODONE/ACETAMIN 5/325MG TAB PO PRN (17:24)
[2020-01-22 18:03] VITALS: BP 196/88
[2020-01-22 19:30] VITALS: BP 196/85
[2020-01-23] VITALS (29 sets, daily range): BP systolic 133–220; BP diastolic 59–88
[2020-01-23] MEDS: METOPROLOL SUCCINATE 50 MG TAB.SR.24H PO SCH ×2 (05:55→21:24)
[2020-01-23] MEDS: NITROGLYCERIN 1GM/1 INCH PACKET TD SCH (05:55)
[2020-01-23] MEDS: OXYCODONE/ACETAMIN 5/325MG TAB PO PRN (05:55)
[2020-01-23] MEDS: ONDANSETRON HCL 4 MG/2 ML VIAL IVP PRN ×2 (06:01→16:46)
[2020-01-23] MEDS: INSULIN HUMULIN R 100 UNIT/ML 3ML SQ SCH ×4 (06:54→21:00)
[2020-01-23] MEDS: SEVELAMER HCL 800 MG TABLET PO SCH ×3 (08:00→17:00)
[2020-01-23] MEDS: CHLORHEXIDINE GLUCONATE 473 ML MOUTHWASH MM SCH ×2 (09:00→21:00)
[2020-01-23] MEDS: **HM** VIT D3 1000 UNITS PO SCH (09:00)
[2020-01-23] MEDS: ASCORBIC ACID 500 MG TAB PO SCH (09:00)
[2020-01-23] MEDS: FAMOTIDINE 20MG TAB 20 MG TAB PO SCH (09:00)
[2020-01-23] MEDS: HEPARIN SODIUM 5000UNIT/ML 1ML VIAL SQ SCH ×2 (09:00→21:26)
[2020-01-23] MEDS: ASPIRIN 81MG TAB.CHEW PO SCH (09:00)
[2020-01-23] MEDS ORDERED: LISINOPRIL 40 MG TABLET PO SCH (09:30)
[2020-01-23] MEDS ORDERED: LABETALOL 20 MG/4 ML DISP.SYRIN IV SCH (09:45)
[2020-01-23] MEDS: HYDROMORPHONE HCL 0.5 MG/0.5 ML ML IVP PRN ×3 (11:21→23:08)
[2020-01-23 12:19] LABS: CREATININE 5.7 mg/dL (0.5-1.5); POTASSIUM 4.7 mmol/L (3.5-5.1)
[2020-01-23] MEDS ORDERED: SODIUM CHLORIDE 0.9% 500ML 500 ML IV ONE (13:02)
[2020-01-23] MEDS ORDERED: IOHEXOL-350 50ML VIAL IV ONE (13:11)
[2020-01-23] MEDS ORDERED: SUCCINYLCHOLINE CHLORIDE 20 MG/ML 10 ML VIAL ONE (13:16)
[2020-01-23] MEDS ORDERED: LIDOCAINE PF 2% 5ML ABBOJECT ONE (13:16)
[2020-01-23] MEDS ORDERED: NEOSTIGMINE 5MG/5ML SYR IV ONE (13:17)
[2020-01-23] MEDS ORDERED: DEXAMETHASONE SOD PHOSPHATE 10MG/ML 1ML VIAL ONE (13:17)
[2020-01-23] MEDS ORDERED: GLYCOPYRROLATE 1 MG/5 ML SYRINGE ONE (13:17)
[2020-01-23] MEDS ORDERED: PROPOFOL 10 MG/ML 20ML VIAL IV ONE (13:17)
[2020-01-23] MEDS ORDERED: MIDAZOLAM HCL 1 MG/ML 2ML VIAL ONE (13:17)
[2020-01-23] MEDS ORDERED: ROCURONIUM 10MG/1ML SYR 10 MG/ML ML ONE (13:18)
[2020-01-23] MEDS ORDERED: FENTANYL CITRATE PF 50 MCG/1 ML 2ML VIAL ONE (13:18)
[2020-01-23] MEDS ORDERED: ONDANSETRON HCL 4 MG/2 ML VIAL ONE (13:18)
[2020-01-23] MEDS ORDERED: LIDOCAINE HCL 1% MDV 50ML VIAL ONE (13:19)
[2020-01-23] MEDS ORDERED: CLINDAMYCIN PHOSPHATE 150 MG/ML 6ML VIAL ONE (13:43)
[2020-01-23] MEDS ORDERED: ENALAPRILAT DIHYDRATE 1.25MG/ML 1ML VIAL IV ONE (16:41)
[2020-01-23] MEDS ORDERED: MEPERIDINE-PF 25 MG/ML SYG ONE (16:47)
[2020-01-23] MEDS ORDERED: MORPHINE SULFATE 2 MG/ML 1ML SYG ONE (16:52)
[2020-01-23] MEDS ORDERED: NITROGLYCERIN 0.4 MG SL TAB SL PRN (17:45)
[2020-01-23] MEDS ORDERED: MORPHINE SULFATE 2 MG/ML 1ML SYG IVP ONE (19:15)
[2020-01-24] VITALS (13 sets, daily range): BP systolic 118–185; BP diastolic 48–84
[2020-01-24] MEDS: NITROGLYCERIN 1GM/1 INCH PACKET TD SCH ×4 (00:54→16:26)
[2020-01-24] MEDS: ONDANSETRON HCL 4 MG/2 ML VIAL IVP PRN (03:04)
[2020-01-24] MEDS: HYDROMORPHONE HCL 0.5 MG/0.5 ML ML IVP PRN ×4 (03:11→21:35)
[2020-01-24] MEDS: INSULIN HUMULIN R 100 UNIT/ML 3ML SQ SCH ×4 (05:40→21:00)
[2020-01-24 05:54] LABS: HEMATOCRIT 24.7 % (36-48); MEAN CORPUSCULAR HEMOGLOBIN 31.1 pg (27.0-33.0); MEAN CORPUSCULAR VOLUME 91.5 fL (79-99); RED BLOOD CELL COUNT(AUTO) 2.7 MIL/uL (4.00-5.50); RED CELL DISTRIBUTION WIDTH 14.4 % (11.0-15.5); WHITE BLOOD COUNT (AUTO) 8.7 K/uL (4.8-10.8)
[2020-01-24 06:08] LABS: CREATININE 6.9 mg/dL (0.5-1.5); POTASSIUM 5.4 mmol/L (3.5-5.1)
[2020-01-24] MEDS: SEVELAMER HCL 800 MG TABLET PO SCH ×3 (08:00→15:17)
[2020-01-24] MEDS: HEPARIN SODIUM 5000UNIT/ML 1ML VIAL SQ SCH ×2 (08:05→21:50)
[2020-01-24] MEDS: ASCORBIC ACID 500 MG TAB PO SCH (09:00)
[2020-01-24] MEDS: FAMOTIDINE 20MG TAB 20 MG TAB PO SCH (09:00)
[2020-01-24] MEDS: LISINOPRIL 40 MG TABLET PO SCH (09:00)
[2020-01-24] MEDS: **HM** VIT D3 1000 UNITS PO SCH (09:00)
[2020-01-24] MEDS: ASPIRIN 81MG TAB.CHEW PO SCH (09:00)
[2020-01-24] MEDS: CHLORHEXIDINE GLUCONATE 473 ML MOUTHWASH MM SCH ×2 (09:00→21:58)
[2020-01-24] MEDS: AMLODIPINE BESYLATE 5 MG TAB PO SCH (09:00)
[2020-01-24] MEDS ORDERED: METOPROLOL TARTRATE 25 MG TAB ONE (10:30)
[2020-01-24] MEDS ORDERED: PHARMACY COMMUNICATION MISC SCH (11:00)
[2020-01-24] MEDS ORDERED: METOPROLOL TARTRATE 25 MG TAB PO SCH ×2 (12:30)
[2020-01-24] MEDS ORDERED: LIDOCAINE HCL 1% MDV 50ML VIAL ONE (16:18)
[2020-01-24] MEDS ORDERED: MIDAZOLAM HCL 1 MG/ML 2ML VIAL ONE (16:52)
[2020-01-24] MEDS ORDERED: FENTANYL CITRATE PF 50 MCG/1 ML 2ML VIAL ONE (16:52)
[2020-01-24] MEDS ORDERED: HEPARIN SODIUM 5000UNIT/ML 1ML VIAL IJ PRN (20:45)
[2020-01-24] MEDS ORDERED: 0.9% SODIUM CHLORIDE 1000 ML IV BAG IV PRN (20:45)
[2020-01-24] MEDS ORDERED: SODIUM CHLORIDE 0.9% 1000ML 1,000 ML IV PRN (20:45)
[2020-01-24] MEDS ORDERED: PHARMACY COMMUNICATION MISC PRN (20:45)
[2020-01-24] MEDS ORDERED: NITROGLYCERIN 0.4 MG SL TAB SL PRN (20:45)
[2020-01-24] MEDS ORDERED: ACETAMINOPHEN 325 MG TAB PO PRN (20:45)
[2020-01-24] MEDS ORDERED: LIDOCAINE HCL-MPF 1% 2ML VIAL IJ PRN (20:45)
[2020-01-24] MEDS: CLINDAMYCIN 900 MG/D5% WATER 50 ML IV SCH (21:34)
[2020-01-25 00:30] VITALS: BP 172/76
[2020-01-25] MEDS: NITROGLYCERIN 1GM/1 INCH PACKET TD SCH ×3 (00:30→12:15)
[2020-01-25] MEDS: HYDROMORPHONE HCL 0.5 MG/0.5 ML ML IVP PRN ×2 (02:04→06:48)
[2020-01-25 04:35] VITALS: BP 141/72
[2020-01-25] MEDS: CLINDAMYCIN 900 MG/D5% WATER 50 ML IV SCH ×2 (06:14→14:02)
[2020-01-25] MEDS: INSULIN HUMULIN R 100 UNIT/ML 3ML SQ SCH ×2 (06:25→11:30)
[2020-01-25] MEDS: ONDANSETRON HCL 4 MG/2 ML VIAL IVP PRN (06:48)
[2020-01-25 08:00] VITALS: BP 174/65
[2020-01-25] MEDS: FAMOTIDINE 20MG TAB 20 MG TAB PO SCH (08:19)
[2020-01-25] MEDS: SEVELAMER HCL 800 MG TABLET PO SCH ×2 (08:19→12:14)
[2020-01-25] MEDS: LISINOPRIL 40 MG TABLET PO SCH (08:20)
[2020-01-25] MEDS: AMLODIPINE BESYLATE 5 MG TAB PO SCH (08:20)
[2020-01-25] MEDS: ASPIRIN 81MG TAB.CHEW PO SCH (08:20)
[2020-01-25] MEDS: ASCORBIC ACID 500 MG TAB PO SCH (08:20)
[2020-01-25] MEDS: **HM** VIT D3 1000 UNITS PO SCH (08:21)
[2020-01-25] MEDS: CHLORHEXIDINE GLUCONATE 473 ML MOUTHWASH MM SCH (08:21)
[2020-01-25] MEDS: HEPARIN SODIUM 5000UNIT/ML 1ML VIAL SQ SCH (08:27)
[2020-01-25 09:17] LABS: HEMATOCRIT 24.4 % (36-48); MEAN CORPUSCULAR HEMOGLOBIN 30.8 pg (27.0-33.0); MEAN CORPUSCULAR HGB CONC 32.8 g/dL (32.0-36.0); MEAN CORPUSCULAR VOLUME 93.8 fL (79-99); RED BLOOD CELL COUNT(AUTO) 2.6 MIL/uL (4.00-5.50); RED CELL DISTRIBUTION WIDTH 14.3 % (11.0-15.5); WHITE BLOOD COUNT (AUTO) 7.1 K/uL (4.8-10.8)
[2020-01-25 09:40] LABS: CREATININE 4.8 mg/dL (0.5-1.5); POTASSIUM 4.4 mmol/L (3.5-5.1)
[2020-01-25] MEDS ORDERED: LISI40TA4 PO (10:08)
[2020-01-25] MEDS ORDERED: DOXY100T2 PO (10:08)
[2020-01-25] MEDS ORDERED: IBUP-2077 PO (10:08)
[2020-01-25] MEDS ORDERED: SEVE800 PO (10:08)
[2020-01-25] MEDS ORDERED: AMLO5TAB4 PO (10:08)
[2020-01-25 12:00] VITALS: BP 160/67
[2020-01-25] MEDS ORDERED: IBUPROFEN 800 MG TAB PO PRN (12:45)
== END 2020-01-25 17:20 | disposition home or self-care (01) | DRG 252 ==
LOC: EDH 11:52 → EDHIP 16:43 → OBSVTOIN 16:43 → 4BH 01-21 14:49 → UNDODISIN 01-25 12:45
PROVIDERS: ADMIT Internal Medicine Critical Care Medicine; ATTEND Internal Medicine Critical Care Medicine
PROC: B51W1ZZ Fluoroscopy of Dialysis Shunt/Fistula using Low Osmolar Contrast (ICD-10-PCS; principal; 2020-01-21)
PROC: 03WY3JZ Revision of Synthetic Substitute in Upper Artery, Percutaneous Approach (ICD-10-PCS; 2020-01-23)
PROC: 02HV33Z Insertion of Infusion Device into Superior Vena Cava, Percutaneous Approach (ICD-10-PCS; 2020-01-24)
PROC: B548ZZA Ultrasonography of Superior Vena Cava, Guidance (ICD-10-PCS; 2020-01-24)
PROC: B5181ZA Fluoroscopy of Superior Vena Cava using Low Osmolar Contrast, Guidance (ICD-10-PCS; 2020-01-24)
PROC: 0JH63XZ Insertion of Tunneled Vascular Access Device into Chest Subcutaneous Tissue and Fascia, Percutaneous Approach (ICD-10-PCS; 2020-01-24)
DX: T82.898A Other specified complication of vascular prosthetic devices, implants and grafts, initial encounter (principal); N18.6 End stage renal disease; I12.0 Hypertensive chronic kidney disease with stage 5 chronic kidney disease or end stage renal disease; Z99.2 Dependence on renal dialysis; E11.22 Type 2 diabetes mellitus with diabetic chronic kidney disease; E78.5 Hyperlipidemia, unspecified; I25.10 Atherosclerotic heart disease of native coronary artery without angina pectoris; K21.9 Gastro-esophageal reflux disease without esophagitis; Z82.0 Family history of epilepsy and other diseases of the nervous system; Z82.3 Family history of stroke; Z82.49 Family history of ischemic heart disease and other diseases of the circulatory system; Z82.5 Family history of asthma and other chronic lower respiratory diseases; Z83.3 Family history of diabetes mellitus; Z89.511 Acquired absence of right leg below knee; Z91.19 Patient's noncompliance with other medical treatment and regimen; Z90.49 Acquired absence of other specified parts of digestive tract; Y83.8 Other surgical procedures as the cause of abnormal reaction of the patient, or of later complication, without mention of misadventure at the time of the procedure; Y92.89 Other specified places as the place of occurrence of the external cause; Z20.828 Contact with and (suspected) exposure to other viral communicable diseases
CPT/HCPCS: 36415; 36558; 36901; 70496; 70498; 71045; 77001; 80048; 80053; 82550; 82948; 83735; 83880; 84100; 84484; 85025; 85027; 85610; 85730; 86850; 86900; 86901; 87426; 90935; 93005; 93931; 97039; 99156; 99157; C1750; C1769; C1894; G0378; J0330; J1100; J1170; J1644; J2001; J2175; J2250; J2405; J2704; J2710; J3010; J3490; J7040; Q9967; U0003

== ENCOUNTER 2020-03-11 20:01 | Observation (INO) | payer BC ==
[~2020-03-11] VITALS: Ht 149.9 cm; Wt 55.4 kg
[~2020-03-11 20:01] MED LIST changes: +AMLO5TAB4 PO; +DOXY100T2 PO; +IBUP-2077 PO; +LISI40TA9 PO; +SEVE800 PO
[2020-03-11 20:43] LABS: BASOPHILS % (AUTO) 0.7 % (0.0-5.0); EOSINOPHILS % (AUTO) 1.9 % (0.0-8.0); HEMATOCRIT 36.2 % (36-48); MEAN CORPUSCULAR HEMOGLOBIN 30.1 pg (27.0-33.0); MEAN CORPUSCULAR HGB CONC 33.1 g/dL (32.0-36.0); MEAN CORPUSCULAR VOLUME 90.7 fL (79-99); MONOCYTES % (AUTO) 12.3 % (3.0-13.0); PLATELET COUNT (AUTO) 158 K/uL (130-400); RED BLOOD CELL COUNT(AUTO) 3.99 MIL/uL (4.00-5.50); RED CELL DISTRIBUTION WIDTH 15.5 % (11.0-15.5); WHITE BLOOD COUNT (AUTO) 6.9 K/uL (4.8-10.8)
[2020-03-11 20:53] LABS: CREATININE 4.4 mg/dL (0.5-1.5); POTASSIUM 4.2 mmol/L (3.5-5.1)
[2020-03-11] MEDS ORDERED: MORPHINE SULFATE 4 MG/1ML SYG ONE (20:55)
[2020-03-11] MEDS ORDERED: ONDANSETRON HCL 4 MG/2 ML VIAL ONE (20:55)
[2020-03-11] MEDS ORDERED: HYDRALAZINE HCL 20 MG/ML VIAL ONE (20:55)
[2020-03-11 20:58] LABS: ALBUMIN 3.4 g/dL (3.5-5.0); BILIRUBIN,TOTAL 0.4 mg/dL (0.2-1.0); TOTAL PROTEIN, SERUM 8.2 g/dL (6.0-8.3)
[2020-03-11] MEDS ORDERED: ASPIRIN 325 MG TABLET ONE (21:11)
[2020-03-11 21:22] LABS: INR 0.99 (0.85-1.15); PROTHROMBIN TIME 10.8 SEC (9.6-11.6)
[2020-03-11 21:23] LABS: PARTIAL THROMBOPLASTIN TIME 31.8 SEC (26.3-35.5)
[2020-03-11] MEDS ORDERED: IOHEXOL-350 75 ML VIAL IV ONE (21:34)
[2020-03-12] MEDS ORDERED: SODIUM CHLORIDE 0.9% 1000ML 1,000 ML IV SCH (02:15)
[2020-03-12] MEDS ORDERED: PROMETHAZINE HCL 25 MG/ML 1ML AMPULE IM PRN (02:15)
[2020-03-12] MEDS ORDERED: MORPHINE SULFATE 2 MG/ML 1ML SYG IVP PRN (02:30)
[2020-03-12] MEDS ORDERED: ONDANSETRON HCL 4 MG/2 ML VIAL ONE (02:38)
[2020-03-12] MEDS ORDERED: MORPHINE SULFATE 2 MG/ML 1ML SYG ONE (02:38)
[2020-03-12 04:00] VITALS: BP 167/72
[2020-03-12 05:45] VITALS: BP 122/58
[2020-03-12] MEDS ORDERED: INSULIN HUMULIN R 100 UNIT/ML 3ML SQ SCH (07:30)
[2020-03-12] MEDS ORDERED: DEXTROSE 50%-WATER 50 ML DISP.SYRIN IV PRN ×2 (07:30→08:45)
[2020-03-12] MEDS ORDERED: GLUCAGON 1MG KIT 1 MG ML IM PRN ×2 (07:30→08:45)
[2020-03-12 08:16] VITALS: BP 117/63
[2020-03-12] MEDS: HEPARIN SODIUM 5000UNIT/ML 1ML VIAL SQ SCH ×2 (09:04→19:37)
[2020-03-12] MEDS: FAMOTIDINE 20MG TAB 20 MG TAB PO SCH (09:04)
[2020-03-12] MEDS: LISINOPRIL 5 MG TABLET PO SCH ×2 (09:04→19:36)
[2020-03-12] MEDS ORDERED: VANCOMYCIN PROTOCOL PER PHARMACY IV SCH (10:45)
[2020-03-12] MEDS ORDERED: VANCOMYCIN 1GM+NS 250ML 250 ML IV SCH (11:00)
[2020-03-12 11:52] VITALS: BP 150/73
[2020-03-12] MEDS: INSULIN HUMULIN R 100 UNIT/ML 3ML SQ SCH ×4 (12:00→21:00)
[2020-03-12] MEDS: ONDANSETRON HCL 4 MG/2 ML VIAL IVP PRN (12:29)
[2020-03-12] MEDS: ACETAMINOPHEN 325 MG TAB PO PRN (12:30)
[2020-03-12] MEDS ORDERED: LIDOCAINE HCL 1% MDV 50ML VIAL ONE (12:36)
[2020-03-12] MEDS: ZOSYN 3.375GM+NS 50ML 50 ML IV SCH ×2 (15:47→19:36)
[2020-03-12] MEDS ORDERED: DOXY100C2 PO (15:58)
[2020-03-12 16:13] VITALS: BP 188/76
[2020-03-12 19:34] VITALS: BP 187/70
[2020-03-12] MEDS: LACTULOSE 20 GM/30 ML UDCUP PO SCH (19:36)
[2020-03-12] MEDS ORDERED: COMPOUND IV REFRIGERATED 1 EACH IVSOLN MISC PRN (20:45)
[2020-03-13] VITALS: BP 157/65
[2020-03-13] MEDS ORDERED: HYDROMORPHONE HCL 2 MG/ML VIAL ONE (00:12)
[2020-03-13] MEDS: HYDROMORPHONE HCL 2 MG/ML VIAL IVP PRN ×5 (01:23→05:59)
[2020-03-13 04:00] VITALS: BP 176/72
[2020-03-13 04:21] LABS: HEMATOCRIT 33.6 % (36-48); MEAN CORPUSCULAR HEMOGLOBIN 29.6 pg (27.0-33.0); MEAN CORPUSCULAR HGB CONC 32.4 g/dL (32.0-36.0); MEAN CORPUSCULAR VOLUME 91.3 fL (79-99); RED BLOOD CELL COUNT(AUTO) 3.68 MIL/uL (4.00-5.50); RED CELL DISTRIBUTION WIDTH 15.7 % (11.0-15.5); WHITE BLOOD COUNT (AUTO) 5.9 K/uL (4.8-10.8)
[2020-03-13 04:30] LABS: HEMOGLOBIN A1C 5.5 % (4.0-6.0)
[2020-03-13 04:47] LABS: ALBUMIN 2.8 g/dL (3.5-5.0); BILIRUBIN,TOTAL 0.4 mg/dL (0.2-1.0); CREATININE 6.7 mg/dL (0.5-1.5); PHOSPHORUS 11.6 mg/dL (2.5-4.9); POTASSIUM 5.3 mmol/L (3.5-5.1); TOTAL PROTEIN, SERUM 7.1 g/dL (6.0-8.3)
[2020-03-13] MEDS: INSULIN HUMULIN R 100 UNIT/ML 3ML SQ SCH ×4 (07:30→21:00)
[2020-03-13 08:00] VITALS: BP 175/71
[2020-03-13] MEDS: HEPARIN SODIUM 5000UNIT/ML 1ML VIAL SQ SCH ×2 (10:33→20:01)
[2020-03-13] MEDS: LACTULOSE 20 GM/30 ML UDCUP PO SCH ×2 (10:34→21:00)
[2020-03-13] MEDS: LISINOPRIL 5 MG TABLET PO SCH ×2 (10:34→20:02)
[2020-03-13] MEDS: FAMOTIDINE 20MG TAB 20 MG TAB PO SCH (10:34)
[2020-03-13] MEDS: ZOSYN 3.375GM+NS 50ML 50 ML IV SCH ×2 (10:43→21:10)
[2020-03-13 12:00] VITALS: BP 166/71
[2020-03-13] MEDS ORDERED: VANCOMYCIN 1GM+NS 250ML IV SCH (14:00)
[2020-03-13] MEDS ORDERED: MAGNESIUM CITRATE 296 ML SOLUTION PO SCH (14:15)
[2020-03-13 16:00] VITALS: BP 137/75
[2020-03-13 20:00] VITALS: BP 202/76
[2020-03-13] MEDS: ACETAMINOPHEN 325 MG TAB PO PRN (20:03)
[2020-03-13] MEDS ORDERED: LABETALOL 20 MG/4 ML DISP.SYRIN IV PRN (20:45)
[2020-03-13] MEDS ORDERED: HYDRALAZINE HCL 20 MG/ML VIAL IV PRN (20:45)
[2020-03-13] MEDS ORDERED: HYDRALAZINE HCL 25 MG TABLET PO PRN (20:45)
[2020-03-13] MEDS: HYDROMORPHONE 1 MG/1 ML AMP IVP PRN ×3 (21:09→23:19)
[2020-03-14 00:05] VITALS: BP 153/63
[2020-03-14] MEDS: HYDROMORPHONE 1 MG/1 ML AMP IVP PRN ×6 (00:24→05:59)
[2020-03-14 04:00] VITALS: BP 182/70
[2020-03-14] MEDS: ONDANSETRON HCL 4 MG/2 ML VIAL IVP PRN ×2 (04:14→10:35)
[2020-03-14 04:35] VITALS: BP 139/51
[2020-03-14 05:10] LABS: BASOPHILS % (AUTO) 1.1 % (0.0-5.0); EOSINOPHILS % (AUTO) 2.5 % (0.0-8.0); LYMPHOCYTES % (AUTO) 27.1 % (21.0-51.0); MEAN CORPUSCULAR HEMOGLOBIN 29.8 pg (27.0-33.0); MEAN CORPUSCULAR HGB CONC 32.6 g/dL (32.0-36.0); MEAN CORPUSCULAR VOLUME 91.2 fL (79-99); MONOCYTES % (AUTO) 15.2 % (3.0-13.0); NEUTROPHILS % (AUTO) 53.9 % (40.0-77.0); PLATELET COUNT (AUTO) 157 K/uL (130-400); RED BLOOD CELL COUNT(AUTO) 3.73 MIL/uL (4.00-5.50); RED CELL DISTRIBUTION WIDTH 15.4 % (11.0-15.5); WHITE BLOOD COUNT (AUTO) 5.3 K/uL (4.8-10.8)
[2020-03-14 05:38] LABS: CREATININE 4.6 mg/dL (0.5-1.5); POTASSIUM 3.8 mmol/L (3.5-5.1)
[2020-03-14] MEDS: INSULIN HUMULIN R 100 UNIT/ML 3ML SQ SCH ×3 (07:30→16:30)
[2020-03-14 08:00] VITALS: BP 129/62
[2020-03-14 08:14] LABS: HEPATITIS Bs ANTIGEN SCREEN P Negative (Negative)
[2020-03-14] MEDS ORDERED: PANTOPRAZOLE SODIUM 40 MG TABLET.DR PO SCH (10:30)
[2020-03-14] MEDS: LISINOPRIL 5 MG TABLET PO SCH (10:34)
[2020-03-14] MEDS: LACTULOSE 20 GM/30 ML UDCUP PO SCH (10:35)
[2020-03-14] MEDS: ZOSYN 3.375GM+NS 50ML 50 ML IV SCH (10:35)
[2020-03-14] MEDS: HEPARIN SODIUM 5000UNIT/ML 1ML VIAL SQ SCH (10:41)
[2020-03-14 11:54] VITALS: BP 193/81
[2020-03-14] MEDS ORDERED: LACT10SO9 PO (14:57)
[2020-03-14 16:53] VITALS: BP 178/69
== END 2020-03-14 18:00 | disposition home or self-care (01) ==
LOC: EDH 20:01 → EDHIP 03-12 00:02 → 3AH 03-12 03:16
PROVIDERS: ADMIT Internal Medicine Critical Care Medicine; ATTEND Internal Medicine Critical Care Medicine
DX: K56.609 Unspecified intestinal obstruction, unspecified as to partial versus complete obstruction (principal); Z20.822 Contact with and (suspected) exposure to COVID-19; I12.0 Hypertensive chronic kidney disease with stage 5 chronic kidney disease or end stage renal disease; E11.22 Type 2 diabetes mellitus with diabetic chronic kidney disease; N18.6 End stage renal disease; R51.9 Headache, unspecified; K59.00 Constipation, unspecified; K21.9 Gastro-esophageal reflux disease without esophagitis; K85.90 Acute pancreatitis without necrosis or infection, unspecified; Z87.19 Personal history of other diseases of the digestive system; Z99.2 Dependence on renal dialysis; Z89.611 Acquired absence of right leg above knee; Z89.511 Acquired absence of right leg below knee; Z90.49 Acquired absence of other specified parts of digestive tract; Z79.82 Long term (current) use of aspirin; Z79.899 Other long term (current) drug therapy; Z88.0 Allergy status to penicillin; Z88.6 Allergy status to analgesic agent; Z88.8 Allergy status to other drugs, medicaments and biological substances
CPT/HCPCS: 36415 ×4; 36589; 70450; 71045; 74177; 77001; 80048; 80053 ×2; 82150; 82948 ×12; 83036; 83605; 83690; 83880; 84100; 84484 ×2; 85025 ×2; 85027; 85610; 85730; 86704; 86706; 87040 ×4; 87070; 87340; 87426; 87520; 93005; 96365; 96366 ×3; 96367; 96372 ×4; 96375 ×3; 96376 ×2; 99285; G0378 ×58; J0360 ×2; J1170 ×16; J1644 ×6; J2270; J2405 ×5; J2543 ×5; J2550; J3370; J3490; Q9967; U0003; 90935

== ENCOUNTER 2020-04-04 17:35 | Inpatient (IN) | payer BC ==
[~2020-04-04] VITALS: Ht 149.9 cm; Wt 51.6 kg
[~2020-04-04 17:35] MED LIST changes: -ASCO500T20 PO; -ASPI-1197 PO; -CHOL200059 PO; -DOXY100T2 PO; -FERR325T22 PO; -IBUP-2077 PO; +LACT10SO9 PO; -METO-408 PO; -SEVE800 PO
[2020-04-04] MEDS ORDERED: NIFEDIPINE 10 MG CAP ONE (18:14)
[2020-04-04] MEDS ORDERED: 0.9%NACL 50ML 50 ML IV ONE ×2 (18:15→18:18)
[2020-04-04 18:41] LABS: EOSINOPHILS % (AUTO) 2.9 % (0.0-8.0); HEMATOCRIT 33.7 % (36-48); LYMPHOCYTES % (AUTO) 22.5 % (21.0-51.0); MEAN CORPUSCULAR HEMOGLOBIN 29.5 pg (27.0-33.0); MEAN CORPUSCULAR HGB CONC 31.8 g/dL (32.0-36.0); MEAN CORPUSCULAR VOLUME 92.8 fL (79-99); MONOCYTES % (AUTO) 9.7 % (3.0-13.0); NEUTROPHILS % (AUTO) 63.8 % (40.0-77.0); PLATELET COUNT (AUTO) 153 K/uL (130-400); RED BLOOD CELL COUNT(AUTO) 3.63 MIL/uL (4.00-5.50); RED CELL DISTRIBUTION WIDTH 14.8 % (11.0-15.5); WHITE BLOOD COUNT (AUTO) 6.8 K/uL (4.8-10.8)
[2020-04-04 18:51] LABS: CREATININE 5.6 mg/dL (0.5-1.5); POTASSIUM 4.2 mmol/L (3.5-5.1)
[2020-04-04 18:53] LABS: INR 1.04 (0.85-1.15); PROTHROMBIN TIME 11.3 SEC (9.6-11.6)
[2020-04-04 18:55] LABS: ALBUMIN 3.5 g/dL (3.5-5.0); BILIRUBIN,TOTAL 0.4 mg/dL (0.2-1.0); PARTIAL THROMBOPLASTIN TIME 29.8 SEC (26.3-35.5); TOTAL PROTEIN, SERUM 7.9 g/dL (6.0-8.3)
[2020-04-04] MEDS ORDERED: FAMOTIDINE 20MG TAB ONE (19:13)
[2020-04-04] MEDS ORDERED: LIDOCAINE HCL 2% VISCOUS 15 ML UDCUP ONE (19:13)
[2020-04-04] MEDS ORDERED: MAG/ALUM/SIMETH 30 ML UDCUP ONE (19:13)
[2020-04-04] MEDS ORDERED: LORAZEPAM 2 MG/ML 1 ML VIAL ONE (19:14)
[2020-04-04 19:25] LABS: B-TYPE NATRIURETIC PEPTIDE 1260 pg/mL (0-100)
[2020-04-04] MEDS ORDERED: DiphenhydrAMINE HCL 50 MG/ML VIAL ONE (19:27)
[2020-04-04] MEDS ORDERED: LABETALOL 20MG SYG IV ONE (20:22)
[2020-04-04] MEDS ORDERED: MAG/ALUM/SIMETH 30 ML UDCUP PO PRN (20:45)
[2020-04-04] MEDS ORDERED: DiphenhydrAMINE HCL 50 MG/ML VIAL IV PRN (20:45)
[2020-04-04] MEDS ORDERED: ZOLPIDEM TARTRATE 5 MG TAB PO PRN (20:45)
[2020-04-04] MEDS ORDERED: LACTULOSE 20 GM/30 ML UDCUP PO PRN (20:45)
[2020-04-04] MEDS ORDERED: NITROGLYCERIN 0.4 MG SL TAB SL PRN (20:45)
[2020-04-04] MEDS ORDERED: FUROSEMIDE 40MG VIAL IVP SCH (21:00)
[2020-04-04] MEDS ORDERED: HYDRALAZINE HCL 10 MG TABLET PO PRN (21:30)
[2020-04-04] MEDS ORDERED: LABETALOL 20MG SYG IV PRN (21:30)
[2020-04-04] MEDS: NITROGLYCERIN 1GM OINT 1 INCH/1GM TD SCH (21:30)
[2020-04-04] MEDS: FAMOTIDINE 20MG VIAL IV SCH (22:00)
[2020-04-04] MEDS ORDERED: HYDROMORPHONE 0.5 MG SYG (0.5MG/0.5ML) ONE (23:19)
[2020-04-05] MEDS: NITROGLYCERIN 1GM OINT 1 INCH/1GM TD SCH ×4 (03:30→20:11)
[2020-04-05 04:15] VITALS: BP 189/79
[2020-04-05] MEDS: HYDROMORPHONE 0.5 MG SYG (0.5MG/0.5ML) IV PRN ×3 (04:46→18:55)
[2020-04-05 06:56] LABS: BASOPHILS % (AUTO) 0.6 % (0.0-5.0); EOSINOPHILS % (AUTO) 2.2 % (0.0-8.0); HEMATOCRIT 30.2 % (36-48); LYMPHOCYTES % (AUTO) 15.2 % (21.0-51.0); MEAN CORPUSCULAR HEMOGLOBIN 29.5 pg (27.0-33.0); MEAN CORPUSCULAR HGB CONC 32.1 g/dL (32.0-36.0); MEAN CORPUSCULAR VOLUME 91.8 fL (79-99); MONOCYTES % (AUTO) 10.5 % (3.0-13.0); NEUTROPHILS % (AUTO) 71.2 % (40.0-77.0); PLATELET COUNT (AUTO) 144 K/uL (130-400); RED BLOOD CELL COUNT(AUTO) 3.29 MIL/uL (4.00-5.50); RED CELL DISTRIBUTION WIDTH 14.7 % (11.0-15.5); WHITE BLOOD COUNT (AUTO) 9.7 K/uL (4.8-10.8)
[2020-04-05 07:20] LABS: BILIRUBIN,TOTAL 0.4 mg/dL (0.2-1.0); CREATININE 6.1 mg/dL (0.5-1.5); POTASSIUM 4.1 mmol/L (3.5-5.1); TOTAL PROTEIN, SERUM 6.9 g/dL (6.0-8.3)
[2020-04-05 08:00] VITALS: BP 172/77
[2020-04-05] MEDS: LISINOPRIL 40 MG TABLET PO SCH ×2 (09:23→10:32)
[2020-04-05] MEDS: ASPIRIN 81MG CHEW TAB PO SCH (09:23)
[2020-04-05] MEDS ORDERED: AMLODIPINE 5 MG TAB PO SCH (10:29)
[2020-04-05] MEDS: LACTULOSE 20 GM/30 ML UDCUP PO SCH (10:31)
[2020-04-05 12:01] VITALS: BP 147/69
[2020-04-05] MEDS ORDERED: COMPOUND IV MISC 1 EACH IVSOLN MISC PRN (12:45)
[2020-04-05] MEDS: ENOXAPARIN SODIUM 30 MG/0.3 ML SQ SCH (13:46)
[2020-04-05 16:00] VITALS: BP 171/78
[2020-04-05] MEDS: ONDANSETRON 4MG INJ IV PRN (18:53)
[2020-04-05 20:00] VITALS: BP 178/75
[2020-04-05] MEDS ORDERED: DEXTROSE 50%-WATER 50 ML DISP.SYRIN IV PRN (20:00)
[2020-04-05] MEDS ORDERED: GLUCAGON 1MG KIT 1 MG ML IM PRN (20:00)
[2020-04-05] MEDS: AMLODIPINE 5 MG TAB PO SCH (20:11)
[2020-04-05] MEDS: FAMOTIDINE 20MG VIAL IV SCH (20:11)
[2020-04-05] MEDS ORDERED: IOHEXOL-350 75 ML VIAL IV ONE (22:24)
[2020-04-06] VITALS (26 sets, daily range): BP systolic 135–197; BP diastolic 44–81
[2020-04-06] MEDS: HYDROMORPHONE 0.5 MG SYG (0.5MG/0.5ML) IV PRN ×4 (01:31→23:02)
[2020-04-06] MEDS: ONDANSETRON 4MG INJ IV PRN (01:39)
[2020-04-06] MEDS: NITROGLYCERIN 1GM OINT 1 INCH/1GM TD SCH ×4 (04:41→23:05)
[2020-04-06 05:32] LABS: HEMATOCRIT 27.4 % (36-48); MEAN CORPUSCULAR HEMOGLOBIN 29.8 pg (27.0-33.0); MEAN CORPUSCULAR HGB CONC 32.5 g/dL (32.0-36.0); MEAN CORPUSCULAR VOLUME 91.6 fL (79-99); PLATELET COUNT (AUTO) 142 K/uL (130-400); RED BLOOD CELL COUNT(AUTO) 2.99 MIL/uL (4.00-5.50); RED CELL DISTRIBUTION WIDTH 14.8 % (11.0-15.5); WHITE BLOOD COUNT (AUTO) 7.2 K/uL (4.8-10.8)
[2020-04-06 05:52] LABS: CREATININE 3.8 mg/dL (0.5-1.5); PHOSPHORUS 5.6 mg/dL (2.5-4.9); POTASSIUM 4.2 mmol/L (3.5-5.1)
[2020-04-06 06:14] LABS: BAND NEUTROPHILS % (MANUAL) 1 % (0-2); BASOPHILS % (MANUAL) 1 % (0-2); EOSINOPHILS % (MANUAL) 2 % (1-6); LYMPHOCYTES % (MANUAL) 26 % (22-44); MAN.DIFF COMMENT-IMPRESSION MANUAL DIFFERENTIAL; MONOCYTES % (MANUAL) 13 % (2-9); PLATELET MORPHOLOGY COMMENT ADEQUATE; REACTIVE LYMPHOCYTES 1 % (0-0); SEGMENTED NEUTROPHILS % 56 % (40-70)
[2020-04-06] MEDS: LISINOPRIL 40 MG TABLET PO SCH ×2 (08:45→09:07)
[2020-04-06] MEDS: ENOXAPARIN SODIUM 30 MG/0.3 ML SQ SCH (08:45)
[2020-04-06] MEDS: LACTULOSE 20 GM/30 ML UDCUP PO SCH (09:00)
[2020-04-06] MEDS: ASPIRIN 81MG CHEW TAB PO SCH (09:07)
[2020-04-06] MEDS: AMLODIPINE 5 MG TAB PO SCH ×2 (09:07→23:04)
[2020-04-06] MEDS: IRON SUCROSE COMPLEX 100 MG in 0.9%NACL 50ML 50 ML IV SCH (09:09)
[2020-04-06] MEDS ORDERED: PROPOFOL 10 MG/ML 20ML VIAL IV ONE (14:12)
[2020-04-06] MEDS ORDERED: SUCCINYLCHOLINE CHLORIDE 20 MG/ML 10 ML VIAL ONE (14:12)
[2020-04-06] MEDS ORDERED: MIDAZOLAM HCL 1 MG/ML 2ML VIAL ONE (14:12)
[2020-04-06] MEDS ORDERED: LIDOCAINE PF 100MG/5ML (2%) SYRINGE 5ML ONE (14:12)
[2020-04-06] MEDS ORDERED: ROPIVACAINE 0.5% 5MG/ML 30ML IJ ONE ×2 (14:12→14:16)
[2020-04-06] MEDS ORDERED: ROCURONIUM 10MG/1ML SYR 10 MG/ML ML ONE (14:13)
[2020-04-06] MEDS ORDERED: FENTANYL CITRATE PF 50 MCG/1 ML 2ML VIAL ONE (14:13)
[2020-04-06] MEDS ORDERED: GLYCOPYRROLATE 1 MG/5 ML SYRINGE ONE (14:32)
[2020-04-06] MEDS ORDERED: NEOSTIGMINE 5MG/5ML SYR IV ONE (14:32)
[2020-04-06] MEDS ORDERED: KETAMINE 50MG/ML SYRINGE 50 MG/ML DISP.SYRIN IV ONE (14:33)
[2020-04-06] MEDS ORDERED: CLINDAMYCIN IVPB 900MG/50ML 0 ML IV ONE (15:14)
[2020-04-06] MEDS ORDERED: CLINDAMYCIN IVPB 600MG/50ML 50 ML IV ONE (15:22)
[2020-04-06] MEDS ORDERED: PHENYLEPHRINE HCL 10 MG/ML 1ML VIAL IV ONE (16:10)
[2020-04-06] MEDS: FAMOTIDINE 20MG VIAL IV SCH (23:04)
[2020-04-07 00:20] VITALS: BP 135/58
[2020-04-07] MEDS: MORPHINE 2 MG SYG IV PRN ×2 (02:11→15:00)
[2020-04-07 04:04] VITALS: BP 166/71
[2020-04-07] MEDS: NITROGLYCERIN 1GM OINT 1 INCH/1GM TD SCH ×4 (05:41→21:09)
[2020-04-07] MEDS: ONDANSETRON 4MG INJ IV PRN (05:53)
[2020-04-07] MEDS: HYDROMORPHONE 0.5 MG SYG (0.5MG/0.5ML) IV PRN ×3 (05:53→17:59)
[2020-04-07 08:02] VITALS: BP 141/62
[2020-04-07] MEDS: AMLODIPINE 5 MG TAB PO SCH ×2 (09:58→21:09)
[2020-04-07] MEDS: LISINOPRIL 40 MG TABLET PO SCH ×2 (09:58→10:27)
[2020-04-07] MEDS: ENOXAPARIN SODIUM 30 MG/0.3 ML SQ SCH (09:59)
[2020-04-07] MEDS: LACTULOSE 20 GM/30 ML UDCUP PO SCH (09:59)
[2020-04-07] MEDS: ACETAMINOPHEN 325 MG TAB PO PRN (09:59)
[2020-04-07] MEDS: ASPIRIN 81MG CHEW TAB PO SCH (10:00)
[2020-04-07 12:09] VITALS: BP 118/51
[2020-04-07] MEDS: IRON SUCROSE COMPLEX 100 MG in 0.9%NACL 50ML 50 ML IV SCH (14:34)
[2020-04-07 16:08] VITALS: BP 111/60
[2020-04-07] MEDS: KETOROLAC MISC SCH ×6 (18:30→23:30)
[2020-04-07] MEDS ORDERED: KETOROLAC 15MG/ML VIAL (15MG/ML) IM PRN (18:30)
[2020-04-07] MEDS ORDERED: KETOROLAC 30MG VIAL (30MG/ML) IM SCH (19:30)
[2020-04-07 20:00] VITALS: BP 126/53
[2020-04-07] MEDS ORDERED: EPOETIN ALFA-EPBX (ESRD) 10,000 UNIT/ML VIAL SQ ONE (21:00)
[2020-04-07] MEDS: FAMOTIDINE 20MG VIAL IV SCH (21:09)
[2020-04-08] VITALS: BP 127/54
[2020-04-08] MEDS: KETOROLAC MISC SCH ×6 (00:30→05:30)
[2020-04-08] MEDS: ONDANSETRON 4MG INJ IV PRN ×2 (01:27→13:04)
[2020-04-08] MEDS: HYDROMORPHONE 0.5 MG SYG (0.5MG/0.5ML) IV PRN ×3 (01:27→18:35)
[2020-04-08 04:00] VITALS: BP 179/75
[2020-04-08] MEDS: MORPHINE 2 MG SYG IV PRN ×2 (05:16→14:52)
[2020-04-08] MEDS: NITROGLYCERIN 1GM OINT 1 INCH/1GM TD SCH ×4 (05:17→22:48)
[2020-04-08 05:33] LABS: ALBUMIN 2.6 g/dL (3.5-5.0); BILIRUBIN,TOTAL 0.4 mg/dL (0.2-1.0); CREATININE 7.1 mg/dL (0.5-1.5); POTASSIUM 5.6 mmol/L (3.5-5.1); TOTAL PROTEIN, SERUM 6.4 g/dL (6.0-8.3)
[2020-04-08 08:06] VITALS: BP 168/67
[2020-04-08 12:23] VITALS: BP 138/73
[2020-04-08] MEDS: IRON SUCROSE COMPLEX 100 MG in 0.9%NACL 50ML 50 ML IV SCH (13:01)
[2020-04-08] MEDS: AMLODIPINE 5 MG TAB PO SCH ×2 (13:02→20:59)
[2020-04-08] MEDS: LACTULOSE 20 GM/30 ML UDCUP PO SCH (13:02)
[2020-04-08] MEDS: LISINOPRIL 40 MG TABLET PO SCH (13:02)
[2020-04-08] MEDS: ASPIRIN 81MG CHEW TAB PO SCH (13:02)
[2020-04-08] MEDS: ENOXAPARIN SODIUM 30 MG/0.3 ML SQ SCH (13:03)
[2020-04-08] MEDS: GUAIFENESIN-DM 200/20 MG 10 ML PO PRN (13:04)
[2020-04-08 16:20] VITALS: BP 144/67
[2020-04-08 20:00] VITALS: BP 112/49
[2020-04-08] MEDS: FAMOTIDINE 20MG VIAL IV SCH (20:59)
[2020-04-09] VITALS (9 sets, daily range): BP systolic 108–150; BP diastolic 46–69
[2020-04-09] MEDS: MORPHINE 2 MG SYG IV PRN ×2 (00:44→22:33)
[2020-04-09] MEDS: NITROGLYCERIN 1GM OINT 1 INCH/1GM TD SCH ×4 (02:56→21:08)
[2020-04-09 06:19] LABS: BASOPHILS % (AUTO) 0.2 % (0.0-5.0); EOSINOPHILS % (AUTO) 0.9 % (0.0-8.0); LYMPHOCYTES % (AUTO) 13.7 % (21.0-51.0); MEAN CORPUSCULAR HEMOGLOBIN 29.7 pg (27.0-33.0); MEAN CORPUSCULAR HGB CONC 32.3 g/dL (32.0-36.0); MEAN CORPUSCULAR VOLUME 92.1 fL (79-99); MONOCYTES % (AUTO) 15.4 % (3.0-13.0); NEUTROPHILS % (AUTO) 69.4 % (40.0-77.0); PLATELET COUNT (AUTO) 135 K/uL (130-400); RED BLOOD CELL COUNT(AUTO) 2.02 MIL/uL (4.00-5.50); WHITE BLOOD COUNT (AUTO) 8.1 K/uL (4.8-10.8)
[2020-04-09 06:31] LABS: HEMATOCRIT 18.6 % (36-48)
[2020-04-09 08:14] LABS: HEPATITIS B CORE IGM Negative (Negative); HEPATITIS Bs ANTIGEN SCREEN P Negative (Negative)
[2020-04-09] MEDS ORDERED: 0.9% NACL 250ML 250 ML IV ONE (08:17)
[2020-04-09] MEDS: IRON SUCROSE COMPLEX 100 MG in 0.9%NACL 50ML 50 ML IV SCH (09:00)
[2020-04-09] MEDS: LACTULOSE 20 GM/30 ML UDCUP PO SCH (09:08)
[2020-04-09] MEDS: AMLODIPINE 5 MG TAB PO SCH ×2 (09:08→21:08)
[2020-04-09] MEDS: LISINOPRIL 40 MG TABLET PO SCH (09:08)
[2020-04-09] MEDS: ASPIRIN 81MG CHEW TAB PO SCH (09:08)
[2020-04-09] MEDS: ONDANSETRON 4MG INJ IV PRN (09:09)
[2020-04-09] MEDS: ENOXAPARIN SODIUM 30 MG/0.3 ML SQ SCH (09:09)
[2020-04-09 15:08] LABS: MEAN CORPUSCULAR HEMOGLOBIN 29.3 pg (27.0-33.0); MEAN CORPUSCULAR HGB CONC 31.7 g/dL (32.0-36.0); MEAN CORPUSCULAR VOLUME 92.4 fL (79-99); RED BLOOD CELL COUNT(AUTO) 2.49 MIL/uL (4.00-5.50); RED CELL DISTRIBUTION WIDTH 14.7 % (11.0-15.5); WHITE BLOOD COUNT (AUTO) 8.5 K/uL (4.8-10.8)
[2020-04-09] MEDS: HYDROMORPHONE 0.5 MG SYG (0.5MG/0.5ML) IV PRN (16:18)
[2020-04-09] MEDS: FAMOTIDINE 20MG VIAL IV SCH (20:59)
[2020-04-10] VITALS (7 sets, daily range): BP systolic 125–156; BP diastolic 52–74
[2020-04-10 04:14] LABS: HEMATOCRIT 22.4 % (36-48); MEAN CORPUSCULAR HEMOGLOBIN 29.8 pg (27.0-33.0); MEAN CORPUSCULAR HGB CONC 32.6 g/dL (32.0-36.0); MEAN CORPUSCULAR VOLUME 91.4 fL (79-99); PLATELET COUNT (AUTO) 152 K/uL (130-400); RED BLOOD CELL COUNT(AUTO) 2.45 MIL/uL (4.00-5.50); RED CELL DISTRIBUTION WIDTH 14.5 % (11.0-15.5); WHITE BLOOD COUNT (AUTO) 7.5 K/uL (4.8-10.8)
[2020-04-10 04:26] LABS: CREATININE 5.9 mg/dL (0.5-1.5); PHOSPHORUS 6.9 mg/dL (2.5-4.9); POTASSIUM 4.6 mmol/L (3.5-5.1)
[2020-04-10 04:37] LABS: BAND NEUTROPHILS % (MANUAL) 3 % (0-2); EOSINOPHILS % (MANUAL) 1 % (1-6); LYMPHOCYTES % (MANUAL) 20 % (22-44); MAN.DIFF COMMENT-IMPRESSION MANUAL DIFFERENTIAL; MONOCYTES % (MANUAL) 7 % (2-9); PLATELET MORPHOLOGY COMMENT ADEQUATE; REACTIVE LYMPHOCYTES 2 % (0-0); SEGMENTED NEUTROPHILS % 67 % (40-70)
[2020-04-10] MEDS: NITROGLYCERIN 1GM OINT 1 INCH/1GM TD SCH ×5 (04:39→22:33)
[2020-04-10] MEDS ORDERED: KETOROLAC 30MG VIAL (30MG/ML) IV ONE (05:00)
[2020-04-10] MEDS ORDERED: HYDROMORPHONE 0.5 MG SYG (0.5MG/0.5ML) ONE (05:00)
[2020-04-10] MEDS: LACTULOSE 20 GM/30 ML UDCUP PO SCH (10:13)
[2020-04-10] MEDS: IRON SUCROSE COMPLEX 100 MG in 0.9%NACL 50ML 50 ML IV SCH (10:14)
[2020-04-10] MEDS: ASPIRIN 81MG CHEW TAB PO SCH (10:14)
[2020-04-10] MEDS: AMLODIPINE 5 MG TAB PO SCH ×2 (10:15→22:33)
[2020-04-10] MEDS: LISINOPRIL 40 MG TABLET PO SCH (10:15)
[2020-04-10] MEDS: ENOXAPARIN SODIUM 30 MG/0.3 ML SQ SCH (10:16)
[2020-04-10] MEDS: KETOROLAC MISC SCH ×3 (10:47→10:49)
[2020-04-10] MEDS: HYDROMORPHONE 0.5 MG SYG (0.5MG/0.5ML) IVP PRN ×2 (16:05→22:53)
[2020-04-10] MEDS: FAMOTIDINE 20MG VIAL IV SCH (22:33)
[2020-04-11] MEDS: KETOROLAC MISC SCH ×8 (00:30→11:30)
[2020-04-11] MEDS: ONDANSETRON 4MG INJ IV PRN ×4 (00:35→21:24)
[2020-04-11] MEDS: NITROGLYCERIN 1GM OINT 1 INCH/1GM TD SCH ×4 (04:07→21:25)
[2020-04-11] MEDS: GUAIFENESIN-DM 200/20 MG 10 ML PO PRN (04:07)
[2020-04-11] MEDS: HYDROMORPHONE 0.5 MG SYG (0.5MG/0.5ML) IVP PRN ×4 (04:07→21:24)
[2020-04-11 04:31] VITALS: BP 135/55
[2020-04-11] MEDS: LACTULOSE 20 GM/30 ML UDCUP PO SCH (08:25)
[2020-04-11] MEDS: ENOXAPARIN SODIUM 30 MG/0.3 ML SQ SCH (08:28)
[2020-04-11] MEDS: LISINOPRIL 40 MG TABLET PO SCH (08:31)
[2020-04-11] MEDS: AMLODIPINE 5 MG TAB PO SCH ×2 (08:35→21:25)
[2020-04-11] MEDS: ASPIRIN 81MG CHEW TAB PO SCH (08:35)
[2020-04-11 08:40] VITALS: BP 139/52
[2020-04-11] MEDS: IRON SUCROSE COMPLEX 100 MG in 0.9%NACL 50ML 50 ML IV SCH (08:53)
[2020-04-11 11:46] VITALS: BP 127/54
[2020-04-11 16:30] VITALS: BP 153/51
[2020-04-11 20:00] VITALS: BP 133/57
[2020-04-11] MEDS: FAMOTIDINE 20MG VIAL IV SCH (21:25)
[2020-04-12] VITALS (7 sets, daily range): BP systolic 112–147; BP diastolic 52–71
[2020-04-12] MEDS: HYDROMORPHONE 0.5 MG SYG (0.5MG/0.5ML) IVP PRN ×3 (03:50→22:16)
[2020-04-12] MEDS: ONDANSETRON 4MG INJ IV PRN (03:50)
[2020-04-12] MEDS: NITROGLYCERIN 1GM OINT 1 INCH/1GM TD SCH ×4 (03:53→22:07)
[2020-04-12 05:54] LABS: HEMATOCRIT 22.9 % (36-48); MEAN CORPUSCULAR HEMOGLOBIN 30.5 pg (27.0-33.0); MEAN CORPUSCULAR HGB CONC 33.2 g/dL (32.0-36.0); PLATELET COUNT (AUTO) 198 K/uL (130-400); RED BLOOD CELL COUNT(AUTO) 2.49 MIL/uL (4.00-5.50); RED CELL DISTRIBUTION WIDTH 13.9 % (11.0-15.5); WHITE BLOOD COUNT (AUTO) 7.3 K/uL (4.8-10.8)
[2020-04-12 06:06] LABS: CREATININE 6.2 mg/dL (0.5-1.5); PHOSPHORUS 7.4 mg/dL (2.5-4.9)
[2020-04-12 06:37] LABS: BAND NEUTROPHILS % (MANUAL) 1 % (0-2); BASOPHILS % (MANUAL) 4 % (0-2); EOSINOPHILS % (MANUAL) 6 % (1-6); LYMPHOCYTES % (MANUAL) 27 % (22-44); MAN.DIFF COMMENT-IMPRESSION MANUAL DIFFERENTIAL; MONOCYTES % (MANUAL) 6 % (2-9); PLATELET MORPHOLOGY COMMENT ADEQUATE; REACTIVE LYMPHOCYTES 1 % (0-0); SEGMENTED NEUTROPHILS % 55 % (40-70)
[2020-04-12] MEDS: ENOXAPARIN SODIUM 30 MG/0.3 ML SQ SCH (12:06)
[2020-04-12] MEDS: ASPIRIN 81MG CHEW TAB PO SCH (12:10)
[2020-04-12] MEDS: LACTULOSE 20 GM/30 ML UDCUP PO SCH (12:10)
[2020-04-12] MEDS: AMLODIPINE 5 MG TAB PO SCH ×2 (12:10→22:06)
[2020-04-12] MEDS: LISINOPRIL 40 MG TABLET PO SCH (12:13)
[2020-04-12] MEDS: IRON SUCROSE COMPLEX 100 MG in 0.9%NACL 50ML 50 ML IV SCH (12:43)
[2020-04-12] MEDS: KETOROLAC MISC SCH ×3 (21:30→23:59)
[2020-04-12] MEDS: FAMOTIDINE 20MG VIAL IV SCH (22:06)
[2020-04-13] VITALS: BP 117/62
[2020-04-13] MEDS: KETOROLAC MISC SCH (01:30)
[2020-04-13] MEDS: NITROGLYCERIN 1GM OINT 1 INCH/1GM TD SCH ×4 (03:44→21:06)
[2020-04-13] MEDS: ACETAMINOPHEN 325 MG TAB PO PRN (03:54)
[2020-04-13 04:00] VITALS: BP 148/73
[2020-04-13 04:06] LABS: BASOPHILS % (AUTO) 0.5 % (0.0-5.0); EOSINOPHILS % (AUTO) 2.6 % (0.0-8.0); HEMATOCRIT 25.7 % (36-48); LYMPHOCYTES % (AUTO) 18.3 % (21.0-51.0); MEAN CORPUSCULAR HGB CONC 33.1 g/dL (32.0-36.0); MEAN CORPUSCULAR VOLUME 90.8 fL (79-99); MONOCYTES % (AUTO) 17.7 % (3.0-13.0); NEUTROPHILS % (AUTO) 60.7 % (40.0-77.0); PLATELET COUNT (AUTO) 212 K/uL (130-400); RED BLOOD CELL COUNT(AUTO) 2.83 MIL/uL (4.00-5.50); RED CELL DISTRIBUTION WIDTH 13.8 % (11.0-15.5)
[2020-04-13 04:21] LABS: ALBUMIN 2.5 g/dL (3.5-5.0); BILIRUBIN,TOTAL 0.5 mg/dL (0.2-1.0); CREATININE 4.3 mg/dL (0.5-1.5); POTASSIUM 3.7 mmol/L (3.5-5.1); TOTAL PROTEIN, SERUM 6.9 g/dL (6.0-8.3)
[2020-04-13 08:00] VITALS: BP 153/61
[2020-04-13] MEDS: ASPIRIN 81MG CHEW TAB PO SCH (10:08)
[2020-04-13] MEDS: AMLODIPINE 5 MG TAB PO SCH ×2 (10:09→21:06)
[2020-04-13] MEDS: LACTULOSE 20 GM/30 ML UDCUP PO SCH (10:09)
[2020-04-13] MEDS: LISINOPRIL 40 MG TABLET PO SCH (10:10)
[2020-04-13] MEDS: ENOXAPARIN SODIUM 30 MG/0.3 ML SQ SCH (10:10)
[2020-04-13] MEDS: IRON SUCROSE COMPLEX 100 MG in 0.9%NACL 50ML 50 ML IV SCH (10:21)
[2020-04-13] MEDS: HYDROMORPHONE 0.5 MG SYG (0.5MG/0.5ML) IVP PRN ×3 (11:27→21:06)
[2020-04-13 12:00] VITALS: BP 146/60
[2020-04-13] MEDS: ONDANSETRON 4MG INJ IV PRN (15:14)
[2020-04-13] MEDS: GUAIFENESIN-DM 200/20 MG 10 ML PO PRN (15:48)
[2020-04-13 16:08] VITALS: BP 166/75
[2020-04-13 19:00] VITALS: BP 115/60
[2020-04-13] MEDS: FAMOTIDINE 20MG VIAL IV SCH (21:06)
[2020-04-14] VITALS: BP 126/63
[2020-04-14] MEDS: ONDANSETRON 4MG INJ IV PRN ×3 (02:19→20:23)
[2020-04-14] MEDS: HYDROMORPHONE 0.5 MG SYG (0.5MG/0.5ML) IVP PRN ×3 (02:19→20:23)
[2020-04-14] MEDS: NITROGLYCERIN 1GM OINT 1 INCH/1GM TD SCH ×4 (03:50→20:23)
[2020-04-14 04:00] VITALS: BP 128/60
[2020-04-14 04:11] LABS: BASOPHILS % (AUTO) 0.9 % (0.0-5.0); EOSINOPHILS % (AUTO) 2.5 % (0.0-8.0); HEMATOCRIT 24.4 % (36-48); LYMPHOCYTES % (AUTO) 17.9 % (21.0-51.0); MEAN CORPUSCULAR VOLUME 93.8 fL (79-99); NEUTROPHILS % (AUTO) 64.5 % (40.0-77.0); PLATELET COUNT (AUTO) 239 K/uL (130-400); RED CELL DISTRIBUTION WIDTH 13.9 % (11.0-15.5); WHITE BLOOD COUNT (AUTO) 8.1 K/uL (4.8-10.8)
[2020-04-14 04:33] LABS: CREATININE 5.9 mg/dL (0.5-1.5); PHOSPHORUS 7.3 mg/dL (2.5-4.9); POTASSIUM 3.9 mmol/L (3.5-5.1)
[2020-04-14 09:41] VITALS: BP 129/58
[2020-04-14] MEDS: ASPIRIN 81MG CHEW TAB PO SCH (10:32)
[2020-04-14] MEDS: LACTULOSE 20 GM/30 ML UDCUP PO SCH (10:33)
[2020-04-14] MEDS: AMLODIPINE 5 MG TAB PO SCH ×2 (10:33→20:22)
[2020-04-14] MEDS: LISINOPRIL 40 MG TABLET PO SCH (10:33)
[2020-04-14] MEDS: ENOXAPARIN SODIUM 30 MG/0.3 ML SQ SCH (10:35)
[2020-04-14 12:23] VITALS: BP 149/55
[2020-04-14] MEDS: IRON SUCROSE COMPLEX 100 MG in 0.9%NACL 50ML 50 ML IV SCH (14:59)
[2020-04-14] MEDS: SEVELAMER HCL 800 MG TABLET PO SCH ×2 (15:00→16:45)
[2020-04-14 16:57] VITALS: BP 148/65
[2020-04-14 19:00] VITALS: BP 149/72
[2020-04-14] MEDS: FAMOTIDINE 20MG VIAL IV SCH (20:22)
[2020-04-15 00:04] VITALS: BP 140/61
[2020-04-15] MEDS: NITROGLYCERIN 1GM OINT 1 INCH/1GM TD SCH ×3 (02:44→13:39)
[2020-04-15] MEDS: ONDANSETRON 4MG INJ IV PRN (02:48)
[2020-04-15] MEDS: HYDROMORPHONE 0.5 MG SYG (0.5MG/0.5ML) IVP PRN (02:49)
[2020-04-15 04:04] VITALS: BP 140/60
[2020-04-15] MEDS: SEVELAMER HCL 800 MG TABLET PO SCH ×3 (08:00→15:47)
[2020-04-15 08:09] VITALS: BP 145/60
[2020-04-15] MEDS: ENOXAPARIN SODIUM 30 MG/0.3 ML SQ SCH (10:24)
[2020-04-15] MEDS: IRON SUCROSE COMPLEX 100 MG in 0.9%NACL 50ML 50 ML IV SCH (10:24)
[2020-04-15] MEDS: LACTULOSE 20 GM/30 ML UDCUP PO SCH (10:24)
[2020-04-15] MEDS: ASPIRIN 81MG CHEW TAB PO SCH (10:25)
[2020-04-15 12:11] VITALS: BP 142/55
[2020-04-15] MEDS: AMLODIPINE 5 MG TAB PO SCH ×2 (13:39→20:24)
[2020-04-15] MEDS: LISINOPRIL 40 MG TABLET PO SCH (13:39)
[2020-04-15] MEDS ORDERED: HYDROMORPHONE HCL 2 MG TAB PO PRN ×2 (14:45)
[2020-04-15] MEDS ORDERED: TRAMADOL /APAP 37.5MG/325MG TAB PO PRN ×2 (14:45→15:00)
[2020-04-15 16:00] VITALS: BP 155/60
[2020-04-15] MEDS: FAMOTIDINE 20MG VIAL IV SCH (20:24)
[2020-04-15 20:37] VITALS: BP 158/64
[2020-08-06] MEDS ORDERED: CYCL10TA16 PO (15:12)
[2020-08-27] MEDS ORDERED: LEVO500T90 PO (23:26)
[2020-09-17] MEDS ORDERED: MINO2.5 PO (08:57)
[2020-09-17] MEDS ORDERED: AMLO5TAB4 PO (08:57)
[2020-09-17] MEDS ORDERED: METO50TA9 PO (08:57)
== END 2020-04-15 22:20 | DRG 492 ==
LOC: EDH 17:35 → EDHIP 20:32 → 4CH 04-05 03:41 → 4BH 04-13 17:21
PROVIDERS: ADMIT Internal Medicine; ATTEND Internal Medicine
PROC: 5A1D70Z Performance of Urinary Filtration, Intermittent, Less than 6 Hours Per Day (ICD-10-PCS; 2020-04-05)
PROC: 0PSD04Z Reposition Left Humeral Head with Internal Fixation Device, Open Approach (ICD-10-PCS; principal; 2020-04-06 16:00)
PROC: 3E0T3BZ Introduction of Anesthetic Agent into Peripheral Nerves and Plexi, Percutaneous Approach (ICD-10-PCS; 2020-04-06 16:00)
PROC: 3E0T33Z Introduction of Anti-inflammatory into Peripheral Nerves and Plexi, Percutaneous Approach (ICD-10-PCS; 2020-04-06 16:00)
PROC: 5A1D70Z Performance of Urinary Filtration, Intermittent, Less than 6 Hours Per Day (ICD-10-PCS; 2020-04-08)
PROC: 30233N1 Transfusion of Nonautologous Red Blood Cells into Peripheral Vein, Percutaneous Approach (ICD-10-PCS; 2020-04-09)
PROC: 5A1D70Z Performance of Urinary Filtration, Intermittent, Less than 6 Hours Per Day (ICD-10-PCS; 2020-04-10)
PROC: 5A1D70Z Performance of Urinary Filtration, Intermittent, Less than 6 Hours Per Day (ICD-10-PCS; 2020-04-12)
PROC: 5A1D70Z Performance of Urinary Filtration, Intermittent, Less than 6 Hours Per Day (ICD-10-PCS; 2020-04-15)
DX: S42.252A Displaced fracture of greater tuberosity of left humerus, initial encounter for closed fracture (principal); N18.6 End stage renal disease; J96.90 Respiratory failure, unspecified, unspecified whether with hypoxia or hypercapnia; J90 Pleural effusion, not elsewhere classified; I12.0 Hypertensive chronic kidney disease with stage 5 chronic kidney disease or end stage renal disease; J98.11 Atelectasis; E87.70 Fluid overload, unspecified; I16.0 Hypertensive urgency; E11.22 Type 2 diabetes mellitus with diabetic chronic kidney disease; K31.84 Gastroparesis; K21.9 Gastro-esophageal reflux disease without esophagitis; H54.7 Unspecified visual loss; D64.9 Anemia, unspecified; E11.43 Type 2 diabetes mellitus with diabetic autonomic (poly)neuropathy; E78.5 Hyperlipidemia, unspecified; E87.8 Other disorders of electrolyte and fluid balance, not elsewhere classified; Z20.822 Contact with and (suspected) exposure to COVID-19; W01.0XXA Fall on same level from slipping, tripping and stumbling without subsequent striking against object, initial encounter; Y93.89 Activity, other specified; Y92.238 Other place in hospital as the place of occurrence of the external cause; Y99.8 Other external cause status; Z90.49 Acquired absence of other specified parts of digestive tract; Z99.2 Dependence on renal dialysis; Z79.4 Long term (current) use of insulin; Z79.899 Other long term (current) drug therapy; Z89.511 Acquired absence of right leg below knee; Z88.0 Allergy status to penicillin; Z88.8 Allergy status to other drugs, medicaments and biological substances; Z91.018 Allergy to other foods; Z83.3 Family history of diabetes mellitus; Z82.3 Family history of stroke; Z82.49 Family history of ischemic heart disease and other diseases of the circulatory system; R07.89 Other chest pain
CPT/HCPCS: 36415; 71045; 71275; 73020; 73030; 73060; 73200; 80048; 80053; 80074; 82550; 82948; 83690; 83880; 84100; 84484; 85025; 85027; 85378; 85610; 85730; 86850; 86900; 86901; 86923; 87426; 90935; 93005; 93931; 97039; 99291; G0378; J0330; J1170; J1200; J1650; J1756; J1885; J2001; J2060; J2250; J2370; J2405; J2704; J2710; J2795; J3010; J3490; J7030; J7050; P9016; Q9967; U0003

== ENCOUNTER 2020-05-14 23:55 | Emergency (ER) | payer BC ==
[2020-05-15] MEDS ORDERED: LIDOCAINE 1%-EPI 1:100,000 20 ML VIAL IJ ONE (00:26)
[2020-05-15] MEDS ORDERED: HYDROCODONE/ACETAMINOPHEN 5/325 MG TAB ONE (00:36)
[2020-05-15 00:49] LABS: BASOPHILS % (AUTO) 0.4 % (0.0-5.0); EOSINOPHILS % (AUTO) 2.5 % (0.0-8.0); HEMATOCRIT 28.2 % (36-48); LYMPHOCYTES % (AUTO) 22.3 % (21.0-51.0); MEAN CORPUSCULAR HEMOGLOBIN 29.8 pg (27.0-33.0); MEAN CORPUSCULAR HGB CONC 31.2 g/dL (32.0-36.0); MEAN CORPUSCULAR VOLUME 95.6 fL (79-99); MONOCYTES % (AUTO) 13.4 % (3.0-13.0); NEUTROPHILS % (AUTO) 61.1 % (40.0-77.0); PLATELET COUNT (AUTO) 185 K/uL (130-400); RED BLOOD CELL COUNT(AUTO) 2.95 MIL/uL (4.00-5.50); RED CELL DISTRIBUTION WIDTH 16.2 % (11.0-15.5); WHITE BLOOD COUNT (AUTO) 7.7 K/uL (4.8-10.8)
[2020-05-15 00:56] LABS: CREATININE 5.7 mg/dL (0.5-1.5); POTASSIUM 4.3 mmol/L (3.5-5.1)
[2020-05-15 00:58] LABS: ALBUMIN 3.1 g/dL (3.5-5.0); BILIRUBIN,TOTAL 0.4 mg/dL (0.2-1.0); TOTAL PROTEIN, SERUM 7.2 g/dL (6.0-8.3)
[2020-05-15] MEDS ORDERED: MORPHINE SULFATE 4 MG/1ML SYG ONE (01:45)
== END 2020-05-15 02:46 | disposition home or self-care (01) ==
LOC: EDH 23:55
DX: S01.01XA Laceration without foreign body of scalp, initial encounter (principal); I12.0 Hypertensive chronic kidney disease with stage 5 chronic kidney disease or end stage renal disease; E11.22 Type 2 diabetes mellitus with diabetic chronic kidney disease; N18.6 End stage renal disease; K21.9 Gastro-esophageal reflux disease without esophagitis; Z99.2 Dependence on renal dialysis; Z88.0 Allergy status to penicillin; Z88.8 Allergy status to other drugs, medicaments and biological substances; Z98.890 Other specified postprocedural states; W18.39XA Other fall on same level, initial encounter; Y93.89 Activity, other specified; Y92.9 Unspecified place or not applicable; Y99.8 Other external cause status
CPT/HCPCS: 12001; 36415; 80053; 85025; 96374; 99284; J2270; J3490

== ENCOUNTER 2020-06-23 14:06 | Emergency (ER) | payer BC ==
[2020-06-23 15:01] LABS: BASOPHILS % (AUTO) 1.1 % (0.0-5.0); EOSINOPHILS % (AUTO) 1.3 % (0.0-8.0); HEMATOCRIT 36.1 % (36-48); MEAN CORPUSCULAR HEMOGLOBIN 31.1 pg (27.0-33.0); MEAN CORPUSCULAR HGB CONC 33.8 g/dL (32.0-36.0); MEAN CORPUSCULAR VOLUME 92.1 fL (79-99); MONOCYTES % (AUTO) 8.6 % (3.0-13.0); NEUTROPHILS % (AUTO) 70.6 % (40.0-77.0); NUCLEATED RED BLOOD CELLS 0.2 % (0.0-0.19); PLATELET COUNT (AUTO) 243 K/uL (130-400); RED BLOOD CELL COUNT(AUTO) 3.92 MIL/uL (4.00-5.50); RED CELL DISTRIBUTION WIDTH 15.4 % (11.0-15.5); WHITE BLOOD COUNT (AUTO) 9.4 K/uL (4.8-10.8)
[2020-06-23 15:22] LABS: CREATININE 6.5 mg/dL (0.5-1.5); POTASSIUM 4.1 mmol/L (3.5-5.1)
[2020-06-23 15:27] LABS: ALBUMIN 3.5 g/dL (3.5-5.0); BILIRUBIN,TOTAL 0.4 mg/dL (0.2-1.0); TOTAL PROTEIN, SERUM 7.9 g/dL (6.0-8.3)
[2020-06-23 15:42] LABS: INR 1.02 (0.85-1.15); PROTHROMBIN TIME 11.1 SEC (9.6-11.6)
[2020-06-23 15:43] LABS: PARTIAL THROMBOPLASTIN TIME 29.7 SEC (26.3-35.5)
[2020-06-23] MEDS ORDERED: DICYCLOMINE HCL 10 MG/ML 2ML AMP IM ONE (15:47)
[2020-06-23] MEDS ORDERED: SODIUM CHLORIDE 0.9% 50 ML IV ONE (15:48)
[2020-06-23] MEDS ORDERED: HYDROCODONE/ACETAMINOPHEN 10/325 MG TAB ONE (17:27)
== END 2020-06-23 18:16 | disposition home or self-care (01) ==
LOC: EDH 14:06
DX: K52.9 Noninfective gastroenteritis and colitis, unspecified (principal); I12.0 Hypertensive chronic kidney disease with stage 5 chronic kidney disease or end stage renal disease; E11.22 Type 2 diabetes mellitus with diabetic chronic kidney disease; N18.6 End stage renal disease; K21.9 Gastro-esophageal reflux disease without esophagitis; Z99.2 Dependence on renal dialysis; Z88.0 Allergy status to penicillin; Z88.6 Allergy status to analgesic agent; Z88.8 Allergy status to other drugs, medicaments and biological substances
CPT/HCPCS: 36415; 71045; 74176; 80053; 83690; 84484; 85025; 85610; 85730; 93005; 96365; 96366; 96372; 99285; J0500; J2550

== ENCOUNTER 2020-07-23 21:40 | Emergency (ER) | payer BC ==
[~2020-07-23] VITALS: Ht 149.9 cm; Wt 49.0 kg
[2020-07-23 21:49] VITALS: BP 234/94
[2020-07-23 22:14] LABS: BASOPHILS % (AUTO) 0.5 % (0.0-5.0); EOSINOPHILS % (AUTO) 0.1 % (0.0-8.0); HEMATOCRIT 38.3 % (36-48); LYMPHOCYTES % (AUTO) 8.1 % (21.0-51.0); MEAN CORPUSCULAR HGB CONC 33.2 g/dL (32.0-36.0); MEAN CORPUSCULAR VOLUME 93.4 fL (79-99); NEUTROPHILS % (AUTO) 85.7 % (40.0-77.0); PLATELET COUNT (AUTO) 165 K/uL (130-400); RED CELL DISTRIBUTION WIDTH 14.6 % (11.0-15.5); WHITE BLOOD COUNT (AUTO) 10.5 K/uL (4.8-10.8)
[2020-07-23 22:23] VITALS: BP 208/98
[2020-07-23 22:24] LABS: CREATININE 6.1 mg/dL (0.5-1.5); POTASSIUM 4.5 mmol/L (3.5-5.1)
[2020-07-23 22:29] LABS: ALBUMIN 3.6 g/dL (3.5-5.0); BILIRUBIN,TOTAL 0.3 mg/dL (0.2-1.0); TOTAL PROTEIN, SERUM 8.6 g/dL (6.0-8.3)
[2020-07-23] MEDS ORDERED: METOCLOPRAMIDE 10 MG/2 ML VIAL IM ONE (23:15)
[2020-07-23] MEDS ORDERED: FAMOTIDINE/PF 20 MG/2 ML VIAL IV ONE (23:15)
[2020-07-23] MEDS ORDERED: PANTOPRAZOLE 40 MG/VIAL IVP SCH (23:15)
[2020-07-23] MEDS ORDERED: ONDANSETRON 4MG INJ IVP ONE (23:15)
[2020-07-23] MEDS: [UNRECOGNIZED DRUG - REMARK] MISC SCH ×2 (23:15→23:55)
[2020-07-23 23:42] VITALS: BP 203/74
[2020-07-23] MEDS ORDERED: DiphenhydrAMINE HCL 50 MG/ML VIAL IV ONE (23:45)
[2020-07-24 01:11] VITALS: BP 215/87
[2020-07-24] MEDS ORDERED: DICY20TA2 PO (01:14)
[2020-07-24] MEDS ORDERED: ONDA4TAB10 PO (01:14)
[2020-07-24] MEDS ORDERED: PANT40TA54 PO (01:14)
[2020-07-24] MEDS ORDERED: MAG/ALUM/SIMETH 30 ML UDCUP PO ONE (01:15)
[2020-07-24] MEDS ORDERED: LIDOCAINE HCL 2% VISCOUS 15 ML UDCUP PO ONE (01:15)
[2020-07-24] MEDS ORDERED: HYDRALAZINE 20MG/ML VIAL IV SCH (01:15)
[2020-07-24 01:55] VITALS: BP 168/81
== END 2020-07-24 02:14 | disposition home or self-care (01) ==
LOC: EDH 21:40
DX: K29.70 Gastritis, unspecified, without bleeding (principal); R11.2 Nausea with vomiting, unspecified; E11.9 Type 2 diabetes mellitus without complications; I10 Essential (primary) hypertension; E66.9 Obesity, unspecified; Z88.0 Allergy status to penicillin; Z88.8 Allergy status to other drugs, medicaments and biological substances; Z88.5 Allergy status to narcotic agent; Z99.2 Dependence on renal dialysis; Z79.899 Other long term (current) drug therapy; Z98.890 Other specified postprocedural states
CPT/HCPCS: 36415; 71045; 71250; 74176; 80053; 82948; 83690; 84484; 85025; 93005; 96374; 96375 ×2; 99285; C9113; J0360; J1200; J2405; J3490

== ENCOUNTER 2020-07-30 11:02 | Emergency (ER) | payer BC ==
[~2020-07-30 11:02] MED LIST changes: +DICY20TA2 PO; +ONDA4TAB10 PO; +PANT40TA54 PO
[2020-07-30 11:23] LABS: BASOPHILS % (AUTO) 0.5 % (0.0-5.0); EOSINOPHILS % (AUTO) 0.6 % (0.0-8.0); HEMATOCRIT 42.2 % (36-48); LYMPHOCYTES % (AUTO) 13.8 % (21.0-51.0); MEAN CORPUSCULAR HEMOGLOBIN 30.4 pg (27.0-33.0); MEAN CORPUSCULAR HGB CONC 32.9 g/dL (32.0-36.0); MEAN CORPUSCULAR VOLUME 92.3 fL (79-99); MONOCYTES % (AUTO) 8.9 % (3.0-13.0); NEUTROPHILS % (AUTO) 75.6 % (40.0-77.0); PLATELET COUNT (AUTO) 223 K/uL (130-400); RED BLOOD CELL COUNT(AUTO) 4.57 MIL/uL (4.00-5.50); RED CELL DISTRIBUTION WIDTH 15.6 % (11.0-15.5); WHITE BLOOD COUNT (AUTO) 12.9 K/uL (4.8-10.8)
[2020-07-30 11:29] LABS: POTASSIUM 3.6 mmol/L (3.5-5.1)
[2020-07-30 11:41] LABS: ALBUMIN 3.9 g/dL (3.5-5.0); BILIRUBIN,TOTAL 0.6 mg/dL (0.2-1.0); TOTAL PROTEIN, SERUM 8.5 g/dL (6.0-8.3); TROPONIN I 0.05 ng/mL (0.00-0.06)
[2020-07-30] MEDS ORDERED: CLONIDINE HCL 0.1 MG TABLET ONE (11:45)
[2020-07-30] MEDS ORDERED: HYDRALAZINE 20MG/ML VIAL ONE (11:50)
[2020-07-30 11:53] VITALS: BP 248/101
[2020-07-30] MEDS ORDERED: MORPHINE 4 MG SYG IV ONE (12:00)
[2020-07-30] MEDS ORDERED: ONDANSETRON 4MG INJ IVP ONE (12:00)
[2020-07-30 12:23] VITALS: BP 223/83
[2020-07-30 12:49] VITALS: BP 209/88
[2020-07-30] MEDS ORDERED: HYDRALAZINE 20MG/ML VIAL IV SCH (13:30)
[2020-07-30 13:57] VITALS: BP 180/77
[2020-07-30 15:04] VITALS: BP 163/69
== END 2020-07-30 15:12 | disposition home or self-care (01) ==
LOC: EDH 11:32
DX: R10.9 Unspecified abdominal pain (principal); I12.0 Hypertensive chronic kidney disease with stage 5 chronic kidney disease or end stage renal disease; E11.22 Type 2 diabetes mellitus with diabetic chronic kidney disease; N18.6 End stage renal disease; R11.2 Nausea with vomiting, unspecified; E78.5 Hyperlipidemia, unspecified; F32.9 Major depressive disorder, single episode, unspecified; Z88.0 Allergy status to penicillin; Z88.8 Allergy status to other drugs, medicaments and biological substances; Z99.2 Dependence on renal dialysis; Z79.899 Other long term (current) drug therapy
CPT/HCPCS: 36415; 71045; 74176; 80053; 82550; 83690; 83874; 84484; 85025; 93005 ×2; 96374; 96375; 99285; J0360; J2270; J2405

== ENCOUNTER 2020-08-06 11:20 | Emergency (ER) | payer BC ==
[~2020-08-06] VITALS: Ht 149.9 cm; Wt 48.5 kg
[2020-08-06 11:30] VITALS: BP 188/67
[2020-08-06 13:37] LABS: BASOPHILS % (AUTO) 0.7 % (0.0-5.0); EOSINOPHILS % (AUTO) 1.6 % (0.0-8.0); HEMATOCRIT 36.9 % (36-48); LYMPHOCYTES % (AUTO) 11.6 % (21.0-51.0); MEAN CORPUSCULAR HEMOGLOBIN 30.3 pg (27.0-33.0); MEAN CORPUSCULAR VOLUME 94.6 fL (79-99); MONOCYTES % (AUTO) 8.9 % (3.0-13.0); NEUTROPHILS % (AUTO) 76.9 % (40.0-77.0); PLATELET COUNT (AUTO) 168 K/uL (130-400); RED CELL DISTRIBUTION WIDTH 15.9 % (11.0-15.5); WHITE BLOOD COUNT (AUTO) 8.6 K/uL (4.8-10.8)
[2020-08-06] MEDS ORDERED: HALOPERIDOL 5 MG TABLET PO SCH (13:45)
[2020-08-06] MEDS ORDERED: CYCLOBENZAPRINE HCL 10 MG TABLET PO ONE (13:45)
[2020-08-06 13:46] LABS: CREATININE 4.7 mg/dL (0.5-1.5); POTASSIUM 5.3 mmol/L (3.5-5.1)
[2020-08-06 13:57] LABS: ALBUMIN 3.3 g/dL (3.5-5.0); BILIRUBIN,TOTAL 0.4 mg/dL (0.2-1.0); TOTAL PROTEIN, SERUM 7.4 g/dL (6.0-8.3)
[2020-08-06] MEDS ORDERED: CYCL10 PO (15:12)
[2020-08-06] MEDS ORDERED: TRAM1TAB PO (15:12)
== END 2020-08-06 15:21 | disposition home or self-care (01) ==
LOC: EDH 11:20
DX: S29.012A Strain of muscle and tendon of back wall of thorax, initial encounter (principal); I12.0 Hypertensive chronic kidney disease with stage 5 chronic kidney disease or end stage renal disease; E10.22 Type 1 diabetes mellitus with diabetic chronic kidney disease; N18.6 End stage renal disease; F41.9 Anxiety disorder, unspecified; F32.9 Major depressive disorder, single episode, unspecified; Z88.0 Allergy status to penicillin; Z88.5 Allergy status to narcotic agent; Z88.8 Allergy status to other drugs, medicaments and biological substances; Z79.899 Other long term (current) drug therapy; Z99.2 Dependence on renal dialysis; Z89.511 Acquired absence of right leg below knee; X58.XXXA Exposure to other specified factors, initial encounter; Y93.89 Activity, other specified; Y92.89 Other specified places as the place of occurrence of the external cause; Y99.8 Other external cause status
CPT/HCPCS: 36415; 72072; 80053; 85025

== ENCOUNTER 2020-08-27 17:59 | Emergency (ER) | payer BC ==
[~2020-08-27] VITALS: Ht 149.9 cm; Wt 48.5 kg
[~2020-08-27 17:59] MED LIST changes: +CYCL10 PO
[2020-08-27 18:08] VITALS: BP 237/106
[2020-08-27] MEDS ORDERED: HYDRALAZINE 20MG/ML VIAL IV SCH ×2 (18:30→22:00)
[2020-08-27] MEDS ORDERED: PROMETHAZINE HCL 25 MG/ML 1ML AMPULE IM ONE (18:30)
[2020-08-27] MEDS ORDERED: MORPHINE 2 MG SYG IVP ONE (18:30)
[2020-08-27 18:45] LABS: BASOPHILS % (AUTO) 0.8 % (0.0-5.0); LYMPHOCYTES % (AUTO) 11.9 % (21.0-51.0); MEAN CORPUSCULAR HGB CONC 32.3 g/dL (32.0-36.0); MEAN CORPUSCULAR VOLUME 95.8 fL (79-99); NEUTROPHILS % (AUTO) 78.7 % (40.0-77.0); PLATELET COUNT (AUTO) 172 K/uL (130-400); RED BLOOD CELL COUNT(AUTO) 4.49 MIL/uL (4.00-5.50); RED CELL DISTRIBUTION WIDTH 15.7 % (11.0-15.5); WHITE BLOOD COUNT (AUTO) 11.8 K/uL (4.8-10.8)
[2020-08-27 18:57] LABS: CREATININE 6.1 mg/dL (0.5-1.5); POTASSIUM 5.1 mmol/L (3.5-5.1)
[2020-08-27 19:01] LABS: ALBUMIN 4.3 g/dL (3.5-5.0); BILIRUBIN,TOTAL 0.5 mg/dL (0.2-1.0); CRP QUANTITATIVE 14.1 mg/L (0.00-9.0); TOTAL PROTEIN, SERUM 9.1 g/dL (6.0-8.3)
[2020-08-27 19:13] LABS: B-TYPE NATRIURETIC PEPTIDE 2600 pg/mL (0-100)
[2020-08-27 19:39] VITALS: BP 212/94
[2020-08-27] MEDS ORDERED: DICYCLOMINE 20MG (10MG/ML) AMP IM STA (20:36)
[2020-08-27] MEDS ORDERED: CEFTRIAXONE 1G VIAL IVP ONE (21:00)
[2020-08-27] MEDS ORDERED: AZITHROMYCIN 250 MG TABLET PO ONE (21:00)
[2020-08-27] MEDS: HYDRALAZINE 20MG/ML VIAL IV SCH ×2 (21:00→21:43)
[2020-08-27 21:04] VITALS: BP 200/86
[2020-08-27] MEDS ORDERED: FENTANYL CITRATE PF 50 MCG/1 ML 2ML VIAL ONE (21:22)
[2020-08-27] MEDS ORDERED: FENTANYL CITRATE PF 50 MCG/1 ML 2ML VIAL IVP ONE (21:30)
[2020-08-27 21:32] VITALS: BP 197/87
[2020-08-27] MEDS ORDERED: CLONIDINE HCL 0.1 MG TABLET ONE (22:45)
[2020-08-27] MEDS ORDERED: CLONIDINE HCL 0.1 MG TABLET PO ONE (23:00)
[2020-08-27] MEDS ORDERED: LEVO500T89 PO (23:26)
[2020-08-27 23:31] VITALS: BP 191/85
== END 2020-08-27 23:39 | disposition home or self-care (01) ==
LOC: EDH 17:59
DX: J18.9 Pneumonia, unspecified organism (principal); R10.84 Generalized abdominal pain; I12.0 Hypertensive chronic kidney disease with stage 5 chronic kidney disease or end stage renal disease; N18.6 End stage renal disease; Z20.822 Contact with and (suspected) exposure to COVID-19; E11.22 Type 2 diabetes mellitus with diabetic chronic kidney disease; E78.00 Pure hypercholesterolemia, unspecified; Z79.899 Other long term (current) drug therapy; Z88.5 Allergy status to narcotic agent; Z88.0 Allergy status to penicillin; Z88.8 Allergy status to other drugs, medicaments and biological substances; Z99.2 Dependence on renal dialysis
CPT/HCPCS: 36415; 71045; 74176; 80053; 83690; 83880; 84484; 85025; 86140; 87635; 87804 ×2; 93005; 96372 ×2; 96374; 96375; 96376; 99285; C9803; J0360 ×3; J0500; J0696; J2550; J3010

== ENCOUNTER 2020-09-01 04:57 | Emergency (ER) | payer BC ==
[~2020-09-01] VITALS: Ht 149.9 cm; Wt 50.8 kg
[~2020-09-01 04:57] MED LIST changes: +LEVO500T89 PO
[2020-09-01 05:31] VITALS: BP 208/90
[2020-09-01] MEDS ORDERED: ONDANSETRON 4MG INJ ONE ×2 (05:54→07:22)
[2020-09-01] MEDS ORDERED: 0.9%NACL 1000ML 500 ML IV ONE (06:00)
[2020-09-01 06:08] LABS: BASOPHILS % (AUTO) 0.6 % (0.0-5.0); EOSINOPHILS % (AUTO) 0.8 % (0.0-8.0); HEMATOCRIT 42.1 % (36-48); LYMPHOCYTES % (AUTO) 10.2 % (21.0-51.0); MEAN CORPUSCULAR HEMOGLOBIN 30.8 pg (27.0-33.0); MEAN CORPUSCULAR HGB CONC 32.5 g/dL (32.0-36.0); MEAN CORPUSCULAR VOLUME 94.6 fL (79-99); MONOCYTES % (AUTO) 7.7 % (3.0-13.0); NEUTROPHILS % (AUTO) 80.3 % (40.0-77.0); PLATELET COUNT (AUTO) 216 K/uL (130-400); RED BLOOD CELL COUNT(AUTO) 4.45 MIL/uL (4.00-5.50); RED CELL DISTRIBUTION WIDTH 16.5 % (11.0-15.5); WHITE BLOOD COUNT (AUTO) 12.1 K/uL (4.8-10.8)
[2020-09-01] MEDS ORDERED: 0.9%NACL 1000ML 1,000 ML IV ONE (06:15)
[2020-09-01 06:26] LABS: ALBUMIN 3.7 g/dL (3.5-5.0); BILIRUBIN,TOTAL 0.5 mg/dL (0.2-1.0); CREATININE 6.5 mg/dL (0.5-1.5); POTASSIUM 4.7 mmol/L (3.5-5.1); TOTAL PROTEIN, SERUM 7.7 g/dL (6.0-8.3)
[2020-09-01] MEDS ORDERED: DiphenhydrAMINE HCL 50 MG/ML VIAL IV ONE (06:30)
[2020-09-01] MEDS ORDERED: FAMOTIDINE 20MG VIAL IV ONE (06:30)
[2020-09-01] MEDS ORDERED: HYDRALAZINE 20MG/ML VIAL IM ONE (06:30)
[2020-09-01] MEDS ORDERED: PANTOPRAZOLE 40 MG/VIAL IVP ONE (06:30)
[2020-09-01 07:04] LABS: INR 1.02 (0.85-1.15); PROTHROMBIN TIME 11.1 SEC (9.6-11.6)
[2020-09-01 07:34] VITALS: BP 186/87
[2020-09-01] MEDS ORDERED: KETOROLAC 15MG/ML VIAL (15MG/ML) IV ONE (08:30)
[2020-09-01] MEDS ORDERED: PROMETHAZINE HCL 25 MG/ML 1ML AMPULE IM ONE (08:30)
[2020-09-01] MEDS ORDERED: ONDA4TAB10 PO (08:34)
[2020-09-01] MEDS ORDERED: PHEN12S PR (08:34)
[2020-09-01] MEDS ORDERED: PANT40TA54 PO (08:34)
[2020-09-01] MEDS ORDERED: DICY20TA2 PO (08:34)
== END 2020-09-01 09:21 | disposition home or self-care (01) ==
LOC: EDH 04:57
DX: R11.2 Nausea with vomiting, unspecified (principal); R10.13 Epigastric pain; R50.9 Fever, unspecified; R05 Cough; I12.0 Hypertensive chronic kidney disease with stage 5 chronic kidney disease or end stage renal disease; E11.22 Type 2 diabetes mellitus with diabetic chronic kidney disease; N18.6 End stage renal disease; Z79.899 Other long term (current) drug therapy; Z88.0 Allergy status to penicillin; Z88.5 Allergy status to narcotic agent; Z88.8 Allergy status to other drugs, medicaments and biological substances; Z99.2 Dependence on renal dialysis; Z89.511 Acquired absence of right leg below knee; Z79.1 Long term (current) use of non-steroidal anti-inflammatories (NSAID)
CPT/HCPCS: 36415; 71045; 80053; 83605; 83690; 84484; 85025; 85610; 87040 ×2; 87077; 87186; 93005; 96361; 96372 ×2; 96374; 96375; 96376; 99285; C9113; J0360; J1200; J1885; J2405 ×2; J2550; J3490; J7030

== ENCOUNTER 2020-10-21 15:36 | Inpatient (IN) | payer BC ==
[~2020-10-21] VITALS: Ht 149.9 cm; Wt 48.5 kg
[~2020-10-21 15:36] MED LIST changes: -LEVO500T89 PO; +METO50TA9 PO; +MINO2.5 PO; +PHEN12S PR
[2020-10-21] MEDS ORDERED: PROMETHAZINE HCL 25 MG/ML 1ML AMPULE IM ONE (16:30)
[2020-10-21 17:19] LABS: BASOPHILS % (AUTO) 0.2 % (0.0-5.0); HEMATOCRIT 37.6 % (36-48); LYMPHOCYTES % (AUTO) 3.6 % (21.0-51.0); MEAN CORPUSCULAR HEMOGLOBIN 30.6 pg (27.0-33.0); MEAN CORPUSCULAR VOLUME 92.8 fL (79-99); MONOCYTES % (AUTO) 5.7 % (3.0-13.0); PLATELET COUNT (AUTO) 134 K/uL (130-400); RED BLOOD CELL COUNT(AUTO) 4.05 MIL/uL (4.00-5.50); RED CELL DISTRIBUTION WIDTH 15.8 % (11.0-15.5); WHITE BLOOD COUNT (AUTO) 11.1 K/uL (4.8-10.8)
[2020-10-21 17:26] LABS: CREATININE 3.5 mg/dL (0.5-1.5); POTASSIUM 4.4 mmol/L (3.5-5.1)
[2020-10-21 17:36] LABS: ALBUMIN 4.1 g/dL (3.5-5.0); BILIRUBIN,TOTAL 0.9 mg/dL (0.2-1.0); TOTAL PROTEIN, SERUM 9.2 g/dL (6.0-8.3)
[2020-10-21] MEDS ORDERED: NITROGLYCERIN 1GM OINT 1 INCH/1GM TD ONE (18:00)
[2020-10-21] MEDS ORDERED: ASPIRIN 325MG TAB PO ONE (18:00)
[2020-10-21 18:26] VITALS: BP 240/97
[2020-10-21] MEDS ORDERED: DEXTROSE 50%-WATER 50 ML DISP.SYRIN IV PRN (19:00)
[2020-10-21] MEDS ORDERED: GLUCAGON 1MG KIT 1 MG ML IM PRN (19:00)
[2020-10-21] MEDS ORDERED: AMLODIPINE 5 MG TAB ONE (21:29)
[2020-10-21] MEDS: INSULIN R PO SS1 SQ SCH (21:33)
[2020-10-21 23:30] VITALS: BP 190/99
[2020-10-22] VITALS (7 sets, daily range): BP systolic 153–220; BP diastolic 73–110
[2020-10-22] MEDS ORDERED: AMLO-257 PO (00:57)
[2020-10-22] MEDS: ONDANSETRON 4MG INJ IVP PRN ×2 (01:31→19:03)
[2020-10-22] MEDS: HYDROMORPHONE 0.5 MG SYG (0.5MG/0.5ML) IVP PRN ×4 (04:04→18:56)
[2020-10-22 04:11] LABS: BASOPHILS % (AUTO) 0.3 % (0.0-5.0); HEMATOCRIT 37.1 % (36-48); LYMPHOCYTES % (AUTO) 7.9 % (21.0-51.0); MEAN CORPUSCULAR HEMOGLOBIN 30.3 pg (27.0-33.0); MEAN CORPUSCULAR HGB CONC 31.5 g/dL (32.0-36.0); MEAN CORPUSCULAR VOLUME 96.1 fL (79-99); MONOCYTES % (AUTO) 7.7 % (3.0-13.0); NEUTROPHILS % (AUTO) 83.7 % (40.0-77.0); PLATELET COUNT (AUTO) 186 K/uL (130-400); RED BLOOD CELL COUNT(AUTO) 3.86 MIL/uL (4.00-5.50); RED CELL DISTRIBUTION WIDTH 15.9 % (11.0-15.5); WHITE BLOOD COUNT (AUTO) 7.6 K/uL (4.8-10.8)
[2020-10-22 04:29] LABS: ALBUMIN 3.8 g/dL (3.5-5.0); BILIRUBIN,TOTAL 0.6 mg/dL (0.2-1.0); CREATININE 4.9 mg/dL (0.5-1.5); PHOSPHORUS 8.2 mg/dL (2.5-4.9); POTASSIUM 4.8 mmol/L (3.5-5.1); TOTAL PROTEIN, SERUM 8.3 g/dL (6.0-8.3)
[2020-10-22 05:46] LABS: HEMOGLOBIN A1C 6.2 % (4.0-6.0)
[2020-10-22] MEDS: INSULIN R PO SS1 SQ SCH ×4 (06:05→21:32)
[2020-10-22] MEDS ORDERED: AMLODIPINE 5 MG TAB PO SCH (09:00)
[2020-10-22] MEDS ORDERED: METOPROLOL SUCCINATE 50 MG TAB.SR.24H PO SCH (09:00)
[2020-10-22] MEDS: PANTOPRAZOLE 40 MG TAB DR PO SCH (09:46)
[2020-10-22] MEDS: MINOXIDIL 2.5 MG TAB PO SCH (09:46)
[2020-10-22] MEDS: ASPIRIN 81MG CHEW TAB PO SCH (09:46)
[2020-10-23] VITALS (21 sets, daily range): BP systolic 101–204; BP diastolic 55–86
[2020-10-23] MEDS: ONDANSETRON 4MG INJ IVP PRN (03:52)
[2020-10-23] MEDS: HYDROMORPHONE 0.5 MG SYG (0.5MG/0.5ML) IVP PRN ×2 (03:52→17:36)
[2020-10-23 04:03] LABS: HEMATOCRIT 37.3 % (36-48); MEAN CORPUSCULAR HEMOGLOBIN 30.7 pg (27.0-33.0); MEAN CORPUSCULAR HGB CONC 32.2 g/dL (32.0-36.0); MEAN CORPUSCULAR VOLUME 95.4 fL (79-99); PLATELET COUNT (AUTO) 219 K/uL (130-400); RED BLOOD CELL COUNT(AUTO) 3.91 MIL/uL (4.00-5.50); RED CELL DISTRIBUTION WIDTH 15.7 % (11.0-15.5); WHITE BLOOD COUNT (AUTO) 9.8 K/uL (4.8-10.8)
[2020-10-23 04:15] LABS: CREATININE 6.4 mg/dL (0.5-1.5); PHOSPHORUS 11.7 mg/dL (2.5-4.9); POTASSIUM 4.6 mmol/L (3.5-5.1)
[2020-10-23 04:42] LABS: BASOPHILS % (MANUAL) 3 % (0-2); LYMPHOCYTES % (MANUAL) 24 % (22-44); MAN.DIFF COMMENT-IMPRESSION MANUAL DIFFERENTIAL; MONOCYTES % (MANUAL) 4 % (2-9); SEGMENTED NEUTROPHILS % 69 % (40-70)
[2020-10-23 04:44] LABS: PLATELET MORPHOLOGY COMMENT ADEQUATE
[2020-10-23] MEDS: INSULIN R PO SS1 SQ SCH ×3 (04:55→19:40)
[2020-10-23] MEDS ORDERED: METOPROLOL SUCCINATE 50 MG TAB.SR.24H PO ONE (05:12)
[2020-10-23] MEDS: METOPROLOL SUCCINATE 50 MG TAB.SR.24H PO SCH (05:16)
[2020-10-23] MEDS ORDERED: REGADENOSON 0.4 MG/5 ML PF SYG IVP SCH (08:00)
[2020-10-23] MEDS ORDERED: 0.9%NACL 1000ML 1,000 ML IV PRN (10:30)
[2020-10-23] MEDS: MINOXIDIL 2.5 MG TAB PO SCH (18:00)
[2020-10-23] MEDS: AMLODIPINE 5 MG TAB PO SCH (18:01)
[2020-10-23] MEDS: PANTOPRAZOLE 40 MG TAB DR PO SCH (18:01)
[2020-10-23] MEDS: ASPIRIN 81MG CHEW TAB PO SCH (18:01)
[2020-10-24] VITALS (7 sets, daily range): BP systolic 90–184; BP diastolic 44–78
[2020-10-24] MEDS: HYDROMORPHONE 0.5 MG SYG (0.5MG/0.5ML) IVP PRN ×2 (00:47→07:20)
[2020-10-24 04:20] LABS: HEMATOCRIT 38.4 % (36-48); MEAN CORPUSCULAR HEMOGLOBIN 30.8 pg (27.0-33.0); MEAN CORPUSCULAR HGB CONC 32.6 g/dL (32.0-36.0); MEAN CORPUSCULAR VOLUME 94.6 fL (79-99); NUCLEATED RED BLOOD CELLS 0.2 % (0.0-0.19); PLATELET COUNT (AUTO) 243 K/uL (130-400); RED BLOOD CELL COUNT(AUTO) 4.06 MIL/uL (4.00-5.50); RED CELL DISTRIBUTION WIDTH 15.5 % (11.0-15.5)
[2020-10-24 04:40] LABS: CREATININE 5.3 mg/dL (0.5-1.5); PHOSPHORUS 9.6 mg/dL (2.5-4.9); POTASSIUM 4.4 mmol/L (3.5-5.1)
[2020-10-24] MEDS: INSULIN R PO SS1 SQ SCH ×4 (05:11→21:00)
[2020-10-24 05:32] LABS: BAND NEUTROPHILS % (MANUAL) 3 % (0-2); BASOPHILS % (MANUAL) 1 % (0-2); EOSINOPHILS % (MANUAL) 1 % (1-6); LYMPHOCYTES % (MANUAL) 21 % (22-44); MONOCYTES % (MANUAL) 9 % (2-9); REACTIVE LYMPHOCYTES 3 % (0-0); SEGMENTED NEUTROPHILS % 62 % (40-70)
[2020-10-24 05:33] LABS: MAN.DIFF COMMENT-IMPRESSION MANUAL DIFFERENTIAL; PLATELET MORPHOLOGY COMMENT ADEQUATE
[2020-10-24 06:12] LABS: HEPATITIS Bs ANTIGEN SCREEN P Negative (Negative)
[2020-10-24] MEDS: ASPIRIN 81MG CHEW TAB PO SCH (09:52)
[2020-10-24] MEDS: MINOXIDIL 2.5 MG TAB PO SCH (09:52)
[2020-10-24] MEDS: AMLODIPINE 5 MG TAB PO SCH (09:53)
[2020-10-24] MEDS: PANTOPRAZOLE 40 MG TAB DR PO SCH (09:53)
[2020-10-24] MEDS: METOPROLOL SUCCINATE 50 MG TAB.SR.24H PO SCH (09:53)
[2020-10-25] VITALS (16 sets, daily range): BP systolic 98–159; BP diastolic 40–75
[2020-10-25 04:11] LABS: HEMATOCRIT 34.7 % (36-48); MEAN CORPUSCULAR HEMOGLOBIN 30.8 pg (27.0-33.0); MEAN CORPUSCULAR HGB CONC 33.7 g/dL (32.0-36.0); MEAN CORPUSCULAR VOLUME 91.3 fL (79-99); NUCLEATED RED BLOOD CELLS 0.2 % (0.0-0.19); RED BLOOD CELL COUNT(AUTO) 3.8 MIL/uL (4.00-5.50); RED CELL DISTRIBUTION WIDTH 15.3 % (11.0-15.5); WHITE BLOOD COUNT (AUTO) 8.7 K/uL (4.8-10.8)
[2020-10-25 04:27] LABS: POTASSIUM 4.1 mmol/L (3.5-5.1)
[2020-10-25] MEDS: ACETAMINOPHEN 325 MG TAB PO PRN (04:58)
[2020-10-25] MEDS: INSULIN R PO SS1 SQ SCH ×3 (05:57→16:30)
[2020-10-25] MEDS: MINOXIDIL 2.5 MG TAB PO SCH (10:08)
[2020-10-25] MEDS: ASPIRIN 81MG CHEW TAB PO SCH (10:08)
[2020-10-25] MEDS: AMLODIPINE 5 MG TAB PO SCH (10:08)
[2020-10-25] MEDS: PANTOPRAZOLE 40 MG TAB DR PO SCH (10:08)
[2020-10-25] MEDS: METOPROLOL SUCCINATE 50 MG TAB.SR.24H PO SCH (10:08)
[2020-10-25] MEDS ORDERED: NALOXONE HCL 0.4 MG/1 ML ML ONE (15:27)
[2020-10-26] VITALS (7 sets, daily range): BP systolic 111–193; BP diastolic 42–59
[2020-10-26 04:53] LABS: HEMATOCRIT 34.7 % (36-48); MEAN CORPUSCULAR HEMOGLOBIN 31.1 pg (27.0-33.0); MEAN CORPUSCULAR HGB CONC 33.7 g/dL (32.0-36.0); MEAN CORPUSCULAR VOLUME 92.3 fL (79-99); PLATELET COUNT (AUTO) 237 K/uL (130-400); RED BLOOD CELL COUNT(AUTO) 3.76 MIL/uL (4.00-5.50); RED CELL DISTRIBUTION WIDTH 15.5 % (11.0-15.5); WHITE BLOOD COUNT (AUTO) 8.9 K/uL (4.8-10.8)
[2020-10-26 05:08] LABS: CREATININE 5.4 mg/dL (0.5-1.5); POTASSIUM 4.2 mmol/L (3.5-5.1)
[2020-10-26 05:50] LABS: LYMPHOCYTES % (MANUAL) 25 % (22-44); MAN.DIFF COMMENT-IMPRESSION MANUAL DIFFERENTIAL; MONOCYTES % (MANUAL) 12 % (2-9); SEGMENTED NEUTROPHILS % 63 % (40-70)
[2020-10-26 05:51] LABS: PLATELET MORPHOLOGY COMMENT ADEQUATE
[2020-10-26] MEDS: INSULIN R PO SS1 SQ SCH ×4 (07:30→22:08)
[2020-10-26] MEDS: AMLODIPINE 5 MG TAB PO SCH (08:49)
[2020-10-26] MEDS: PANTOPRAZOLE 40 MG TAB DR PO SCH (08:49)
[2020-10-26] MEDS: MINOXIDIL 2.5 MG TAB PO SCH (08:49)
[2020-10-26] MEDS: ASPIRIN 81MG CHEW TAB PO SCH (08:50)
[2020-10-26] MEDS: METOPROLOL SUCCINATE 50 MG TAB.SR.24H PO SCH (08:50)
[2020-10-27] VITALS (11 sets, daily range): BP systolic 88–166; BP diastolic 36–61
[2020-10-27 03:58] LABS: BASOPHILS % (AUTO) 0.9 % (0.0-5.0); EOSINOPHILS % (AUTO) 1.8 % (0.0-8.0); HEMATOCRIT 35.2 % (36-48); LYMPHOCYTES % (AUTO) 15.8 % (21.0-51.0); MEAN CORPUSCULAR HEMOGLOBIN 30.5 pg (27.0-33.0); MEAN CORPUSCULAR HGB CONC 33.2 g/dL (32.0-36.0); MEAN CORPUSCULAR VOLUME 91.7 fL (79-99); MONOCYTES % (AUTO) 15.3 % (3.0-13.0); NEUTROPHILS % (AUTO) 65.8 % (40.0-77.0); PLATELET COUNT (AUTO) 261 K/uL (130-400); RED BLOOD CELL COUNT(AUTO) 3.84 MIL/uL (4.00-5.50); RED CELL DISTRIBUTION WIDTH 15.7 % (11.0-15.5)
[2020-10-27 04:20] LABS: CREATININE 6.8 mg/dL (0.5-1.5); PHOSPHORUS 9.6 mg/dL (2.5-4.9)
[2020-10-27 04:32] LABS: INR 1.04 (0.85-1.15); PROTHROMBIN TIME 11.3 SEC (9.6-11.6)
[2020-10-27 04:34] LABS: PARTIAL THROMBOPLASTIN TIME 33.3 SEC (26.3-35.5)
[2020-10-27] MEDS: INSULIN R PO SS1 SQ SCH ×4 (07:30→21:00)
[2020-10-27] MEDS: PANTOPRAZOLE 40 MG TAB DR PO SCH (09:00)
[2020-10-27] MEDS: MINOXIDIL 2.5 MG TAB PO SCH (09:00)
[2020-10-27] MEDS: ASPIRIN 81MG CHEW TAB PO SCH (09:00)
[2020-10-27] MEDS: AMLODIPINE 5 MG TAB PO SCH (09:00)
[2020-10-27] MEDS: METOPROLOL SUCCINATE 50 MG TAB.SR.24H PO SCH (12:43)
[2020-10-27] MEDS ORDERED: SODIUM BICARB 50MEQ 50ML VIAL 50 ML ONE (14:32)
[2020-10-27] MEDS ORDERED: IOHEXOL 350 MG/ML 100ML INFUS..BTL IV ONE (14:33)
[2020-10-27] MEDS ORDERED: NITROGLYCERIN 2 MG VIAL IV ONE (14:33)
[2020-10-27] MEDS ORDERED: NICARDIPINE 25MG INJ IV ONE (14:33)
[2020-10-27] MEDS ORDERED: FENTANYL CITRATE PF 50 MCG/1 ML 2ML VIAL ONE (14:33)
[2020-10-27] MEDS ORDERED: LIDOCAINE HCL 400MG/20ML VIAL ONE (14:33)
[2020-10-27] MEDS ORDERED: MIDAZOLAM HCL 1 MG/ML 2ML VIAL ONE (14:33)
[2020-10-27] MEDS ORDERED: HEPARIN 10,000 UNIT/10ML (1,000 UNIT/ML) VIAL ONE (14:33)
[2020-10-27] MEDS ORDERED: LABETALOL 20MG VIAL IV ONE (16:17)
[2020-10-27] MEDS: ACETAMINOPHEN 325 MG TAB PO PRN (21:38)
[2020-10-28] VITALS (19 sets, daily range): BP systolic 110–187; BP diastolic 45–89
[2020-10-28] MEDS: ONDANSETRON 4MG INJ IVP PRN (03:19)
[2020-10-28 04:12] LABS: BASOPHILS % (AUTO) 0.6 % (0.0-5.0); EOSINOPHILS % (AUTO) 2.2 % (0.0-8.0); LYMPHOCYTES % (AUTO) 18.3 % (21.0-51.0); MEAN CORPUSCULAR HEMOGLOBIN 31.2 pg (27.0-33.0); MEAN CORPUSCULAR HGB CONC 33.9 g/dL (32.0-36.0); MEAN CORPUSCULAR VOLUME 91.9 fL (79-99); MONOCYTES % (AUTO) 12.5 % (3.0-13.0); NEUTROPHILS % (AUTO) 65.9 % (40.0-77.0); PLATELET COUNT (AUTO) 253 K/uL (130-400); RED BLOOD CELL COUNT(AUTO) 3.59 MIL/uL (4.00-5.50); RED CELL DISTRIBUTION WIDTH 15.7 % (11.0-15.5); WHITE BLOOD COUNT (AUTO) 8.6 K/uL (4.8-10.8)
[2020-10-28] MEDS: INSULIN R PO SS1 SQ SCH ×3 (06:25→16:30)
[2020-10-28] MEDS ORDERED: SIMV10TA2 PO (09:19)
[2020-10-28] MEDS ORDERED: METO75TA PO (09:19)
[2020-10-28 09:33] LABS: CREATININE 7.8 mg/dL (0.5-1.5); POTASSIUM 3.9 mmol/L (3.5-5.1)
[2020-10-28] MEDS: ASPIRIN 81MG CHEW TAB PO SCH (09:58)
[2020-10-28] MEDS: PANTOPRAZOLE 40 MG TAB DR PO SCH (09:58)
[2020-10-28] MEDS: AMLODIPINE 5 MG TAB PO SCH (09:58)
[2020-10-28] MEDS: METOPROLOL SUCCINATE 50 MG TAB.SR.24H PO SCH (09:58)
[2020-10-28 09:59] LABS: BASOPHILS % (MANUAL) 5 % (0-2); EOSINOPHILS % (MANUAL) 1 % (1-6); LYMPHOCYTES % (MANUAL) 25 % (22-44); MAN.DIFF COMMENT-IMPRESSION MANUAL DIFFERENTIAL; MONOCYTES % (MANUAL) 8 % (2-9); PLATELET MORPHOLOGY COMMENT ADEQUATE; SEGMENTED NEUTROPHILS % 61 % (40-70)
[2020-10-28] MEDS: MINOXIDIL 2.5 MG TAB PO SCH (09:59)
== END 2020-10-28 18:45 | disposition home or self-care (01) | DRG 286 ==
LOC: EDH 15:36 → EDHIP 18:04 → 4BH 22:56
PROVIDERS: ADMIT Internal Medicine Nephrology; ATTEND Internal Medicine Nephrology
PROC: 5A1D70Z Performance of Urinary Filtration, Intermittent, Less than 6 Hours Per Day (ICD-10-PCS; principal; 2020-10-23)
PROC: 5A1D70Z Performance of Urinary Filtration, Intermittent, Less than 6 Hours Per Day (ICD-10-PCS; 2020-10-25)
PROC: 4A023N7 Measurement of Cardiac Sampling and Pressure, Left Heart, Percutaneous Approach (ICD-10-PCS; 2020-10-27)
PROC: B2111ZZ Fluoroscopy of Multiple Coronary Arteries using Low Osmolar Contrast (ICD-10-PCS; 2020-10-27)
PROC: B2151ZZ Fluoroscopy of Left Heart using Low Osmolar Contrast (ICD-10-PCS; 2020-10-27)
PROC: 5A1D70Z Performance of Urinary Filtration, Intermittent, Less than 6 Hours Per Day (ICD-10-PCS; 2020-10-28)
DX: I24.9 Acute ischemic heart disease, unspecified (principal); N18.6 End stage renal disease; I13.2 Hypertensive heart and chronic kidney disease with heart failure and with stage 5 chronic kidney disease, or end stage renal disease; E11.22 Type 2 diabetes mellitus with diabetic chronic kidney disease; I16.0 Hypertensive urgency; D63.8 Anemia in other chronic diseases classified elsewhere; E11.51 Type 2 diabetes mellitus with diabetic peripheral angiopathy without gangrene; D72.829 Elevated white blood cell count, unspecified; I50.9 Heart failure, unspecified; E11.319 Type 2 diabetes mellitus with unspecified diabetic retinopathy without macular edema; E11.40 Type 2 diabetes mellitus with diabetic neuropathy, unspecified; I25.10 Atherosclerotic heart disease of native coronary artery without angina pectoris; Z99.2 Dependence on renal dialysis; Z91.15 Patient's noncompliance with renal dialysis; Z91.14 Patient's other noncompliance with medication regimen; Z91.19 Patient's noncompliance with other medical treatment and regimen; Z89.511 Acquired absence of right leg below knee; Z90.49 Acquired absence of other specified parts of digestive tract; Z87.11 Personal history of peptic ulcer disease; Z91.018 Allergy to other foods; Z88.0 Allergy status to penicillin; Z88.8 Allergy status to other drugs, medicaments and biological substances; I25.2 Old myocardial infarction; Z89.512 Acquired absence of left leg below knee; Z79.4 Long term (current) use of insulin; Z83.3 Family history of diabetes mellitus; Z82.3 Family history of stroke; Z82.49 Family history of ischemic heart disease and other diseases of the circulatory system
CPT/HCPCS: 36415; 71045; 76700; 78452; 80048; 80053; 80061; 82550; 82948; 83036; 83690; 83735; 83874; 84100; 84484; 85025; 85027; 85610; 85730; 86704; 86706; 87340; 90935; 93005; 93017; 93458; 96374; A9500; C1760; C1894; G0378; J1170; J1644; J1815; J2250; J2310; J2405; J2785; J3010; J3490; Q9967

== ENCOUNTER 2020-12-13 13:46 | Emergency (ER) | payer BC ==
[~2020-12-13] VITALS: Ht 149.9 cm; Wt 45.4 kg
[~2020-12-13 13:46] MED LIST changes: +AMLO-257 PO; -AMLO5TAB4 PO; -CYCL10 PO; -DICY20TA2 PO; -LACT10SO9 PO; -LISI40TA9 PO; -METO50TA9 PO; +METO75TA PO; -PANT40TA54 PO; -PHEN12S PR; +SIMV10TA2 PO
[2020-12-13] MEDS ORDERED: CYCLOBENZAPRINE HCL 10 MG TABLET PO ONE (14:30)
[2020-12-13] MEDS ORDERED: HYDROMORPHONE 1 MG INJ IM ONE (14:30)
[2020-12-13 14:57] LABS: BASOPHILS % (AUTO) 0.9 % (0.0-5.0); EOSINOPHILS % (AUTO) 0.9 % (0.0-8.0); HEMATOCRIT 44.1 % (36-48); LYMPHOCYTES % (AUTO) 8.3 % (21.0-51.0); MEAN CORPUSCULAR HEMOGLOBIN 30.2 pg (27.0-33.0); MEAN CORPUSCULAR HGB CONC 32.7 g/dL (32.0-36.0); MEAN CORPUSCULAR VOLUME 92.5 fL (79-99); MONOCYTES % (AUTO) 7.5 % (3.0-13.0); NEUTROPHILS % (AUTO) 82.1 % (40.0-77.0); PLATELET COUNT (AUTO) 235 K/uL (130-400); RED BLOOD CELL COUNT(AUTO) 4.77 MIL/uL (4.00-5.50); RED CELL DISTRIBUTION WIDTH 17.7 % (11.0-15.5); WHITE BLOOD COUNT (AUTO) 7.5 K/uL (4.8-10.8)
[2020-12-13] MEDS ORDERED: DIPHENHYDRAMINE HCL 25 MG CAPSULE PO ONE (15:00)
[2020-12-13 15:06] LABS: CREATININE 4.2 mg/dL (0.5-1.5)
[2020-12-13 15:11] LABS: ALBUMIN 4.1 g/dL (3.5-5.0); BILIRUBIN,TOTAL 0.7 mg/dL (0.2-1.0); TOTAL PROTEIN, SERUM 9.5 g/dL (6.0-8.3)
[2020-12-13] MEDS ORDERED: NIFEDIPINE 10 MG CAP ONE (15:40)
[2020-12-13] MEDS ORDERED: NIFEDIPINE 10 MG CAP PO SCH ×2 (16:00→16:30)
[2020-12-13] MEDS ORDERED: FENTANYL 50 MCG/HR PATCH TD SCH (16:30)
[2020-12-13 16:37] VITALS: BP 136/80
== END 2020-12-13 16:59 | disposition home or self-care (01) ==
LOC: EDH 13:46
DX: S29.012A Strain of muscle and tendon of back wall of thorax, initial encounter (principal); G89.4 Chronic pain syndrome; I13.2 Hypertensive heart and chronic kidney disease with heart failure and with stage 5 chronic kidney disease, or end stage renal disease; I50.9 Heart failure, unspecified; E11.22 Type 2 diabetes mellitus with diabetic chronic kidney disease; N18.6 End stage renal disease; I25.10 Atherosclerotic heart disease of native coronary artery without angina pectoris; Z79.899 Other long term (current) drug therapy; Z88.0 Allergy status to penicillin; Z88.5 Allergy status to narcotic agent; Z88.8 Allergy status to other drugs, medicaments and biological substances; Z99.2 Dependence on renal dialysis; X58.XXXA Exposure to other specified factors, initial encounter; Y93.89 Activity, other specified; Y92.89 Other specified places as the place of occurrence of the external cause; Y99.8 Other external cause status
CPT/HCPCS: 36415; 80053; 85025; 96372; 99284; J1170; Q0163

== ENCOUNTER 2021-03-10 14:42 | Inpatient (IN) | payer BC ==
[~2021-03-10] VITALS: Ht 149.9 cm; Wt 41.2 kg
[2021-03-10] VITALS (7 sets, daily range): BP systolic 201–248; BP diastolic 49–111
[2021-03-10] MEDS ORDERED: LORAZEPAM 2 MG/ML 1 ML VIAL IVP ONE (17:30)
[2021-03-10 17:51] LABS: HEMATOCRIT 42.6 % (36-48); MEAN CORPUSCULAR HEMOGLOBIN 28.9 pg (27.0-33.0); MEAN CORPUSCULAR HGB CONC 31.2 g/dL (32.0-36.0); MEAN CORPUSCULAR VOLUME 92.6 fL (79-99); PLATELET COUNT (AUTO) 264 K/uL (130-400); RED CELL DISTRIBUTION WIDTH 18.3 % (11.0-15.5); WHITE BLOOD COUNT (AUTO) 10.9 K/uL (4.8-10.8)
[2021-03-10 18:12] LABS: CREATININE 4.1 mg/dL (0.5-1.5); POTASSIUM 4.1 mmol/L (3.5-5.1)
[2021-03-10 18:22] LABS: BILIRUBIN,TOTAL 0.6 mg/dL (0.2-1.0); TOTAL PROTEIN, SERUM 9.4 g/dL (6.0-8.3)
[2021-03-10] MEDS ORDERED: ASPIRIN 325MG EC TAB PO ONE (19:00)
[2021-03-10 19:14] LABS: BASOPHILS % (MANUAL) 1 % (0-2); LYMPHOCYTES % (MANUAL) 7 % (22-44); MAN.DIFF COMMENT-IMPRESSION MANUAL DIFFERENTIAL; MONOCYTES % (MANUAL) 2 % (2-9); SEGMENTED NEUTROPHILS % 90 % (40-70)
[2021-03-10 19:15] LABS: PLATELET MORPHOLOGY COMMENT ADEQUATE
[2021-03-10] MEDS ORDERED: HYDRALAZINE 20MG/ML VIAL IV ONE (19:30)
[2021-03-10] MEDS ORDERED: CLONIDINE HCL 0.2 MG TABLET PO SCH ×2 (19:56→21:00)
[2021-03-10] MEDS ORDERED: NITROGLYCERIN 1GM OINT 1 INCH/1GM TD STA (19:56)
[2021-03-10] MEDS ORDERED: NITROGLYCERIN 0.4 MG SL TAB SL PRN (20:00)
[2021-03-10] MEDS ORDERED: ONDANSETRON 4MG INJ IV PRN (20:00)
[2021-03-10] MEDS ORDERED: HYDRALAZINE 20MG/ML VIAL IV PRN (20:00)
[2021-03-10] MEDS ORDERED: LABETALOL 20MG VIAL IV STA ×2 (20:10→21:44)
[2021-03-10] MEDS ORDERED: ONDANSETRON 4MG INJ IVP STA (20:21)
[2021-03-10] MEDS ORDERED: HYDRALAZINE 25MG TABLET PO SCH (20:40)
[2021-03-10] MEDS: PHARMACY COMMUNICATION MISC SCH ×3 (21:00→23:27)
[2021-03-10] MEDS ORDERED: MORPHINE 2 MG SYG IVP ONE (21:00)
[2021-03-10] MEDS ORDERED: HEPARIN 5,000 UNIT VIAL SQ SCH (21:00)
[2021-03-10] MEDS: FAMOTIDINE 20MG VIAL IV SCH (21:59)
[2021-03-10] MEDS ORDERED: NICARDIPINE 25MG INJ 25 MG in 0.9% NACL 250ML 240 ML IV STA (22:52)
[2021-03-10] MEDS ORDERED: LABETALOL 20MG VIAL IV PRN (23:00)
[2021-03-10] MEDS ORDERED: NICARDIPINE 25MG INJ IV ONE (23:19)
[2021-03-11] VITALS: BP 141/64
[2021-03-11 00:15] VITALS: BP 136/60
[2021-03-11] MEDS: PHARMACY COMMUNICATION MISC SCH ×8 (01:00→12:12)
[2021-03-11] MEDS ORDERED: LABETALOL 20MG VIAL IV PRN ×2 (02:00→10:00)
[2021-03-11] MEDS ORDERED: ACETAMINOPHEN 325 MG TAB PO PRN (04:30)
[2021-03-11] MEDS: PROMETHAZINE HCL 25 MG/ML 1ML AMPULE IM PRN ×2 (05:00→15:29)
[2021-03-11] MEDS ORDERED: CLONIDINE 0.3 MG/ 24 HR PATCH TD SCH (06:30)
[2021-03-11] MEDS ORDERED: NICARDIPINE 25MG INJ IV ONE (09:39)
[2021-03-11] MEDS: METOPROLOL TARTRATE 50 MG TAB PO SCH ×2 (09:51→22:45)
[2021-03-11] MEDS ORDERED: MORPHINE 2 MG SYG IVP ONE (10:00)
[2021-03-11] MEDS ORDERED: LISINOPRIL 20 MG TABLET PO SCH (11:00)
[2021-03-11] MEDS: NICARDIPINE 25MG INJ 25 MG in 0.9% NACL 250ML 240 ML IV SCH ×2 (16:07→23:26)
[2021-03-11] MEDS ORDERED: ATOR40TA69 PO ×2 (16:16→16:18)
[2021-03-11] MEDS ORDERED: LISI40TA9 PO (16:17)
[2021-03-11] MEDS ORDERED: CLOP75TA32 PO (16:19)
[2021-03-11] MEDS ORDERED: SEVE0.8P3 PO (16:20)
[2021-03-11] MEDS ORDERED: ASPI-1197 PO (16:20)
[2021-03-11 20:13] LABS: HEMOGLOBIN A1C 6.3 % (4.0-6.0)
[2021-03-11] MEDS ORDERED: MORPHINE 2 MG SYG IVP SCH (21:00)
[2021-03-11] MEDS ORDERED: ATORVASTATIN 40 MG TABLET PO SCH (21:00)
[2021-03-11] MEDS: FAMOTIDINE 20MG VIAL IV SCH (22:44)
[2021-03-11] MEDS: HYDRALAZINE 25MG TABLET PO SCH (22:45)
[2021-03-12] VITALS (15 sets, daily range): BP systolic 123–164; BP diastolic 35–65
[2021-03-12] MEDS: PHARMACY COMMUNICATION MISC SCH (08:09)
[2021-03-12 08:10] LABS: BASOPHILS % (AUTO) 0.4 % (0.0-5.0); HEMATOCRIT 36.1 % (36-48); LYMPHOCYTES % (AUTO) 7.3 % (21.0-51.0); MEAN CORPUSCULAR VOLUME 93.5 fL (79-99); MONOCYTES % (AUTO) 7.6 % (3.0-13.0); NEUTROPHILS % (AUTO) 84.4 % (40.0-77.0); PLATELET COUNT (AUTO) 227 K/uL (130-400); RED BLOOD CELL COUNT(AUTO) 3.86 MIL/uL (4.00-5.50); RED CELL DISTRIBUTION WIDTH 18.6 % (11.0-15.5); WHITE BLOOD COUNT (AUTO) 7.9 K/uL (4.8-10.8)
[2021-03-12 08:32] LABS: ALBUMIN 3.7 g/dL (3.5-5.0); BILIRUBIN,TOTAL 0.5 mg/dL (0.2-1.0); CREATININE 6.8 mg/dL (0.5-1.5); POTASSIUM 5.2 mmol/L (3.5-5.1); TOTAL PROTEIN, SERUM 8.3 g/dL (6.0-8.3)
[2021-03-12 08:37] LABS: MAGNESIUM 2.8 mg/dL (1.80-2.40)
[2021-03-12] MEDS: LISINOPRIL 20 MG TABLET PO SCH ×2 (08:42→23:25)
[2021-03-12] MEDS: HYDRALAZINE 25MG TABLET PO SCH ×3 (08:47→23:24)
[2021-03-12] MEDS: ASPIRIN 81MG CHEW TAB PO SCH (08:49)
[2021-03-12] MEDS: NIFEDIPINE 10 MG CAP PO SCH ×3 (08:50→23:25)
[2021-03-12] MEDS: METOPROLOL SUCCINATE 50 MG TAB.SR.24H PO SCH (08:50)
[2021-03-12] MEDS ORDERED: AMLODIPINE 5 MG TAB PO SCH (09:00)
[2021-03-12] MEDS: PROMETHAZINE HCL 25 MG/ML 1ML AMPULE IM PRN (10:35)
[2021-03-12] MEDS: SEVELAMER HCL 800 MG TABLET PO SCH ×2 (13:32→18:04)
[2021-03-12] MEDS: FAMOTIDINE 20MG TAB PO SCH (18:05)
[2021-03-12] MEDS ORDERED: 0.9%NACL 1000ML 1,000 ML IV ONE (19:28)
[2021-03-12] MEDS ORDERED: ATORVASTATIN 40 MG TABLET PO SCH (21:00)
[2021-03-12] MEDS: INSULIN HUMULIN R 100 UNIT/ML 3ML SQ SCH (23:36)
[2021-03-13] MEDS ORDERED: HYDROMORPHONE 0.5 MG SYG (0.5MG/0.5ML) IVP ONE (01:30)
[2021-03-13] MEDS ORDERED: HYDROMORPHONE 1 MG INJ ONE (02:45)
[2021-03-13 04:25] VITALS: BP 148/68
[2021-03-13] MEDS: INSULIN HUMULIN R 100 UNIT/ML 3ML SQ SCH ×2 (06:31→11:30)
[2021-03-13 07:59] LABS: BASOPHILS % (AUTO) 0.4 % (0.0-5.0); EOSINOPHILS % (AUTO) 0.2 % (0.0-8.0); HEMATOCRIT 41.2 % (36-48); LYMPHOCYTES % (AUTO) 9.7 % (21.0-51.0); MEAN CORPUSCULAR HEMOGLOBIN 30.2 pg (27.0-33.0); MEAN CORPUSCULAR HGB CONC 32.3 g/dL (32.0-36.0); MEAN CORPUSCULAR VOLUME 93.4 fL (79-99); MONOCYTES % (AUTO) 6.7 % (3.0-13.0); NEUTROPHILS % (AUTO) 82.8 % (40.0-77.0); PLATELET COUNT (AUTO) 254 K/uL (130-400); RED BLOOD CELL COUNT(AUTO) 4.41 MIL/uL (4.00-5.50); WHITE BLOOD COUNT (AUTO) 10.8 K/uL (4.8-10.8)
[2021-03-13 08:48] LABS: ALBUMIN 3.8 g/dL (3.5-5.0); BILIRUBIN,TOTAL 0.6 mg/dL (0.2-1.0); MAGNESIUM 2.4 mg/dL (1.80-2.40); PHOSPHORUS 6.1 mg/dL (2.5-4.9); TOTAL PROTEIN, SERUM 8.8 g/dL (6.0-8.3)
[2021-03-13] MEDS: NIFEDIPINE 10 MG CAP PO SCH (09:47)
[2021-03-13] MEDS: METOPROLOL SUCCINATE 50 MG TAB.SR.24H PO SCH (09:47)
[2021-03-13] MEDS: LISINOPRIL 20 MG TABLET PO SCH (09:47)
[2021-03-13] MEDS: FAMOTIDINE 20MG TAB PO SCH (09:47)
[2021-03-13] MEDS: ASPIRIN 81MG CHEW TAB PO SCH (09:48)
[2021-03-13] MEDS: HYDRALAZINE 25MG TABLET PO SCH ×2 (09:49→13:20)
[2021-03-13] MEDS: SEVELAMER HCL 800 MG TABLET PO SCH ×2 (09:49→13:20)
[2021-03-13] MEDS ORDERED: HYDR25 PO (11:59)
[2021-03-13] MEDS ORDERED: NIFE-39 PO (11:59)
[2021-03-13] MEDS ORDERED: SEVE800 PO (11:59)
[2021-03-13] MEDS ORDERED: METO50TA9 PO (11:59)
[2021-03-13] MEDS ORDERED: LISI20TA24 PO (11:59)
[2021-03-13] MEDS ORDERED: NIFEDIPINE ER 30 MG TAB PO SCH (12:00)
[2021-03-13] MEDS ORDERED: GABA300S PO (12:11)
[2021-03-13] MEDS ORDERED: AMIT25TA9 PO (12:11)
== END 2021-03-13 13:55 | disposition home or self-care (01) | DRG 280 ==
LOC: EDH 14:42 → EDHIP 19:54 → 4CH 03-13 04:26
PROVIDERS: ADMIT Internal Medicine; ATTEND Internal Medicine
PROC: 5A1D70Z Performance of Urinary Filtration, Intermittent, Less than 6 Hours Per Day (ICD-10-PCS; principal; 2021-03-11)
PROC: 5A1D70Z Performance of Urinary Filtration, Intermittent, Less than 6 Hours Per Day (ICD-10-PCS; 2021-03-12)
DX: I16.1 Hypertensive emergency (principal); N18.6 End stage renal disease; I21.A1 Myocardial infarction type 2; I13.2 Hypertensive heart and chronic kidney disease with heart failure and with stage 5 chronic kidney disease, or end stage renal disease; E78.5 Hyperlipidemia, unspecified; I50.9 Heart failure, unspecified; E11.22 Type 2 diabetes mellitus with diabetic chronic kidney disease; I25.10 Atherosclerotic heart disease of native coronary artery without angina pectoris; E11.319 Type 2 diabetes mellitus with unspecified diabetic retinopathy without macular edema; R51.9 Headache, unspecified; M47.815 Spondylosis without myelopathy or radiculopathy, thoracolumbar region; K31.89 Other diseases of stomach and duodenum; D25.9 Leiomyoma of uterus, unspecified; Z99.2 Dependence on renal dialysis; Z91.018 Allergy to other foods; Z88.0 Allergy status to penicillin; Z88.8 Allergy status to other drugs, medicaments and biological substances; Z89.511 Acquired absence of right leg below knee; Z90.49 Acquired absence of other specified parts of digestive tract; Z91.15 Patient's noncompliance with renal dialysis; Z91.19 Patient's noncompliance with other medical treatment and regimen; Z82.3 Family history of stroke; Z83.3 Family history of diabetes mellitus; Z82.49 Family history of ischemic heart disease and other diseases of the circulatory system; Z82.0 Family history of epilepsy and other diseases of the nervous system; Z82.5 Family history of asthma and other chronic lower respiratory diseases; Z83.2 Family history of diseases of the blood and blood-forming organs and certain disorders involving the immune mechanism
CPT/HCPCS: 36415; 70450; 71045; 74176; 80053; 82948; 83036; 83690; 83735; 84100; 84484; 85025; 86704; 86706; 87340; 90935; 93005; 97039; G0378; J1170; J2060; J2405; J2550; J3490; J7030; J7050

== ENCOUNTER 2021-05-27 18:11 | Inpatient (IN) | payer BC ==
[~2021-05-27] VITALS: Ht 149.9 cm; Wt 49.7 kg
[~2021-05-27 18:11] MED LIST changes: +AMIT25TA9 PO; -AMLO-257 PO; +ASPI-1197 PO; +ATOR40TA69 PO; +CLON0.1T PO; +CLOP75TA32 PO; +GABA300S PO; +HYDR-4153 PO; +LISI40TA9 PO; +METO50TA9 PO; -METO75TA PO; -MINO2.5 PO; +NIFE-39 PO; -ONDA4TAB10 PO; +SEVE800T27 PO; -SIMV10TA2 PO
[2021-05-27] MEDS ORDERED: NITROGLYCERIN 0.4 MG SL TAB SL ONE (18:55)
[2021-05-27] MEDS: NITROGLYCERIN 0.4 MG SL TAB SL PRN ×2 (18:57→19:02)
[2021-05-27] MEDS ORDERED: ONDANSETRON 4MG INJ IVP ONE (19:00)
[2021-05-27] MEDS ORDERED: MORPHINE 2 MG SYG IVP ONE ×2 (19:00→20:30)
[2021-05-27] MEDS ORDERED: ASPIRIN 325MG EC TAB PO ONE (19:00)
[2021-05-27 19:26] LABS: BASOPHILS % (AUTO) 0.7 % (0.0-5.0); EOSINOPHILS % (AUTO) 0.6 % (0.0-8.0); LYMPHOCYTES % (AUTO) 13.7 % (21.0-51.0); MEAN CORPUSCULAR HEMOGLOBIN 30.9 pg (27.0-33.0); MEAN CORPUSCULAR HGB CONC 32.9 g/dL (32.0-36.0); MEAN CORPUSCULAR VOLUME 94.1 fL (79-99); NEUTROPHILS % (AUTO) 74.6 % (40.0-77.0); PLATELET COUNT (AUTO) 171 K/uL (130-400); RED BLOOD CELL COUNT(AUTO) 3.72 MIL/uL (4.00-5.50); RED CELL DISTRIBUTION WIDTH 15.7 % (11.0-15.5); WHITE BLOOD COUNT (AUTO) 8.2 K/uL (4.8-10.8)
[2021-05-27] MEDS ORDERED: NITROGLYCERIN 50MG/D5W 250ML 250 BOT IV SCH (19:30)
[2021-05-27 19:36] LABS: CREATININE 7.2 mg/dL (0.5-1.5); POTASSIUM 4.6 mmol/L (3.5-5.1)
[2021-05-27 19:43] LABS: ALBUMIN 3.6 g/dL (3.5-5.0); BILIRUBIN,TOTAL 0.4 mg/dL (0.2-1.0); MAGNESIUM 2.3 mg/dL (1.80-2.40)
[2021-05-27] MEDS ORDERED: CEFTRIAXONE 1G VIAL IV SCH (23:30)
[2021-05-27] MEDS ORDERED: LACTULOSE 20 GM/30 ML UDCUP PO PRN (23:30)
[2021-05-27] MEDS ORDERED: HYDRALAZINE 20MG/ML VIAL IV PRN (23:30)
[2021-05-27] MEDS ORDERED: HYDRALAZINE 20MG/ML VIAL IV ONE (23:30)
[2021-05-27] MEDS ORDERED: GUAIFENESIN-DM 200/20 MG 10 ML PO PRN (23:30)
[2021-05-27] MEDS: PHARMACY COMMUNICATION MISC SCH (23:45)
[2021-05-28] VITALS (49 sets, daily range): BP systolic 100–172; BP diastolic 49–99
[2021-05-28] MEDS ORDERED: PHARMACY COMMUNICATION MISC SCH ×3 (00:30→02:30)
[2021-05-28 00:34] LABS: HEMOGLOBIN A1C 6.9 % (4.0-6.0)
[2021-05-28 00:48] LABS: INR 1.05 (0.85-1.15); PROTHROMBIN TIME 11.4 SEC (9.6-11.6)
[2021-05-28] MEDS: MORPHINE 4 MG SYG IVP PRN ×3 (00:48→15:41)
[2021-05-28 00:50] LABS: PARTIAL THROMBOPLASTIN TIME 29.6 SEC (26.3-35.5)
[2021-05-28 00:52] LABS: CHOLESTEROL 165 mg/dL (<200); HDL CHOLESTEROL 78 mg/dL (35-85); LDL DIRECT 66 mg/dL (0-99); TRIGLYCERIDES 59 mg/dL (30-200)
[2021-05-28] MEDS: AZITHROMYCIN 500MG+NS 250ML 250 ML IV SCH ×2 (02:07→23:17)
[2021-05-28] MEDS: ONDANSETRON 4MG INJ IVP PRN ×3 (03:13→17:25)
[2021-05-28] MEDS: PHARMACY COMMUNICATION MISC SCH ×2 (05:45→20:00)
[2021-05-28] MEDS ORDERED: INSULIN HUMULIN R 100 UNIT/ML 3ML SQ SCH (07:30)
[2021-05-28] MEDS: CLONIDINE HCL 0.1 MG TABLET PO SCH ×2 (08:40→20:40)
[2021-05-28] MEDS: HYDRALAZINE 25MG TABLET PO SCH ×3 (08:40→20:39)
[2021-05-28] MEDS: LISINOPRIL 40 MG TABLET PO SCH (08:41)
[2021-05-28] MEDS: CLOPIDOGREL 75MG TAB PO SCH (08:41)
[2021-05-28] MEDS: NIFEDIPINE ER 30 MG TAB PO SCH (08:42)
[2021-05-28] MEDS: ASPIRIN 81MG CHEW TAB PO SCH (08:42)
[2021-05-28] MEDS: FAMOTIDINE 20MG VIAL IV SCH ×2 (08:42→20:39)
[2021-05-28] MEDS: HEPARIN 5,000 UNIT VIAL SQ SCH ×3 (08:43→20:38)
[2021-05-28] MEDS: METOPROLOL SUCCINATE 50 MG TAB.SR.24H PO SCH (08:43)
[2021-05-28] MEDS ORDERED: HYDRALAZINE 25MG TABLET PO SCH (09:00)
[2021-05-28] MEDS ORDERED: LISINOPRIL 40 MG TABLET PO SCH ×2 (09:00)
[2021-05-28] MEDS ORDERED: NIFEDIPINE ER 30 MG TAB PO SCH (09:00)
[2021-05-28] MEDS ORDERED: CLONIDINE HCL 0.1 MG TABLET PO SCH (09:00)
[2021-05-28] MEDS: INSULIN HUMULIN R 100 UNIT/ML 3ML SQ SCH ×3 (12:00→20:44)
[2021-05-28] MEDS: SEVELAMER HCL 800 MG TABLET PO SCH ×2 (12:00→17:25)
[2021-05-28] MEDS: AMITRIPTYLINE 25 MG TABLET PO SCH (20:39)
[2021-05-28] MEDS: ATORVASTATIN 40 MG TABLET PO SCH (20:39)
[2021-05-28] MEDS: GABAPENTIN 300 MG CAPSULE PO SCH (20:40)
[2021-05-29] VITALS (18 sets, daily range): BP systolic 113–172; BP diastolic 52–95
[2021-05-29 05:29] LABS: BASOPHILS % (AUTO) 1.1 % (0.0-5.0); EOSINOPHILS % (AUTO) 0.8 % (0.0-8.0); HEMATOCRIT 32.7 % (36-48); LYMPHOCYTES % (AUTO) 22.5 % (21.0-51.0); MEAN CORPUSCULAR HEMOGLOBIN 30.5 pg (27.0-33.0); MEAN CORPUSCULAR HGB CONC 32.4 g/dL (32.0-36.0); MEAN CORPUSCULAR VOLUME 94.2 fL (79-99); MONOCYTES % (AUTO) 9.6 % (3.0-13.0); NEUTROPHILS % (AUTO) 65.6 % (40.0-77.0); PLATELET COUNT (AUTO) 185 K/uL (130-400); RED BLOOD CELL COUNT(AUTO) 3.47 MIL/uL (4.00-5.50); RED CELL DISTRIBUTION WIDTH 15.9 % (11.0-15.5); WHITE BLOOD COUNT (AUTO) 7.6 K/uL (4.8-10.8)
[2021-05-29 05:56] LABS: B-TYPE NATRIURETIC PEPTIDE 3920 pg/mL (0-100)
[2021-05-29 05:58] LABS: BILIRUBIN,TOTAL 0.4 mg/dL (0.2-1.0); CREATININE 4.9 mg/dL (0.5-1.5); MAGNESIUM 2.1 mg/dL (1.80-2.40); PHOSPHORUS 7.4 mg/dL (2.5-4.9); POTASSIUM 4.3 mmol/L (3.5-5.1); TOTAL PROTEIN, SERUM 7.2 g/dL (6.0-8.3)
[2021-05-29] MEDS: FAMOTIDINE 20MG VIAL IV SCH ×2 (07:48→22:31)
[2021-05-29] MEDS: METOPROLOL SUCCINATE 50 MG TAB.SR.24H PO SCH (07:48)
[2021-05-29] MEDS: ASPIRIN 81MG CHEW TAB PO SCH (07:48)
[2021-05-29] MEDS: LISINOPRIL 40 MG TABLET PO SCH (07:49)
[2021-05-29] MEDS: CLONIDINE HCL 0.1 MG TABLET PO SCH (07:49)
[2021-05-29] MEDS: SEVELAMER HCL 800 MG TABLET PO SCH ×3 (07:49→16:33)
[2021-05-29] MEDS: CLOPIDOGREL 75MG TAB PO SCH (07:49)
[2021-05-29] MEDS: NIFEDIPINE ER 30 MG TAB PO SCH (07:49)
[2021-05-29] MEDS: HYDRALAZINE 25MG TABLET PO SCH ×3 (07:51→22:32)
[2021-05-29] MEDS: HEPARIN 5,000 UNIT VIAL SQ SCH ×3 (07:54→22:34)
[2021-05-29] MEDS ORDERED: METOPROLOL SUCCINATE 50 MG TAB.SR.24H PO SCH ×2 (09:00→09:30)
[2021-05-29] MEDS ORDERED: CLONIDINE HCL 0.1 MG TABLET PO SCH (09:00)
[2021-05-29] MEDS ORDERED: NIFEDIPINE ER 30 MG TAB PO SCH ×2 (09:00→09:30)
[2021-05-29] MEDS: ACETAMINOPHEN 325 MG TAB PO PRN (09:47)
[2021-05-29] MEDS: PHARMACY COMMUNICATION MISC SCH ×3 (11:45→23:45)
[2021-05-29] MEDS: MORPHINE 4 MG SYG IVP PRN (16:37)
[2021-05-29] MEDS ORDERED: 0.9% NACL 250ML 250 ML ONE (22:26)
[2021-05-29] MEDS: GABAPENTIN 300 MG CAPSULE PO SCH (22:31)
[2021-05-29] MEDS: AMITRIPTYLINE 25 MG TABLET PO SCH (22:31)
[2021-05-29] MEDS: ATORVASTATIN 40 MG TABLET PO SCH (22:31)
[2021-05-29] MEDS: AZITHROMYCIN 500MG+NS 250ML 250 ML IV SCH (23:21)
[2021-05-30] VITALS (19 sets, daily range): BP systolic 115–156; BP diastolic 47–63
[2021-05-30] MEDS: CLONIDINE HCL 0.1 MG TABLET PO SCH ×3 (00:08→23:30)
[2021-05-30 04:19] LABS: BASOPHILS % (AUTO) 0.9 % (0.0-5.0); EOSINOPHILS % (AUTO) 1.6 % (0.0-8.0); HEMATOCRIT 32.1 % (36-48); LYMPHOCYTES % (AUTO) 23.5 % (21.0-51.0); MEAN CORPUSCULAR HEMOGLOBIN 30.1 pg (27.0-33.0); MEAN CORPUSCULAR HGB CONC 31.5 g/dL (32.0-36.0); MEAN CORPUSCULAR VOLUME 95.5 fL (79-99); MONOCYTES % (AUTO) 12.5 % (3.0-13.0); NEUTROPHILS % (AUTO) 61.1 % (40.0-77.0); PLATELET COUNT (AUTO) 171 K/uL (130-400); RED BLOOD CELL COUNT(AUTO) 3.36 MIL/uL (4.00-5.50); RED CELL DISTRIBUTION WIDTH 15.9 % (11.0-15.5)
[2021-05-30 05:00] LABS: ALBUMIN 2.6 g/dL (3.5-5.0); BILIRUBIN,TOTAL 0.4 mg/dL (0.2-1.0); CREATININE 6.6 mg/dL (0.5-1.5); MAGNESIUM 2.2 mg/dL (1.80-2.40); PHOSPHORUS 8.2 mg/dL (2.5-4.9); POTASSIUM 4.7 mmol/L (3.5-5.1); TOTAL PROTEIN, SERUM 6.3 g/dL (6.0-8.3)
[2021-05-30] MEDS: SEVELAMER HCL 800 MG TABLET PO SCH ×3 (08:10→17:00)
[2021-05-30] MEDS: SENNOSIDES 8.6 MG TABLET PO SCH (08:11)
[2021-05-30] MEDS: DOCUSATE SODIUM 100 MG CAP PO SCH (08:11)
[2021-05-30] MEDS: LISINOPRIL 40 MG TABLET PO SCH (08:11)
[2021-05-30] MEDS: ASPIRIN 81MG CHEW TAB PO SCH (08:11)
[2021-05-30] MEDS: FAMOTIDINE 20MG VIAL IV SCH ×2 (08:12→20:29)
[2021-05-30] MEDS: NIFEDIPINE ER 30 MG TAB PO SCH (08:12)
[2021-05-30] MEDS: CLOPIDOGREL 75MG TAB PO SCH (08:12)
[2021-05-30] MEDS: METOPROLOL SUCCINATE 50 MG TAB.SR.24H PO SCH (08:12)
[2021-05-30] MEDS: POLYETHYLENE GLYCOL 3350 17 GM POWD.PACK PO SCH (08:13)
[2021-05-30] MEDS: HYDRALAZINE 25MG TABLET PO SCH ×3 (08:16→20:31)
[2021-05-30] MEDS: HEPARIN 5,000 UNIT VIAL SQ SCH ×3 (08:24→20:26)
[2021-05-30] MEDS: PHARMACY COMMUNICATION MISC SCH ×2 (11:45→23:45)
[2021-05-30] MEDS: ATORVASTATIN 40 MG TABLET PO SCH (20:30)
[2021-05-30] MEDS: AMITRIPTYLINE 25 MG TABLET PO SCH (20:30)
[2021-05-30] MEDS: GABAPENTIN 300 MG CAPSULE PO SCH (20:30)
[2021-05-30] MEDS: MORPHINE 4 MG SYG IVP PRN (23:17)
[2021-05-30] MEDS ORDERED: 0.9% NACL 250ML 250 ML ONE (23:20)
[2021-05-30] MEDS: AZITHROMYCIN 500MG+NS 250ML 250 ML IV SCH (23:21)
[2021-05-31] VITALS: BP 98/66
[2021-05-31 04:00] VITALS: BP 133/57
[2021-05-31 04:12] LABS: HEMATOCRIT 36.3 % (36-48); MEAN CORPUSCULAR HEMOGLOBIN 30.5 pg (27.0-33.0); MEAN CORPUSCULAR HGB CONC 31.1 g/dL (32.0-36.0); MEAN CORPUSCULAR VOLUME 98.1 fL (79-99); RED BLOOD CELL COUNT(AUTO) 3.7 MIL/uL (4.00-5.50); RED CELL DISTRIBUTION WIDTH 15.6 % (11.0-15.5); WHITE BLOOD COUNT (AUTO) 7.8 K/uL (4.8-10.8)
[2021-05-31 04:28] LABS: ALBUMIN 2.8 g/dL (3.5-5.0); BILIRUBIN,TOTAL 0.5 mg/dL (0.2-1.0); CREATININE 4.5 mg/dL (0.5-1.5); MAGNESIUM 2.2 mg/dL (1.80-2.40); PHOSPHORUS 6.2 mg/dL (2.5-4.9); POTASSIUM 4.3 mmol/L (3.5-5.1); TOTAL PROTEIN, SERUM 6.8 g/dL (6.0-8.3)
[2021-05-31] MEDS: PHARMACY COMMUNICATION MISC SCH ×2 (05:45→23:45)
[2021-05-31 08:12] VITALS: BP 162/70
[2021-05-31] MEDS: FAMOTIDINE 20MG VIAL IV SCH ×2 (08:37→21:12)
[2021-05-31] MEDS: HEPARIN 5,000 UNIT VIAL SQ SCH ×3 (08:38→21:12)
[2021-05-31] MEDS: NIFEDIPINE ER 30 MG TAB PO SCH (08:40)
[2021-05-31] MEDS: METOPROLOL SUCCINATE 50 MG TAB.SR.24H PO SCH (08:40)
[2021-05-31] MEDS: ASPIRIN 81MG CHEW TAB PO SCH (08:41)
[2021-05-31] MEDS: DOCUSATE SODIUM 100 MG CAP PO SCH (08:41)
[2021-05-31] MEDS: HYDRALAZINE 25MG TABLET PO SCH ×3 (08:41→21:15)
[2021-05-31] MEDS: SEVELAMER HCL 800 MG TABLET PO SCH ×3 (08:41→16:53)
[2021-05-31] MEDS: SENNOSIDES 8.6 MG TABLET PO SCH (08:41)
[2021-05-31] MEDS: CLONIDINE HCL 0.1 MG TABLET PO SCH (08:42)
[2021-05-31] MEDS: LISINOPRIL 40 MG TABLET PO SCH (08:43)
[2021-05-31] MEDS: CLOPIDOGREL 75MG TAB PO SCH (08:43)
[2021-05-31] MEDS: POLYETHYLENE GLYCOL 3350 17 GM POWD.PACK PO SCH ×2 (08:43→09:00)
[2021-05-31] MEDS ORDERED: GLUCAGON 1MG KIT 1 MG ML IM PRN (10:00)
[2021-05-31] MEDS ORDERED: DEXTROSE 50%-WATER 50 ML DISP.SYRIN IV PRN (10:00)
[2021-05-31] MEDS: MORPHINE 4 MG SYG IVP PRN ×2 (11:10→17:41)
[2021-05-31 11:20] VITALS: BP 159/75
[2021-05-31] MEDS: INSULIN HUMULIN R 100 UNIT/ML 3ML SQ SCH ×3 (11:30→21:50)
[2021-05-31] MEDS ORDERED: ISOSORBIDE MONO 30MG SR TAB PO SCH (13:50)
[2021-05-31 16:13] VITALS: BP 140/66
[2021-05-31 20:00] VITALS: BP 133/55
[2021-05-31] MEDS: AMITRIPTYLINE 25 MG TABLET PO SCH (21:13)
[2021-05-31] MEDS: GABAPENTIN 300 MG CAPSULE PO SCH (21:13)
[2021-05-31] MEDS: ATORVASTATIN 40 MG TABLET PO SCH (21:13)
[2021-06-01] VITALS (7 sets, daily range): BP systolic 90–141; BP diastolic 40–57
[2021-06-01] MEDS: AZITHROMYCIN 500MG+NS 250ML 250 ML IV SCH (00:14)
[2021-06-01] MEDS: CLONIDINE HCL 0.1 MG TABLET PO SCH ×3 (01:25→21:21)
[2021-06-01 02:26] LABS: HEPATITIS B SURFACE ANTIGEN Non-Reactive (Negative)
[2021-06-01] MEDS: ONDANSETRON 4MG INJ IVP PRN (03:24)
[2021-06-01 04:40] LABS: HEMATOCRIT 29.8 % (36-48); MEAN CORPUSCULAR HEMOGLOBIN 31.1 pg (27.0-33.0); MEAN CORPUSCULAR HGB CONC 31.9 g/dL (32.0-36.0); MEAN CORPUSCULAR VOLUME 97.7 fL (79-99); RED BLOOD CELL COUNT(AUTO) 3.05 MIL/uL (4.00-5.50); RED CELL DISTRIBUTION WIDTH 15.7 % (11.0-15.5); WHITE BLOOD COUNT (AUTO) 9.5 K/uL (4.8-10.8)
[2021-06-01 04:53] LABS: CREATININE 6.1 mg/dL (0.5-1.5); MAGNESIUM 2.5 mg/dL (1.80-2.40); PHOSPHORUS 7.5 mg/dL (2.5-4.9); POTASSIUM 4.8 mmol/L (3.5-5.1)
[2021-06-01] MEDS: INSULIN HUMULIN R 100 UNIT/ML 3ML SQ SCH ×4 (05:39→21:00)
[2021-06-01] MEDS: SEVELAMER HCL 800 MG TABLET PO SCH ×3 (07:43→16:31)
[2021-06-01] MEDS: SENNOSIDES 8.6 MG TABLET PO SCH (07:43)
[2021-06-01] MEDS: ASPIRIN 81MG CHEW TAB PO SCH (07:44)
[2021-06-01] MEDS: FAMOTIDINE 20MG VIAL IV SCH ×2 (07:44→21:21)
[2021-06-01] MEDS: DOCUSATE SODIUM 100 MG CAP PO SCH (07:45)
[2021-06-01] MEDS: CLOPIDOGREL 75MG TAB PO SCH (07:45)
[2021-06-01] MEDS: HYDRALAZINE 25MG TABLET PO SCH ×3 (09:00→21:21)
[2021-06-01] MEDS: NIFEDIPINE ER 30 MG TAB PO SCH (09:00)
[2021-06-01] MEDS: LISINOPRIL 40 MG TABLET PO SCH (09:00)
[2021-06-01] MEDS: HEPARIN 5,000 UNIT VIAL SQ SCH ×3 (10:17→21:23)
[2021-06-01] MEDS: PHARMACY COMMUNICATION MISC SCH ×2 (11:45→17:45)
[2021-06-01] MEDS: METOPROLOL SUCCINATE 50 MG TAB.SR.24H PO SCH (14:18)
[2021-06-01] MEDS: ATORVASTATIN 40 MG TABLET PO SCH (21:20)
[2021-06-01] MEDS: AMITRIPTYLINE 25 MG TABLET PO SCH (21:20)
[2021-06-01] MEDS: GABAPENTIN 300 MG CAPSULE PO SCH (21:22)
[2021-06-02] VITALS (18 sets, daily range): BP systolic 113–165; BP diastolic 50–73
[2021-06-02 04:44] LABS: HEMATOCRIT 30.9 % (36-48); MEAN CORPUSCULAR HEMOGLOBIN 30.1 pg (27.0-33.0); MEAN CORPUSCULAR HGB CONC 31.4 g/dL (32.0-36.0); RED BLOOD CELL COUNT(AUTO) 3.22 MIL/uL (4.00-5.50); RED CELL DISTRIBUTION WIDTH 15.9 % (11.0-15.5); WHITE BLOOD COUNT (AUTO) 7.3 K/uL (4.8-10.8)
[2021-06-02 05:11] LABS: CREATININE 7.7 mg/dL (0.5-1.5); MAGNESIUM 2.6 mg/dL (1.80-2.40); POTASSIUM 5.6 mmol/L (3.5-5.1)
[2021-06-02] MEDS: INSULIN HUMULIN R 100 UNIT/ML 3ML SQ SCH ×3 (07:16→16:30)
[2021-06-02] MEDS: SEVELAMER HCL 800 MG TABLET PO SCH ×3 (08:54→17:00)
[2021-06-02] MEDS: METOPROLOL SUCCINATE 50 MG TAB.SR.24H PO SCH (09:00)
[2021-06-02] MEDS: NIFEDIPINE ER 30 MG TAB PO SCH (09:00)
[2021-06-02] MEDS: HEPARIN 5,000 UNIT VIAL SQ SCH ×2 (09:00→14:00)
[2021-06-02] MEDS: CLONIDINE HCL 0.1 MG TABLET PO SCH (09:00)
[2021-06-02] MEDS: LISINOPRIL 40 MG TABLET PO SCH (09:00)
[2021-06-02] MEDS: CLOPIDOGREL 75MG TAB PO SCH (10:10)
[2021-06-02] MEDS: SENNOSIDES 8.6 MG TABLET PO SCH (10:10)
[2021-06-02] MEDS: DOCUSATE SODIUM 100 MG CAP PO SCH (10:10)
[2021-06-02] MEDS: ASPIRIN 81MG CHEW TAB PO SCH (10:10)
[2021-06-02] MEDS: FAMOTIDINE 20MG VIAL IV SCH (10:11)
[2021-06-02] MEDS: ACETAMINOPHEN 325 MG TAB PO PRN (10:48)
[2021-06-02] MEDS: HYDRALAZINE 25MG TABLET PO SCH (14:00)
== END 2021-06-02 18:10 | disposition home or self-care (01) | DRG 193 ==
LOC: EDH 18:11 → EDHIP 23:22 → OBSVTOIN 23:22 → 2CH 05-28 03:30 → 4BH 05-29 12:40
PROVIDERS: ADMIT Internal Medicine Pulmonary Disease; ATTEND Internal Medicine Pulmonary Disease
PROC: 5A1D70Z Performance of Urinary Filtration, Intermittent, Less than 6 Hours Per Day (ICD-10-PCS; principal; 2021-05-29)
PROC: 5A1D70Z Performance of Urinary Filtration, Intermittent, Less than 6 Hours Per Day (ICD-10-PCS; 2021-05-30)
PROC: 5A1D70Z Performance of Urinary Filtration, Intermittent, Less than 6 Hours Per Day (ICD-10-PCS; 2021-06-02)
DX: J18.9 Pneumonia, unspecified organism (principal); N18.6 End stage renal disease; I50.33 Acute on chronic diastolic (congestive) heart failure; I20.0 Unstable angina; I13.2 Hypertensive heart and chronic kidney disease with heart failure and with stage 5 chronic kidney disease, or end stage renal disease; I16.0 Hypertensive urgency; E11.65 Type 2 diabetes mellitus with hyperglycemia; D64.9 Anemia, unspecified; E11.22 Type 2 diabetes mellitus with diabetic chronic kidney disease; E11.319 Type 2 diabetes mellitus with unspecified diabetic retinopathy without macular edema; E11.51 Type 2 diabetes mellitus with diabetic peripheral angiopathy without gangrene; E78.00 Pure hypercholesterolemia, unspecified; E78.5 Hyperlipidemia, unspecified; F19.90 Other psychoactive substance use, unspecified, uncomplicated; H54.7 Unspecified visual loss; Z99.2 Dependence on renal dialysis; I25.2 Old myocardial infarction; Z79.82 Long term (current) use of aspirin; Z79.899 Other long term (current) drug therapy; Z82.49 Family history of ischemic heart disease and other diseases of the circulatory system; Z83.3 Family history of diabetes mellitus
CPT/HCPCS: 36415; 70450; 71045; 80048; 80053; 80061; 82948; 83036; 83735; 83880; 84100; 84145; 84484; 85025; 85027; 85378; 85610; 85730; 86704; 86706; 87340; 90935; 93005; 94760; G0378; J0360; J0456; J0696; J1644; J1815; J2270; J2405; J3490; J7050

== ENCOUNTER 2021-06-04 11:12 | Emergency (ER) | payer BC ==
[~2021-06-04] VITALS: Ht 152.4 cm; Wt 49.9 kg
[~2021-06-04 11:12] MED LIST changes: -LISI40TA9 PO
[2021-06-04 11:34] LABS: HEMATOCRIT 37.4 % (36-48); MEAN CORPUSCULAR HEMOGLOBIN 30.5 pg (27.0-33.0); MEAN CORPUSCULAR HGB CONC 31.8 g/dL (32.0-36.0); MEAN CORPUSCULAR VOLUME 95.9 fL (79-99); RED BLOOD CELL COUNT(AUTO) 3.9 MIL/uL (4.00-5.50); RED CELL DISTRIBUTION WIDTH 16.1 % (11.0-15.5); WHITE BLOOD COUNT (AUTO) 7.5 K/uL (4.8-10.8)
[2021-06-04 11:43] LABS: CREATININE 7.1 mg/dL (0.5-1.5)
[2021-06-04 11:46] LABS: POTASSIUM 5.5 mmol/L (3.5-5.1)
[2021-06-04 11:47] LABS: ALBUMIN 2.8 g/dL (3.5-5.0); BILIRUBIN,TOTAL 0.5 mg/dL (0.2-1.0); TOTAL PROTEIN, SERUM 6.8 g/dL (6.0-8.3)
[2021-06-04] MEDS ORDERED: MIDODRINE HCL 5 MG TABLET PO SCH (12:30)
[2021-06-04 13:01] VITALS: BP 136/58
== END 2021-06-04 13:31 | disposition home or self-care (01) ==
LOC: EDH 11:12
DX: I95.9 Hypotension, unspecified (principal); E11.22 Type 2 diabetes mellitus with diabetic chronic kidney disease; N18.6 End stage renal disease; Z20.822 Contact with and (suspected) exposure to COVID-19; Z99.2 Dependence on renal dialysis; Z88.0 Allergy status to penicillin; Z88.8 Allergy status to other drugs, medicaments and biological substances; Z88.6 Allergy status to analgesic agent; Z79.899 Other long term (current) drug therapy; Z98.890 Other specified postprocedural states
CPT/HCPCS: 36415; 71045; 80053; 82270; 82948; 83605; 84484; 85027; 87635; 87804 ×2; 93005; 99284; C9803

== ENCOUNTER 2021-09-30 18:04 | Inpatient (IN) | payer BC ==
[~2021-09-30] VITALS: Ht 149.9 cm; Wt 50.8 kg
[~2021-09-30 18:04] MED LIST changes: -CLON0.1T PO; +CLON0.1T2 PO; -NIFE-39 PO
[2021-09-30 20:34] LABS: BASOPHILS % (AUTO) 0.3 % (0.0-5.0); HEMATOCRIT 37.1 % (36-48); LYMPHOCYTES % (AUTO) 10.3 % (21.0-51.0); MEAN CORPUSCULAR HEMOGLOBIN 30.4 pg (27.0-33.0); MEAN CORPUSCULAR HGB CONC 32.3 g/dL (32.0-36.0); MEAN CORPUSCULAR VOLUME 93.9 fL (79-99); MONOCYTES % (AUTO) 11.4 % (3.0-13.0); NEUTROPHILS % (AUTO) 77.1 % (40.0-77.0); PLATELET COUNT (AUTO) 261 K/uL (130-400); RED BLOOD CELL COUNT(AUTO) 3.95 MIL/uL (4.00-5.50); RED CELL DISTRIBUTION WIDTH 18.1 % (11.0-15.5); WHITE BLOOD COUNT (AUTO) 6.9 K/uL (4.8-10.8)
[2021-09-30 20:47] LABS: CREATININE 6.5 mg/dL (0.5-1.5); POTASSIUM 4.5 mmol/L (3.5-5.1)
[2021-09-30 20:51] LABS: ALBUMIN 3.5 g/dL (3.5-5.0)
[2021-09-30] MEDS ORDERED: ONDANSETRON 4MG INJ ONE (23:14)
[2021-09-30] MEDS ORDERED: PROCHLORPERAZINE 10MG/2ML INJ ONE (23:23)
[2021-09-30] MEDS ORDERED: FAMOTIDINE 20MG VIAL IV ONE ×2 (23:26→23:30)
[2021-09-30] MEDS ORDERED: PROCHLORPERAZINE 10MG/2ML INJ IV ONE (23:30)
[2021-09-30] MEDS ORDERED: ONDANSETRON 4MG INJ IVP ONE (23:30)
[2021-10-01] VITALS (22 sets, daily range): BP systolic 98–197; BP diastolic 47–105
[2021-10-01] MEDS ORDERED: ACETAMINOPHEN 650 MG SUPPOSITORY RC PRN
[2021-10-01] MEDS ORDERED: ARTIFICAL TEARS SOL 15 ML OU PRN
[2021-10-01] MEDS ORDERED: LABETALOL 20MG SYG IV PRN
[2021-10-01] MEDS ORDERED: DOCUSATE SODIUM 100 MG CAP PO PRN
[2021-10-01] MEDS ORDERED: HYDRALAZINE 20MG/ML VIAL ONE (00:25)
[2021-10-01] MEDS ORDERED: LABETALOL 20MG SYG IV ONE (00:29)
[2021-10-01 00:51] LABS: ABG BASE EXCESS 5.1 mmol/L (-2.0-3.0); ABG HCO3 30.2 mmol/L (21.0-28.0); ABG PCO2 46 mmHg (32-45)
[2021-10-01 03:29] LABS: HEMATOCRIT 31.5 % (36-48); MEAN CORPUSCULAR HEMOGLOBIN 30.8 pg (27.0-33.0); MEAN CORPUSCULAR VOLUME 93.2 fL (79-99); PLATELET COUNT (AUTO) 233 K/uL (130-400); RED BLOOD CELL COUNT(AUTO) 3.38 MIL/uL (4.00-5.50); RED CELL DISTRIBUTION WIDTH 17.9 % (11.0-15.5); WHITE BLOOD COUNT (AUTO) 8.6 K/uL (4.8-10.8)
[2021-10-01 03:46] LABS: CREATININE 6.8 mg/dL (0.5-1.5); MAGNESIUM 2.7 mg/dL (1.80-2.40); POTASSIUM 4.4 mmol/L (3.5-5.1); THYROID STIMULATING HORMONE 1.29 uIU/mL (0.36-3.74)
[2021-10-01 03:51] LABS: INR 1.01 (0.85-1.15)
[2021-10-01 03:53] LABS: B-TYPE NATRIURETIC PEPTIDE > 5000 pg/mL (0-100)
[2021-10-01] MEDS: HYDRALAZINE 20MG/ML VIAL IV PRN ×2 (04:59→16:05)
[2021-10-01] MEDS: METRONIDAZOLE 500MG/100ML BAG 100 ML IVPB SCH ×3 (05:02→21:27)
[2021-10-01] MEDS: INSULIN HUMULIN R 100 UNIT/ML 3ML SQ SCH ×4 (06:02→21:00)
[2021-10-01] MEDS ORDERED: PANTOPRAZOLE 40 MG TAB DR PO SCH (09:00)
[2021-10-01] MEDS: LEVOFLOXACIN 750 MG/D5W 150 ML 150 ML IV SCH (09:03)
[2021-10-01] MEDS: ASPIRIN 81MG CHEW TAB PO SCH (09:03)
[2021-10-01] MEDS ORDERED: CLONIDINE HCL 0.1 MG TABLET PO PRN (12:00)
[2021-10-01] MEDS: SEVELAMER HCL 800 MG TABLET PO SCH ×2 (12:53→17:22)
[2021-10-01] MEDS: HYDRALAZINE 25MG TABLET PO SCH ×2 (14:00→21:26)
[2021-10-01] MEDS ORDERED: KETOROLAC 15MG/ML VIAL (15MG/ML) IV PRN (16:30)
[2021-10-01] MEDS: HYDROMORPHONE 1 MG INJ IVP PRN (17:22)
[2021-10-01] MEDS: ATORVASTATIN 40 MG TABLET PO SCH (21:26)
[2021-10-01] MEDS: PANTOPRAZOLE 40 MG TAB DR PO SCH (21:26)
[2021-10-01] MEDS: NITROGLYCERIN 1GM OINT 1 INCH/1GM TD SCH (21:35)
[2021-10-02] VITALS (8 sets, daily range): BP systolic 115–173; BP diastolic 50–83
[2021-10-02] MEDS: HYDROMORPHONE 1 MG INJ IVP PRN ×2 (00:08→10:39)
[2021-10-02 02:28] LABS: HEPATITIS B SURFACE ANTIGEN Non-Reactive (Nonreactive)
[2021-10-02] MEDS: METRONIDAZOLE 500MG/100ML BAG 100 ML IVPB SCH ×3 (04:31→20:43)
[2021-10-02] MEDS: NITROGLYCERIN 1GM OINT 1 INCH/1GM TD SCH ×3 (04:31→18:27)
[2021-10-02] MEDS ORDERED: CLON0.3T PO (04:34)
[2021-10-02] MEDS: INSULIN HUMULIN R 100 UNIT/ML 3ML SQ SCH ×4 (06:48→21:00)
[2021-10-02 07:00] LABS: BASOPHILS % (AUTO) 0.5 % (0.0-5.0); EOSINOPHILS % (AUTO) 0.3 % (0.0-8.0); HEMATOCRIT 36.7 % (36-48); LYMPHOCYTES % (AUTO) 7.7 % (21.0-51.0); MEAN CORPUSCULAR HEMOGLOBIN 30.5 pg (27.0-33.0); MEAN CORPUSCULAR HGB CONC 32.4 g/dL (32.0-36.0); MEAN CORPUSCULAR VOLUME 94.1 fL (79-99); MONOCYTES % (AUTO) 11.7 % (3.0-13.0); NEUTROPHILS % (AUTO) 79.4 % (40.0-77.0); NUCLEATED RED BLOOD CELLS 0.3 % (0.0-0.19); PLATELET COUNT (AUTO) 294 K/uL (130-400); RED CELL DISTRIBUTION WIDTH 17.9 % (11.0-15.5); WHITE BLOOD COUNT (AUTO) 11.8 K/uL (4.8-10.8)
[2021-10-02 07:10] LABS: CREATININE 4.4 mg/dL (0.5-1.5); POTASSIUM 3.6 mmol/L (3.5-5.1)
[2021-10-02] MEDS: SEVELAMER HCL 800 MG TABLET PO SCH ×3 (08:00→17:26)
[2021-10-02] MEDS: PANTOPRAZOLE 40 MG TAB DR PO SCH ×2 (08:01→20:42)
[2021-10-02] MEDS: ASPIRIN 81MG CHEW TAB PO SCH ×2 (08:01)
[2021-10-02] MEDS: CLOPIDOGREL 75MG TAB PO SCH (08:01)
[2021-10-02] MEDS: LEVOFLOXACIN 750 MG/D5W 150 ML 150 ML IV SCH (08:01)
[2021-10-02] MEDS: HYDRALAZINE 25MG TABLET PO SCH ×3 (08:04→20:42)
[2021-10-02] MEDS ORDERED: METOPROLOL SUCCINATE 50 MG TAB.SR.24H PO SCH (09:00)
[2021-10-02] MEDS ORDERED: METOPROLOL TARTRATE 50 MG TAB PO ONE (10:30)
[2021-10-02] MEDS: HEPARIN 5,000 UNIT VIAL SQ SCH ×2 (11:12→20:43)
[2021-10-02] MEDS ORDERED: RENAL DOSE IV PRN (17:00)
[2021-10-02] MEDS: ATORVASTATIN 40 MG TABLET PO SCH (20:41)
[2021-10-02] MEDS: HYDROMORPHONE 0.5 MG SYG (0.5MG/0.5ML) IVP PRN (20:45)
[2021-10-03] VITALS (21 sets, daily range): BP systolic 83–150; BP diastolic 46–75
[2021-10-03] MEDS: NITROGLYCERIN 1GM OINT 1 INCH/1GM TD SCH ×3 (03:22→18:10)
[2021-10-03 04:30] LABS: BASOPHILS % (AUTO) 0.6 % (0.0-5.0); EOSINOPHILS % (AUTO) 0.4 % (0.0-8.0); HEMATOCRIT 39.7 % (36-48); LYMPHOCYTES % (AUTO) 8.3 % (21.0-51.0); MEAN CORPUSCULAR HEMOGLOBIN 30.4 pg (27.0-33.0); MEAN CORPUSCULAR HGB CONC 32.5 g/dL (32.0-36.0); MEAN CORPUSCULAR VOLUME 93.6 fL (79-99); MONOCYTES % (AUTO) 12.2 % (3.0-13.0); NUCLEATED RED BLOOD CELLS 0.2 % (0.0-0.19); PLATELET COUNT (AUTO) 325 K/uL (130-400); RED BLOOD CELL COUNT(AUTO) 4.24 MIL/uL (4.00-5.50); RED CELL DISTRIBUTION WIDTH 18.1 % (11.0-15.5); WHITE BLOOD COUNT (AUTO) 9.3 K/uL (4.8-10.8)
[2021-10-03 04:37] LABS: CREATININE 5.7 mg/dL (0.5-1.5)
[2021-10-03] MEDS: METRONIDAZOLE 500MG/100ML BAG 100 ML IVPB SCH ×3 (07:16→23:10)
[2021-10-03] MEDS: INSULIN HUMULIN R 100 UNIT/ML 3ML SQ SCH ×4 (07:16→21:00)
[2021-10-03] MEDS: ASPIRIN 81MG CHEW TAB PO SCH ×2 (09:00→09:36)
[2021-10-03] MEDS: METOPROLOL SUCCINATE 50 MG TAB.SR.24H PO SCH (09:00)
[2021-10-03] MEDS: HYDRALAZINE 25MG TABLET PO SCH ×3 (09:00→20:43)
[2021-10-03] MEDS: PANTOPRAZOLE 40 MG TAB DR PO SCH ×2 (09:36→20:44)
[2021-10-03] MEDS: CLOPIDOGREL 75MG TAB PO SCH (09:36)
[2021-10-03] MEDS: LEVOFLOXACIN 750 MG/D5W 150 ML 150 ML IV SCH (09:36)
[2021-10-03] MEDS: SEVELAMER HCL 800 MG TABLET PO SCH ×3 (09:38→16:28)
[2021-10-03] MEDS: ACETAMINOPHEN 325 MG TAB PO PRN (09:41)
[2021-10-03] MEDS: HEPARIN 5,000 UNIT VIAL SQ SCH ×2 (10:30→20:44)
[2021-10-03] MEDS: SUCRALFATE 1 GM TABLET PO SCH ×3 (11:58→20:43)
[2021-10-03] MEDS: DRONABINOL 2.5 MG CAP PO SCH ×2 (11:59→20:44)
[2021-10-03] MEDS ORDERED: DOXYCYCLINE 100MG+NS 250ML IV SCH (17:00)
[2021-10-03] MEDS: DOXYCYCLINE 100MG+NS 250ML IV SCH (20:44)
[2021-10-03] MEDS: ATORVASTATIN 40 MG TABLET PO SCH (20:44)
[2021-10-04] MEDS: HYDROMORPHONE 0.5 MG SYG (0.5MG/0.5ML) IVP PRN ×2 (00:23→05:03)
[2021-10-04] MEDS: NITROGLYCERIN 1GM OINT 1 INCH/1GM TD SCH ×3 (04:00→18:21)
[2021-10-04 04:30] VITALS: BP 129/63
[2021-10-04] MEDS: METRONIDAZOLE 500MG/100ML BAG 100 ML IVPB SCH ×3 (05:02→21:08)
[2021-10-04] MEDS: INSULIN HUMULIN R 100 UNIT/ML 3ML SQ SCH ×4 (05:58→20:58)
[2021-10-04] MEDS: SUCRALFATE 1 GM TABLET PO SCH ×4 (07:03→20:25)
[2021-10-04 07:59] LABS: HEMATOCRIT 37.5 % (36-48); MEAN CORPUSCULAR HEMOGLOBIN 30.8 pg (27.0-33.0); MEAN CORPUSCULAR HGB CONC 32.5 g/dL (32.0-36.0); MEAN CORPUSCULAR VOLUME 94.7 fL (79-99); NUCLEATED RED BLOOD CELLS 0.2 % (0.0-0.19); RED BLOOD CELL COUNT(AUTO) 3.96 MIL/uL (4.00-5.50); RED CELL DISTRIBUTION WIDTH 18.2 % (11.0-15.5); WHITE BLOOD COUNT (AUTO) 10.1 K/uL (4.8-10.8)
[2021-10-04 08:00] VITALS: BP 142/71
[2021-10-04 08:12] LABS: CREATININE 3.6 mg/dL (0.5-1.5); POTASSIUM 3.3 mmol/L (3.5-5.1)
[2021-10-04] MEDS: ASPIRIN 81MG CHEW TAB PO SCH ×2 (09:00→09:53)
[2021-10-04] MEDS: PANTOPRAZOLE 40 MG TAB DR PO SCH ×2 (09:52→20:24)
[2021-10-04] MEDS: DOXYCYCLINE 100MG+NS 250ML IV SCH (09:52)
[2021-10-04] MEDS: METOPROLOL SUCCINATE 50 MG TAB.SR.24H PO SCH (09:53)
[2021-10-04] MEDS: SEVELAMER HCL 800 MG TABLET PO SCH ×3 (09:53→16:46)
[2021-10-04] MEDS: LEVOFLOXACIN 750 MG/D5W 150 ML 150 ML IV SCH (09:54)
[2021-10-04] MEDS: HYDRALAZINE 25MG TABLET PO SCH ×3 (09:54→20:25)
[2021-10-04] MEDS: DRONABINOL 2.5 MG CAP PO SCH ×2 (10:12→20:24)
[2021-10-04] MEDS: CLOPIDOGREL 75MG TAB PO SCH (10:13)
[2021-10-04] MEDS: HEPARIN 5,000 UNIT VIAL SQ SCH ×2 (11:04→20:28)
[2021-10-04 11:34] VITALS: BP 184/82
[2021-10-04] MEDS: HYDROMORPHONE 1 MG INJ IVP PRN ×2 (11:49→18:21)
[2021-10-04 16:00] VITALS: BP 144/80
[2021-10-04 19:00] VITALS: BP 154/72
[2021-10-04] MEDS: ATORVASTATIN 40 MG TABLET PO SCH (20:24)
[2021-10-04 23:00] VITALS: BP 160/77
[2021-10-05] MEDS: NITROGLYCERIN 1GM OINT 1 INCH/1GM TD SCH ×3 (02:30→18:39)
[2021-10-05] MEDS: HYDROMORPHONE 1 MG INJ IVP PRN ×3 (02:30→17:29)
[2021-10-05 04:00] VITALS: BP 139/59
[2021-10-05 04:44] LABS: HEMATOCRIT 34.5 % (36-48); MEAN CORPUSCULAR HEMOGLOBIN 30.6 pg (27.0-33.0); MEAN CORPUSCULAR HGB CONC 32.8 g/dL (32.0-36.0); MEAN CORPUSCULAR VOLUME 93.5 fL (79-99); RED BLOOD CELL COUNT(AUTO) 3.69 MIL/uL (4.00-5.50); RED CELL DISTRIBUTION WIDTH 18.1 % (11.0-15.5); WHITE BLOOD COUNT (AUTO) 9.9 K/uL (4.8-10.8)
[2021-10-05 05:00] LABS: CREATININE 4.9 mg/dL (0.5-1.5); POTASSIUM 3.5 mmol/L (3.5-5.1)
[2021-10-05] MEDS: METRONIDAZOLE 500MG/100ML BAG 100 ML IVPB SCH ×3 (05:14→20:45)
[2021-10-05] MEDS: INSULIN HUMULIN R 100 UNIT/ML 3ML SQ SCH ×4 (06:55→20:40)
[2021-10-05] MEDS: SUCRALFATE 1 GM TABLET PO SCH ×4 (06:56→20:39)
[2021-10-05] MEDS ORDERED: PANT40TA55 PO (07:59)
[2021-10-05 08:00] VITALS: BP 154/72
[2021-10-05] MEDS: SEVELAMER HCL 800 MG TABLET PO SCH ×3 (08:00→17:00)
[2021-10-05] MEDS: LEVOFLOXACIN 750 MG/D5W 150 ML 150 ML IV SCH (08:10)
[2021-10-05] MEDS: PANTOPRAZOLE 40 MG TAB DR PO SCH ×2 (08:11→20:39)
[2021-10-05] MEDS: METOPROLOL SUCCINATE 50 MG TAB.SR.24H PO SCH (08:11)
[2021-10-05] MEDS: CLOPIDOGREL 75MG TAB PO SCH (08:11)
[2021-10-05] MEDS: HYDRALAZINE 25MG TABLET PO SCH ×3 (08:11→20:39)
[2021-10-05] MEDS: ASPIRIN 81MG CHEW TAB PO SCH ×2 (08:11)
[2021-10-05] MEDS: DRONABINOL 2.5 MG CAP PO SCH ×2 (08:11→20:39)
[2021-10-05] MEDS: HEPARIN 5,000 UNIT VIAL SQ SCH ×2 (10:43→21:02)
[2021-10-05 11:00] VITALS: BP 160/74
[2021-10-05 18:46] VITALS: BP 159/78
[2021-10-05 20:00] VITALS: BP 156/78
[2021-10-05] MEDS: ATORVASTATIN 40 MG TABLET PO SCH (20:38)
[2021-10-05] MEDS: ACETAMINOPHEN 325 MG TAB PO PRN (20:45)
[2021-10-06] VITALS (21 sets, daily range): BP systolic 90–165; BP diastolic 34–82
[2021-10-06] MEDS: HYDROMORPHONE 1 MG INJ IVP PRN ×3 (00:25→11:24)
[2021-10-06] MEDS: NITROGLYCERIN 1GM OINT 1 INCH/1GM TD SCH ×3 (02:47→18:57)
[2021-10-06 05:00] LABS: HEMATOCRIT 32.9 % (36-48); MEAN CORPUSCULAR HEMOGLOBIN 30.7 pg (27.0-33.0); MEAN CORPUSCULAR HGB CONC 33.1 g/dL (32.0-36.0); MEAN CORPUSCULAR VOLUME 92.7 fL (79-99); RED BLOOD CELL COUNT(AUTO) 3.55 MIL/uL (4.00-5.50); RED CELL DISTRIBUTION WIDTH 18.3 % (11.0-15.5); WHITE BLOOD COUNT (AUTO) 9.9 K/uL (4.8-10.8)
[2021-10-06 05:07] LABS: CREATININE 6.1 mg/dL (0.5-1.5); POTASSIUM 3.7 mmol/L (3.5-5.1)
[2021-10-06] MEDS: INSULIN HUMULIN R 100 UNIT/ML 3ML SQ SCH ×4 (05:37→21:00)
[2021-10-06] MEDS: METRONIDAZOLE 500MG/100ML BAG 100 ML IVPB SCH ×2 (05:41→14:09)
[2021-10-06] MEDS: SUCRALFATE 1 GM TABLET PO SCH ×4 (05:41→20:13)
[2021-10-06] MEDS: SEVELAMER HCL 800 MG TABLET PO SCH ×3 (08:58→17:12)
[2021-10-06] MEDS: LEVOFLOXACIN 750 MG/D5W 150 ML 150 ML IV SCH (08:58)
[2021-10-06] MEDS: METOPROLOL SUCCINATE 50 MG TAB.SR.24H PO SCH (08:59)
[2021-10-06] MEDS: HYDRALAZINE 25MG TABLET PO SCH ×3 (08:59→20:14)
[2021-10-06] MEDS: ASPIRIN 81MG CHEW TAB PO SCH ×2 (08:59)
[2021-10-06] MEDS: DRONABINOL 2.5 MG CAP PO SCH ×2 (08:59→20:16)
[2021-10-06] MEDS: CLOPIDOGREL 75MG TAB PO SCH (09:00)
[2021-10-06] MEDS: PANTOPRAZOLE 40 MG TAB DR PO SCH ×2 (09:00→20:13)
[2021-10-06] MEDS ORDERED: ONDANSETRON 4MG INJ IVP PRN (11:00)
[2021-10-06] MEDS: HEPARIN 5,000 UNIT VIAL SQ SCH ×2 (11:02→22:30)
[2021-10-06] MEDS: ACETAMINOPHEN 325 MG TAB PO PRN (20:14)
[2021-10-06] MEDS: ATORVASTATIN 40 MG TABLET PO SCH (20:14)
[2021-10-07] MEDS: NITROGLYCERIN 1GM OINT 1 INCH/1GM TD SCH ×3 (02:57→16:37)
[2021-10-07] MEDS ORDERED: HYDROMORPHONE 1 MG INJ IVP ONE (03:00)
[2021-10-07 03:53] VITALS: BP 99/45
[2021-10-07 04:38] LABS: BASOPHILS % (AUTO) 0.3 % (0.0-5.0); EOSINOPHILS % (AUTO) 0.6 % (0.0-8.0); HEMATOCRIT 34.3 % (36-48); LYMPHOCYTES % (AUTO) 12.1 % (21.0-51.0); MEAN CORPUSCULAR HEMOGLOBIN 30.4 pg (27.0-33.0); MEAN CORPUSCULAR HGB CONC 32.1 g/dL (32.0-36.0); MEAN CORPUSCULAR VOLUME 94.8 fL (79-99); MONOCYTES % (AUTO) 10.7 % (3.0-13.0); NEUTROPHILS % (AUTO) 75.9 % (40.0-77.0); PLATELET COUNT (AUTO) 264 K/uL (130-400); RED BLOOD CELL COUNT(AUTO) 3.62 MIL/uL (4.00-5.50); RED CELL DISTRIBUTION WIDTH 18.3 % (11.0-15.5); WHITE BLOOD COUNT (AUTO) 9.3 K/uL (4.8-10.8)
[2021-10-07 05:09] LABS: ALBUMIN 2.6 g/dL (3.5-5.0); CREATININE 4.3 mg/dL (0.5-1.5); POTASSIUM 3.8 mmol/L (3.5-5.1); TOTAL PROTEIN, SERUM 6.2 g/dL (6.0-8.3)
[2021-10-07] MEDS: SUCRALFATE 1 GM TABLET PO SCH ×3 (05:22→16:35)
[2021-10-07] MEDS: INSULIN HUMULIN R 100 UNIT/ML 3ML SQ SCH ×3 (05:22→16:36)
[2021-10-07 06:43] VITALS: BP 132/62
[2021-10-07] MEDS: SEVELAMER HCL 800 MG TABLET PO SCH ×3 (08:00→16:35)
[2021-10-07] MEDS: ASPIRIN 81MG CHEW TAB PO SCH ×2 (09:00→13:06)
[2021-10-07] MEDS: HYDRALAZINE 25MG TABLET PO SCH ×2 (09:00→14:03)
[2021-10-07] MEDS ORDERED: DIATR MEGLU/DIATRIZOATE SODIUM 30 ML BOTTLE ONE ×2 (10:45→10:48)
[2021-10-07 12:45] VITALS: BP 168/102
[2021-10-07] MEDS: PANTOPRAZOLE 40 MG TAB DR PO SCH (13:04)
[2021-10-07] MEDS: DRONABINOL 2.5 MG CAP PO SCH (13:04)
[2021-10-07] MEDS: METOPROLOL SUCCINATE 50 MG TAB.SR.24H PO SCH (13:04)
[2021-10-07] MEDS: CLOPIDOGREL 75MG TAB PO SCH (13:05)
[2021-10-07] MEDS: HEPARIN 5,000 UNIT VIAL SQ SCH (13:10)
[2021-10-07 16:10] VITALS: BP 168/102
[2021-10-07] MEDS ORDERED: METO50TA9 PO (18:09)
[2021-10-07 18:21] VITALS: BP 104/50
== END 2021-10-07 20:11 | disposition home or self-care (01) | DRG 177 ==
LOC: EDH 18:04 → OBSVTOIN 23:39 → EDHIP 23:39 → 2AH 10-01 02:42
PROVIDERS: ADMIT Internal Medicine Critical Care Medicine; ATTEND Internal Medicine Critical Care Medicine
PROC: 5A1D70Z Performance of Urinary Filtration, Intermittent, Less than 6 Hours Per Day (ICD-10-PCS; principal; 2021-10-01)
PROC: 5A1D70Z Performance of Urinary Filtration, Intermittent, Less than 6 Hours Per Day (ICD-10-PCS; 2021-10-03)
PROC: 5A1D70Z Performance of Urinary Filtration, Intermittent, Less than 6 Hours Per Day (ICD-10-PCS; 2021-10-06)
DX: U07.1 COVID-19 (principal); I21.4 Non-ST elevation (NSTEMI) myocardial infarction; J12.82 Pneumonia due to coronavirus disease 2019; N18.6 End stage renal disease; Z16.24 Resistance to multiple antibiotics; I50.42 Chronic combined systolic (congestive) and diastolic (congestive) heart failure; I13.2 Hypertensive heart and chronic kidney disease with heart failure and with stage 5 chronic kidney disease, or end stage renal disease; E11.22 Type 2 diabetes mellitus with diabetic chronic kidney disease; E11.51 Type 2 diabetes mellitus with diabetic peripheral angiopathy without gangrene; E87.6 Hypokalemia; E11.43 Type 2 diabetes mellitus with diabetic autonomic (poly)neuropathy; K31.84 Gastroparesis; E78.5 Hyperlipidemia, unspecified; E66.9 Obesity, unspecified; I16.0 Hypertensive urgency; I25.10 Atherosclerotic heart disease of native coronary artery without angina pectoris; Z89.511 Acquired absence of right leg below knee; Z91.19 Patient's noncompliance with other medical treatment and regimen; I25.2 Old myocardial infarction; Z99.2 Dependence on renal dialysis; Z98.891 History of uterine scar from previous surgery; Z88.0 Allergy status to penicillin; Z83.3 Family history of diabetes mellitus; Z68.22 Body mass index [BMI] 22.0-22.9, adult
CPT/HCPCS: 36415; 36600; 71045; 74176; 74240; 78264; 80048; 80053; 82270; 82550; 82803; 82948; 83605; 83690; 83735; 83874; 83880; 84100; 84443; 84484; 85025; 85027; 85378; 85610; 86140; 86704; 86706; 87040; 87077; 87186; 87338; 87340; 87426; 87635; 90935; 93005; 93306; 93356; A9541; C9803; G0378; J0360; J0780; J1170; J1644; J1815; J1956; J2405; J3490; Q0167; Q9963

== ENCOUNTER 2022-02-05 19:52 | Emergency (ER) | payer BC ==
[~2022-02-05 19:52] MED LIST changes: +CLON0.3T PO; +PANT40TA55 PO
[2022-02-05] MEDS ORDERED: EPINEPHRINE 1MG/10ML(1:10,000) 0.1 MG/ML SYG IVP ONE (19:53)
[2022-02-05] MEDS ORDERED: SODIUM BICARB 8.4% 50ML SYRINGE IVP ONE (19:53)
[2022-02-05] MEDS ORDERED: CACL 1GM SYG IVP ONE (19:53)
== END 2022-02-05 21:50 ==
LOC: EDH 19:52
DX: I46.9 Cardiac arrest, cause unspecified (principal); E11.22 Type 2 diabetes mellitus with diabetic chronic kidney disease; N18.6 End stage renal disease; Z79.82 Long term (current) use of aspirin; Z79.899 Other long term (current) drug therapy; Z88.0 Allergy status to penicillin; Z88.5 Allergy status to narcotic agent; Z88.8 Allergy status to other drugs, medicaments and biological substances; Z99.2 Dependence on renal dialysis
CPT/HCPCS: 99285; 92950; J0171; J3490 ×2; 96374; 96375